=== PATIENT | female | born 1965 | race Caucasian/White ===

== ENCOUNTER 2017-02-18 16:37 | Emergency (ER) | payer OTHER ==
[2017-02-18] MEDS ORDERED: SODIUM CHLORIDE 0.9% 1,000 ML IV ONE (17:29)
--- NOTE | 2017-02-18 17:37 | ED ---
Nausea/Vomiting/Diarrhea HPI - General Chief complaint: Nausea/Vomiting/Diarrhea Stated complaint: Vomiting - [facility] Time Seen by Provider: 02/18/17 17:10 Source: patient, RN notes reviewed Mode of arrival: wheelchair Limitations: no limitations - History of Present Illness Initial comments: Patient is a 52-year-old female presents to the emergency room for evaluation of cyclic vomiting. Patient states she has a history of cyclic vomiting. Patient states during her last flareup she was admitted here in July. Patient states that she also has chronic back pain. Patient states she's on [place] for chronic back pain. Patient states unable to take a [place] due to vomiting. Patient states vomiting began around 2 AM this morning. Patient states her daughter took her to [facility]. Patient states that she was seen at their emergency room at [facility] and they gave her Reglan, Valium, Benadryl , morphine, Toradol, Phenergan with no relief of symptoms. Patient states that she was then admitted. Patient states that they refused to give her Dilaudid so she left and came here. Patient states Dilaudid is the only thing that helps with her nausea, because it controls her chronic back pain the most. Patient denies abdominal pain. Patient states she was diagnosed with cyclic vomiting about a year ago by Dr. Segura. Patient denies history of abdominal surgeries besides tubal ligation. Patient states she had a few episodes of diarrhea today. Patient denies recent travel outside the country. Patient denies taking antibiotics recently. Patient denies fevers or chills. Patient denies new foods. Patient denies chest pain shortness of breath. Patient states the vomiting is causing her back pain to feel worse. - Related Data Home Medications Medication Instructions Recorded Confirmed Amitriptyline HCl 25 mg PO HS 01/10/15 02/18/17 HYDROcodone/APAP 10-325MG [[place] 1 tab PO QID 01/10/15 02/18/17 10-325] ALPRAZolam 0.25 mg PO TID PRN 01/11/15 02/18/17 Lurasidone HCl [Latuda] 60 mg PO DAILY 02/18/17 02/18/17 Allergies Allergy/AdvReac Type Severity Reaction Status Date / Time ondansetron AdvReac Nausea & Verified 02/18/17 17:41 [From Zofran (as Vomiting hydrochloride)] Review of Systems ROS Statement: Those systems with pertinent positive or pertinent negative responses have been documented in the HPI. ROS Other: All systems not noted in ROS Statement are negative. Past Medical History Past Medical History: GERD/Reflux Additional Past Medical History / Comment(s): cyclic vomiting syndrome-HAS'NT BEEN ABLE TO TAKE ANY OF HER MEDS FOR PAST 5 DAYS, KIDNEY STONE, HIATAL HERNIA, MIGRAINES, SCOLIOSIS,COMPRESSED VERTEBRA/BACK PAIN. History of Any Multi-Drug Resistant Organisms: None Reported Past Surgical History: Tubal Ligation Additional Past Surgical History / Comment(s): BENIGN bone tumor removed lt leg Past Anesthesia/Blood Transfusion Reactions: No Reported Reaction Past Psychological History: Anxiety, Depression Smoking Status: Never smoker Past Alcohol Use History: None Reported Past Drug Use History: Marijuana - Past Family History Mother Family Medical History: Cancer Additional Family Medical History / Comment(s): lymphoma Father Family Medical History: Coronary Artery Disease (CAD), Myocardial Infarction ([place] ) General Exam - General Exam Comments Initial Comments: Laying in exam room, no distress. Limitations: no limitations General appearance: alert, in no apparent distress Head exam: Present: atraumatic, normocephalic, normal inspection Eye exam: Present: normal appearance ENT exam: Present: normal exam Neck exam: Present: normal inspection Respiratory exam: Present: normal lung sounds bilaterally. Absent: respiratory distress Cardiovascular Exam: Present: regular rate, normal rhythm, normal heart sounds GI/Abdominal exam: Present: soft, normal bowel sounds. Absent: distended, tenderness, guarding, rebound, rigid Extremities exam: Present: normal inspection Back exam: Present: normal inspection Neurological exam: Present: alert, oriented X3, CN II-XII intact, normal gait Psychiatric exam: Present: normal affect, normal mood Skin exam: Present: warm, dry, intact, normal color. Absent: rash Course Vital Signs 02/18/17 02/18/17 16:43 18:53 Temperature 98.2 F 98.3 F Pulse Rate 80 102 H Respiratory 20 18 Rate Blood Pressure 178/84 117/61 O2 Sat by Pulse 99 97 Oximetry Medical Decision Making - Medical Decision Making Patient is a 52-year-old female presents emergency room for evaluation of exacerbation of cyclic vomiting. Patient was at [facility] earlier today and came directly here because she's not given Dilaudid. They spoke to on-call physician Dr. Ludwig who accepted admission. He recommended ordering IV Phenergan, Toradol and scopolamine patch. Patient states that those medications did not work for her so she left AGAINST MEDICAL ADVICE. Patient's labs did show improvement from labs compared to [facility] earlier today. Patient was given Dilaudid and states she is feeling much better. Patient is now sleeping in the room. I discussed case Dr. Hernandez. Dr. Hernandez discussed case with Dr. Ludwig who did not want to give Dilaudid and stated he would agree to Phenergan, Toradol and scopolamine patch. I did discuss this with patient. Patient states she is feeling better and would like to be discharged home. Return parameters discussed. - Lab Data Result diagrams: 02/18/17 17:05 02/18/17 17:05 Lab Results 02/18/17 02/18/17 02/18/17 Range/Units 17:05 17:05 17:05 WBC 11.9 H (3.8-10.6) k/uL RBC 4.71 (3.80-5.40) m/uL Hgb 12.8 (11.4-16.0) gm/dL Hct 38.6 (34.0-46.0) % MCV 81.9 (80.0-100.0) fL MCH 27.2 (25.0-35.0) pg MCHC 33.2 (31.0-37.0) g/dL RDW 13.9 (11.5-15.5) % Plt Count 301 (150-450) k/uL Neutrophils % 88 % Lymphocytes % 7 % Monocytes % 3 % Eosinophils % 0 % Basophils % 0 % Neutrophils # 10.5 H (1.3-7.7) k/uL Lymphocytes # 0.9 L (1.0-4.8) k/uL Monocytes # 0.4 (0-1.0) k/uL Eosinophils # 0.0 (0-0.7) k/uL Basophils # 0.0 (0-0.2) k/uL Sodium 140 (137-145) mmol/L Potassium 4.0 (3.5-5.1) mmol/L Chloride 107 (98-107) mmol/L Carbon Dioxide 20 L (22-30) mmol/L Anion Gap 13 mmol/L BUN 13 (7-17) mg/dL Creatinine 0.54 (0.52-1.04) mg/dL Est GFR (MDRD) Af Amer >60 (>60 ml/min/1.73 sqM) Est GFR (MDRD) Non-Af >60 (>60 ml/min/1.73 sqM) Glucose 134 H (74-99) mg/dL Calcium 8.9 (8.4-10.2) mg/dL Magnesium 1.7 (1.6-2.3) mg/dL Total Bilirubin 0.6 (0.2-1.3) mg/dL AST 17 (14-36) U/L ALT 26 (9-52) U/L Alkaline Phosphatase 101 (38-126) U/L Total Protein 8.0 (6.3-8.2) g/dL Albumin 4.3 (3.5-5.0) g/dL Amylase 51 (30-110) U/L Lipase 82 (23-300) U/L Disposition Clinical Impression: Cyclic vomiting syndrome, Chronic back pain Disposition: HOME SELF-CARE Instructions: Acute Nausea and Vomiting (ED) Additional Instructions: Continue with at home medications. Please follow up with primary care provider in 1-2 days. If any new symptom arises or symptoms worsen, return to ER as soon as possible. Referrals: Leo Kirby DO [Primary Care Provider] - 1-2 days Time of Disposition: 18:43
[2017-02-18 17:47] LABS: Basophils % (A) 0 %; CH 27.5; CHCM 33.7; Eosinophils % (A) 0 %; HCT 38.6 % (34.0-46.0); HDW 2.59; HGB 12.8 gm/dL (11.4-16.0); Luc # (Auto) 0.13; Luc % (Auto) 1; Lymphocytes # (A) 0.9 k/uL (1.0-4.8); Lymphocytes % (A) 7 %; MCH 27.2 pg (25.0-35.0); MCHC 33.2 g/dL (31.0-37.0); MCV 81.9 fL (80.0-100.0); Mean Platelet Volume 7.3; Monocytes # (A) 0.4 k/uL (0-1.0); Monocytes % (A) 3 %; Neutrophils # (A) 10.5 k/uL (1.3-7.7); Neutrophils % (A) 88 %; RBC 4.71 m/uL (3.80-5.40); RDW 13.9 % (11.5-15.5); WBC 11.9 k/uL (3.8-10.6); WBC (Perox) 11.96
[2017-02-18] MEDS ORDERED: METOCLOPRAMIDE 5 MG/ML 2 ML VIAL IVP STA (17:48)
[2017-02-18] MEDS ORDERED: HYDROmorphone 1 MG/ML 1 ML SYRINGE IVP STA (17:48)
[2017-02-18 17:56] LABS: ALT 26 U/L (9-52); AST 17 U/L (14-36); Alkaline Phosphatase 101 U/L (38-126); Amylase 51 U/L (30-110); Anion Gap 13 mmol/L; Blood Urea Nitrogen 13 mg/dL (7-17); Calcium 8.9 mg/dL (8.4-10.2); Carbon Dioxide 20 mmol/L (22-30); Chloride 107 mmol/L (98-107); Glucose 134 mg/dL (74-99); Non-African American GFR(MDRD) >60 (>60 ml/min/1.73 sqM); Sodium 140 mmol/L (137-145); Total Bilirubin 0.6 mg/dL (0.2-1.3)
[2017-02-18 18:53] VITALS: BP 117/61; PULSE 102; RESP 18; TEMP 98.3
== END 2017-02-18 18:54 | disposition home or self-care (01) ==
LOC: EC 16:37
DX: G43.A0 Cyclical vomiting, in migraine, not intractable (principal); G89.29 Other chronic pain; M54.9 Dorsalgia, unspecified; M41.9 Scoliosis, unspecified; F32.9 Major depressive disorder, single episode, unspecified; Z88.8 Allergy status to other drugs, medicaments and biological substances; Z79.891 Long term (current) use of opiate analgesic; Z79.899 Other long term (current) drug therapy
CPT/HCPCS: 99284; 96374; 96375; 96361; 36415; 80053; 82150; 83690; 83735; 85025; J2765; J1170

== ENCOUNTER 2017-02-20 10:42 | Observation (INO) | payer OTHER ==
[2017-02-20] MEDS ORDERED: SODIUM CHLORIDE 0.9% 1,000 ML IV STA (11:42)
[2017-02-20] MEDS ORDERED: HYDROmorphone 1 MG/ML 1 ML SYRINGE IVP STA (11:42)
[2017-02-20] MEDS ORDERED: METOCLOPRAMIDE 5 MG/ML 2 ML VIAL IVP STA ×3 (11:42→13:58)
[2017-02-20] MEDS ORDERED: FAMOTIDINE 20 MG/2 ML VIAL IV STA ×2 (11:49→13:58)
[2017-02-20 12:08] LABS: Basophils % (A) 0 %; CH 27.2; CHCM 33.6; Eosinophils % (A) 0 %; HDW 2.55; HGB 12.9 gm/dL (11.4-16.0); Luc # (Auto) 0.16; Luc % (Auto) 1; Lymphocytes # (A) 1.8 k/uL (1.0-4.8); Lymphocytes % (A) 16 %; MCH 27.7 pg (25.0-35.0); MCV 81.4 fL (80.0-100.0); Mean Platelet Volume 7.2; Monocytes # (A) 0.4 k/uL (0-1.0); Monocytes % (A) 4 %; Neutrophils # (A) 8.6 k/uL (1.3-7.7); Neutrophils % (A) 78 %; RBC 4.66 m/uL (3.80-5.40); RDW 14.1 % (11.5-15.5); WBC 10.9 k/uL (3.8-10.6); WBC (Perox) 11.03
--- NOTE | 2017-02-20 12:11 | XR ---
EXAMINATION TYPE: XR chest 2V DATE OF EXAM: 02/20/2017 12:04 PM COMPARISON: 08/05/2016 HISTORY: Shortness of breath TECHNIQUE: Frontal and lateral views of the chest are obtained. FINDINGS: Scattered senescent parenchymal changes noted. Hyperinflation compatible with COPD. No evidence for infiltrate. No evidence for atelectasis. Heart size is stable. Mediastinal structures are stable and grossly unremarkable. No evidence for hilar prominence. Degenerative changes dorsal spine. IMPRESSION: 1. No evidence for acute pulmonary disease.
[2017-02-20 12:12] LABS: ALT 30 U/L (9-52); AST 18 U/L (14-36); Alkaline Phosphatase 88 U/L (38-126); Amylase 52 U/L (30-110); Anion Gap 12 mmol/L; Blood Urea Nitrogen 18 mg/dL (7-17); Calcium 8.9 mg/dL (8.4-10.2); Carbon Dioxide 20 mmol/L (22-30); Chloride 108 mmol/L (98-107); Glucose 134 mg/dL (74-99); Non-African American GFR(MDRD) >60 (>60 ml/min/1.73 sqM); Potassium 3.5 mmol/L (3.5-5.1); Sodium 140 mmol/L (137-145); Total Bilirubin 0.7 mg/dL (0.2-1.3); Total Protein 7.6 g/dL (6.3-8.2)
--- NOTE | 2017-02-20 12:12 | XR ---
EXAMINATION TYPE: XR KUB DATE OF EXAM: 02/20/2017 12:04 PM COMPARISON: NONE HISTORY: Pain TECHNIQUE: Single supine KUB image of the abdomen is obtained FINDINGS: Small bowel demonstrates no evidence for dilatation or air fluid levels. Gas and fecal material is seen in non-distended colon. No convincing evidence for pneumoperitoneum. No unusual calcifications. The lung bases are clear. The osseous structures are intact. IMPRESSION: 1. Overall nonobstructive bowel gas pattern.
[2017-02-20] MEDS ORDERED: SODIUM CHLORIDE 0.9% 1,000 ML IV ONE ×2 (12:36→16:01)
--- NOTE | 2017-02-20 12:51 | ED ---
General Adult HPI - General Chief complaint: Nausea/Vomiting/Diarrhea Stated complaint: back pain, vomiting Time Seen by Provider: 02/20/17 11:29 Source: patient, family Mode of arrival: wheelchair Limitations: no limitations - History of Present Illness Initial comments: Intractable nausea and vomiting she does have a history of cyclical vomiting in the past she has seen a GI doctor Dr. Fulton and that she had a recent scope she denies any abdominal pain any chest pain or shortness of breath and no fever no chills she denies any emesis with the blood either she has no history of abdominal surgeries area she does have a back pain and she does smoke marijuana daily and she is aware that marijuana could cause cyclical vomiting. Her daughter demanded a Reglan and Dilaudid and stated that this combination is usually what works and lifts his to Ms. unremarkable otherwise - Related Data Home Medications Medication Instructions Recorded Confirmed Amitriptyline HCl 25 mg PO HS 01/10/15 02/20/17 HYDROcodone/APAP 10-325MG [[place] 1 tab PO QID 01/10/15 02/20/17 10-325] ALPRAZolam 0.25 mg PO TID PRN 01/11/15 02/20/17 Lurasidone HCl [Latuda] 60 mg PO DAILY 02/18/17 02/20/17 Allergies Allergy/AdvReac Type Severity Reaction Status Date / Time ondansetron AdvReac Nausea & Verified 02/20/17 11:12 [From Zofran (as Vomiting hydrochloride)] Review of Systems ROS Statement: Those systems with pertinent positive or pertinent negative responses have been documented in the HPI. ROS Other: All systems not noted in ROS Statement are negative. Past Medical History Past Medical History: GERD/Reflux Additional Past Medical History / Comment(s): cyclic vomiting syndrome-HAS'NT BEEN ABLE TO TAKE ANY OF HER MEDS FOR PAST 5 DAYS, KIDNEY STONE, HIATAL HERNIA, MIGRAINES, SCOLIOSIS,COMPRESSED VERTEBRA/BACK PAIN. History of Any Multi-Drug Resistant Organisms: None Reported Past Surgical History: Tubal Ligation Additional Past Surgical History / Comment(s): BENIGN bone tumor removed lt leg Past Anesthesia/Blood Transfusion Reactions: No Reported Reaction Past Psychological History: Anxiety, Depression Smoking Status: Never smoker Past Alcohol Use History: None Reported Past Drug Use History: Marijuana - Past Family History Mother Family Medical History: Cancer Additional Family Medical History / Comment(s): lymphoma Father Family Medical History: Coronary Artery Disease (CAD), Myocardial Infarction ([place] ) General Exam - General Exam Comments Initial Comments: General: The patient is awake and alert, in great distress because of the emesis Skin: Skin is warm and dry and no rashes or lesions are noted. Eye: Pupils are equal, round and reactive to light, extra-ocular movements are intact; there is normal conjunctiva bilaterally. Ears, nose, mouth and throat: There are moist mucous membranes and no oral lesions. Neck: The neck is supple, there is no tenderness or JVD. Cardiovascular: There is a regular rate and rhythm. No murmur, rub or gallop is appreciated. Respiratory: To auscultation bilateral, no wheezing no rhonchi no distress respiratory weinstein noticed Gastrointestinal: Soft, non-distended, non-tender abdomen without masses or organomegaly noted. There is no rebound or guarding present. Bowel sounds are unremarkable. No focal area of tenderness at all Back: There is no tenderness to palpation in the midline. There is no obvious deformity. Musculoskeletal: Normal ROM, no tenderness, There is no pedal edema. There is no calf tenderness or swelling. No cords were appreciated. Neurological: CN II-XII intact, Cranial nerves III through XII are intact. There are no obvious motor or sensory deficits. Coordination appears grossly intact. Speech is normal. Psychiatric: Cooperative, appropriate mood & affect, normal judgment. Limitations: no limitations Course Vital Signs 02/20/17 02/20/17 10:53 15:30 Temperature 97.5 F L 98.2 F Pulse Rate 90 75 Respiratory 20 16 Rate Blood Pressure 177/83 172/91 O2 Sat by Pulse 98 95 Oximetry Is reassessed at 1357 she got to nausea, and back, she will go ahead and get another dose of Reglan - Reevaluation(s) Reevaluation #1: 02/20/17 15:26 She was reassessed at 1507 and [id number] she stating she is uncomfortable going home and she still 02/20/17 15:59 She was given another trial of antiemetics and then I reassessed at 1558 she feels uncomfortable going home though we made an appointment with the Dr. Kirby, she be admitted under Dr. Chen service Medical Decision Making - Lab Data Result diagrams: 02/20/17 11:48 02/20/17 11:48 Lab Results 02/20/17 02/20/17 02/20/17 Range/Units 11:48 11:48 12:09 WBC 10.9 H (3.8-10.6) k/uL RBC 4.66 (3.80-5.40) m/uL Hgb 12.9 (11.4-16.0) gm/dL Hct 38.0 (34.0-46.0) % MCV 81.4 (80.0-100.0) fL MCH 27.7 (25.0-35.0) pg MCHC 34.0 (31.0-37.0) g/dL RDW 14.1 (11.5-15.5) % Plt Count 333 (150-450) k/uL Neutrophils % 78 % Lymphocytes % 16 % Monocytes % 4 % Eosinophils % 0 % Basophils % 0 % Neutrophils # 8.6 H (1.3-7.7) k/uL Lymphocytes # 1.8 (1.0-4.8) k/uL Monocytes # 0.4 (0-1.0) k/uL Eosinophils # 0.0 (0-0.7) k/uL Basophils # 0.0 (0-0.2) k/uL Sodium 140 (137-145) mmol/L Potassium 3.5 (3.5-5.1) mmol/L Chloride 108 H (98-107) mmol/L Carbon Dioxide 20 L (22-30) mmol/L Anion Gap 12 mmol/L BUN 18 H (7-17) mg/dL Creatinine 0.56 (0.52-1.04) mg/dL Est GFR (MDRD) Af Amer >60 (>60 ml/min/1.73 sqM) Est GFR (MDRD) Non-Af >60 (>60 ml/min/1.73 sqM) Glucose 134 H (74-99) mg/dL Calcium 8.9 (8.4-10.2) mg/dL Total Bilirubin 0.7 (0.2-1.3) mg/dL AST 18 (14-36) U/L ALT 30 (9-52) U/L Alkaline Phosphatase 88 (38-126) U/L Total Protein 7.6 (6.3-8.2) g/dL Albumin 4.1 (3.5-5.0) g/dL Amylase 52 (30-110) U/L Lipase 72 (23-300) U/L Urine Opiates Screen Detected H (NotDetected) Ur Oxycodone Screen Not Detected (NotDetected) Urine Methadone Screen Not Detected (NotDetected) Ur Propoxyphene Screen Not Detected (NotDetected) Ur Barbiturates Screen Not Detected (NotDetected) U Tricyclic Antidepress Detected H (NotDetected) Ur Phencyclidine Scrn Not Detected (NotDetected) Ur Amphetamines Screen Not Detected (NotDetected) U Methamphetamines Scrn Not Detected (NotDetected) U Benzodiazepines Scrn Detected H (NotDetected) Urine Cocaine Screen Not Detected (NotDetected) U Marijuana (THC) Screen Detected H (NotDetected) Disposition Clinical Impression: Intractable nausea and vomiting Disposition: ADMITTED IP TO THIS [facility] Condition: Good Referrals: Leo Kirby DO [Primary Care Provider] - 1-2 days
[2017-02-20] MEDS ORDERED: LORazepam 2 MG/ML SYRINGE IV STA (13:59)
[2017-02-20] MEDS ORDERED: diphenhydrAMINE 50 MG/ML 1 ML VIAL IVP STA (15:35)
[2017-02-20] MEDS ORDERED: KETOROLAC 30 MG/ML 1 ML VIAL IVP STA (16:10)
[2017-02-20] MEDS: HYDROcodone/APAP 10-325MG 1 EACH TAB PO SCH ×2 (17:24→20:36)
[2017-02-20] MEDS: METOCLOPRAMIDE 5 MG/ML 2 ML VIAL IVP SCH ×2 (17:25→23:33)
[2017-02-20] MEDS: ALPRAZolam 0.25 MG TAB PO PRN (20:36)
[2017-02-20] MEDS: AMITRIPTYLINE HCL 25 MG TAB PO SCH (20:37)
[2017-02-20] MEDS: HYDROmorphone 1 MG/ML 1 ML SYRINGE IVP PRN (22:04)
[2017-02-21] MEDS: HYDROmorphone 1 MG/ML 1 ML SYRINGE IVP PRN ×4 (02:08→13:03)
[2017-02-21] MEDS: METOCLOPRAMIDE 5 MG/ML 2 ML VIAL IVP SCH ×2 (05:24→11:26)
[2017-02-21] MEDS: LURASIDONE 40 MG TAB PO SCH (07:58)
[2017-02-21] MEDS: HYDROcodone/APAP 10-325MG 1 EACH TAB PO SCH ×4 (07:58→22:28)
[2017-02-21] MEDS ORDERED: ENOXAPARIN 40 MG/0.4 ML SYRINGE SQ SCH (10:45)
[2017-02-21 11:20] VITALS: BMI 29.9
[2017-02-21] MEDS: KETOROLAC 30 MG/ML 1 ML VIAL IVP PRN (16:03)
[2017-02-21] MEDS: ENOXAPARIN 40 MG/0.4 ML SYRINGE SQ SCH (16:04)
--- NOTE | 2017-02-21 16:59 | HP ---
DATE OF ADMISSION: 02/20/2017 PRESENTING COMPLAINT: Nausea, vomiting. HISTORY OF PRESENTING COMPLAINT: This is a pleasant 52-year-old patient of Dr. Kirby. Patient presented with intractable nausea, vomiting. Patient was diagnosed with cyclical vomiting by Dr. Josiane Segura several years ago. Patient's chronic stable medical conditions include anxiety, depression, GERD, hiatal hernia. Patient also has chronic lower back pain. Patient presented with 4 days of persistent vomiting, some abdominal discomfort. No fever. Not able to keep anything down. Admitted for the same. This is a flareup of cyclical vomiting syndrome. The patient's daughter is at the bedside. Patient's last time vomiting was last night. REVIEW OF SYSTEMS: CONSTITUTIONAL: Tired. HEENT: None. RESPIRATORY: None. CARDIOVASCULAR: None. GASTROINTESTINAL: As above. GENITOURINARY: None. MUSCULOSKELETAL: Chronic low back pain. DERMATOLOGICAL: None. HEMATOLOGICAL: None. LYMPHATICS: None. PSYCHIATRY: None. NEUROLOGICAL: None. PAST MEDICAL HISTORY: 1. GERD. 2. Cyclical vomiting syndrome. 3. Kidney stones. 4. Hiatal hernia. 5. Migraines. 6. Scoliosis. 7. Compressed vertebra of the lower back. PAST SURGICAL HISTORY: 1. Tubal ligation. 2. Benign bone tumor removed from the left leg. SOCIAL HISTORY: Does not smoke or drink alcohol. Lives with her significant other. FAMILY HISTORY: Lymphoma. HOME MEDICATION: 1. Latuda 60 mg p.o. daily. 2. [place] 10 one tablet p.o. q.i.d. 3. Amitriptyline 25 mg p.o. at bedtime. 4. Xanax 0.25 p.o. t.i.d. p.r.n. ALLERGIES: ZOFRAN causing some nausea, vomiting. PHYSICAL EXAMINATION: VITAL SIGNS ON PRESENTATION: Temperature 99, pulse 58, respiration 20, blood pressure 157/81, pulse ox 98% on room air. GENERAL APPEARANCE: Well built; BMI of 30. Sitting in bed. Tired-appearing. EYES: Pupils equal. Conjunctivae normal. HEENT: External appearance of nose and ears normal. Oral cavity with dry mucous membrane. NECK: JVD not raised. Mass not palpable. RESPIRATORY: Effort normal. Lungs are clear. CARDIOVASCULAR: First and second sounds normal. No edema. ABDOMEN: Soft, nontender. Liver and spleen not palpable. LYMPHATIC: No lymph node palpable in neck or axillae. PSYCHIATRY: Alert and oriented x3. Mood and affect normal. NEUROLOGICAL: Pupils equal. Cranial nerves grossly intact. Power and sensation grossly intact. INVESTIGATIONS: White count 10.9, hemoglobin 12.9. Potassium 3.5. BUN 18, creatinine 0.56. Urine drug screen positive for opiates, tricyclic antidepressant, benzodiazepine, marijuana. ASSESSMENT: 1. Acute flareup of cyclical vomiting syndrome. 2. Gastroesophageal reflux disease. 3. Anxiety and depression not otherwise specified. 4. Chronic low back pain from lumbar vertebral fractures. PLAN: Patient was put on IV fluids; did get some IV Dilaudid, after which her nausea and vomiting became worse again. Lovenox for DVT prophylaxis. IV Reglan. Patient admitted. She was made n.p.o. Some clear liquids were tried. Did explain to the patient that the Dilaudid side effect actually made nausea worse. Patient encouraged to be out of bed. Patient does feel rather weak and tired. Will probably at least need 2 nights in the hospital.
[2017-02-21] MEDS: METOCLOPRAMIDE 10 MG TAB PO SCH (17:38)
[2017-02-21] MEDS: ALPRAZolam 0.25 MG TAB PO PRN (17:41)
[2017-02-21] MEDS: AMITRIPTYLINE HCL 25 MG TAB PO SCH (20:02)
[2017-02-21] MEDS: hydrALAZINE HCL 10 MG TAB PO SCH (20:35)
[2017-02-22] MEDS: METOCLOPRAMIDE 10 MG TAB PO SCH ×2 (07:10→12:41)
[2017-02-22] MEDS: ENOXAPARIN 40 MG/0.4 ML SYRINGE SQ SCH (07:10)
[2017-02-22] MEDS: hydrALAZINE HCL 10 MG TAB PO SCH (07:10)
[2017-02-22] MEDS: LURASIDONE 40 MG TAB PO SCH (07:10)
[2017-02-22] MEDS: KETOROLAC 30 MG/ML 1 ML VIAL IVP PRN (07:11)
[2017-02-22] MEDS: HYDROcodone/APAP 10-325MG 1 EACH TAB PO SCH ×3 (07:11→15:50)
[2017-02-22 08:08] LABS: Anion Gap 10 mmol/L; Blood Urea Nitrogen 8 mg/dL (7-17); Calcium 8.6 mg/dL (8.4-10.2); Carbon Dioxide 22 mmol/L (22-30); Chloride 107 mmol/L (98-107); Glucose 116 mg/dL (74-99); Non-African American GFR(MDRD) >60 (>60 ml/min/1.73 sqM); Potassium 3.2 mmol/L (3.5-5.1); Sodium 139 mmol/L (137-145)
[2017-02-22 08:29] VITALS: RESP 18; TEMP 98.2
[2017-02-22] MEDS ORDERED: hydrALAZINE HCL 10 MG TAB PO SCH (13:00)
[2017-02-22 15:07] VITALS: BP 161/88; PULSE 92
--- NOTE | 2017-02-22 19:51 | PN ---
DATE OF SERVICE: 02/22/2017 PRESENTING COMPLAINT: Nausea and vomiting. INTERVAL HISTORY: This is a 52-year-old female who presented with intractable nausea and vomiting. Today and on the overnight, patient has had no episodes of vomiting; however, this morning, patient does feel nauseated and has not required any type of medication or medicinal intervention. Review of systems done for constitutional, cardiovascular, GI, pulmonary with relevant findings as above. CURRENT MEDICATIONS: 1. Latuda. 2. [place]. 3. Amitriptyline. 4. Xanax. PHYSICAL EXAM: VITAL SIGNS: Temperature 97.3, pulse 94, blood pressure 150/96, oxygen 97% on room air. GENERAL APPEARANCE: Patient is a little tired, was kept awake by roommate. Anxious to go home. EYES: Pupils equal. Conjunctivae normal. NECK: JVD not raised. Mass not palpable. Lung sounds clear to auscultation bilaterally. RESPIRATORY: Effort normal. Unlabored. CARDIOVASCULAR: First and second sounds noted. No edema present. ABDOMEN: Soft, nontender. Liver and spleen not palpable. PSYCHIATRY: Alert and oriented x3. Mood and affect are appropriate for the situation. INVESTIGATIONS: Sodium 139, potassium 3.2, BUN 8, creatinine 0.53. ASSESSMENT: 1. Acute flare-up of cyclical vomiting syndrome. 2. Gastroesophageal reflux disease. 3. Anxiety and depression, not otherwise specified. 4. Chronic low back pain from lumbar vertebrae fractures. PLAN: Patient's fluids have been reduced. Patient is currently able to tolerate liquids and is able to keep a soft diet and down without any difficulty. Patient has been getting up and around out of bed. Will continue to monitor. I performed a history and physical examination of this patient and discussed the same with the dictator. I agree with the dictator's note. Any additional findings/opinions, etc. will be noted.
--- NOTE | 2017-02-26 15:23 | DS ---
DATE OF ADMISSION: 02/20/2017 DATE OF DISCHARGE: 02/22/2017 FINAL DIAGNOSES: 1. Acute flare-up of cyclical vomiting syndrome. 2. Gastroesophageal reflux disease. 3. Anxiety and depression, not otherwise specified. 4. Chronic low back pain, lumbar vertebral fracture, chronic. 5. Essential hypertension. HOSPITAL COURSE: This patient presented with flare of cyclical vomiting syndrome; given antiemetics, pain medication, IV fluids. She responded well. At the time of discharge, tolerating a diet, overall feeling better. Medication is being added for blood pressure. Blood pressure tends to run on the higher side. On exam, lungs are clear. CARDIOVASCULAR: First and second sounds are normal. LABS: BUN and creatinine are normal. DISCHARGE MEDICATIONS: 1. Amitriptyline 25 mg at bedtime. 2. [place] 10, 1 q.i.d. 3. Xanax 0.25 p.o. t.i.d. p.r.n. 4. Latuda 60 mg p.o. daily. 5. Zestoretic. 6. ( ) 1 tablet p.o. b.i.d. Follow up with Dr. Kirby in 1 week. Care was discussed with the patient.
== END 2017-02-22 13:32 | disposition home or self-care (01) ==
LOC: EC 10:42 → INTOOBSV 16:03 → 5MS5E 16:03
PROVIDERS: ADMIT Hospitalist; ATTEND Hospitalist
DX: G43.A1 Cyclical vomiting, in migraine, intractable (principal); K21.9 Gastro-esophageal reflux disease without esophagitis; F41.9 Anxiety disorder, unspecified; F32.9 Major depressive disorder, single episode, unspecified; M41.9 Scoliosis, unspecified; M54.5 Low back pain; G89.29 Other chronic pain; G43.909 Migraine, unspecified, not intractable, without status migrainosus; K44.9 Diaphragmatic hernia without obstruction or gangrene; I10 Essential (primary) hypertension; R53.1 Weakness; Z87.442 Personal history of urinary calculi; Z80.7 Family history of other malignant neoplasms of lymphoid, hematopoietic and related tissues; Z98.51 Tubal ligation status; Z88.8 Allergy status to other drugs, medicaments and biological substances; Z79.891 Long term (current) use of opiate analgesic; Z79.899 Other long term (current) drug therapy; Z82.49 Family history of ischemic heart disease and other diseases of the circulatory system; Z87.311 Personal history of (healed) other pathological fracture
CPT/HCPCS: 96376 ×4; 96375 ×2; 96361; 96374; 99285; 36415; 80053; 80048; 82150; 83690; 85025; 80306; 71020; 74000; G0378 ×3; J2060; J1200; J2765 ×2; J1650 ×2; J1885 ×3; J1170 ×2

== ENCOUNTER 2017-05-12 08:21 | Inpatient (IN) | payer OTHER ==
[2017-05-12] MEDS ORDERED: METOCLOPRAMIDE 5 MG/ML 2 ML VIAL IVP STA (08:26)
[2017-05-12] MEDS ORDERED: HYDROmorphone 1 MG/ML 1 ML SYRINGE IVP STA ×2 (08:26→19:54)
[2017-05-12] MEDS ORDERED: diphenhydrAMINE 50 MG/ML 1 ML VIAL IVP STA (08:27)
--- NOTE | 2017-05-12 08:37 | ED ---
Nausea/Vomiting/Diarrhea HPI - General Chief complaint: Nausea/Vomiting/Diarrhea Stated complaint: cyclic vomiting syndrome Time Seen by Provider: 05/12/17 08:32 Source: patient, RN notes reviewed Mode of arrival: wheelchair Limitations: no limitations - History of Present Illness Initial comments: This is a 52-year-old female presents emergency complaint nausea vomiting. Patient has a history of cyclic vomiting states started earlier. She states that she cannot stop vomiting. Patient complains of diffuse abdominal discomfort which is typical for her. Patient does admit that she smokes marijuana daily. Patient states that she's had no fever no chills. Denies any constipation. Patient states that she has had some loose stools Patient has ALLERGY to Zofran. Patient's a prior tubal ligation. Patient denies any other complaints this time. Denies any chest pain or shortness breath. - Related Data Home Medications Medication Instructions Recorded Confirmed HYDROcodone/APAP 10-325MG [[place] 1 tab PO QID PRN 01/10/15 05/12/17 10-325] ALPRAZolam 0.25 mg PO TID PRN 01/11/15 05/12/17 Amitriptyline HCl [Elavil] 50 mg PO HS 05/12/17 05/12/17 Allergies Allergy/AdvReac Type Severity Reaction Status Date / Time ondansetron AdvReac Nausea & Verified 05/12/17 09:04 [From Zofran (as Vomiting hydrochloride)] Review of Systems ROS Statement: Those systems with pertinent positive or pertinent negative responses have been documented in the HPI. ROS Other: All systems not noted in ROS Statement are negative. Past Medical History Past Medical History: GERD/Reflux Additional Past Medical History / Comment(s): cyclic vomiting syndrome-HAS'NT BEEN ABLE TO TAKE ANY OF HER MEDS FOR PAST 5 DAYS, KIDNEY STONE, HIATAL HERNIA, MIGRAINES, SCOLIOSIS,COMPRESSED VERTEBRA/BACK PAIN. History of Any Multi-Drug Resistant Organisms: None Reported Past Surgical History: Tubal Ligation Additional Past Surgical History / Comment(s): BENIGN bone tumor removed lt leg Past Anesthesia/Blood Transfusion Reactions: No Reported Reaction Additional Past Anesthesia/Blood Transfusion Reaction / Comment(s): CLAUSTEPHOBIC Past Psychological History: Anxiety, Depression Smoking Status: Never smoker - Past Family History Mother Family Medical History: Cancer Additional Family Medical History / Comment(s): lymphoma Father Family Medical History: Coronary Artery Disease (CAD), Myocardial Infarction ([place] ) General Exam Limitations: no limitations General appearance: alert, in no apparent distress Head exam: Present: atraumatic, normocephalic, normal inspection Neck exam: Present: normal inspection. Absent: tenderness, meningismus, lymphadenopathy Respiratory exam: Present: normal lung sounds bilaterally. Absent: respiratory distress, wheezes, rales, rhonchi, stridor Cardiovascular Exam: Present: regular rate, normal rhythm, normal heart sounds. Absent: systolic murmur, diastolic murmur, rubs, gallop, clicks GI/Abdominal exam: Present: soft, tenderness (Diffuse mild to moderate), normal bowel sounds. Absent: distended, guarding, rebound, rigid Neurological exam: Present: alert, oriented X3, CN II-XII intact Skin exam: Present: warm, dry, intact, normal color. Absent: rash Course Vital Signs 05/12/17 05/12/17 05/12/17 08:27 09:51 10:33 Temperature 98.9 F Pulse Rate 81 65 103 H Respiratory 18 20 22 Rate Blood Pressure 175/108 149/68 151/56 O2 Sat by Pulse 99 100 99 Oximetry Medical Decision Making - Medical Decision Making 52-year-old female presented for nausea vomiting. Patient has intractable nausea body/cyclic vomiting. Patient required multiple rounds of antinausea medication here with no relief. Patient will be admitted at this time - Lab Data Result diagrams: 05/12/17 08:45 05/12/17 08:45 Lab Results 05/12/17 05/12/17 Range/Units 08:45 08:45 WBC 14.4 H (3.8-10.6) k/uL RBC 4.85 (3.80-5.40) m/uL Hgb 13.5 (11.4-16.0) gm/dL Hct 40.5 (34.0-46.0) % MCV 83.6 (80.0-100.0) fL MCH 27.9 (25.0-35.0) pg MCHC 33.3 (31.0-37.0) g/dL RDW 14.1 (11.5-15.5) % Plt Count 334 (150-450) k/uL Neutrophils % 78 % Lymphocytes % 16 % Monocytes % 3 % Eosinophils % 2 % Basophils % 0 % Neutrophils # 11.2 H (1.3-7.7) k/uL Lymphocytes # 2.3 (1.0-4.8) k/uL Monocytes # 0.4 (0-1.0) k/uL Eosinophils # 0.2 (0-0.7) k/uL Basophils # 0.0 (0-0.2) k/uL Sodium 142 (137-145) mmol/L Potassium 4.2 (3.5-5.1) mmol/L Chloride 111 H (98-107) mmol/L Carbon Dioxide 19 L (22-30) mmol/L Anion Gap 12 mmol/L BUN 14 (7-17) mg/dL Creatinine 0.61 (0.52-1.04) mg/dL Est GFR (MDRD) Af Amer >60 (>60 ml/min/1.73 sqM) Est GFR (MDRD) Non-Af >60 (>60 ml/min/1.73 sqM) Glucose 150 H (74-99) mg/dL Calcium 9.6 (8.4-10.2) mg/dL Total Bilirubin 0.3 (0.2-1.3) mg/dL AST 23 (14-36) U/L ALT 23 (9-52) U/L Alkaline Phosphatase 97 (38-126) U/L Total Protein 7.3 (6.3-8.2) g/dL Albumin 4.0 (3.5-5.0) g/dL Amylase 46 (30-110) U/L Lipase 126 (23-300) U/L Disposition Clinical Impression: Intractable nausea and vomiting, Cyclic vomiting syndrome, Dehydration Disposition: ADMITTED IP TO THIS HOSP Condition: Fair Referrals: Leo Kirby DO [Primary Care Provider] - 1-2 days
[2017-05-12] MEDS: SODIUM CHLORIDE 0.9% 2,000 ML IV STA ×2 (08:47→08:48)
[2017-05-12 09:10] LABS: Basophils % (A) 0 %; CH 27.1; CHCM 32.5; Eosinophils # (A) 0.2 k/uL (0-0.7); Eosinophils % (A) 2 %; HCT 40.5 % (34.0-46.0); HDW 2.48; HGB 13.5 gm/dL (11.4-16.0); Luc # (Auto) 0.23; Luc % (Auto) 2; Lymphocytes # (A) 2.3 k/uL (1.0-4.8); Lymphocytes % (A) 16 %; MCH 27.9 pg (25.0-35.0); MCHC 33.3 g/dL (31.0-37.0); MCV 83.6 fL (80.0-100.0); Mean Platelet Volume 7.7; Monocytes # (A) 0.4 k/uL (0-1.0); Monocytes % (A) 3 %; Neutrophils # (A) 11.2 k/uL (1.3-7.7); Neutrophils % (A) 78 %; RBC 4.85 m/uL (3.80-5.40); RDW 14.1 % (11.5-15.5); WBC 14.4 k/uL (3.8-10.6); WBC (Perox) 13.71
--- NOTE | 2017-05-12 09:11 | XR ---
Abdomen HISTORY: Nausea and vomiting, pain Frontal View of the abdomen on 2 images correlated to prior exam 02/20/2017 There are air-fluid levels without bowel distention. There is a spinal curvature. Lung bases are yudy r. No evident pneumoperitoneum. Probable vascular calcifications within the pelvis. IMPRESSION: Correlate for ileus or enteritis, follow-up as indicated.
[2017-05-12 09:22] LABS: ALT 23 U/L (9-52); AST 23 U/L (14-36); Alkaline Phosphatase 97 U/L (38-126); Amylase 46 U/L (30-110); Anion Gap 12 mmol/L; Blood Urea Nitrogen 14 mg/dL (7-17); Calcium 9.6 mg/dL (8.4-10.2); Carbon Dioxide 19 mmol/L (22-30); Chloride 111 mmol/L (98-107); Glucose 150 mg/dL (74-99); Non-African American GFR(MDRD) >60 (>60 ml/min/1.73 sqM); Potassium 4.2 mmol/L (3.5-5.1); Sodium 142 mmol/L (137-145); Total Bilirubin 0.3 mg/dL (0.2-1.3); Total Protein 7.3 g/dL (6.3-8.2)
[2017-05-12] MEDS ORDERED: PROMETHAZINE INJ 25 MG in SODIUM CHLORIDE 0.9% 50 ML IVPB STA (09:43)
[2017-05-12] MEDS ORDERED: PROCHLORPERAZINE SUPPOSITORY 25 MG SUPP RECTAL PRN (10:55)
[2017-05-12] MEDS ORDERED: NALOXONE 0.4 MG/ML 1 ML VIAL IV PRN (10:55)
[2017-05-12] MEDS ORDERED: FAMOTIDINE 20 MG/2 ML VIAL IV STA (10:57)
[2017-05-12] MEDS ORDERED: LORazepam 2 MG/ML SYRINGE IV STA (10:57)
[2017-05-12] MEDS: METOCLOPRAMIDE 5 MG/ML 2 ML VIAL IVP SCH ×3 (12:01→23:16)
[2017-05-12] MEDS: SODIUM CHLORIDE 0.9% 1,000 ML IV SCH ×2 (12:01→20:15)
[2017-05-12] MEDS ORDERED: HYDROcodone/APAP 10-325MG 1 EACH TAB PO PRN (14:23)
[2017-05-12 16:16] LABS: Appearance,Urine Clear (Clear); Bacteria,Urine Rare /hpf; Bilirubin,Urine Negative (Negative); Glucose,Urine (UA) 2+ (Negative); Ketones,Urine 1+ (Negative); Leukocyte Esterase,Urine Negative (Negative); Mucus,Urine Rare /hpf; Nitrite,Urine Negative (Negative); Particle Count 689; Protein,Urine Negative (Negative); RBC,Urine 6 /hpf (0-5); Specific Gravity,Urine 1.011 (1.001-1.035); Squamous Epithelial Cell,Urine 2 /hpf (0-4); UA Billing (MACRO vs. MICRO) MICRO; Urobilinogen,Urine <2.0 mg/dL (<2.0); WBC,Urine 1 /hpf (0-5)
[2017-05-12] MEDS: KETOROLAC 30 MG/ML 1 ML VIAL IVP PRN ×2 (16:36→23:16)
--- NOTE | 2017-05-12 21:26 | P.HPIM ---
<Natalie Worley A - Last Filed: 05/12/17 21:07> History of Present Illness H&P Date: 05/12/17 Chief Complaint: Intractable nausea and vomiting This is a 52-year-old female patient of Dr. Richa Kirby with chronic stable medical conditions of GERD, anxiety and depression, who presents with nausea and vomiting that started about 6:30 this morning. She states she has not been able to stop vomiting. Cannot keep anything down, unable to take her medications. Patient is quite emotional. Boyfriend is at the bedside and both he and the patient states in the past when this has happened Reglan and Dilaudid have fixed the problem. [place] has bilious, yellow-green emesis in it. Review of Systems GEN.: [None] EYES: [None] HEENT: [None] NECK: [None] RESPIRATORY: [None] CARDIOVASCULAR: [None] GASTROINTESTINAL: [None] GENITOURINARY: [None] MUSCULOSKELETAL: [Chronic back pain, T7 compression injury, scoliosis] LYMPHATICS: [None] HEMATOLOGICAL: [None] PSYCHIATRY: [None] NEUROLOGICAL: [None] Past Medical History Past Medical History: GERD/Reflux Additional Past Medical History / Comment(s): cyclic vomiting syndrome-HAS'NT BEEN ABLE TO TAKE ANY OF HER MEDS FOR PAST 5 DAYS, KIDNEY STONE, HIATAL HERNIA, MIGRAINES, SCOLIOSIS,COMPRESSED VERTEBRA/BACK PAIN. History of Any Multi-Drug Resistant Organisms: None Reported Past Surgical History: Tubal Ligation Additional Past Surgical History / Comment(s): BENIGN bone tumor removed lt leg Past Anesthesia/Blood Transfusion Reactions: No Reported Reaction Additional Past Anesthesia/Blood Transfusion Reaction / Comment(s): CLAUSTEPHOBIC Past Psychological History: Anxiety, Depression Additional Psychological History / Comment(s): PT LIVES WITH ZENON, SON AND DAUGHTER. HAS 2 DOGS, 2 CATS. NO OUTSIDE SERVICES, NO MEDICAL EQUIPMENT. PT DOES FACTORY WORK. Smoking Status: Never smoker Past Alcohol Use History: None Reported Past Drug Use History: Marijuana - Past Family History Mother Family Medical History: Cancer Additional Family Medical History / Comment(s): lymphoma Father Family Medical History: Coronary Artery Disease (CAD), Myocardial Infarction ([place] ) Medications and Allergies Home Medications Medication Instructions Recorded Confirmed Type HYDROcodone/APAP 10-325MG [[place] 1 tab PO QID PRN 01/10/15 05/12/17 History 10-325] ALPRAZolam 0.25 mg PO TID PRN 01/11/15 05/12/17 History Amitriptyline HCl [Elavil] 50 mg PO HS 05/12/17 05/12/17 History Allergies Allergy/AdvReac Type Severity Reaction Status Date / Time ondansetron AdvReac Nausea & Verified 05/12/17 09:04 [From Zofran (as Vomiting hydrochloride)] Physical Exam Vitals: Vital Signs Temp Pulse Pulse Resp BP BP Pulse Ox 05/12/17 14:41 98.5 F 89 16 137/70 98 05/12/17 13:08 99.0 F 91 16 135/61 92 L 05/12/17 11:22 83 22 133/67 100 05/12/17 10:33 98.9 F 103 H 22 151/56 99 05/12/17 09:51 65 20 149/68 100 05/12/17 08:27 81 18 175/108 99 Intake and Output 05/12/17 05/12/17 05/12/17 06:59 14:59 22:59 Output Total 3 Balance -3 Output: Emesis 3 Other: Voiding Method Toilet # Voids 1 Weight 79.379 kg Patient Weight 05/13/17 06:59 Weight 79.379 kg VITAL SIGNS: [Reviewed. BMI noted] GENERAL: [Average built, lying in the bed appears uncomfortable, ill]. EYES: [Pupils equal. Conjunctiva emma]l. HEENT: [External appearance of nose and ears normal, oral cavity grossly normal] . NECK: [JVD not raised; masses not palpable]. HEART: [First and second heart sounds are normal; no edema]. LUNGS:[ Respiratory rate normal; clear to auscultation]. ABDOMEN: [Soft, tender, liver spleen not palpable, no masses palpable]. LYMPHATICS: [No lymph nodes palpable in the axilla and neck]. PSYCH: [Alert and oriented x3; mood and affect anxious l. NEUROLOGICAL: [Cranial nerves grossly intact; no facial asymmetry, power and sensation grossly intact]. Results CBC & Chem 7: 05/12/17 08:45 05/12/17 08:45 Labs: Abnormal Lab Results - Last 24 Hours (Table) 05/12/17 05/12/17 05/12/17 Range/Units 08:45 08:45 16:10 WBC 14.4 H (3.8-10.6) k/uL Neutrophils # 11.2 H (1.3-7.7) k/uL Chloride 111 H (98-107) mmol/L Carbon Dioxide 19 L (22-30) mmol/L Glucose 150 H (74-99) mg/dL Urine Glucose (UA) 2+ H (Negative) Urine Ketones 1+ H (Negative) Urine Blood Small H (Negative) Urine RBC 6 H (0-5) /hpf Urine Bacteria Rare H (None) /hpf Urine Mucus Rare H (None) /hpf Thrombosis Risk Factor Assmnt - Choose All That Apply Any of the Below Risk Factors Present?: Yes Each Factor Represents 1 point: Age 41-60 years, Obesity (BMI >25) Other Risk Factors: No Other congenital or acquired thrombophilia - If yes, enter type in comment: No Thrombosis Risk Factor Assessment Total Risk Factor Score: 2 Thrombosis Risk Factor Assessment Level: Low Risk Assessment and Plan Plan: ASSESSMENT: -Intractable nausea and vomiting -GERD -Chronic back pain secondary to scoliosis and T7 compression injury -Anxiety and depression not otherwise specified PLAN: Will reorder home medications, initiate IV fluids, maintain nothing by mouth status, consult GI, discussed plan of care with patient and boyfriend and they are agreeable. <Hugo Ludwig - Last Filed: 05/12/17 22:46> Physical Exam Vitals: Vital Signs Temp Pulse Pulse Resp BP BP Pulse Ox 05/12/17 14:41 98.5 F 89 16 137/70 98 05/12/17 13:08 99.0 F 91 16 135/61 92 L 05/12/17 11:22 83 22 133/67 100 05/12/17 10:33 98.9 F 103 H 22 151/56 99 05/12/17 09:51 65 20 149/68 100 05/12/17 08:27 81 18 175/108 99 Intake and Output 05/12/17 05/12/17 05/12/17 06:59 14:59 22:59 Output Total 3 Balance -3 Output: Emesis 3 Other: Voiding Method Toilet # Voids 1 1 Weight 79.379 kg Patient Weight 05/13/17 06:59 Weight 79.379 kg Results CBC & Chem 7: 05/12/17 08:45 05/12/17 08:45 Labs: Abnormal Lab Results - Last 24 Hours (Table) 05/12/17 05/12/17 05/12/17 Range/Units 08:45 08:45 16:10 WBC 14.4 H (3.8-10.6) k/uL Neutrophils # 11.2 H (1.3-7.7) k/uL Chloride 111 H (98-107) mmol/L Carbon Dioxide 19 L (22-30) mmol/L Glucose 150 H (74-99) mg/dL Urine Glucose (UA) 2+ H (Negative) Urine Ketones 1+ H (Negative) Urine Blood Small H (Negative) Urine RBC 6 H (0-5) /hpf Urine Bacteria Rare H (None) /hpf Urine Mucus Rare H (None) /hpf
--- NOTE | 2017-05-12 22:59 | P.HPIM ---
History of Present Illness H&P Date: 05/12/17 Chief Complaint: Nausea vomiting History of presenting complaint This is a 52-year-old patient of Dr. Richa Kirby. Chronic stable medical conditions include GERD kidney stones had a hernia scoliosis chronic low back pain. Patient presents with nausea vomiting abdominal pain starting early hours of the morning. Patient had eaten [place] food the prior evening. Other people related to but nobody is got sick. Denies any fever or chills. Patient did feel better after getting some Dilaudid and Reglan. Review of systems: Gen.-tired HEENT-none Neck-none neck respiratory-none Cardiovascular-none Gastritis cyto-as above Musculoskeletal chronic low back pain Psych-anxiety Neurological none Genitourinary-none Past medical history: Surgical vomiting syndrome, GERD, kidney stones, hiatal hernia, migraines, scoliosis, compressed vertebra, depression and anxiety Social history lives with boyfriend son and daughter has 2 dogs no smoking no alcohol marijuana use Family history of lymphoma On examination, Temperature 98.9, pulse 91, respiratory 16, blood pressure 135-71, pulse of 92% room air Gen. appearance laying in bed tired appearing Eyes pupils equal, conjunctiva normal HEENT external appearance of nose and ears normal, oral cavity dry mucous membrane Neck- jugular not raised , mass not palpable Respiratory effort normal, lungs fair entry Cardiovascular first second sound normal, no edema Abdomen is soft with mild diffuse tenderness no guarding or rigidity liver spleen not palpable Lymphatics -not palpable in the axilla and neck Psychiatry alert oriented 3 mood affect is normal Neurological-cranial nerves grossly intact, power and sensation grossly intact Investigations White count 14.4, hemoglobin 13.5, potassium 4.2, BUN/creatinine is normal Abdominal x-ray shows some air fluid levels without bowel distention Assessment: Acute gastroenteritis could be from food poisoning having [place] food GERD Cyclical vomiting syndrome Kidney stones Hiatal hernia Scoliosis Anxiety depression not otherwise specified Plan: Patient put on IV fluids. Made nothing by mouth initially we'll try clear liquids if is better. Patient given antiemetics. DVT prophylaxis. Home medications be resumed. Care was discussed with the patient. This is a attending note. Patient was seen and examined by me. I discussed the noted by the BATH MIXER earlier. Past Medical History Past Medical History: GERD/Reflux Additional Past Medical History / Comment(s): cyclic vomiting syndrome-HAS'NT BEEN ABLE TO TAKE ANY OF HER MEDS FOR PAST 5 DAYS, KIDNEY STONE, HIATAL HERNIA, MIGRAINES, SCOLIOSIS,COMPRESSED VERTEBRA/BACK PAIN. History of Any Multi-Drug Resistant Organisms: None Reported Past Surgical History: Tubal Ligation Additional Past Surgical History / Comment(s): BENIGN bone tumor removed lt leg Past Anesthesia/Blood Transfusion Reactions: No Reported Reaction Additional Past Anesthesia/Blood Transfusion Reaction / Comment(s): CLAUSTEPHOBIC Past Psychological History: Anxiety, Depression Additional Psychological History / Comment(s): PT LIVES WITH ZENON, SON AND DAUGHTER. HAS 2 DOGS, 2 CATS. NO OUTSIDE SERVICES, NO MEDICAL EQUIPMENT. PT DOES FACTORY WORK. Smoking Status: Never smoker Past Alcohol Use History: None Reported Past Drug Use History: Marijuana - Past Family History Mother Family Medical History: Cancer Additional Family Medical History / Comment(s): lymphoma Father Family Medical History: Coronary Artery Disease (CAD), Myocardial Infarction ([place] ) Medications and Allergies Home Medications Medication Instructions Recorded Confirmed Type HYDROcodone/APAP 10-325MG [[place] 1 tab PO QID PRN 01/10/15 05/12/17 History 10-325] ALPRAZolam 0.25 mg PO TID PRN 01/11/15 05/12/17 History Amitriptyline HCl [Elavil] 50 mg PO HS 05/12/17 05/12/17 History Allergies Allergy/AdvReac Type Severity Reaction Status Date / Time ondansetron AdvReac Nausea & Verified 05/12/17 09:04 [From Zofran (as Vomiting hydrochloride)] Results CBC & Chem 7: 05/12/17 08:45 05/12/17 08:45 Labs: Abnormal Lab Results - Last 24 Hours (Table) 05/12/17 05/12/17 05/12/17 Range/Units 08:45 08:45 16:10 WBC 14.4 H (3.8-10.6) k/uL Neutrophils # 11.2 H (1.3-7.7) k/uL Chloride 111 H (98-107) mmol/L Carbon Dioxide 19 L (22-30) mmol/L Glucose 150 H (74-99) mg/dL Urine Glucose (UA) 2+ H (Negative) Urine Ketones 1+ H (Negative) Urine Blood Small H (Negative) Urine RBC 6 H (0-5) /hpf Urine Bacteria Rare H (None) /hpf Urine Mucus Rare H (None) /hpf
[2017-05-13] MEDS: METOCLOPRAMIDE 5 MG/ML 2 ML VIAL IVP SCH ×4 (06:13→23:13)
[2017-05-13] MEDS: KETOROLAC 30 MG/ML 1 ML VIAL IVP PRN ×4 (06:13→23:16)
[2017-05-13] MEDS: SODIUM CHLORIDE 0.9% 1,000 ML IV SCH ×2 (09:17→18:15)
[2017-05-13] MEDS: ESOMEPRAZOLE 20 MG in SODIUM CHLORIDE 0.9% 50 ML IVPB SCH (09:17)
[2017-05-13] MEDS: ENOXAPARIN 40 MG/0.4 ML SYRINGE SQ SCH (09:20)
[2017-05-13] MEDS ORDERED: SCOPOLAMINE 1.5MG/72HR PATCH TRANSDERM STA (12:26)
[2017-05-13 12:38] LABS: ALT 34 U/L (9-52); AST 17 U/L (14-36); Alkaline Phosphatase 74 U/L (38-126); Amylase 180 U/L (30-110); Anion Gap 9 mmol/L; Blood Urea Nitrogen 10 mg/dL (7-17); Calcium 8.1 mg/dL (8.4-10.2); Carbon Dioxide 20 mmol/L (22-30); Chloride 113 mmol/L (98-107); Glucose 100 mg/dL (74-99); Non-African American GFR(MDRD) >60 (>60 ml/min/1.73 sqM); Potassium 3.3 mmol/L (3.5-5.1); Sodium 142 mmol/L (137-145); Total Bilirubin 0.4 mg/dL (0.2-1.3); Total Protein 6.1 g/dL (6.3-8.2)
[2017-05-13] MEDS ORDERED: RX INFO: IV CONTRAST WAS GIVEN 1 EACH MISC MISCELLANE PRN (13:01)
--- NOTE | 2017-05-13 13:01 | P.CONS ---
History of Present Illness - Reason for Consult Consult date: 05/13/17 Nausea vomiting Requesting physician: Hugo Ludwig - History of Present Illness 52-year-old female with a history of cyclic vomiting syndrome chronic diarrhea presents with intractable nausea vomiting after eating [place] food night. She ate chicken and rice. Denies hematemesis hematochezia or melena. Admission LFTs amylase lipase normal. Today lipase increased to 1849. Amylase 180. LFTs total bilirubin normal. Admission white count 14.4. He will and 13.5. MCV 83. Platelet 334. No history of pancreatitis. No history of alcoholism. No recent alcoholic drinks. No history of known autoimmune diseases. Patient has been consuming an [id number] weight loss medication for the last 2 months. Denies changes in the color of her urine or stool. Review of Systems Constitutional: Denies fever, chills, sweats, weight gain, or loss. HEENT: Negative for migraines, blurred vision or loss, earaches, drainage, tinnitus, oral mucosal lesions, dysphagia, or odynophagia. CARDIAC: Negative for chest pain, arrhythmias, or palpitation. RESPIRATORY: Negative for shortness of breath, hemoptysis, cough, or sputum production. GI: See HPI for pertinent findings. : Negative for hematuria, urgency, frequency, polyuria, or dysuria. GYNc: Denies possibility of . Negative vaginal discharge. MUSCULOSKELETAL: Negative for muscle aches, swelling, arthritis, and arthralgias. NEUROLOGIC: Negative for stroke or TIA. ENDOCRINE: Negative for thyroid problems. SKIN: Negative for rash or itching. PSYCHIATRIC: Anxiety. Depression. All systems: negative (See HPI) Past Medical History Past Medical History: GERD/Reflux Additional Past Medical History / Comment(s): cyclic vomiting syndrome-HAS'NT BEEN ABLE TO TAKE ANY OF HER MEDS FOR PAST 5 DAYS, KIDNEY STONE, HIATAL HERNIA, MIGRAINES, SCOLIOSIS,COMPRESSED VERTEBRA/BACK PAIN. History of Any Multi-Drug Resistant Organisms: None Reported Past Surgical History: Tubal Ligation Additional Past Surgical History / Comment(s): BENIGN bone tumor removed lt leg Past Anesthesia/Blood Transfusion Reactions: No Reported Reaction Additional Past Anesthesia/Blood Transfusion Reaction / Comm: CLAUSTEPHOBIC Past Psychological History: Anxiety, Depression Additional Psychological History / Comment(s): PT LIVES WITH ZENON, SON AND DAUGHTER. HAS 2 DOGS, 2 CATS. NO OUTSIDE SERVICES, NO MEDICAL EQUIPMENT. PT DOES FACTORY WORK. Smoking Status: Never smoker Past Alcohol Use History: None Reported Past Drug Use History: Marijuana - Past Family History Mother Family Medical History: Cancer Additional Family Medical History / Comment(s): lymphoma Father Family Medical History: Coronary Artery Disease (CAD), Myocardial Infarction ([place] ) Medications and Allergies Home Medications Medication Instructions Recorded Confirmed Type HYDROcodone/APAP 10-325MG [[place] 1 tab PO QID PRN 01/10/15 05/12/17 History 10-325] ALPRAZolam 0.25 mg PO TID PRN 01/11/15 05/12/17 History Amitriptyline HCl [Elavil] 50 mg PO HS 05/12/17 05/12/17 History Allergies Allergy/AdvReac Type Severity Reaction Status Date / Time ondansetron AdvReac Nausea & Verified 05/12/17 09:04 [From Zofran (as Vomiting hydrochloride)] Physical Exam Vitals: Vital Signs Temp Pulse Resp BP Pulse Ox 05/13/17 07:00 97.9 F 81 14 117/62 98 05/12/17 23:00 99.1 F 100 16 109/55 98 05/12/17 14:41 98.5 F 89 16 137/70 98 05/12/17 13:08 99.0 F 91 16 135/61 92 L Intake and Output 05/12/17 05/13/17 05/13/17 22:59 06:59 14:59 Output Total 3 100 Balance -3 -100 Output: Emesis 3 100 Other: Voiding Method Toilet # Voids 1 General appearance: The patient is alert, oriented, in no acute distress. HET: Head is normocephalic and atraumatic. Pupils are equal and reactive. Oropharynx is clear without lesions. Neck: Supple without lymphadenopathy. Trachea midline. Heart: S1 S2. Regular rate and rhythm. Lungs: No crackles or wheezes are heard. Abdomen: Soft, mild midepigastric tenderness, nondistended with bowel sounds. No peritoneal signs. No palpable organomegaly or masses. Extremities: Normal skin color and turgor. No cyanosis, rash, ulceration, clubbing, or edema. Radial and pedal pulses are 2/4 bilaterally. Neurological: No focal deficits. Strength and sensation are grossly intact. Results CBC & Chem 7: 05/12/17 08:45 05/13/17 11:54 Labs: Abnormal Lab Results - Last 24 Hours (Table) 05/12/17 05/13/17 Range/Units 16:10 11:54 Potassium 3.3 L (3.5-5.1) mmol/L Chloride 113 H (98-107) mmol/L Carbon Dioxide 20 L (22-30) mmol/L Creatinine 0.50 L (0.52-1.04) mg/dL Glucose 100 H (74-99) mg/dL Calcium 8.1 L (8.4-10.2) mg/dL Total Protein 6.1 L (6.3-8.2) g/dL Albumin 3.2 L (3.5-5.0) g/dL Amylase 180 H (30-110) U/L Lipase 1849 H (23-300) U/L Urine Glucose (UA) 2+ H (Negative) Urine Ketones 1+ H (Negative) Urine Blood Small H (Negative) Urine RBC 6 H (0-5) /hpf Urine Bacteria Rare H (None) /hpf Urine Mucus Rare H (None) /hpf Assessment and Plan (1) Acute pancreatitis Narrative/Plan: First episode. Etiology unclear. Possible autoimmune possible medication induced. Status: Acute (2) Cyclic vomiting syndrome Status: Chronic Plan: 1. Serologic workup for autoimmune pancreatitis. Triglycerides. We'll proceed with computed tomography scan abdomen and pelvis. Clear liquid diet. Discontinue [id number] weight loss supplement. Supportive measures. Repeat CMP pancreatic enzymes in the a.m. Will follow closely with you. Thank you for this kind referral and the opportunity to participate in the care of your patient. This consultation was discussed with Dr. Segura. The impression and plan of care have been directed as dictated.
[2017-05-13] MEDS: IOHEXOL 350 MG/ML 25 ML BOTTLE (ORAL USE) PO PRN ×2 (13:26→14:11)
--- NOTE | 2017-05-13 15:17 | CT ---
EXAMINATION TYPE: CT abdomen pelvis w con DATE OF EXAM: 05/13/2017 HISTORY: Pancreatitis, elevated amylase and lipase. History of cyclic vomiting syndrome. CT DLP: 771.40mGycm Automated Exposure Control for Dose Reduction was Utilized. CONTRAST: CT scan of the abdomen and pelvis is performed with IV Contrast, patient injected with 100 mL of Omni paque 300. COMPARISON: Gallbladder ultrasound August 05, 2016 FINDINGS: LUNG BASES: No significant abnormality is appreciated. LIVER/GB: Subcentimeter low dense lesion left hepatic lobe on series 3 image 14 is too small to furth er characterize per presumed benign. There is 7 mm hyperdense round area nondependently in inferior gallbladder on coronal image 18 to ref lect polyp. No polyp or gallstone was noted on prior ultrasound. Focal adenomyomatosis is in differen tial. Consider repeat ultrasound correlation. PANCREAS: Pancreas is normal in size. There is no suspicious surrounding inflammation or enlargement. No ductal dilatation is seen. No suspicious areas of nonenhancement are identified. No worrisome adj acent focal fluid collection is seen. SPLEEN: No significant abnormality is seen. ADRENALS: No significant abnormality is seen. KIDNEYS: There are subcentimeter low dense lesion anteriorly upper to mid pole level left kidney seen best on coronal image 54 too small to further characterize but presumed benign. BOWEL: Normal contrast-filled appendix is seen from cecum. UTERUS/ADNEXA: Uterus is heterogeneous in appearance. There appears to be distortion of the endometri um with mass effect along the anterior-inferior aspect, consider submucosal fibroid. Pelvic ultrasoun d can be performed to further evaluate if desired. Slight prominence of the lower uterine segment/cer vix as seen on axial image 68, correlate with pelvic physical exam and Pap smear to rule out mass at this level. Both ovaries are seen near axial image 66. There are round 1.3 and 1.1 cm low dense lesions in both o varies, this can BE further evaluated and characterized with pelvic ultrasound if desired. Greater th an 1 cm cysts in postmenopausal female are noted abnormal finding. Clinical correlation advised. A fe w scattered pelvic phleboliths are seen. LYMPH NODES: No greater than 1cm abdominal or pelvic lymph nodes are appreciated. OSSEOUS STRUCTURES: No significant abnormality is seen. OTHER: Subcutaneous air left mid to lower anterior abdominal wall on axial image [address] of subcutaneous medicine injection. IMPRESSION: 1. No CT evidence for complication related to acute pancreatitis. Pancreas appears within normal limi ts on CT. 2. Attention to gallbladder and uterus/adnexa as noted above.
--- NOTE | 2017-05-13 15:34 | P.PN ---
Progress Note - Text Date of service: 05/13/2017 Presenting complaint abdominal pain Interval history This patient was admitted with what is felt to be acute gastroenteritis. Overnight patient's pancreatic enzymes are gone up. Abdominal pain is a bit better. Nausea is still present. Feels weak and tired. Laying in bed. Review of systems: Was done for constitutional, cardiovascular, GI, pulmonary. relevant finding as above Current medications are reviewed On examination: Vitals: 96.5, 80, 18, 117/62, 98% room air Gen. appearance laying in bed tired appearing Eyes pupils equal, conjunctiva normal Neck- jugular not raised , mass not palpable Respiratory effort normal, lungs fair entry Cardiovascular first second sound normal, no edema Abdomen is soft with mild diffuse tenderness no guarding or rigidity liver spleen not palpable Psychiatry alert oriented 3 mood affect is normal Labs: Potassium 3.3, glucose 100 Albumin 3.2, amylase 180, lipase 1849 Computed tomography scan of the abdomen results noted Assessment Acute severe pancreatitis, idiopathic, present on admission, slow to respond GERD Cyclical vomiting syndrome Kidney stones Hiatal hernia Scoliosis Anxiety depression not otherwise specified Plan: Patient be tried on ice chips. GI was consulted. Care was discussed with the patient's family the bedside Lazard repeated in the morning. Change IV fluids to half saline.
[2017-05-13] MEDS: MELATONIN 3 MG TABLET PO SCH (20:24)
[2017-05-14] MEDS: SODIUM CHLORIDE 0.9% 1,000 ML IV SCH ×2 (03:27→12:35)
[2017-05-14] MEDS: KETOROLAC 30 MG/ML 1 ML VIAL IVP PRN ×2 (05:16→12:34)
[2017-05-14] MEDS: METOCLOPRAMIDE 5 MG/ML 2 ML VIAL IVP SCH ×3 (05:16→18:04)
[2017-05-14] MEDS: ENOXAPARIN 40 MG/0.4 ML SYRINGE SQ SCH (08:29)
[2017-05-14] MEDS: ESOMEPRAZOLE 20 MG in SODIUM CHLORIDE 0.9% 50 ML IVPB SCH (08:29)
--- NOTE | 2017-05-14 10:01 | P.PN ---
Subjective Principal diagnosis: Pancreatitis 52-year-old female with a history of cyclic vomiting syndrome presents with acute epigastric pain nausea vomiting with elevated amylase lipase consistent with pancreatitis. Tolerating liquids; solids increase her nausea. Morning chemistries are pending. CT abdomen and pelvis reported normal size pancreas without suspicious running inflammation or enlargement. No ductal dilation seen. No worrisome adjacent fluid collection. Subcentimeter low-density lesion left hepatic lobe too small to characterize resume to be benign. Hyperdense 7 mm round area nondependent in gallbladder possible polyp. Focal adenomyomatosis within the differential. Objective - Vital Signs Vital signs: Vital Signs Temp 97.8 F 05/14/17 07:00 Pulse 81 05/14/17 07:00 Resp 14 05/14/17 07:00 BP 124/71 05/14/17 07:00 Pulse Ox 96 05/14/17 07:00 Intake & Output 05/13/17 05/14/17 05/14/17 18:59 06:59 18:59 Intake Total 400 Balance 400 Intake: Oral 400 Other: # Voids 2 3 - Exam General appearance: The patient is alert, oriented, in no acute distress. HET: Head is normocephalic and atraumatic. Pupils are equal and reactive. Oropharynx is clear without lesions. Neck: Supple without lymphadenopathy. Trachea midline. Heart: S1 S2. Regular rate and rhythm. Lungs: No crackles or wheezes are heard. Abdomen: Soft, mild midepigastric tenderness, nondistended with bowel sounds. No peritoneal signs. No palpable organomegaly or masses. Extremities: Normal skin color and turgor. No cyanosis, rash, ulceration, clubbing, or edema. Radial and pedal pulses are 2/4 bilaterally. Neurological: No focal deficits. Strength and sensation are grossly intact. - Labs CBC & Chem 7: 05/12/17 08:45 05/13/17 11:54 Labs: Abnormal Lab Results - Last 24 Hours (Table) 05/13/17 Range/Units 11:54 Potassium 3.3 L (3.5-5.1) mmol/L Chloride 113 H (98-107) mmol/L Carbon Dioxide 20 L (22-30) mmol/L Creatinine 0.50 L (0.52-1.04) mg/dL Glucose 100 H (74-99) mg/dL Calcium 8.1 L (8.4-10.2) mg/dL Total Protein 6.1 L (6.3-8.2) g/dL Albumin 3.2 L (3.5-5.0) g/dL Amylase 180 H (30-110) U/L Lipase 1849 H (23-300) U/L Assessment and Plan (1) Acute pancreatitis Narrative/Plan: First Episode. Etiology unclear possible autoimmune possible medication induced. Status: Acute (2) Cyclic vomiting syndrome Status: Chronic Plan: 1. Serologic workup for autoimmune pancreatitis processing. Triglycerides pending. Ultrasound abdomen. Liquid diet advanced as tolerated. Discontinue leue-yov-dorweou weight loss supplement. Supportive measures. Repeat pancreatic enzymes in the a.m. Will follow closely with you. Assessment and plan of care discussed with Dr. Segura
[2017-05-14 10:17] LABS: ALT 32 U/L (9-52); AST 19 U/L (14-36); Alkaline Phosphatase 71 U/L (38-126); Amylase <30 U/L (30-110); Anion Gap 6 mmol/L; Blood Urea Nitrogen 8 mg/dL (7-17); Carbon Dioxide 21 mmol/L (22-30); Chloride 111 mmol/L (98-107); Glucose 85 mg/dL (74-99); Non-African American GFR(MDRD) >60 (>60 ml/min/1.73 sqM); Potassium 3.6 mmol/L (3.5-5.1); Sodium 138 mmol/L (137-145); Total Bilirubin 0.4 mg/dL (0.2-1.3)
[2017-05-14 11:23] LABS: IgG Subclass 3 31.6 mg/dL (11.0-85.0)
[2017-05-14] MEDS ORDERED: ALPRAZolam 0.25 MG TAB PO PRN (13:22)
[2017-05-14] MEDS: HYDROcodone/APAP 10-325MG 1 EACH TAB PO PRN ×2 (13:44→20:47)
[2017-05-14] MEDS: POTASSIUM CHLORIDE ER 20 MEQ TAB.ER PO SCH ×2 (15:55→18:04)
--- NOTE | 2017-05-14 16:05 | US ---
EXAMINATION TYPE: US abdomen limited DATE OF EXAM: 05/14/2017 COMPARISON: CT 05/13/2017 & US 08/05/2016 CLINICAL HISTORY: pancreatitis. Elevated liver enzymes EXAM MEASUREMENTS: Liver Length: 18.8 cm Gallbladder Wall: 0.3 cm CBD: 0.5 cm Right Kidney: 10.9 x 4.4 x 5.4 cm Pancreas: obscured by overlying midline bowel gas Liver: enlarged at 18.8cm, slightly coarse echogenicity, 1.4 x 1.2 x 1.0cm cystic area anterior to g allbladder Gallbladder: wnl Evidence for sonographic Naylor's sign: no CBD: wnl Right Kidney: wnl There is no ascites. IMPRESSION: Exam is somewhat limited. Findings compatible with fatty infiltration of the liver versus hepatocellular disease. Probable cyst associated with the left lobe of the liver adjacent to the gal lbladder. The focus of abnormality seen on CT scan don't likely to represent a small fold, no abnorma l luminal echo.
--- NOTE | 2017-05-14 19:25 | P.PN ---
<Natalie Worley - Last Filed: 05/14/17 19:19> Progress Note - Text Date of service: 05/14/2017 Presenting complaint abdominal pain Interval history This patient was admitted with what is felt to be acute gastroenteritis. Overnight patient's pancreatic enzymes are gone up. Abdominal pain is a bit better. Nausea is still present. Feels weak and tired. Laying in bed. Review of systems: Was done for constitutional, cardiovascular, GI, pulmonary. relevant finding as above Current medications: Leon, Xanax, Elavil, Celexa, Lovenox, Toradol, melatonin. On examination: Vitals: Temperature 97.9, pulse 81, respiratory rate 14, blood pressure 117/62, oxygen saturation 98% on room air Gen. appearance laying in bed tired appearing Eyes pupils equal, conjunctiva normal Neck- jugular not raised , mass not palpable Respiratory effort normal, lungs fair entry Cardiovascular first second sound normal, no edema Abdomen is soft with mild diffuse tenderness no guarding or rigidity liver spleen not palpable Psychiatry alert oriented 3 mood affect is normal Labs: Sodium 138, potassium 3.6, BUN 8, creatinine 0.61, amylase less than 30, lipase 77. Abdominal ultrasound: Findings compatible with fatty infiltration of the liver versus hepatocellular disease. Probable cyst associated with the left lobe of the liver adjacent to the gallbladder. Assessment Acute severe pancreatitis, idiopathic, present on admission, improving GERD Cyclical vomiting syndrome Kidney stones Hiatal hernia Scoliosis Anxiety depression not otherwise specified Plan: Patient be tried on clear liquids, advance as tolerated GI was consulted. Care was discussed with the patient's family the bedside Lazard repeated in the morning. EMD SPECIAL EDUCATION TEACHER STATEMENT: Patient was seen and examined by nurse practitioner Natalie Worley and all elements of the case discussed with attending Dr. Ludwig. <Hugo Ludwig - Last Filed: 05/14/17 23:20> Progress Note - Text Attending note. Date of service-05/14/2017 This patient was seen and examined by me . I reviewed the note of my nurse practitioner, Ms. Worley. Discussed with her, additional findings as below. Admitted with acute pancreatitis.. Feels better though tired. Abdominal pain is better On examination: Abdominal-decreased tenderness soft Investigations: Amylase less than 30, lipase 77 Assessment and plan: Clinical and biochemical improvement of pancreatitis could be vital. Patient on clear liquids. Diet to be advanced per GI hoping patient is much improved in next 24 hours
[2017-05-14] MEDS: MELATONIN 3 MG TABLET PO SCH (20:47)
[2017-05-14] MEDS ORDERED: AMITRIPTYLINE HCL 50 MG TAB PO SCH (21:00)
[2017-05-14] MEDS ORDERED: CITALOPRAM HYDROBROMIDE 20 MG TAB PO SCH (21:00)
[2017-05-15] MEDS: METOCLOPRAMIDE 5 MG/ML 2 ML VIAL IVP SCH ×3 (00:08→11:24)
[2017-05-15] MEDS: SODIUM CHLORIDE 0.9% 1,000 ML IV SCH ×2 (00:09→08:09)
[2017-05-15] MEDS: HYDROcodone/APAP 10-325MG 1 EACH TAB PO PRN (05:50)
[2017-05-15] MEDS ORDERED: PANTOPRAZOLE 40 MG TABLET PO SCH (07:30)
[2017-05-15 07:46] VITALS: RESP 17
[2017-05-15] MEDS: ENOXAPARIN 40 MG/0.4 ML SYRINGE SQ SCH (08:09)
[2017-05-15 08:52] LABS: Basophils % (A) 1 %; CHCM 32.2; Eosinophils # (A) 0.2 k/uL (0-0.7); Eosinophils % (A) 3 %; HCT 32.7 % (34.0-46.0); HGB 10.9 gm/dL (11.4-16.0); Luc # (Auto) 0.16; Luc % (Auto) 3; Lymphocytes # (A) 2.3 k/uL (1.0-4.8); Lymphocytes % (A) 40 %; MCH 27.9 pg (25.0-35.0); MCHC 33.2 g/dL (31.0-37.0); MCV 84.1 fL (80.0-100.0); Mean Platelet Volume 7.3; Monocytes # (A) 0.2 k/uL (0-1.0); Monocytes % (A) 4 %; Neutrophils # (A) 2.9 k/uL (1.3-7.7); Neutrophils % (A) 51 %; RBC 3.89 m/uL (3.80-5.40); RDW 14.5 % (11.5-15.5); WBC 5.8 k/uL (3.8-10.6)
[2017-05-15 08:58] LABS: Amylase <30 U/L (30-110); Anion Gap 6 mmol/L; Blood Urea Nitrogen 10 mg/dL (7-17); Carbon Dioxide 20 mmol/L (22-30); Chloride 113 mmol/L (98-107); Glucose 90 mg/dL (74-99); Non-African American GFR(MDRD) >60 (>60 ml/min/1.73 sqM); Sodium 139 mmol/L (137-145)
--- NOTE | 2017-05-15 09:11 | P.PN ---
Subjective Principal diagnosis: Pancreatitis 52-year-old female with a history of cyclic vomiting syndrome presents with acute epigastric pain nausea vomiting with elevated amylase lipase consistent with pancreatitis. Tolerating liquids without nausea/vomiting. Pancreatic enzymes normalized. EMIR negative. Ultrasound abdomen no stones. CT abdomen and pelvis reported normal size pancreas without suspicious running inflammation or enlargement. No ductal dilation seen. No worrisome adjacent fluid collection. Subcentimeter low-density lesion left hepatic lobe too small to characterize resume to be benign. Overall feels better. IgG subclass 1-4 unremarkable. Triglyceride level still pending. Objective - Vital Signs Vital signs: Vital Signs Temp 97.6 F 05/15/17 07:00 Pulse 70 05/15/17 07:00 Resp 17 05/15/17 07:00 BP 144/84 05/15/17 07:00 Pulse Ox 95 05/15/17 07:00 Intake & Output 05/14/17 05/15/17 05/15/17 18:59 06:59 18:59 Intake Total 1700 Balance 1700 Intake: Intake, IV Titration 1200 Amount Sodium Chloride 0.9% 1, 1200 000 ml @ 100 mls/hr IV . Q10H FIDEL Rx#:[id number] Oral 500 Other: # Voids 3 2 - Exam General appearance: The patient is alert, oriented, in no acute distress. HET: Head is normocephalic and atraumatic. Pupils are equal and reactive. Oropharynx is clear without lesions. Neck: Supple without lymphadenopathy. Trachea midline. Heart: S1 S2. Regular rate and rhythm. Lungs: No crackles or wheezes are heard. Abdomen: Soft, very mild midepigastric tenderness, nondistended with bowel sounds. No peritoneal signs. No palpable organomegaly or masses. Extremities: Normal skin color and turgor. No cyanosis, rash, ulceration, clubbing, or edema. Radial and pedal pulses are 2/4 bilaterally. Neurological: No focal deficits. Strength and sensation are grossly intact. - Labs CBC & Chem 7: 05/15/17 08:02 05/15/17 08:02 Labs: Abnormal Lab Results - Last 24 Hours (Table) 05/14/17 05/15/17 05/15/17 Range/Units 09:25 08:02 08:02 Hgb 10.9 L (11.4-16.0) gm/dL Hct 32.7 L (34.0-46.0) % Chloride 111 H 113 H (98-107) mmol/L Carbon Dioxide 21 L 20 L (22-30) mmol/L Calcium 8.0 L 8.0 L (8.4-10.2) mg/dL Total Protein 6.0 L (6.3-8.2) g/dL Albumin 3.2 L (3.5-5.0) g/dL Amylase <30 L <30 L (30-110) U/L Assessment and Plan (1) Acute pancreatitis Narrative/Plan: First episode. Etiology unclear. Possible autoimmune possible medication induced. Status: Acute (2) Cyclic vomiting syndrome Status: Chronic Plan: 1. Low-fat diet. Return to office in 2 weeks for reevaluation. Abstain from oeti-oaa-bovezsh weight loss medications. Discharge per medicine. Assessment and plan of care discussed with Dr. Segura.
[2017-05-15 15:24] VITALS: BP 136/83; PULSE 83; TEMP 99.4
--- NOTE | 2017-05-16 18:11 | P.DS ---
Providers Date of admission: 05/13/17 14:41 Expected date of discharge: 05/15/17 Attending physician: Hugo Ludwig Primary care physician: Leo Kirby [facility] Course: Final diagnosis: Acute severe pancreatitis, could be vital idiopathic, present on admission, improving Acute gastroenteritis possibly vital present on admission GERD Cyclical vomiting syndrome Kidney stones Hiatal hernia Scoliosis Anxiety depression not otherwise specified Hospital course: This patient admitted with nausea vomiting diarrhea abdominal pain. Initially presented with acute gastroenteritis felt to be viral and patient also had acute pancreatitis. By the time of discharge doing much better abdominal pain is resolved. No more diarrhea. No nausea vomiting. Tolerating a soft bland diet. Physical examination: Abdomen soft nontender Patient Condition at Discharge: Fair Plan - Discharge Summary New Discharge Prescriptions: Continue HYDROcodone/APAP 10-325MG [[place] 10-325] 1 tab PO QID PRN PRN Reason: Pain ALPRAZolam 0.25 mg PO TID PRN PRN Reason: Gi Upset Amitriptyline HCl [Elavil] 50 mg PO HS Citalopram Hydrobromide [CeleXA] 20 mg PO DAILY Discharge Medication List HYDROcodone/APAP 10-325MG [[place] 10-325] 1 tab PO QID PRN 01/10/15 [History] ALPRAZolam 0.25 mg PO TID PRN 01/11/15 [History] Amitriptyline HCl [Elavil] 50 mg PO HS 05/12/17 [History] Citalopram Hydrobromide [CeleXA] 20 mg PO DAILY 05/14/17 [History] Follow up Appointment(s)/Referral(s): Whit Segura MD [STAFF PHYSICIAN] - 05/29/17 2:30 pm Leo Kirby DO [Primary Care Provider] - 1-2 days (office closed. please call to schedule an appointment. ) Patient Instructions/Handouts: Acute Nausea and Vomiting (DC) Discharge Disposition: HOME SELF-CARE
== END 2017-05-15 16:30 | disposition home or self-care (01) | DRG 440 ==
LOC: EC 08:21 → 6PED 11:10 → 4MS4W 11:28 → OBSVTOIN 05-13 14:41
PROVIDERS: ADMIT Hospitalist; ATTEND Hospitalist
DX: K85.00 Idiopathic acute pancreatitis without necrosis or infection (principal); M41.9 Scoliosis, unspecified; F32.9 Major depressive disorder, single episode, unspecified; A08.4 Viral intestinal infection, unspecified; E86.0 Dehydration; N20.0 Calculus of kidney; F12.90 Cannabis use, unspecified, uncomplicated; G43.A0 Cyclical vomiting, in migraine, not intractable; G89.29 Other chronic pain; K21.9 Gastro-esophageal reflux disease without esophagitis; K44.9 Diaphragmatic hernia without obstruction or gangrene; G43.909 Migraine, unspecified, not intractable, without status migrainosus; F40.240 Claustrophobia; F41.9 Anxiety disorder, unspecified; Z79.899 Other long term (current) drug therapy; Z88.8 Allergy status to other drugs, medicaments and biological substances; Z82.49 Family history of ischemic heart disease and other diseases of the circulatory system
CPT/HCPCS: 36415; 74000; 74177; 76705; 80048; 80053; 81001; 82150; 82787; 83690; 84478; 85025; 86038; 96361; 96365; 96375; 99285

== ENCOUNTER 2017-07-14 08:38 | Emergency (ER) | payer OTHER ==
[2017-07-14] MEDS ORDERED: FAMOTIDINE 20 MG/2 ML VIAL IV STA (09:23)
[2017-07-14] MEDS ORDERED: LORazepam 2 MG/ML INJ IV STA ×2 (09:23→10:47)
[2017-07-14] MEDS ORDERED: METOCLOPRAMIDE 5 MG/ML 2 ML VIAL IVP STA (09:23)
[2017-07-14] MEDS ORDERED: SODIUM CHLORIDE 0.9% 1,000 ML IV STA (09:23)
--- NOTE | 2017-07-14 09:26 | ED ---
General Adult HPI - General Chief complaint: Nausea/Vomiting/Diarrhea Stated complaint: Nausea,Pain Time Seen by Provider: 07/14/17 09:15 Source: patient, RN notes reviewed Mode of arrival: wheelchair Limitations: no limitations - History of Present Illness Initial comments: Patient 52-year-old female who presents emergency room today with a chief complaint of increased nausea vomiting is her approximate 4:30 AM. Does have a history of cyclic vomiting syndrome. States his symptoms are consistent. States has had a difficult time keeping down any medications for it. Patient does admit to pain located in the upper abdomen. Patient denies any other complaints or symptoms at this time. Patient denies any recent fever, chills, shortness of breath, chest pain, back pain, numbness or tingling, dysuria or hematuria, constipation or diarrhea, headaches or visual changes, or any other complaints. - Related Data Home Medications Medication Instructions Recorded Confirmed HYDROcodone/APAP 10-325MG [[place] 1 tab PO QID PRN 01/10/15 07/14/17 10-325] ALPRAZolam 0.25 mg PO TID PRN 01/11/15 07/14/17 Amitriptyline HCl [Elavil] 50 mg PO HS 05/12/17 07/14/17 Citalopram Hydrobromide [CeleXA] 20 mg PO DAILY 05/14/17 07/14/17 Previous Rx's Medication Instructions Recorded Metoclopramide HCl [Reglan] 10 mg PO Q6HR PRN #5 day 07/14/17 Allergies Allergy/AdvReac Type Severity Reaction Status Date / Time ondansetron AdvReac Nausea & Verified 07/14/17 09:08 [From Zofran (as Vomiting hydrochloride)] Review of Systems ROS Statement: Those systems with pertinent positive or pertinent negative responses have been documented in the HPI. ROS Other: All systems not noted in ROS Statement are negative. Past Medical History Past Medical History: GERD/Reflux Additional Past Medical History / Comment(s): cyclic vomiting syndrome-HAS'NT BEEN ABLE TO TAKE ANY OF HER MEDS FOR PAST 5 DAYS, KIDNEY STONE, HIATAL HERNIA, MIGRAINES, SCOLIOSIS,COMPRESSED VERTEBRA/BACK PAIN. History of Any Multi-Drug Resistant Organisms: None Reported Past Surgical History: Tubal Ligation Additional Past Surgical History / Comment(s): BENIGN bone tumor removed lt leg Past Anesthesia/Blood Transfusion Reactions: No Reported Reaction Additional Past Anesthesia/Blood Transfusion Reaction / Comment(s): CLAUSTEPHOBIC Past Psychological History: Anxiety, Depression Smoking Status: Never smoker Past Alcohol Use History: None Reported Past Drug Use History: Marijuana - Past Family History Mother Family Medical History: Cancer Additional Family Medical History / Comment(s): lymphoma Father Family Medical History: Coronary Artery Disease (CAD), Myocardial Infarction (ID ) General Exam - General Exam Comments Initial Comments: General: The patient is awake and alert, in mild distress. Eye: Pupils are equal, round and reactive to light, extra-ocular movements are intact. No nystagmus. There is normal conjunctiva bilaterally. No signs of icterus. Ears, nose, mouth and throat: There are moist mucous membranes and no oral lesions. Neck: The neck is supple, there is no tenderness or JVD. Cardiovascular: There is a regular rate and rhythm. No murmur, rub or gallop is appreciated. Respiratory: Lungs are clear to auscultation, respirations are non-labored, breath sounds are equal. No wheezes, stridor, rales, or rhonchi. Gastrointestinal: Normal. 7. Normal bowel sounds. Abdomen soft on palpation. Patient does have mild tenderness epigastric and upper abdomen. No rebound tenderness. No guarding. Musculoskeletal: Normal ROM, no tenderness. Strength 5/5. Sensation intact. Pulses equal bilaterally 2+. Neurological: A&O x 3. CN II-XII intact, There are no obvious motor or sensory deficits. Coordination appears grossly intact. Speech is normal. Skin: Skin is warm and dry and no rashes or lesions are noted. Psychiatric: Cooperative, appropriate mood & affect, normal judgment. Limitations: no limitations Course Vital Signs 07/14/17 07/14/17 08:52 10:45 Temperature 97.7 F 98.3 F Pulse Rate 99 98 Respiratory 20 18 Rate Blood Pressure 170/80 170/87 O2 Sat by Pulse 100 96 Oximetry Medical Decision Making - Medical Decision Making She reexamined at this time shows no signs of distress. She resting comfortably. Feeling much better. Abdomen soft nontender. Patient will be discharged home. Patient states that her symptoms are consistent with cyclic vomiting several past. Advised return if symptoms increase or worsen. - Lab Data Result diagrams: 07/14/17 09:29 07/14/17 09:29 Lab Results 07/14/17 07/14/17 Range/Units 09:29 09:29 WBC 12.3 H (3.8-10.6) k/uL RBC 4.91 (3.80-5.40) m/uL Hgb 13.4 (11.4-16.0) gm/dL Hct 42.1 (34.0-46.0) % MCV 85.8 (80.0-100.0) fL MCH 27.3 (25.0-35.0) pg MCHC 31.8 (31.0-37.0) g/dL RDW 14.0 (11.5-15.5) % Plt Count 413 (150-450) k/uL Neutrophils % 80 % Lymphocytes % 15 % Monocytes % 3 % Eosinophils % 1 % Basophils % 0 % Neutrophils # 9.8 H (1.3-7.7) k/uL Lymphocytes # 1.9 (1.0-4.8) k/uL Monocytes # 0.4 (0-1.0) k/uL Eosinophils # 0.1 (0-0.7) k/uL Basophils # 0.0 (0-0.2) k/uL Sodium 141 (137-145) mmol/L Potassium 4.3 (3.5-5.1) mmol/L Chloride 108 H (98-107) mmol/L Carbon Dioxide 16 L (22-30) mmol/L Anion Gap 17 mmol/L BUN 14 (7-17) mg/dL Creatinine 0.64 (0.52-1.04) mg/dL Est GFR (MDRD) Af Amer >60 (>60 ml/min/1.73 sqM) Est GFR (MDRD) Non-Af >60 (>60 ml/min/1.73 sqM) Glucose 193 H (74-99) mg/dL Calcium 9.8 (8.4-10.2) mg/dL Total Bilirubin 0.3 (0.2-1.3) mg/dL AST 22 (14-36) U/L ALT 27 (9-52) U/L Alkaline Phosphatase 101 (38-126) U/L Total Protein 8.1 (6.3-8.2) g/dL Albumin 4.5 (3.5-5.0) g/dL Amylase 61 (30-110) U/L Lipase 159 (23-300) U/L Disposition Clinical Impression: Nausea & vomiting Disposition: HOME SELF-CARE Condition: Good Instructions: Acute Nausea and Vomiting (ED) Additional Instructions: Please use medication as discussed. Please follow-up with family doctor in the next 2 days of symptoms have not improved. Please return to emergency room if the symptoms increase or worsen or for any other concerns. Prescriptions: Metoclopramide HCl [Reglan] 10 mg PO Q6HR PRN #5 day PRN Reason: Nausea Referrals: Nonstaff,Physician [REFERRING] - 1-2 days Time of Disposition: 11:24
--- NOTE | 2017-07-14 10:10 | XR ---
EXAMINATION TYPE: XR KUB DATE OF EXAM: 07/14/2017 COMPARISON: 05/12/2017 HISTORY: Upper abdominal pain, nausea and vomiting TECHNIQUE: One view abdominal series FINDINGS: The osseous structures are intact. The bowel gas pattern is nonspecific. Calcifications in the pelvi s appear vascular. IMPRESSION: 1. Nonspecific abdomen.
[2017-07-14 10:11] LABS: Basophils % (A) 0 %; CH 27.1; CHCM 31.7; Eosinophils # (A) 0.1 k/uL (0-0.7); Eosinophils % (A) 1 %; HCT 42.1 % (34.0-46.0); HDW 2.34; HGB 13.4 gm/dL (11.4-16.0); Luc # (Auto) 0.19; Luc % (Auto) 2; Lymphocytes # (A) 1.9 k/uL (1.0-4.8); Lymphocytes % (A) 15 %; MCH 27.3 pg (25.0-35.0); MCHC 31.8 g/dL (31.0-37.0); MCV 85.8 fL (80.0-100.0); Monocytes # (A) 0.4 k/uL (0-1.0); Monocytes % (A) 3 %; Neutrophils # (A) 9.8 k/uL (1.3-7.7); Neutrophils % (A) 80 %; RBC 4.91 m/uL (3.80-5.40); WBC 12.3 k/uL (3.8-10.6); WBC (Perox) 11.98
[2017-07-14 10:17] LABS: ALT 27 U/L (9-52); AST 22 U/L (14-36); Alkaline Phosphatase 101 U/L (38-126); Amylase 61 U/L (30-110); Anion Gap 17 mmol/L; Blood Urea Nitrogen 14 mg/dL (7-17); Calcium 9.8 mg/dL (8.4-10.2); Carbon Dioxide 16 mmol/L (22-30); Chloride 108 mmol/L (98-107); Glucose 193 mg/dL (74-99); Non-African American GFR(MDRD) >60 (>60 ml/min/1.73 sqM); Potassium 4.3 mmol/L (3.5-5.1); Sodium 141 mmol/L (137-145); Total Bilirubin 0.3 mg/dL (0.2-1.3); Total Protein 8.1 g/dL (6.3-8.2)
[2017-07-14] MEDS ORDERED: HYDROmorphone 1 MG/ML 1 ML SYRINGE IVP STA (10:50)
[2017-07-14 10:58] VITALS: TEMP 98.3
[2017-07-14 11:56] VITALS: BP 120/73; PULSE 108; RESP 17
[2017-07-14] MEDS ORDERED: PROMETHAZINE INJ 25 MG/ML 1 ML VIAL IM STA (12:39)
== END 2017-07-14 13:00 | disposition home or self-care (01) ==
LOC: EC 08:38
DX: R11.2 Nausea with vomiting, unspecified (principal); R10.30 Lower abdominal pain, unspecified; F41.9 Anxiety disorder, unspecified; F32.9 Major depressive disorder, single episode, unspecified; Z98.51 Tubal ligation status; Z79.899 Other long term (current) drug therapy; Z88.8 Allergy status to other drugs, medicaments and biological substances
CPT/HCPCS: 96375 ×4; 96376 ×2; 96361 ×2; 96372 ×2; 96374 ×2; 99284 ×2; 36415; 80053; 82150; 83690; 85025; 74000; J2060; J2550; J2765; J1170

== ENCOUNTER 2017-07-14 17:30 | Observation (INO) | payer OTHER ==
[2017-07-14] MEDS ORDERED: SODIUM CHLORIDE 0.9% 1,000 ML IV ONE (18:18)
--- NOTE | 2017-07-14 18:35 | ED ---
Nausea/Vomiting/Diarrhea HPI - General Chief complaint: Nausea/Vomiting/Diarrhea Stated complaint: Vomting-revisit Time Seen by Provider: 07/14/17 18:15 Source: patient Mode of arrival: ambulatory Limitations: no limitations - History of Present Illness Initial comments: Patient is a 52-year-old female who presents with a chief complaint of nausea and vomiting. The patient has a diagnosis of cyclic vomiting syndrome. The patient was seen earlier today by another provider, her symptoms were controlled , she was discharged but never left the emergency department. She returns now with her daughter saying that she requires admission. On initial evaluation, patient is acting hysterically, she is in moderate distress secondary to nausea and vomiting. She has not actively vomited in the emergency department though she is retching. Patient states that this happens to her periodically and she states explicitly that she needs Dilaudid. Her daughter states that she is on chronic pain medications at home secondary to chronic back issues. She further states that when she starts vomiting she is unable to take her pain medications. Patient cannot think of any inciting incident, nor does she identify any aggravating or alleviating factors. - Related Data Home Medications Medication Instructions Recorded Confirmed HYDROcodone/APAP 10-325MG [[place] 1 tab PO QID PRN 01/10/15 07/14/17 10-325] ALPRAZolam 0.25 mg PO TID PRN 01/11/15 07/14/17 Amitriptyline HCl [Elavil] 50 mg PO HS 05/12/17 07/14/17 Citalopram Hydrobromide [CeleXA] 20 mg PO DAILY 05/14/17 07/14/17 Previous Rx's Medication Instructions Recorded Metoclopramide HCl [Reglan] 10 mg PO Q6HR PRN #5 day 07/14/17 Allergies Allergy/AdvReac Type Severity Reaction Status Date / Time ondansetron AdvReac Nausea & Verified 07/14/17 19:21 [From Zofran (as Vomiting hydrochloride)] Review of Systems ROS Statement: Those systems with pertinent positive or pertinent negative responses have been documented in the HPI. ROS Other: All systems not noted in ROS Statement are negative. Constitutional: Denies: fever, chills Eyes: Denies: vision change ENT: Denies: throat pain Respiratory: Denies: cough Cardiovascular: Denies: chest pain, palpitations Endocrine: Denies: fatigue Gastrointestinal: Reports: abdominal pain, nausea, vomiting. Denies: diarrhea Genitourinary: Denies: dysuria Musculoskeletal: Denies: back pain Skin: Denies: rash Neurological: Denies: headache Psychiatric: Reports: anxiety Past Medical History Past Medical History: GERD/Reflux Additional Past Medical History / Comment(s): cyclic vomiting syndrome-HAS'NT BEEN ABLE TO TAKE ANY OF HER MEDS FOR PAST 5 DAYS, KIDNEY STONE, HIATAL HERNIA, MIGRAINES, SCOLIOSIS,COMPRESSED VERTEBRA/BACK PAIN. History of Any Multi-Drug Resistant Organisms: None Reported Past Surgical History: Tubal Ligation Additional Past Surgical History / Comment(s): BENIGN bone tumor removed lt leg Past Anesthesia/Blood Transfusion Reactions: No Reported Reaction Additional Past Anesthesia/Blood Transfusion Reaction / Comment(s): CLAUSTEPHOBIC Past Psychological History: Anxiety, Depression Smoking Status: Never smoker Past Alcohol Use History: None Reported Past Drug Use History: Marijuana - Past Family History Mother Family Medical History: Cancer Additional Family Medical History / Comment(s): lymphoma Father Family Medical History: Coronary Artery Disease (CAD), Myocardial Infarction ([place] ) General Exam Limitations: no limitations General appearance: alert, in distress Head exam: Present: atraumatic, normocephalic Eye exam: Present: normal appearance ENT exam: Present: normal exam Neck exam: Present: normal inspection Respiratory exam: Present: normal lung sounds bilaterally Cardiovascular Exam: Present: normal rhythm, tachycardia, normal heart sounds GI/Abdominal exam: Present: soft. Absent: distended, tenderness, guarding Rectal exam: Present: deferred Extremities exam: Present: normal inspection Back exam: Present: normal inspection Neurological exam: Present: alert, oriented X3 Psychiatric exam: Present: agitated, anxious Skin exam: Present: warm, dry, intact Course Vital Signs 07/14/17 07/14/17 07/14/17 17:59 20:49 21:27 Temperature 99.0 F 101.8 F H 102.0 F H Pulse Rate 105 H 98 106 H Respiratory 20 18 16 Rate Blood Pressure 163/103 182/88 O2 Sat by Pulse 99 98 96 Oximetry Medical Decision Making - Medical Decision Making Patient is a 52-year-old female with a history of cyclic vomiting syndrome who presents today for nausea and vomiting. Patient was just discharged from the emergency department today for the same symptoms. On initial evaluation, patient is in moderate distress, she is retching but not actively throwing up. Her daughters with her today states that she has chronic pain issues and cannot keep her pain medications down when she starts throwing up. The patient's daughter states that her mother will require admission. Given that this patient has had several antibiotics, Ativan, and Dilaudid on her previous visit today I will start with an EKG, and try 4 mg of Haldol. Patient will be reassessed at that time. Patient will get 1 L of IV fluids. 6:40 PM EKG performed at 6:32 PM shows normal sinus rhythm with a rate of 88 bpm. Segments appear to be within normal limits except for a mildly prolonged QT segment with a QTC of 493. At this time given the low dose of Haldol, it is deemed safe to give. Patient will be monitored closely. 9:36 PM The was given a dose of Haldol which somewhat alleviated her symptoms. She currently is much more calm, she is not vomiting or retching. She states that she is still unable to take by mouth intake and is unwilling to try. Patient was given a dose pain medication for ongoing back pain. The decision was made to admit the patient for intractable nausea and vomiting. I spoke with Dr. Ludwig who accepts admission of this patient. He requested the patient be given a scopolamine patch, and had an nothing by mouth diet with allowing some liquids though he wishes her to not have any water. Patient is able to have Gatorade and other electrolyte solutions. On reevaluation, the patient has a fever now. Review of her labs from her previous visit today are unremarkable. Fever could be secondary to Haldol, or secondary to retching. There are no obvious sources of infection. Patient was given a dose of Toradol for anti- inflammatory effect that she is unable to take any by mouth medications. Disposition Clinical Impression: Cyclic vomiting syndrome, Intractable nausea and vomiting, Nausea & vomiting, Fever Disposition: ADMITTED IP TO THIS HOSP Condition: Good Referrals: Leo Kirby DO [Primary Care Provider] - 1-2 days Decision to Admit Reason: Admit from EC - Out of Hospital Transfer - Req. Specs Out of Hospital Transfer - Requested Specifics: Other Non-Acute
[2017-07-14] MEDS ORDERED: HALOPERIDOL LACTATE 5 MG/ML 1 ML VIAL IVP ONE (18:39)
[2017-07-14] MEDS ORDERED: HYDROmorphone 1 MG/ML 1 ML SYRINGE IVP STA (20:51)
[2017-07-14] MEDS ORDERED: NALOXONE 0.4 MG/ML 1 ML VIAL IV PRN (21:31)
[2017-07-14] MEDS ORDERED: ONDANSETRON 4 MG/2 ML VIAL IVP PRN (21:31)
[2017-07-14] MEDS ORDERED: PROMETHAZINE 25 MG TAB PO PRN (21:31)
[2017-07-14] MEDS ORDERED: ACETAMINOPHEN TAB 325 MG TAB PO PRN (21:31)
[2017-07-14] MEDS ORDERED: IBUPROFEN 400 MG TAB PO PRN (21:31)
[2017-07-14] MEDS ORDERED: SCOPOLAMINE 1.5MG/72HR PATCH TRANSDERM STA (21:35)
[2017-07-14] MEDS: SODIUM CHLORIDE 0.9% 1,000 ML IV SCH (21:52)
[2017-07-14] MEDS: METOCLOPRAMIDE 5 MG/ML 2 ML VIAL IVP PRN (22:58)
[2017-07-14] MEDS: KETOROLAC 30 MG/ML 1 ML VIAL IVP PRN (23:01)
[2017-07-15 02:01] VITALS: BMI 28.3
[2017-07-15] MEDS ORDERED: FAMOTIDINE 20 MG/2 ML VIAL IVP ONE (04:00)
[2017-07-15] MEDS: KETOROLAC 30 MG/ML 1 ML VIAL IVP PRN ×3 (04:03→21:38)
[2017-07-15] MEDS: METOCLOPRAMIDE 5 MG/ML 2 ML VIAL IVP PRN (07:13)
[2017-07-15 07:20] LABS: Basophils % (A) 0 %; Eosinophils % (A) 0 %; HCT 35.9 % (34.0-46.0); HDW 2.31; HGB 11.6 gm/dL (11.4-16.0); Luc # (Auto) 0.25; Luc % (Auto) 2; Lymphocytes # (A) 1.9 k/uL (1.0-4.8); Lymphocytes % (A) 16 %; MCH 27.3 pg (25.0-35.0); MCHC 32.3 g/dL (31.0-37.0); MCV 84.5 fL (80.0-100.0); Mean Platelet Volume 7.3; Monocytes # (A) 0.5 k/uL (0-1.0); Monocytes % (A) 5 %; Neutrophils # (A) 8.8 k/uL (1.3-7.7); Neutrophils % (A) 77 %; RBC 4.25 m/uL (3.80-5.40); RDW 14.4 % (11.5-15.5); WBC 11.4 k/uL (3.8-10.6); WBC (Perox) 11.74
[2017-07-15 07:24] LABS: Anion Gap 11 mmol/L; Blood Urea Nitrogen 14 mg/dL (7-17); Calcium 9.2 mg/dL (8.4-10.2); Carbon Dioxide 19 mmol/L (22-30); Chloride 111 mmol/L (98-107); Glucose 136 mg/dL (74-99); Non-African American GFR(MDRD) >60 (>60 ml/min/1.73 sqM); Potassium 3.6 mmol/L (3.5-5.1); Sodium 141 mmol/L (137-145)
[2017-07-15] MEDS: SODIUM CHLORIDE 0.9% 1,000 ML IV SCH (11:42)
[2017-07-15] MEDS ORDERED: PROMETHAZINE INJ 50 MG in SODIUM CHLORIDE 0.9% 50 ML IVPB PRN (13:35)
[2017-07-15] MEDS ORDERED: diphenhydrAMINE 50 MG/ML 1 ML VIAL IVP STA (15:17)
[2017-07-15] MEDS: METOCLOPRAMIDE 5 MG/ML 2 ML VIAL IVP SCH ×3 (15:50→23:49)
[2017-07-15] MEDS ORDERED: HYDROmorphone 0.5 MG/0.5 ML SYRINGE IVP STA (16:30)
[2017-07-15] MEDS: LACTATED RINGERS 1,000 ML IV SCH ×3 (17:19→23:48)
--- NOTE | 2017-07-15 18:21 | HP ---
HISTORY AND PHYSICAL DATE OF ADMISSION: 07/14/2017 PRESENTING COMPLAINT: Nausea and vomiting. HISTORY OF PRESENTING COMPLAINT: This is a pleasant 52-year-old patient of Dr. Kirby whose chronic stable medical conditions include GERD, kidney stones, hernia, scoliosis, chronic low back pain. The patient has known cyclical vomiting syndrome. The patient presented with 2 days of increasing nausea and vomiting. She presented to the ER. She was not getting any better; hence was admitted from the ER feeling weak, tired, rundown. In the era a scopolamine patch was placed and she did better overnight. Patient started drinking some water this morning and again started throwing up and was nauseated. No abdominal pain. No fever. No chills. REVIEW OF SYSTEMS: CONSTITUTIONAL: Tired. HEENT: None. RESPIRATORY: None. CARDIOVASCULAR: None. GASTROINTESTINAL: As above. GENITOURINARY: None. MUSCULOSKELETAL: Chronic low back pain. DERMATOLOGICAL: None. HEMATOLOGICAL: None. LYMPHATICS: None. PSYCHIATRY: Anxiety. NEUROLOGICAL: None. PAST MEDICAL HISTORY: 1. Cyclical vomiting syndrome. 2. GERD. 3. Kidney stones. 4. Hiatal hernia. 5. Migraines. 6. Scoliosis. 7. Herniated discussion. 8. Depression and anxiety. 9. Acute pancreatitis. SOCIAL HISTORY: Lives with her boyfriend and 2 children. No alcohol. No smoking. The patient is not employed. FAMILY HISTORY: Lymphoma. HOME MEDICATIONS: 1. Reglan 10 mg q.6 p.r.n. 2. [place] 10 one tablet p.o. q.i.d. p.r.n. 3. Celexa 20 mg p.o. daily. 4. Elavil 50 mg p.o. at bedtime. 5. Xanax 0.25 p.o. t.i.d. p.r.n. ALLERGIES: ZOFRAN causing nausea and vomiting. PHYSICAL EXAMINATION: Temperature 97.3, pulse 76, respiration 16, blood pressure 146/76, pulse ox 98% on room air. The patient had a low-grade fever of 100.2 on presentation. GENERAL APPEARANCE: Average build. Sitting up. Tired-appearing. EYES: Pupils equal. Conjunctivae normal. HEENT: Oral cavity normal. NECK: JVD not raised. Mass not palpable. RESPIRATORY: Effort normal. Lungs are clear. CARDIOVASCULAR: First and second sounds normal. No edema. ABDOMEN: Soft, nontender. Liver and spleen not palpable. LYMPHATIC: No lymph node palpable in neck or axillae. PSYCHIATRY: Alert and oriented x3. Mood and affect slightly anxious-appearing. NEUROLOGICAL: Pupils equal. Cranial nerves grossly intact. Power and sensation grossly intact. MUSCULOSKELETAL: No tenderness over the lumbar spine or thoracic spine. INVESTIGATIONS: White count 11.4, hemoglobin 11.6. Potassium 3.6. BUN 14, creatinine 0.55. C difficile negative. ASSESSMENT: 1. Possible acute gastroenteritis, viral in nature. 2. Possible flareup of cyclical vomiting syndrome. 3. Gastroesophageal reflux disease, chronic. 4. Chronic hiatal hernia. 5. Chronic scoliosis. 6. Depression and anxiety not otherwise specified. PLAN: Patient was put on IV fluids. Continue scopolamine patch. Also give Reglan. Avoid water. Trial liquids as tolerated. Heating pad and ice pack for the back pain. Care was discussed with the patient. MMODL / IJN: [id number] /
[2017-07-15] MEDS: FAMOTIDINE 20 MG/2 ML VIAL IVP SCH (21:33)
[2017-07-15] MEDS: MELATONIN 5 MG TABLET PO SCH (21:33)
[2017-07-16] MEDS: KETOROLAC 30 MG/ML 1 ML VIAL IVP PRN ×3 (03:00→17:48)
[2017-07-16] MEDS: METOCLOPRAMIDE 5 MG/ML 2 ML VIAL IVP SCH ×4 (06:04→23:56)
[2017-07-16] MEDS: LACTATED RINGERS 1,000 ML IV SCH ×3 (06:07→23:58)
[2017-07-16 07:07] LABS: Anion Gap 13 mmol/L; Blood Urea Nitrogen 10 mg/dL (7-17); Calcium 9.1 mg/dL (8.4-10.2); Carbon Dioxide 22 mmol/L (22-30); Chloride 104 mmol/L (98-107); Glucose 119 mg/dL (74-99); Non-African American GFR(MDRD) >60 (>60 ml/min/1.73 sqM); Potassium 3.1 mmol/L (3.5-5.1); Sodium 139 mmol/L (137-145)
[2017-07-16] MEDS: FAMOTIDINE 20 MG/2 ML VIAL IVP SCH ×2 (08:40→20:33)
[2017-07-16] MEDS ORDERED: RX INFO: IV CONTRAST WAS GIVEN 1 EACH MISC MISCELLANE PRN (12:46)
[2017-07-16] MEDS: LORazepam 2 MG/ML INJ IV PRN ×2 (13:54→20:11)
--- NOTE | 2017-07-16 13:55 | CT ---
EXAMINATION TYPE: CT angio chest DATE OF EXAM: 07/16/2017 COMPARISON: NONE HISTORY: 52-year-old female with chest pains TECHNIQUE: Contiguous axial scanning of the chest performed with IV Contrast, patient injected with 1 00 mL of Omnipaque 350. Coronal/sagittal MIP reconstructions performed. CT DLP: 587 mGycm Automated exposure control for dose reduction was used. FINDINGS: The heart is normal size without pericardial effusion. Aorta is normal caliber with conventional arch vessel branching anatomy. Satisfactory opacification of the pulmonary arterial system without evidence for pulmonary embolus. No thoracic lymphadenopathy. Evaluation of the lung shows mild diffuse bronchial wall thickening and mild dependent atelectasis. S ome minimal scattered emphysematous change is present and some hazy dependent atelectasis. No consoli dation or pleural effusion. Small hiatal hernia. Visualized upper abdomen shows a couple subcentimeter hypodensities within the liver too small for ac curate CT characterization, probable cysts. There is low-density of the liver suggesting fatty infilt ration. Bones: Endplate spondylosis mid to lower thoracic spine. There is mild anterior wedging of T7 vertebr al body. No paravertebral soft tissue abnormality or acute fracture lucency seen. IMPRESSION: 1. NO EVIDENCE FOR PULMONARY EMBOLUS. 2. MILD DIFFUSE BRONCHIAL WALL THICKENING COULD REPRESENT BRONCHITIS OR CHRONIC ASTHMA. SOME MILD EMP HYSEMATOUS CHANGE IS ALSO PRESENT. 3. MILD ANTERIOR WEDGING OF T7. THIS IS AN AGE INDETERMINATE COMPRESSION INJURY. CHRONIC INJURY IS FA VORED. CORRELATE FOR ANY PAIN AT THIS LEVEL. 4. HEPATIC STEATOSIS AND SMALL HIATAL HERNIA.
[2017-07-16] MEDS: CALCIUM CARBONATE LIQUID 500 MG/5 ML CUP PO SCH (16:53)
--- NOTE | 2017-07-16 17:49 | PN ---
PROGRESS NOTE DATE OF SERVICE: 07/16/2017 ATTENDING NOTE: This patient was seen and examined by me. I discussed with my nurse practitioner, Ms. Worley. Patient admitted with possible viral acute gastroenteritis and flare-up of cyclic vomiting syndrome. Still having some nausea and vomiting. The patient has been on the scopolamine patch and scheduled Reglan. Patient had some what she felt was anxiety attack earlier today, but I have ordered a chest CTA to rule out a PE just in case. EXAMINATION: Afebrile, pulse 89, blood pressure 154/99. LUNGS: Clear. CARDIOVASCULAR: First and second sounds normal. ABDOMEN: Soft. The patient is slightly anxious. Potassium 3.01, BUN and creatinine are normal. ASSESSMENT: 1. Possible acute vital gastroenteritis and acute flare-up of cyclic vomiting syndrome, slow to respond. 2. Rule out pulmonary embolism. 3. Anxiety not otherwise specified, somewhat uncontrolled, situational. PLAN: Will start the patient on 0.5 of Ativan scheduled. Will get a GI consultation. In the meantime, CT scan that was ordered earlier has come back negative for pulmonary embolism. My nurse practitioner Ms. Worley will be calling the daughter to update her and inform her that we will get the gastroenterology team to see what further can be done. The heating pad is working well for the back right now. The patient does agree that she is rather anxious, which is contributing to her symptoms. The patient encouraged to eat easy stuff like light toast and butter, etc. MMODL / IJN: [id number] /
--- NOTE | 2017-07-16 18:06 | P.PN ---
Progress Note - Text Progress Note Date: 07/16/17 DATE OF SERVICE: 07/16/2017 PRESENTING COMPLAINT: Intractable nausea vomiting HISTORY OF PRESENT ILLNESS: 52-year-old female with known cyclical vomiting syndrome presented with 2 days of increasing nausea vomiting, not getting any better feeling weak tired rundown. Admitted for the same INTERVAL HISTORY: 07/16/2017: Patient sitting up at the bedside, just had an episode of vomiting. Unable to tolerate any food or beverage, no bowel movement, ambulatory within the room. Patient expressed concerns regarding treatments being utilized don't seem to be working. Patient suggested the use of Haldol for her nausea. Discussion held with patient the bedside regarding these interventions. Patient suggested that maybe perhaps she should be discharged and go to [facility]. On rounds with attending physician medications adjusted, calcium carbonate liquid ordered , Ativan added, patient complained of chest tightness, CTA ordered, GI consulted. Patient was agreeable to these interventions. REVIEW OF SYSTEMS: Done for constitutional ,cardiovascular, GI, pulmonary with relevant findings as above. CURRENT MEDICATIONS Calcium carbonate liquid, Pepcid, Motrin, Toradol, Ativan, melatonin, Reglan, Phenergan. PHYSICAL EXAM VITAL SIGNS: Temperature 98.1, pulse 79, respiratory rate 16, blood pressure 164/99, oxygen saturation 90% on room air. GENERAL APPEARANCE: Sitting up on the bed, appears anxious. EYES: Pupils equal. Conjunctiva normal. NECK: JVD not raised. Mass not palpable. RESPIRATORY: Respiratory effort normal. Lungs clear to auscultation. CARDIOVASCULAR: First and second sounds normal. No edema. ABDOMEN: Soft. Liver and spleen not palpable. Diffuse tenderness no guarding or rigidity. No mass palpable. PSYCHIATRY: Alert and oriented x3. Mood and affect anxious. INVESTIGATIONS: Potassium 3.1 Chest CTA: No pulmonary embolus, diffuse bronchial wall thickening, mild anterior wedging of T7 likely chronic, hepatics steatosis and small hiatal hernia. ASSESSMENT: -Possible acute gastroenteritis, viral in nature. -Possible flareup of cyclical vomiting syndrome. -Gastroesophageal reflux disease, chronic. -Chronic hiatal hernia. -Chronic scoliosis. -Depression and anxiety not otherwise specified. PLAN: Medications adjusted as above, discussion regarding plan of care, changes that were made, consultants who were added, had with the patient at the bedside, she was in agreement with these interventions. Updated daughter by phone regarding plan of care extensive conversation had with her informed her of GI consultation , medication adjustments, however daughter dissatisfied with overall level of care, suggested that perhaps patient could be transferred elsewhere such as [facility]. DIRECTOR OF GROUP SALES advised daughter to allow GI product management consultant to see the patient in further decisions can be made from that point after they have had a chance to provide their input. Patient's daughter will be in the hospital later on, and was agreeable to this plan. We will continue to monitor closely DIRECTOR OF GROUP SALES statement: Patient was seen and examined by nurse practitioner Natalie Worley and all elements of the case discussed with attending Dr. Ludwig
[2017-07-16] MEDS: MELATONIN 5 MG TABLET PO SCH (20:33)
[2017-07-16] MEDS ORDERED: cloNIDine 0.1 MG/24HR PATCH 1 PATCH PATCH TRANSDERM SCH (21:00)
[2017-07-17] MEDS: LORazepam 2 MG/ML INJ IV PRN ×3 (01:43→21:58)
[2017-07-17] MEDS: METOCLOPRAMIDE 5 MG/ML 2 ML VIAL IVP SCH ×3 (05:35→18:33)
[2017-07-17] MEDS: KETOROLAC 30 MG/ML 1 ML VIAL IVP PRN ×2 (06:40→22:02)
[2017-07-17] MEDS: LACTATED RINGERS 1,000 ML IV SCH ×3 (06:42→18:33)
[2017-07-17 07:22] LABS: Anion Gap 11 mmol/L; Blood Urea Nitrogen 11 mg/dL (7-17); Calcium 8.8 mg/dL (8.4-10.2); Carbon Dioxide 24 mmol/L (22-30); Chloride 103 mmol/L (98-107); Glucose 103 mg/dL (74-99); Non-African American GFR(MDRD) >60 (>60 ml/min/1.73 sqM); Potassium 3.1 mmol/L (3.5-5.1); Sodium 138 mmol/L (137-145)
[2017-07-17] MEDS: CALCIUM CARBONATE LIQUID 500 MG/5 ML CUP PO SCH ×3 (08:19→18:30)
[2017-07-17] MEDS: FAMOTIDINE 20 MG/2 ML VIAL IVP SCH ×2 (08:20→20:49)
--- NOTE | 2017-07-17 10:45 | P.CONS ---
History of Present Illness - Reason for Consult Consult date: 07/17/17 Cyclic vomiting syndrome Requesting physician: Hugo Ludwig - History of Present Illness 52-year-old female with a history of pancreatitis, chronic opiod usage secondary to neck/back pain, cyclic vomiting syndrome for several years duration admitted with intractable nausea vomiting diarrhea. Consultation requested for GI opinion. Patient was evaluated about a month ago in the GI office regarding these symptoms. Patient is frustrated with her diagnosis she has tried several types of medications including antidepressants over the years without much improvement. She has exacerbations of nausea vomiting sometimes every 2-3 days. The longest her symptoms have ceased several months but that has been more than a few years in the last 6 months she had a 3/4 week period of no symptoms. Unable to identify triggers, appears to be no pattern to her presentation. She is presently seeking a second opinion at [facility]. Denies hematemesis hematochezia melena. Presently she is resting comfortably without emesis. No significant weight loss. No fevers. CT chest no evidence of pulmonary embolism. White count 11.4. Hemoglobin 11.6. Sodium 138. Potassium 3.1. BUN 11. Creatinine 0.5. Lipase 159. Amylase 61. LFTs unremarkable. Clostridium difficile negative. Recently hospitalized earlier this year with acute pancreatitis of unclear etiology. She takes Norcos on a daily basis for neck/back pain secondary to a fall several years ago. Nause vomiting symptoms started about 5 years ago. She most often waits 3-4 days before seeking medical evaluation in hope the symptoms tania on their own. Review of Systems Constitutional: Denies fever, chills, sweats, weight gain, or loss. HEENT: History of migraines denies, blurred vision or loss, earaches, drainage, tinnitus, oral mucosal lesions, dysphagia, or odynophagia. CARDIAC: Negative for chest pain, arrhythmias, or palpitation. RESPIRATORY: Negative for shortness of breath, hemoptysis, cough, or sputum production. GI: See HPI for pertinent findings. : Negative for hematuria, urgency, frequency, polyuria, or dysuria. GYNc: Denies possibility of . Negative vaginal discharge. MUSCULOSKELETAL: Chronic neck back pain. NEUROLOGIC: Negative for stroke or TIA. ENDOCRINE: Negative for thyroid problems. SKIN: Negative for rash or itching. PSYCHIATRIC: Anxiety depression. All systems: negative (See HPI) Past Medical History Past Medical History: GERD/Reflux Additional Past Medical History / Comment(s): cyclic vomiting syndrome, KIDNEY STONE, HIATAL HERNIA, MIGRAINES, SCOLIOSIS,COMPRESSED VERTEBRA/BACK PAIN. History of Any Multi-Drug Resistant Organisms: None Reported Past Surgical History: Tubal Ligation Additional Past Surgical History / Comment(s): BENIGN bone tumor removed left leg Past Anesthesia/Blood Transfusion Reactions: No Reported Reaction Additional Past Anesthesia/Blood Transfusion Reaction / Comm: CLAUSTEPHOBIC Past Psychological History: Anxiety, Depression Smoking Status: Never smoker Past Alcohol Use History: None Reported Past Drug Use History: Marijuana - Past Family History Mother Family Medical History: Cancer Additional Family Medical History / Comment(s): lymphoma Father Family Medical History: Coronary Artery Disease (CAD), Myocardial Infarction ([place] ) Medications and Allergies Home Medications Medication Instructions Recorded Confirmed Type HYDROcodone/APAP 10-325MG [[place] 1 tab PO QID PRN 01/10/15 07/14/17 History 10-325] ALPRAZolam 0.25 mg PO TID PRN 01/11/15 07/14/17 History Amitriptyline HCl [Elavil] 50 mg PO HS 05/12/17 07/14/17 History Citalopram Hydrobromide [CeleXA] 20 mg PO DAILY 05/14/17 07/14/17 History Metoclopramide HCl [Reglan] 10 mg PO Q6HR PRN #5 day 07/14/17 07/14/17 Rx Metoprolol Tartrate [Lopressor] 50 mg PO BID #60 tab 07/18/17 Rx Allergies Allergy/AdvReac Type Severity Reaction Status Date / Time ondansetron AdvReac Nausea & Verified 07/14/17 19:21 [From Zofran (as Vomiting hydrochloride)] Physical Exam Vitals: Vital Signs Temp Pulse Pulse Resp BP Pulse Ox 07/17/17 07:00 98.5 F 79 16 158/86 98 07/17/17 04:00 16 07/17/17 02:57 97.9 F 70 17 143/74 95 07/17/17 00:00 16 07/16/17 21:57 76 189/89 07/16/17 20:41 77 185/96 07/16/17 20:00 98.7 F 72 16 184/93 95 Intake and Output 07/16/17 07/17/17 07/17/17 22:59 06:59 14:59 Intake Total 700 1200 Output Total 200 850 Balance 500 350 Intake: IV 600 1200 Lactated Ringers 1,000 ml 600 1200 @ 150 mls/hr IV .[id number] [facility] Rx#:[id number] Oral 100 Output: Urine 200 850 Other: Voiding Method Toilet # Voids 1 3 Results CBC & Chem 7: 07/15/17 06:28 07/18/17 06:56 Labs: Abnormal Lab Results - Last 24 Hours (Table) 07/17/17 Range/Units 06:48 Potassium 3.1 L (3.5-5.1) mmol/L Glucose 103 H (74-99) mg/dL Assessment and Plan (1) Cyclic vomiting syndrome Narrative/Plan: History of chronic nausea vomiting abdominal pain for about 5 years. Hospitalization earlier this year for acute pancreatitis of unclear etiology. Difficult to say if her symptoms are cyclic in nature versus subacute pancreatitis attacks not captured biochemically secondary to delayed medical evaluation. Status: Acute (2) H/O acute pancreatitis Status: Resolved Plan: 1. Long discussion was held at bedside with patient regarding the frustration of her diagnosis. Presently receiving as many antiemetics GI motility agents as possible to control her symptoms. Presently she is relatively comfortable. She is requesting to be discharged to seek a second opinion at [facility] which is reasonable. We'll call GI office to see if we can assist with facilitating an appointment. For now continue supportive measures. Discharge per medicine. Thank you for this kind referral and the opportunity to participate in the care of your patient. This consultation was discussed with Dr. Bass. The impression and plan of care have been directed as dictated.
--- NOTE | 2017-07-17 16:02 | PN ---
PROGRESS NOTE DATE OF SERVICE: 07/17/2017 ATTENDING NOTE: This patient was seen and examined by me today. I discussed with my MEDIA MARKETING COORDINATOR, Ms. Worley. The patient is feeling a bit better today, sitting up with less vomiting. The patient's father is at bedside. The patient tried some popsicles this morning. At this time, will try some soft foods. Seen by GI. They will add all the simple food products that are to be tried. The patient has also been walking about in the room several times. I told her to walk in the hallway. EXAMINATION: ABDOMEN: Soft, nontender. The patient looks much more comfortable, rather calm. INVESTIGATIONS: Potassium 3.1. ASSESSMENT: Cyclical vomiting syndrome, slowly improving. PLAN: Diet to be advanced as above. Encouraged to ambulate. Hoping the patient can be discharged by tomorrow. LUZ ELENA / [place]: [id number] /
[2017-07-17] MEDS ORDERED: Potassium Replacement Protocol 1 EACH MISC MISCELLANE PRN (16:44)
--- NOTE | 2017-07-17 16:50 | P.PN ---
Progress Note - Text Progress Note Date: 07/17/17 DATE OF SERVICE: 07/17/2017 PRESENTING COMPLAINT: Intractable nausea vomiting HISTORY OF PRESENT ILLNESS: 52-year-old female with known cyclical vomiting syndrome presented with 2 days of increasing nausea vomiting, not getting any better feeling weak tired rundown. Admitted for the same INTERVAL HISTORY: 07/17/2017: Patient sitting up in the bed, appears comfortable, father at the bedside. States she is unable to tolerate any food or beverage, attempted a Popsicle and was unable to keep it down. Willing to attempt to try other types of foods such as oatmeal bananas apples. GI consulted and saw the patient today. 07/16/2017: Patient sitting up at the bedside, just had an episode of vomiting. Unable to tolerate any food or beverage, no bowel movement, ambulatory within the room. Patient expressed concerns regarding treatments being utilized don't seem to be working. Patient suggested the use of Haldol for her nausea. Discussion held with patient the bedside regarding these interventions. Patient suggested that maybe perhaps she should be discharged and go to [facility]. On rounds with attending physician medications adjusted, calcium carbonate liquid ordered , Ativan added, patient complained of chest tightness, CTA ordered, GI consulted. Patient was agreeable to these interventions. REVIEW OF SYSTEMS: Done for constitutional ,cardiovascular, GI, pulmonary with relevant findings as above. CURRENT MEDICATIONS Calcium carbonate liquid, Pepcid, Motrin, Toradol, Ativan, melatonin, Reglan, Phenergan, Catapres patch PHYSICAL EXAM VITAL SIGNS: Temperature 98.1, pulse 79, respiratory rate 16, blood pressure 164/99, oxygen saturation 90% on room air. GENERAL APPEARANCE: Sitting up on the bed, appears anxious. EYES: Pupils equal. Conjunctiva normal. NECK: JVD not raised. Mass not palpable. RESPIRATORY: Respiratory effort normal. Lungs clear to auscultation. CARDIOVASCULAR: First and second sounds normal. No edema. ABDOMEN: Soft. Liver and spleen not palpable. Diffuse tenderness no guarding or rigidity. No mass palpable. PSYCHIATRY: Alert and oriented x3. Mood and affect anxious. INVESTIGATIONS: potassium 3.1 ASSESSMENT: -Possible acute gastroenteritis, viral in nature slow to respond -Essential hypertension -Possible flareup of cyclical vomiting syndrome, slow to respond -hypokalemia, likely due to cyclic vomiting. -Gastroesophageal reflux disease, chronic. -Chronic hiatal hernia. -Chronic scoliosis. -Depression and anxiety not otherwise specified. PLAN: GI encouraged continuation of supportive measures and recognizes that it is this patient's desire to go to [facility] for an additional consultation for her condition.they will assist in attempting to help facilitate the process. encouraged to eat bland foods such as oatmeal bananas and apples, toast. During this hospital stay poor blood pressure control Catapres patch added area Encouraged patient to avoid sugar and water. Patient and father are in agreement with current plan of care. We will continue to follow closely. SUPERVISOR HISTOLOGY statement: Patient was seen and examined by nurse practitioner Natalie Worley and all elements of the case discussed with attending Dr. Ludwig
[2017-07-17] MEDS: POTASSIUM CHLORIDE ER 20 MEQ TAB.ER PO SCH ×2 (20:49→21:58)
[2017-07-17] MEDS: MELATONIN 5 MG TABLET PO SCH (21:58)
[2017-07-18] MEDS: POTASSIUM CHLORIDE ER 20 MEQ TAB.ER PO SCH ×2 (01:03→02:01)
[2017-07-18] MEDS: METOCLOPRAMIDE 5 MG/ML 2 ML VIAL IVP SCH ×2 (01:07→05:57)
[2017-07-18 03:02] VITALS: RESP 16
[2017-07-18] MEDS: KETOROLAC 30 MG/ML 1 ML VIAL IVP PRN (06:03)
[2017-07-18] MEDS: LORazepam 2 MG/ML INJ IV PRN (06:03)
[2017-07-18 07:21] VITALS: BP 144/77; PULSE 64; TEMP 97.6
[2017-07-18 07:32] LABS: Anion Gap 7 mmol/L; Blood Urea Nitrogen 12 mg/dL (7-17); Calcium 8.1 mg/dL (8.4-10.2); Carbon Dioxide 23 mmol/L (22-30); Chloride 108 mmol/L (98-107); Glucose 90 mg/dL (74-99); Non-African American GFR(MDRD) >60 (>60 ml/min/1.73 sqM); Sodium 138 mmol/L (137-145)
[2017-07-18 07:40] LABS: Potassium 4.1 mmol/L (3.5-5.1)
[2017-07-18] MEDS: CALCIUM CARBONATE LIQUID 500 MG/5 ML CUP PO SCH (09:08)
[2017-07-18] MEDS: FAMOTIDINE 20 MG/2 ML VIAL IVP SCH (09:08)
[2017-07-18] MEDS ORDERED: METOPROLOL TARTRATE 50 MG TAB PO SCH (10:00)
--- NOTE | 2017-07-18 13:43 | P.DS ---
Providers Date of admission: 07/14/17 21:36 Expected date of discharge: 07/18/17 Attending physician: Hugo Ludwig Consults: 07/16/17 12:52 Consult Physician Routine Consulting Provider: Alec Bass Consult Reason/Comments: nausea and vomiting Do you want consulting provider notified?: Yes Primary care physician: Leo [facility] Course: FINAL DIAGNOSES: - flareup of cyclical vomiting syndrome -Essential hypertension -hypokalemia, likely due to cyclic vomiting. -Gastroesophageal reflux disease, chronic. -Chronic hiatal hernia. -Chronic scoliosis. -Depression not otherwise specified -Anxiety not otherwise specified with an acute flareup HOSPTIAL COURSE: 52-year-old female with known cyclical vomiting syndrome presented with 2 days of increasing nausea vomiting by getting a better feeling weak and tired and rundown. Admitted for the same. Home medications reordered, IV fluids initiated. Antinausea and GI motility agent medications provided. Patient did not sustain any kind of improvement. Daughter expressed concern regarding failure to improve offered a suggestion of transferring patient to [facility]. Patient was hypertensive Catapres patch added. GI consulted, agreed with patient's desire to seek a second opinion continue supportive measures. Patient's diet switched to a soft bland diet, minimal sugars, she was able to tolerate this. Patient has had 24 hours no nausea or vomiting, able to take her by mouth medications. Ambulatory in the room and hallway. Condition has improved and is stable for discharge. PHYSICAL EXAM: CARDIOVASCULAR: first and second sound noted no edema RESPIRATORY: Respiratory effort normal lung sounds clear to auscultation. GI: abdomen soft mildly tender liver and spleen not palpable PSYCHIATRY: Alert and oriented 3 mood and affect normal. Patient was seen and examined by nurse practitioner Natalie Worley in all elements of the case discussed with attending Dr. Ludwig DISPOSITION: home to the care of family Patient Condition at Discharge: Stable Plan - Discharge Summary New Discharge Prescriptions: New Metoprolol Tartrate [Lopressor] 50 mg PO BID #60 tab Continue HYDROcodone/APAP 10-325MG [[place] 10-325] 1 tab PO QID PRN PRN Reason: Pain ALPRAZolam 0.25 mg PO TID PRN PRN Reason: Anxiety Amitriptyline HCl [Elavil] 50 mg PO HS Citalopram Hydrobromide [CeleXA] 20 mg PO DAILY Metoclopramide HCl [Reglan] 10 mg PO Q6HR PRN #5 day PRN Reason: Nausea Discharge Medication List HYDROcodone/APAP 10-325MG [[place] 10-325] 1 tab PO QID PRN 01/10/15 [History] ALPRAZolam 0.25 mg PO TID PRN 01/11/15 [History] Amitriptyline HCl [Elavil] 50 mg PO HS 05/12/17 [History] Citalopram Hydrobromide [CeleXA] 20 mg PO DAILY 05/14/17 [History] Metoclopramide HCl [Reglan] 10 mg PO Q6HR PRN #5 day 07/14/17 [Rx] Metoprolol Tartrate [Lopressor] 50 mg PO BID #60 tab 07/18/17 [Rx] Follow up Appointment(s)/Referral(s): Whit Segura MD [STAFF PHYSICIAN] - 07/23/17 2:15 pm Leo Kirby DO [Primary Care Provider] - 07/23/17 1:00 pm Patient Instructions/Handouts: Soft Diet (DC) Activity/Diet/Wound Care/Special Instructions: soft bland Discharge Disposition: HOME SELF-CARE
--- NOTE | 2017-07-18 18:44 | P.PN ---
Subjective Progress Note Date: 07/18/17 Principal diagnosis: nausea vomiting laate entry Evaluated earlier this morning. Feels better today. No nausea or vomiting tolerating diet. Anticipating discharge. Objective - Vital Signs Vital signs: Vital Signs Temp 97.6 F 07/18/17 07:20 Pulse 64 07/18/17 07:20 Resp 16 07/18/17 07:20 BP 144/77 07/18/17 07:20 Pulse Ox 94 L 07/18/17 07:20 Intake & Output 07/17/17 07/18/17 07/18/17 18:59 06:59 18:59 Intake Total 180 1800 480 Output Total 600 Balance 180 1200 480 Intake: IV 1800 Lactated Ringers 1,000 ml 1800 @ 150 mls/hr IV .Q6H40M FIDEL Rx#:[id number] Oral 180 480 Output: Urine 600 Other: # Voids 3 2 - Constitutional General appearance: Present: average body habitus - EENT Eyes: Present: normal appearance ENT: Present: normal oropharynx - Neck Neck: Present: normal ROM - Respiratory Respiratory: bilateral: CTA - Cardiovascular Rhythm: regular Heart sounds: normal: S1, S2 - Gastrointestinal Gastrointestinal Comment(s): nontender General gastrointestinal: Present: soft - Integumentary Integumentary: Present: normal turgor - Neurologic Neurologic: Present: CNII-XII intact - Psychiatric Psychiatric: Present: A&O x's 3, appropriate affect, intact judgment & insight - Labs CBC & Chem 7: 07/15/17 06:28 07/18/17 06:56 Labs: Abnormal Lab Results - Last 24 Hours (Table) 07/17/17 07/18/17 Range/Units 23:01 06:56 Potassium 3.1 L (3.5-5.1) mmol/L Chloride 108 H (98-107) mmol/L Calcium 8.1 L (8.4-10.2) mg/dL Assessment and Plan (1) Cyclic vomiting syndrome Narrative/Plan: History of chronic nausea vomiting abdominal pain for about 5 years. Hospitalization earlier this year for acute pancreatitis of unclear etiology. Difficult to say if her symptoms are cyclic in nature versus subacute pancreatitis attacks not captured biochemically secondary to delayed medical evaluation. Status: Acute (2) H/O acute pancreatitis Status: Resolved Plan: 1. Long discussion was held at bedside trying to identify possible triggers that could be contributing to her GI presentation. RTO 1-[address] Segura. If her symptoms suggest possible pancreatitis pathology Dr. Segura will further direct. Patient expressed she would like to be off of narcotic medications for her neck/back pain but has never completed a full evaluation of her injury since the fall several years ago. Shes concerned that her symptoms of NV exacerbate possibly from opioid withdrawal when the NV inhibits her from taking her pain medications. Recommended outpatient evaluation of her reported neck injury with an orthopaedic service; patient will look into this. GI office willing to assist with transmission of medical records office visits to [facility] when additional information can be provided. Discharge per medicine. Assessment and plan of care discussed with Dr. Bass
--- NOTE | 2017-07-19 07:49 | DS ---
DISCHARGE SUMMARY DATE OF SERVICE: 07/18/17. ATTENDING NOTE: This patient was seen and examined by me. I discussed with my nurse practitioner, Ms. Worley. The patient doing much better. Tolerating a diet. Up and about. Nausea, vomiting has gone down. The patient is far more relaxed. For blood pressure we will start the patient on Lopressor. The patient will be making arrangements with GI for treatment plan for follow up. On examination lungs are clear. CARDIOVASCULAR: First and second sounds normal. Discharge planning was discussed. Discharge planning more than 35 minutes. MMODL / IJN: [id number] /
== END 2017-07-18 11:18 | disposition home or self-care (01) ==
LOC: EC 17:30 → 3SUR 21:36
PROVIDERS: ADMIT Hospitalist; ATTEND Hospitalist
DX: G43.A0 Cyclical vomiting, in migraine, not intractable (principal); I10 Essential (primary) hypertension; K21.9 Gastro-esophageal reflux disease without esophagitis; E87.6 Hypokalemia; M41.9 Scoliosis, unspecified; K44.9 Diaphragmatic hernia without obstruction or gangrene; F32.9 Major depressive disorder, single episode, unspecified; F41.1 Generalized anxiety disorder; G89.29 Other chronic pain; M54.2 Cervicalgia; R53.1 Weakness; G43.909 Migraine, unspecified, not intractable, without status migrainosus; Z79.899 Other long term (current) drug therapy; Z88.8 Allergy status to other drugs, medicaments and biological substances; Z82.49 Family history of ischemic heart disease and other diseases of the circulatory system; Z87.442 Personal history of urinary calculi; Z79.891 Long term (current) use of opiate analgesic
CPT/HCPCS: 96376 ×4; 96361 ×4; 96375 ×4; 96374; 99284; 93005; 80048 ×4; 84132; 85025; 87324; 71275; G0378 ×5; J2060 ×3; J1200; J1630; J2550; J2765 ×5; Q9967; J2405; J1885 ×5; J1170 ×2

== ENCOUNTER 2017-11-19 03:39 | Emergency (ER) | payer OTHER ==
[2017-11-19] MEDS ORDERED: SODIUM CHLORIDE 0.9% 1,000 ML IV STA (04:15)
[2017-11-19] MEDS ORDERED: HALOPERIDOL LACTATE 5 MG/ML 1 ML VIAL IVP PRN (04:19)
[2017-11-19] MEDS ORDERED: HYDROmorphone 2 MG/ML 1 ML SYRINGE IVP STA (04:20)
[2017-11-19] MEDS ORDERED: LORazepam 1 MG TAB PO STA (04:21)
[2017-11-19] MEDS ORDERED: PANTOPRAZOLE 40 MG/10 ML VIAL IVP STA (04:21)
[2017-11-19] MEDS ORDERED: HYDROmorphone 4 MG/ML 1 ML SYRINGE IVP STA (04:23)
[2017-11-19] MEDS ORDERED: HALOPERIDOL LACTATE 5 MG/ML 1 ML VIAL IVP STA (04:27)
[2017-11-19 04:32] LABS: Basophils % (A) 0 %; Eosinophils % (A) 0 %; HGB 12.8 gm/dL (11.4-16.0); Lymphocytes # (A) 1.4 k/uL (1.0-4.8); Lymphocytes % (A) 13 %; MCH 26.2 pg (25.0-35.0); MCHC 31.9 g/dL (31.0-37.0); MCV 82.2 fL (80.0-100.0); Mean Platelet Volume 7.1; Monocytes # (A) 0.3 k/uL (0-1.0); Monocytes % (A) 3 %; Neutrophils # (A) 8.7 k/uL (1.3-7.7); Neutrophils % (A) 83 %; Platelet Count 357 k/uL (150-450); RBC 4.86 m/uL (3.80-5.40); RDW 14.4 % (11.5-15.5); WBC 10.6 k/uL (3.8-10.6)
[2017-11-19 04:42] LABS: ALT 26 U/L (9-52); AST 24 U/L (14-36); Albumin 4.4 g/dL (3.5-5.0); Alkaline Phosphatase 110 U/L (38-126); Amylase 65 U/L (30-110); Anion Gap 15 mmol/L; Blood Urea Nitrogen 15 mg/dL (7-17); Calcium 9.7 mg/dL (8.4-10.2); Carbon Dioxide 19 mmol/L (22-30); Chloride 105 mmol/L (98-107); Glucose 198 mg/dL (74-99); Lipase 149 U/L (23-300); Potassium 3.9 mmol/L (3.5-5.1); Sodium 139 mmol/L (137-145); Total Bilirubin 0.3 mg/dL (0.2-1.3); Total Protein 7.7 g/dL (6.3-8.2)
[2017-11-19] MEDS ORDERED: SODIUM CHLORIDE 0.9% 2,000 ML IV ONE (04:49)
[2017-11-19] MEDS ORDERED: SODIUM CHLORIDE 0.9% 1,000 ML IV ONE (04:49)
--- NOTE | 2017-11-19 05:12 | XR ---
EXAM: XR Chest, 2 Views CLINICAL HISTORY: Reason: abdominal pain TECHNIQUE: Frontal and lateral views of the chest. COMPARISON: Chest x-ray dated 02/20/2017. FINDINGS: Lungs: Unremarkable. The lungs are clear. Pleural space: Unremarkable. No pneumothorax. Heart: Unremarkable. No cardiomegaly. Mediastinum: Unremarkable. Bones/joints: Unremarkable. IMPRESSION: Normal chest x-rays.
--- NOTE | 2017-11-19 05:13 | XR ---
EXAM: XR Abdomen, 1 View CLINICAL HISTORY: Reason: abdominal pain TECHNIQUE: Frontal supine view of the abdomen/pelvis. COMPARISON: Abdominal x-rays dated 07/14/2017. FINDINGS: Gastrointestinal tract: Unremarkable. No dilation. No evidence of free air. Bones/joints: Unremarkable. IMPRESSION: Normal abdominal x-ray.
--- NOTE | 2017-11-19 05:17 | ED ---
Abdominal Pain HPI - General Chief Complaint: Abdominal Pain Stated Complaint: vomiting Time Seen by Provider: 11/19/17 04:12 Source: patient Mode of arrival: wheelchair Limitations: physical limitation - History of Present Illness Initial Comments: 52 years old female has a history of cyclical vomiting and pancreatitis she went to bed doing fine at midnight she woke up and she threw up more than 20 times she also been quite stressed out and she lost her dad in September and there were some other stress for family events going on as well, then she got very stressed out 10 she thinks she also had anxiety attack at that point. On arrival C was very anxious and was stating that she is dying She needs help she denies any headaches no neck stiffness no fever no chills she had severe nausea and vomiting denies any chest pain no shortness of breath mild epigastric pain no frequency urgency dysuria no symptoms of TIA or CVA she has a history of cyclical vomiting and also history of using marijuana - Related Data Home Medications Medication Instructions Recorded Confirmed HYDROcodone/APAP 10-325MG [[place] 1 tab PO QID PRN 01/10/15 07/14/17 10-325] ALPRAZolam 0.25 mg PO TID PRN 01/11/15 07/14/17 Amitriptyline HCl [Elavil] 50 mg PO HS 05/12/17 07/14/17 Citalopram Hydrobromide [CeleXA] 20 mg PO DAILY 05/14/17 07/14/17 Previous Rx's Medication Instructions Recorded Metoclopramide HCl [Reglan] 10 mg PO Q6HR PRN #5 day 07/14/17 Metoprolol Tartrate [Lopressor] 50 mg PO BID #60 tab 07/18/17 Allergies Allergy/AdvReac Type Severity Reaction Status Date / Time ondansetron AdvReac Nausea & Verified 11/19/17 03:46 [From Zofran (as Vomiting hydrochloride)] Review of Systems ROS Statement: Those systems with pertinent positive or pertinent negative responses have been documented in the HPI. ROS Other: All systems not noted in ROS Statement are negative. Past Medical History Past Medical History: GERD/Reflux Additional Past Medical History / Comment(s): cyclic vomiting syndrome, KIDNEY STONE, HIATAL HERNIA, MIGRAINES, SCOLIOSIS,COMPRESSED VERTEBRA/BACK PAIN. History of Any Multi-Drug Resistant Organisms: None Reported Past Surgical History: Tubal Ligation Additional Past Surgical History / Comment(s): BENIGN bone tumor removed left leg Past Anesthesia/Blood Transfusion Reactions: No Reported Reaction Additional Past Anesthesia/Blood Transfusion Reaction / Comment(s): CLAUSTEPHOBIC Past Psychological History: Anxiety, Depression Smoking Status: Never smoker Past Alcohol Use History: None Reported Past Drug Use History: Marijuana - Past Family History Mother Family Medical History: Cancer Additional Family Medical History / Comment(s): lymphoma Father Family Medical History: Coronary Artery Disease (CAD), Myocardial Infarction ([place] ) General Exam - General Exam Comments Initial Comments: General: The patient is awake and alert, she is very anxious she is repeating that she is dying Skin: Skin is warm and dry and no rashes or lesions are noted. He is diaphoretic Eye: Pupils are equal, round and reactive to light, extra-ocular movements are intact; there is normal conjunctiva bilaterally. Ears, nose, mouth and throat: There are moist mucous membranes and no oral lesions. Neck: The neck is supple, there is no tenderness or JVD. Cardiovascular: There is a regular rate and rhythm. No murmur, rub or gallop is appreciated. Respiratory: To auscultation bilateral, no wheezing no rhonchi no distress respiratory weinstein noticed Gastrointestinal: Slightly tender in epigastric area bowel sounds are positive no guarding no rebounds Back: There is no tenderness to palpation in the midline. There is no obvious deformity. Musculoskeletal: Normal ROM, no tenderness, There is no pedal edema. There is no calf tenderness or swelling. No cords were appreciated. Neurological: CN II-XII intact, Cranial nerves III through XII are intact. There are no obvious motor or sensory deficits. Coordination appears grossly intact. Speech is normal. Psychiatric: Cooperative, appropriate mood & affect, normal judgment. Limitations: physical limitation Course Vital Signs 11/19/17 11/19/17 11/19/17 03:43 04:38 05:08 Temperature 97.2 F L Pulse Rate 100 96 81 Respiratory 30 H 22 18 Rate Blood Pressure 164/93 168/74 157/109 O2 Sat by Pulse 100 100 95 Oximetry 11/19/17 06:22 Temperature Pulse Rate 90 Respiratory 18 Rate Blood Pressure 119/65 O2 Sat by Pulse 98 Oximetry EKG is normal sinus rhythm medical rate is 76 [place] interval is 140 QRS duration is 86 QT/QTc is 478/435 noticed a T-wave inversion in lead 3 she had the same T- wave inversion in EKG done on July 2017 and review of this EKG did not reveal any ST elevation or ST depression She was reassessed at term 5 AM, noticed it after Ativan and Haldol she is back to herself but she feels 100% better her labs are reviewed noticed lactate was greater than 4 IVs are started and she is being hydrated - Reevaluation(s) Reevaluation #1: She was reassessed at 7 AM she feels back to normal she had 4 L of fluid her lactate has improved tremendously will benefit ratio fourth liter and then will most probably bring her lactate totally within normal range, she be discharged and follow with the family doctor 11/19/17 07:06 Reevaluation #3: She was reassessed at 518 labs are reviewed, CBC is unremarkable CO2 is 19 lactate is greater than 4, BS metabolic panel otherwise is normal KUB and chest x-ray are both unremarkable she is being hydrated I plan to hydrate her with the 3 L and a repeat lactate 11/19/17 05:18 Medical Decision Making - Lab Data Result diagrams: 11/19/17 04:00 11/19/17 04:00 Lab Results 11/19/17 11/19/17 11/19/17 Range/Units 04:00 04:00 04:00 WBC 10.6 (3.8-10.6) k/uL RBC 4.86 (3.80-5.40) m/uL Hgb 12.8 (11.4-16.0) gm/dL Hct 40.0 (34.0-46.0) % MCV 82.2 (80.0-100.0) fL MCH 26.2 (25.0-35.0) pg MCHC 31.9 (31.0-37.0) g/dL RDW 14.4 (11.5-15.5) % Plt Count 357 (150-450) k/uL Neutrophils % 83 % Lymphocytes % 13 % Monocytes % 3 % Eosinophils % 0 % Basophils % 0 % Neutrophils # 8.7 H (1.3-7.7) k/uL Lymphocytes # 1.4 (1.0-4.8) k/uL Monocytes # 0.3 (0-1.0) k/uL Eosinophils # 0.0 (0-0.7) k/uL Basophils # 0.0 (0-0.2) k/uL Sodium 139 (137-145) mmol/L Potassium 3.9 (3.5-5.1) mmol/L Chloride 105 (98-107) mmol/L Carbon Dioxide 19 L (22-30) mmol/L Anion Gap 15 mmol/L BUN 15 (7-17) mg/dL Creatinine 0.60 (0.52-1.04) mg/dL Est GFR (MDRD) Af Amer >60 (>60 ml/min/1.73 sqM) Est GFR (MDRD) Non-Af >60 (>60 ml/min/1.73 sqM) Glucose 198 H (74-99) mg/dL Plasma Lactic Acid [place] 4.1 H* (0.7-2.0) mmol/L Calcium 9.7 (8.4-10.2) mg/dL Total Bilirubin 0.3 (0.2-1.3) mg/dL AST 24 (14-36) U/L ALT 26 (9-52) U/L Alkaline Phosphatase 110 (38-126) U/L Troponin I (0.000-0.034) ng/mL Total Protein 7.7 (6.3-8.2) g/dL Albumin 4.4 (3.5-5.0) g/dL Amylase 65 (30-110) U/L Lipase 149 (23-300) U/L Urine Color Urine Appearance (Clear) Urine pH (5.0-8.0) Ur Specific [place] (1.001-1.035) Urine Protein (Negative) Urine Glucose (UA) (Negative) Urine Ketones (Negative) Urine Blood (Negative) Urine Nitrite (Negative) Urine Bilirubin (Negative) Urine Urobilinogen (<2.0) mg/dL Ur Leukocyte Esterase (Negative) 11/19/17 11/19/17 11/19/17 Range/Units 04:00 06:13 06:13 WBC (3.8-10.6) k/uL RBC (3.80-5.40) m/uL Hgb (11.4-16.0) gm/dL Hct (34.0-46.0) % MCV (80.0-100.0) fL MCH (25.0-35.0) pg MCHC (31.0-37.0) g/dL RDW (11.5-15.5) % Plt Count (150-450) k/uL Neutrophils % % Lymphocytes % % Monocytes % % Eosinophils % % Basophils % % Neutrophils # (1.3-7.7) k/uL Lymphocytes # (1.0-4.8) k/uL Monocytes # (0-1.0) k/uL Eosinophils # (0-0.7) k/uL Basophils # (0-0.2) k/uL Sodium (137-145) mmol/L Potassium (3.5-5.1) mmol/L Chloride (98-107) mmol/L Carbon Dioxide (22-30) mmol/L Anion Gap mmol/L BUN (7-17) mg/dL Creatinine (0.52-1.04) mg/dL Est GFR (MDRD) Af Amer (>60 ml/min/1.73 sqM) Est GFR (MDRD) Non-Af (>60 ml/min/1.73 sqM) Glucose (74-99) mg/dL Plasma Lactic Acid [place] 2.3 H* (0.7-2.0) mmol/L Calcium (8.4-10.2) mg/dL Total Bilirubin (0.2-1.3) mg/dL AST (14-36) U/L ALT (9-52) U/L Alkaline Phosphatase (38-126) U/L Troponin I <0.012 (0.000-0.034) ng/mL Total Protein (6.3-8.2) g/dL Albumin (3.5-5.0) g/dL Amylase (30-110) U/L Lipase (23-300) U/L Urine Color Light Yellow Urine Appearance Clear (Clear) Urine pH 8.5 H (5.0-8.0) Ur Specific [place] 1.010 (1.001-1.035) Urine Protein Negative (Negative) Urine Glucose (UA) Negative (Negative) Urine Ketones 1+ H (Negative) Urine Blood Negative (Negative) Urine Nitrite Negative (Negative) Urine Bilirubin Negative (Negative) Urine Urobilinogen <2.0 (<2.0) mg/dL Ur Leukocyte Esterase Negative (Negative) Disposition Clinical Impression: Cyclical vomiting, Metabolic acidosis Disposition: HOME SELF-CARE Condition: Good Instructions: Dehydration (ED) Referrals: Leo Kirby DO [Primary Care Provider] - 1-2 days
[2017-11-19 06:22] LABS: Appearance,Urine Clear (Clear); Bilirubin,Urine Negative (Negative); Blood,Urine Negative (Negative); Color,Urine Light Yellow; Glucose,Urine (UA) Negative (Negative); Ketones,Urine 1+ (Negative); Leukocyte Esterase,Urine Negative (Negative); Nitrite,Urine Negative (Negative); PH, Urine 8.5 (5.0-8.0); Protein,Urine Negative (Negative); Urobilinogen,Urine <2.0 mg/dL (<2.0)
[2017-11-19 07:16] VITALS: BP 120/70; PULSE 86; RESP 17; TEMP 97.7
== END 2017-11-19 07:15 | disposition home or self-care (01) ==
LOC: EC 03:39
DX: G43.A0 Cyclical vomiting, in migraine, not intractable (principal); E87.2 Acidosis; F41.9 Anxiety disorder, unspecified; F32.9 Major depressive disorder, single episode, unspecified; Z87.442 Personal history of urinary calculi; Z87.19 Personal history of other diseases of the digestive system; Z88.8 Allergy status to other drugs, medicaments and biological substances; Z79.899 Other long term (current) drug therapy
CPT/HCPCS: 99284; 96374; 96375 ×2; 96361 ×2; 96360; 36415; 93005; 80053; 82150; 83605; 83690; 84484; 85025; 81003; 71046; 74018; J1630; C9113; J1170

== ENCOUNTER 2017-11-19 11:36 | Observation (INO) | payer OTHER ==
[2017-11-19] MEDS ORDERED: HALOPERIDOL LACTATE 5 MG/ML 1 ML VIAL IVP STA (12:36)
[2017-11-19] MEDS ORDERED: SODIUM CHLORIDE 0.9% 2,000 ML IV ONE (12:37)
[2017-11-19] MEDS ORDERED: LORazepam 2 MG/ML INJ IV STA (12:37)
--- NOTE | 2017-11-19 12:44 | ED ---
Nausea/Vomiting/Diarrhea HPI - General Chief complaint: Nausea/Vomiting/Diarrhea Stated complaint: Nauseated Time Seen by Provider: 11/19/17 12:27 Source: patient, family, RN notes reviewed Mode of arrival: wheelchair Limitations: no limitations - History of Present Illness Initial comments: This is a 52-year-old female who presents to the ED with a chief complaint of cyclical vomiting. The patient was here in the ED earlier today with the same complaint. Most of the history was obtained from the patient's daughter due to the patient was feeling discomfort when she spoke. Her daughter stated that the patient was feeling fine for about 3 hours after leaving the ED until the vomiting began again. She denies diarrhea, hematemesis, and is unable to retain fluids orally. The patient stated Haldol and Ativan helped with her symptoms previously. She has an adverse reaction of nausea and vomiting when she takes Reglan and Zofran. - Related Data Home Medications Medication Instructions Recorded Confirmed HYDROcodone/APAP 10-325MG [[place] 1 tab PO QID PRN 01/10/15 11/19/17 10-325] ALPRAZolam 0.25 mg PO TID PRN 01/11/15 11/19/17 Amitriptyline HCl [Elavil] 50 mg PO HS 05/12/17 11/19/17 Citalopram Hydrobromide [CeleXA] 20 mg PO DAILY 05/14/17 11/19/17 Allergies Allergy/AdvReac Type Severity Reaction Status Date / Time ondansetron AdvReac Nausea & Verified 11/19/17 12:02 [From Zofran (as Vomiting hydrochloride)] Review of Systems ROS Statement: Those systems with pertinent positive or pertinent negative responses have been documented in the HPI. ROS Other: All systems not noted in ROS Statement are negative. Past Medical History Past Medical History: GERD/Reflux Additional Past Medical History / Comment(s): cyclic vomiting syndrome, KIDNEY STONE, HIATAL HERNIA, MIGRAINES, SCOLIOSIS,COMPRESSED VERTEBRA/BACK PAIN. History of Any Multi-Drug Resistant Organisms: None Reported Past Surgical History: Tubal Ligation Additional Past Surgical History / Comment(s): BENIGN bone tumor removed left leg Past Anesthesia/Blood Transfusion Reactions: No Reported Reaction Additional Past Anesthesia/Blood Transfusion Reaction / Comment(s): CLAUSTEPHOBIC Past Psychological History: Anxiety, Depression Smoking Status: Never smoker Past Alcohol Use History: None Reported Past Drug Use History: Marijuana - Past Family History Mother Family Medical History: Cancer Additional Family Medical History / Comment(s): lymphoma Father Family Medical History: Coronary Artery Disease (CAD), Myocardial Infarction ([place] ) General Exam Limitations: no limitations General appearance: alert, in distress Head exam: Present: atraumatic, normocephalic, normal inspection Eye exam: Present: normal appearance, PERRL, EOMI. Absent: scleral icterus, conjunctival injection, periorbital swelling GI/Abdominal exam: Present: tenderness, guarding Neurological exam: Present: alert, oriented X3, CN II-XII intact Psychiatric exam: Present: normal affect, normal mood Skin exam: Present: warm, dry, intact, normal color. Absent: rash Course Vital Signs 11/19/17 11/19/17 11:50 13:03 Temperature 98 F Pulse Rate 100 95 Respiratory 20 22 Rate Blood Pressure 188/87 156/72 O2 Sat by Pulse 100 98 Oximetry Medical Decision Making - Lab Data Result diagrams: 11/19/17 12:13 11/19/17 12:13 Lab Results 11/19/17 11/19/17 Range/Units 12:13 12:13 WBC 13.9 H (3.8-10.6) k/uL RBC 4.53 (3.80-5.40) m/uL Hgb 12.1 (11.4-16.0) gm/dL Hct 37.2 (34.0-46.0) % MCV 82.1 (80.0-100.0) fL MCH 26.7 (25.0-35.0) pg MCHC 32.6 (31.0-37.0) g/dL RDW 14.5 (11.5-15.5) % Plt Count 374 (150-450) k/uL Neutrophils % 81 % Lymphocytes % 15 % Monocytes % 3 % Eosinophils % 0 % Basophils % 0 % Neutrophils # 11.3 H (1.3-7.7) k/uL Lymphocytes # 2.1 (1.0-4.8) k/uL Monocytes # 0.4 (0-1.0) k/uL Eosinophils # 0.0 (0-0.7) k/uL Basophils # 0.0 (0-0.2) k/uL Sodium 142 (137-145) mmol/L Potassium 4.0 (3.5-5.1) mmol/L Chloride 110 H (98-107) mmol/L Carbon Dioxide 18 L (22-30) mmol/L Anion Gap 14 mmol/L BUN 10 (7-17) mg/dL Creatinine 0.56 (0.52-1.04) mg/dL Est GFR (MDRD) Af Amer >60 (>60 ml/min/1.73 sqM) Est GFR (MDRD) Non-Af >60 (>60 ml/min/1.73 sqM) Glucose 157 H (74-99) mg/dL Calcium 9.1 (8.4-10.2) mg/dL Total Bilirubin 0.5 (0.2-1.3) mg/dL AST 20 (14-36) U/L ALT 23 (9-52) U/L Alkaline Phosphatase 107 (38-126) U/L Total Protein 7.1 (6.3-8.2) g/dL Albumin 4.0 (3.5-5.0) g/dL Amylase 52 (30-110) U/L Lipase 135 (23-300) U/L Disposition Clinical Impression: Intractable nausea and vomiting, Cyclic vomiting syndrome, Metabolic acidosis Disposition: ADMITTED IP TO THIS [facility] Condition: Stable Referrals: Leo Kirby DO [Primary Care Provider] - 1-2 days Time of Disposition: 14:40
[2017-11-19 13:01] LABS: Basophils % (A) 0 %; Eosinophils % (A) 0 %; HCT 37.2 % (34.0-46.0); HGB 12.1 gm/dL (11.4-16.0); Lymphocytes # (A) 2.1 k/uL (1.0-4.8); Lymphocytes % (A) 15 %; MCH 26.7 pg (25.0-35.0); MCHC 32.6 g/dL (31.0-37.0); MCV 82.1 fL (80.0-100.0); Mean Platelet Volume 7.6; Monocytes # (A) 0.4 k/uL (0-1.0); Monocytes % (A) 3 %; Neutrophils # (A) 11.3 k/uL (1.3-7.7); Neutrophils % (A) 81 %; Platelet Count 374 k/uL (150-450); RBC 4.53 m/uL (3.80-5.40); RDW 14.5 % (11.5-15.5); WBC 13.9 k/uL (3.8-10.6)
[2017-11-19 13:04] LABS: ALT 23 U/L (9-52); AST 20 U/L (14-36); Alkaline Phosphatase 107 U/L (38-126); Amylase 52 U/L (30-110); Anion Gap 14 mmol/L; Blood Urea Nitrogen 10 mg/dL (7-17); Calcium 9.1 mg/dL (8.4-10.2); Carbon Dioxide 18 mmol/L (22-30); Chloride 110 mmol/L (98-107); Glucose 157 mg/dL (74-99); Lipase 135 U/L (23-300); Sodium 142 mmol/L (137-145); Total Bilirubin 0.5 mg/dL (0.2-1.3); Total Protein 7.1 g/dL (6.3-8.2)
[2017-11-19] MEDS ORDERED: diphenhydrAMINE 50 MG/ML 1 ML VIAL IVP STA (13:40)
[2017-11-19] MEDS ORDERED: FAMOTIDINE 20 MG/2 ML VIAL IV STA (13:40)
[2017-11-19] MEDS ORDERED: SCOPOLAMINE 1.5MG/72HR PATCH TRANSDERM STA (14:41)
[2017-11-19] MEDS ORDERED: NALOXONE 0.4 MG/ML 1 ML VIAL IV PRN (14:41)
[2017-11-19] MEDS: SODIUM CHLORIDE 0.9% 1,000 ML IV SCH (14:57)
[2017-11-19] MEDS ORDERED: ALPRAZolam 0.25 MG TAB PO PRN (16:20)
[2017-11-19 17:19] VITALS: BMI 27.4
[2017-11-19] MEDS: HYDROcodone/APAP 10-325MG 1 EACH TAB PO PRN (19:01)
[2017-11-19] MEDS ORDERED: AMITRIPTYLINE HCL 50 MG TAB PO SCH (21:00)
--- NOTE | 2017-11-19 23:29 | HP ---
HISTORY AND PHYSICAL DATE OF ADMISSION: 11/19/2017. PRESENTING COMPLAINT: Nausea, vomiting, diarrhea. HISTORY OF PRESENTING COMPLAINT: This is a pleasant 52-year-old patient of Dr. Kirby. Chronic stable medical conditions include GERD, kidney stones, hernia, scoliosis, chronic low back pain and cyclic vomiting syndrome. The patient presented with 1 day of increasing nausea, vomiting and also diarrhea. At this time, denies. The patient has some slight chills. No fever. No abdominal pain. Tired, run down. The patient feels rather exhausted. REVIEW OF SYSTEMS: CONSTITUTIONAL: Weak, tired. Some questionable chills. HEENT: None. RESPIRATORY: None. CARDIOVASCULAR: None. GASTROINTESTINAL: As above. GENITOURINARY: None. MUSCULOSKELETAL: Chronic low back pain. DERMATOLOGICAL: None. HEMATOLOGIC: None. LYMPHATIC: None. PSYCHIATRY: Anxiety. NEUROLOGICAL: None. PAST MEDICAL HISTORY: Cyclic vomiting syndrome, GERD, kidney stones, hiatal hernia, migraines, scoliosis, herniated disc, depression, anxiety, pancreatitis. SOCIAL HISTORY: Lives with her boyfriend, 2 children. No alcohol. No smoking. FAMILY HISTORY: Lymphoma. HOME MEDICATIONS: 1. [place] 10, 1 tablet q.i.d. p.r.n. 2. Celexa 20 mg p.o. daily. 3. Elavil 50 mg q.h.s. 4. Xanax 0.25 p.o. t.i.d. p.r.n. ALLERGIES: To ZOFRAN. EXAMINATION: Temperature 98.7, pulse 90, respirations 18, blood pressure 170/80, pulse ox 98% on room air. GENERAL APPEARANCE: Average build, lying in bed, very tired-appearing. EYES: Pupils equal. Conjunctivae normal. HEENT: External appearance of nose, ears normal. Oral cavity: Dry mucous membranes. NECK: JVD not raised. Mass not palpable. RESPIRATORY: Effort normal. Lungs are clear. CARDIOVASCULAR: First and second sounds normal. No edema. ABDOMEN: Soft, nontender. Liver and spleen not palpable. LYMPHATIC: No lymph nodes palpable in neck or axillae. PSYCHIATRY: Alert and oriented x3. Mood and affect normal. NEUROLOGICAL: Pupils equal. Cranial nerves grossly intact. Power and sensation grossly intact. INVESTIGATIONS: White count 13.9, hemoglobin 12.1. Potassium 4.0, BUN, creatinine are normal, bicarb 18. ASSESSMENT: 1. Acute gastroenteritis, possibly viral. 2. Gastroesophageal reflux disease. 3. Chronic hiatal hernia. 4. Chronic scoliosis. 5. Depression and anxiety, not otherwise specified. PLAN: Patient is put on IV fluids, given a scopolamine patch, put on a clear liquid diet. Other home medications will be resumed. Care was discussed with the patient. LUZ ELENA / KARENN: [id number] /
[2017-11-20 01:40] VITALS: RESP 16
[2017-11-20] MEDS: HYDROcodone/APAP 10-325MG 1 EACH TAB PO PRN (04:00)
[2017-11-20] MEDS: SODIUM CHLORIDE 0.9% 1,000 ML IV SCH (05:42)
[2017-11-20] MEDS ORDERED: CITALOPRAM HYDROBROMIDE 20 MG TAB PO SCH (09:00)
[2017-11-20] MEDS ORDERED: ENOXAPARIN 40 MG/0.4 ML SYRINGE SQ SCH (09:00)
[2017-11-20] MEDS: POTASSIUM CHLORIDE ER 20 MEQ TAB.ER PO SCH ×2 (13:49→14:06)
[2017-11-20 15:12] VITALS: BP 133/74; PULSE 81; TEMP 96.8
--- NOTE | 2017-11-21 20:16 | DS ---
DISCHARGE SUMMARY DATE OF ADMISSION: 11/19/17 DATE OF DISCHARGE: 11/20/17 FINAL DIAGNOSES: 1. Acute gastroenteritis, probably viral. 2. Gastroesophageal reflux disease. 3. Chronic hiatal hernia. 4. Chronic scoliosis. 5. Depression/anxiety not otherwise specified. 6. Cyclic vomiting syndrome. HOSPITAL COURSE: This patient presented with acute gastroenteritis, probably viral. Nausea, vomiting, diarrhea, given scopolamine. IV fluids to which patient responded. The patient doing better by the time of discharge. PHYSICAL EXAMINATION: On exam abdomen soft nontender. DISCHARGE MEDICATIONS: 1. [place] 10 1 tab q.i.d. p.r.n. 2. Xanax 0.25 p.o. t.i.d. p.r.n. 3. Elavil 50 mg p.o. q.h.s. 4. Celexa 20 mg p.o. daily. Follow with Dr. Kirby in 2-3 days. Diet soft bland and advance as tolerated. MMODL / IJN: [id number] /
== END 2017-11-20 18:08 | disposition home or self-care (01) ==
LOC: EC 11:36 → INTOOBSV 14:41 → 4MS4W 14:41 → UNDODISIN 11-20 18:08
PROVIDERS: ADMIT Hospitalist; ATTEND Hospitalist
DX: K52.9 Noninfective gastroenteritis and colitis, unspecified (principal); E87.2 Acidosis; M41.9 Scoliosis, unspecified; K21.9 Gastro-esophageal reflux disease without esophagitis; G89.29 Other chronic pain; K44.9 Diaphragmatic hernia without obstruction or gangrene; F32.9 Major depressive disorder, single episode, unspecified; M54.5 Low back pain; F41.9 Anxiety disorder, unspecified; G43.A0 Cyclical vomiting, in migraine, not intractable; Z79.899 Other long term (current) drug therapy; Z86.69 Personal history of other diseases of the nervous system and sense organs; Z87.442 Personal history of urinary calculi; Z88.8 Allergy status to other drugs, medicaments and biological substances; Z87.19 Personal history of other diseases of the digestive system; Z80.7 Family history of other malignant neoplasms of lymphoid, hematopoietic and related tissues; Z82.49 Family history of ischemic heart disease and other diseases of the circulatory system
CPT/HCPCS: 96361 ×2; 96372; 96374; 96375; 99284; 36415; 80053; 82150; 83605; 83690; 85025; 87040; G0378 ×2; J2060; J1200; J1630; J1650

== ENCOUNTER 2017-12-01 19:42 | Emergency (ER) | payer OTHER ==
[2017-12-01 19:56] VITALS: BP 134/79; PULSE 104; RESP 18; TEMP 98
--- NOTE | 2017-12-01 20:51 | ED ---
Skin/Abscess/FB HPI - General Chief complaint: Skin/Abscess/Foreign Body Stated complaint: Arm bump/from IV Time Seen by Provider: 12/01/17 20:08 Source: patient, RN notes reviewed Mode of arrival: ambulatory Limitations: no limitations - History of Present Illness Initial comments: This is a 52-year-old female who presents to the emergency department with chief complaint of left arm pain. Patient states that she was admitted to the hospital 2 weeks ago. She states that she had an IV in her hand that was removed 2 weeks ago. She states that she is now experiencing pain and redness of her forearm. She also admits to feeling a mass. She states she is worried it is a blood clot. Denies any chest pain or shortness of breath. Denies fevers or chills. Denies abdominal pain, nausea or vomiting, diarrhea or constipation. - Related Data Home Medications Medication Instructions Recorded Confirmed HYDROcodone/APAP 10-325MG [[place] 1 tab PO QID PRN 01/10/15 12/01/17 10-325] ALPRAZolam 0.25 mg PO TID PRN 01/11/15 12/01/17 Amitriptyline HCl [Elavil] 50 mg PO HS 05/12/17 12/01/17 Citalopram Hydrobromide [CeleXA] 20 mg PO DAILY 05/14/17 12/01/17 Allergies Allergy/AdvReac Type Severity Reaction Status Date / Time ondansetron AdvReac Nausea & Verified 12/01/17 19:56 [From Zofran (as Vomiting hydrochloride)] Review of Systems ROS Statement: Those systems with pertinent positive or pertinent negative responses have been documented in the HPI. ROS Other: All systems not noted in ROS Statement are negative. Past Medical History Past Medical History: GERD/Reflux Additional Past Medical History / Comment(s): cyclic vomiting syndrome, KIDNEY STONE, HIATAL HERNIA, MIGRAINES, SCOLIOSIS,COMPRESSED VERTEBRA/BACK PAIN. History of Any Multi-Drug Resistant Organisms: None Reported Past Surgical History: Tubal Ligation Additional Past Surgical History / Comment(s): BENIGN bone tumor removed left leg Past Anesthesia/Blood Transfusion Reactions: No Reported Reaction Additional Past Anesthesia/Blood Transfusion Reaction / Comment(s): CLAUSTEPHOBIC Past Psychological History: Anxiety, Depression Smoking Status: Never smoker Past Alcohol Use History: None Reported Past Drug Use History: Marijuana - Past Family History Mother Family Medical History: Cancer Additional Family Medical History / Comment(s): lymphoma Father Family Medical History: Coronary Artery Disease (CAD), Myocardial Infarction ([place] ) General Exam - General Exam Comments Initial Comments: General: Awake and alert, well-developed; in no apparent distress. HEENT: Head atraumatic, normocephalic. Pupils are equal, round and reactive to light. Extraocular movements intact. Oropharynx moist without erythema or exudate. Neck: Supple. Normal ROM. Cardiovascular: Regular rate and rhythm. No murmurs, rubs or gallops. Chest symmetrical. Respiratory: Lungs clear to auscultation bilaterally. No wheezes, rales or rhonchi. Normal respiratory effort with no use of accessory muscles. Musculoskeletal: Normal ROM bilateral upper and lower extremities. Tenderness on palpation with palpable cord proximal left forearm, basilic vein distribution. Skin: [place], warm and dry without rashes. There is redness and warmth of the proximal medial left forearm. There is a palpable cord that is tender with palpation basilic vein distribution. Sensation is intact. Radial pulses are 2 + equal and palpable bilaterally. Neurological: Alert and oriented x3. CN II-XII grossly intact. Speech is fluent and answers are appropriate. No focal neuro deficits. Psychiatric: Normal mood and affect. No overt signs of depression or anxiety noted. Limitations: no limitations Course Vital Signs 12/01/17 19:54 Temperature 98 F Pulse Rate 104 H Respiratory 18 Rate Blood Pressure 134/79 O2 Sat by Pulse 97 Oximetry Medical Decision Making - Medical Decision Making This is a 52-year-old female who presents to the emergency department with chief complaint of left arm pain. Patient had an IV removed 2 weeks ago. She is now experiencing redness, warmth and tenderness of proximal left forearm. There is a palpable cord in basilic venous distribution. Ultrasound venous Doppler revealed no acute DVT. There is superficial thrombus in the basilic vein. Recommended heat, compression and NSAIDs. Patient is to follow-up with her primary care provider in 1-2 days. She is in no acute distress and vital signs are stable. She will be discharged home. Findings and plan were discussed with patient who is in agreement and voices understanding. All questions were answered. - Radiology Data Radiology results: report reviewed Ultrasound venous Doppler left upper extremity impression: No evidence of deep venous thrombosis in the left arm. There is superficial thrombus in the basilic vein. Disposition Clinical Impression: Superficial thrombophlebitis Disposition: HOME SELF-CARE Condition: Good Instructions: Superficial Thrombophlebitis (ED) Additional Instructions: Please apply heat, compression and take ibuprofen as prescribed. Please follow up with primary care provider within 1-2 days. Return to emergency department if symptoms should worsen or any concerns arise. Referrals: Leo Kirby DO [Primary Care Provider] - 1-2 days Time of Disposition: 22:08
--- NOTE | 2017-12-01 21:51 | US ---
EXAMINATION TYPE: US venous doppler duplex UE LT DATE OF EXAM: 12/01/2017 COMPARISON: NONE CLINICAL HISTORY: Pain. Left arm lump and pain from IV SIDE PERFORMED: Left arm Left Arm: Negative for DVT. Thrombus is visualized in the Basilic vein below the elbow mid forearm, w hich is a superficial vein. Radial and ulnar veins with difficult to visualize. IMPRESSION: No evidence of deep venous thrombosis in the left arm. There is superficial thrombus in the basilic v ein.
== END 2017-12-01 22:35 | disposition home or self-care (01) ==
LOC: EC 19:42
DX: I82.612 Acute embolism and thrombosis of superficial veins of left upper extremity (principal); F41.9 Anxiety disorder, unspecified; F32.9 Major depressive disorder, single episode, unspecified; Z79.899 Other long term (current) drug therapy; Z88.8 Allergy status to other drugs, medicaments and biological substances
CPT/HCPCS: 99283

== ENCOUNTER 2018-01-13 10:13 | Observation (INO) | payer OTHER ==
--- NOTE | 2018-01-13 10:25 | ED ---
General Adult HPI - General Chief complaint: Nausea/Vomiting/Diarrhea Stated complaint: Vomiting Time Seen by Provider: 01/13/18 10:25 Source: patient, family Mode of arrival: ambulatory Limitations: no limitations - History of Present Illness Initial comments: Candi Multani is a 52 yo female past medical history most significant for cyclic vomiting syndrome who presents to the emergency department today for evaluation of vomiting and nausea that began this morning. Patient reports that this is identical in nature to previous episodes of cyclic vomiting. She states that due to the nausea and vomiting she has not been able to eat or drink anything this morning, and addition she has not been able to take any of her home medications including her oral narcotics. Patient states that she has had multiple episodes of nonbloody vomiting this morning. At this time she continues to he used but can no longer produce any vomitus. She reports mild discomfort in her epigastrium. Patient also has a significant history of anxiety and states that in the past when she has episodes of cyclic vomiting she tends to have panic attacks and feel as though she cannot breathe. She states that in the past Haldol has treated her cyclic vomiting successfully. Daughter bedside states the patient has had mildly elevated lipase in the past with episodes of cyclic vomiting but never been diagnosed with pancreatitis. She has been hospitalized in the past for her vomiting. Daughter bedside is assisting the patient in controlled breathing exercises to keep her calm, she states that when her mother begins vomiting she tends to panic and scream out and claim that she cannot breathe. She states that today her mother is doing quite well. - Related Data Home Medications Medication Instructions Recorded Confirmed HYDROcodone/APAP 10-325MG [[place] 1 tab PO QID PRN 01/10/15 01/13/18 10-325] ALPRAZolam 0.25 mg PO TID PRN 01/11/15 01/13/18 Amitriptyline HCl [Elavil] 50 mg PO HS 05/12/17 01/13/18 Citalopram Hydrobromide [CeleXA] 20 mg PO DAILY 05/14/17 01/13/18 Allergies Allergy/AdvReac Type Severity Reaction Status Date / Time ondansetron Allergy Rash/Hives Verified 01/13/18 11:12 [From Zofran (as hydrochloride)] Review of Systems ROS Statement: Those systems with pertinent positive or pertinent negative responses have been documented in the HPI. ROS Other: All systems not noted in ROS Statement are negative. Cardiovascular: Denies: chest pain Endocrine: Denies: fatigue Gastrointestinal: Reports: abdominal pain, nausea, vomiting. Denies: diarrhea, constipation Genitourinary: Denies: dysuria Musculoskeletal: Reports: back pain (known compression fracture) Skin: Denies: rash, lesions Neurological: Reports: weakness (generalized). Denies: headache Psychiatric: Reports: anxiety Hematological/Lymphatic: Denies: easy bleeding Past Medical History Past Medical History: GERD/Reflux Additional Past Medical History / Comment(s): cyclic vomiting syndrome, KIDNEY STONE, HIATAL HERNIA, MIGRAINES, SCOLIOSIS,COMPRESSED VERTEBRA/BACK PAIN. History of Any Multi-Drug Resistant Organisms: None Reported Past Surgical History: Tubal Ligation Additional Past Surgical History / Comment(s): BENIGN bone tumor removed left leg Past Anesthesia/Blood Transfusion Reactions: No Reported Reaction Additional Past Anesthesia/Blood Transfusion Reaction / Comment(s): CLAUSTEPHOBIC Past Psychological History: Anxiety, Depression Smoking Status: Never smoker Past Alcohol Use History: None Reported Past Drug Use History: Marijuana - Past Family History Mother Family Medical History: Cancer Additional Family Medical History / Comment(s): lymphoma Father Family Medical History: Coronary Artery Disease (CAD), Myocardial Infarction ([place] ) General Exam Limitations: no limitations General appearance: alert, other (screaming out for help, crying) Head exam: Present: atraumatic, normocephalic Eye exam: Present: normal appearance ENT exam: Present: normal exam Neck exam: Present: normal inspection Respiratory exam: Absent: respiratory distress Cardiovascular Exam: Present: regular rate, normal rhythm GI/Abdominal exam: Present: soft, tenderness, normal bowel sounds. Absent: distended, guarding, rebound, rigid Rectal exam: Present: deferred Extremities exam: Present: normal inspection Neurological exam: Present: alert, oriented X3 Psychiatric exam: Present: agitated, anxious Skin exam: Present: warm, diaphoretic Course Vital Signs 01/13/18 01/13/18 10:16 12:13 Temperature 96 F L Pulse Rate 86 88 Respiratory 22 20 Rate Blood Pressure 196/88 161/71 O2 Sat by Pulse 99 99 Oximetry - Reevaluation(s) Reevaluation #1: Patient reevaluated, has received IM Haldol, is resting comfortably in ER bed. Patient is much calmer, not crying, not heaving. Daughter reports that occasionally the patient recovers for approximately one hour and then has recurrent episodes of nausea and vomiting, would like to be observed for 1-2 hours in the ER. 01/13/18 11:25 Reevaluation #2: Patient reevaluated, reports recurrent nausea but no further episodes of vomiting. At this time she states she is not comfortable being discharged home and she will not tolerate by mouth and is concerned she may become dehydrated. 01/13/18 13:16 Medical Decision Making - Medical Decision Making Patient was seen and evaluated, history is obtained from the patient and her daughter bedside as well as review of medical record She with a history of cyclic vomiting syndrome, vomiting beginning this morning , patient concerned that she will have opiate withdrawal because of inability take her home medications Patient reports her cyclic vomiting is been successfully treated in the past with Haldol Labs, IV fluids and Haldol ordered Patient reports resolution of her symptoms after Haldol, however she reports that she does not feel comfortable trying a by mouth challenge and is fearful that her symptoms will come back. We will continue to observe the patient Labs with mild hemolysis, potassium is 5.3, bicarb is low, BUNs was elevated these are consistent with prerenal dehydration and vomiting Lipase is normal Patient was reevaluated, reports persistent nausea, continues to refuse by mouth challenge. At this time and don't feel the patient is safe for discharge home due to the risk of dehydration. She care was discussed with Dr. Ludwig is very familiar with the patient, he agrees at this time the patient is not stable for discharge home as she is a high risk of becoming dehydrated. He recommends a scopolamine patch, continue rehydration with IV fluids of normal saline and a clear liquid diet with no water as water tends to worsen the patient's nausea Admission orders to Dr. Ludwig in the observation unit were placed - Lab Data Result diagrams: 01/13/18 10:49 01/13/18 10:49 Lab Results 01/13/18 01/13/18 Range/Units 10:49 10:49 WBC 10.8 H (3.8-10.6) k/uL RBC 4.80 (3.80-5.40) m/uL Hgb 12.9 (11.4-16.0) gm/dL Hct 39.0 (34.0-46.0) % MCV 81.1 (80.0-100.0) fL MCH 26.9 (25.0-35.0) pg MCHC 33.2 (31.0-37.0) g/dL RDW 14.1 (11.5-15.5) % Plt Count 385 (150-450) k/uL Neutrophils % 70 % Lymphocytes % 22 % Monocytes % 4 % Eosinophils % 1 % Basophils % 0 % Neutrophils # 7.6 (1.3-7.7) k/uL Lymphocytes # 2.3 (1.0-4.8) k/uL Monocytes # 0.5 (0-1.0) k/uL Eosinophils # 0.1 (0-0.7) k/uL Basophils # 0.0 (0-0.2) k/uL Sodium 140 (137-145) mmol/L Potassium 5.3 H (3.5-5.1) mmol/L Chloride 109 H (98-107) mmol/L Carbon Dioxide 16 L (22-30) mmol/L Anion Gap 15 mmol/L BUN 18 H (7-17) mg/dL Creatinine 0.60 (0.52-1.04) mg/dL Est GFR (CKD-EPI)AfAm >90 (>60 ml/min/1.73 sqM) Est GFR (CKD-EPI)NonAf >90 (>60 ml/min/1.73 sqM) Glucose 139 H (74-99) mg/dL Calcium 9.6 (8.4-10.2) mg/dL Total Bilirubin 0.6 (0.2-1.3) mg/dL AST 32 (14-36) U/L ALT 16 (9-52) U/L Alkaline Phosphatase 113 (38-126) U/L Total Protein 8.0 (6.3-8.2) g/dL Albumin 4.2 (3.5-5.0) g/dL Lipase 300 (23-300) U/L Disposition Clinical Impression: Cyclic vomiting syndrome Disposition: ADMITTED IP TO THIS HOSP Condition: Poor Referrals: Leo Kirby DO [Primary Care Provider] - 1-2 days Time of Disposition: 12:37
[2018-01-13] MEDS ORDERED: HALOPERIDOL LACTATE 5 MG/ML 1 ML VIAL IVP STA (10:31)
[2018-01-13] MEDS ORDERED: SODIUM CHLORIDE 0.9% 1,000 ML IV ONE (10:31)
[2018-01-13 11:26] LABS: Basophils % (A) 0 %; Eosinophils # (A) 0.1 k/uL (0-0.7); Eosinophils % (A) 1 %; HGB 12.9 gm/dL (11.4-16.0); Lymphocytes # (A) 2.3 k/uL (1.0-4.8); Lymphocytes % (A) 22 %; MCH 26.9 pg (25.0-35.0); MCHC 33.2 g/dL (31.0-37.0); MCV 81.1 fL (80.0-100.0); Mean Platelet Volume 7.5; Monocytes # (A) 0.5 k/uL (0-1.0); Monocytes % (A) 4 %; Neutrophils # (A) 7.6 k/uL (1.3-7.7); Neutrophils % (A) 70 %; Platelet Count 385 k/uL (150-450); RDW 14.1 % (11.5-15.5); WBC 10.8 k/uL (3.8-10.6)
[2018-01-13 11:39] LABS: Albumin 4.2 g/dL (3.5-5.0); Anion Gap 15 mmol/L; Calcium 9.6 mg/dL (8.4-10.2); Carbon Dioxide 16 mmol/L (22-30); Chloride 109 mmol/L (98-107); Glucose 139 mg/dL (74-99); Lipase 300 U/L (23-300); Sodium 140 mmol/L (137-145); Total Bilirubin 0.6 mg/dL (0.2-1.3)
[2018-01-13 11:41] LABS: ALT 16 U/L (9-52); AST 32 U/L (14-36); Alkaline Phosphatase 113 U/L (38-126); Blood Urea Nitrogen 18 mg/dL (7-17); Potassium 5.3 mmol/L (3.5-5.1)
[2018-01-13] MEDS ORDERED: NALOXONE 0.4 MG/ML 1 ML VIAL IV PRN ×2 (13:19→15:51)
[2018-01-13] MEDS ORDERED: SCOPOLAMINE 1.5MG/72HR PATCH TRANSDERM STA (13:21)
[2018-01-13] MEDS ORDERED: 0.9% NACL WITH KCL 20 MEQ/L 1,000 ML IV SCH (13:30)
[2018-01-13] MEDS ORDERED: SODIUM CHLORIDE 0.9% 1,000 ML IV SCH (13:45)
[2018-01-13] MEDS ORDERED: HYDROcodone/APAP 10-325MG 1 EACH TAB PO PRN (15:50)
[2018-01-13] MEDS ORDERED: ALPRAZolam 0.25 MG TAB PO PRN (15:50)
[2018-01-13] MEDS ORDERED: MELATONIN 3 MG TABLET PO PRN (15:51)
[2018-01-13] MEDS ORDERED: CALCIUM CARBONATE 500 MG CHEWABLE PO PRN (15:51)
[2018-01-13] MEDS ORDERED: LORazepam 0.5 MG TAB PO PRN (15:51)
[2018-01-13] MEDS ORDERED: ACETAMINOPHEN TAB 325 MG TAB PO PRN (15:51)
[2018-01-13] MEDS: LORazepam 2 MG/ML INJ IV PRN ×2 (16:47→21:14)
[2018-01-13] MEDS: PROMETHAZINE INJ 6.25 MG in SODIUM CHLORIDE 0.9% 50 ML IVPB PRN (16:49)
[2018-01-13] MEDS: ENOXAPARIN 40 MG/0.4 ML SYRINGE SQ SCH (16:55)
--- NOTE | 2018-01-13 21:02 | HP ---
HISTORY AND PHYSICAL DATE OF ADMISSION: 01/13/2018 PRESENTING COMPLAINT: Persistent nausea and vomiting. HISTORY OF PRESENTING COMPLAINT: This is a pleasant 52-year-old patient who follows with Dr. Kirby. Chronic stable medical conditions include GERD, kidney stones, hernia, scoliosis, chronic low back pain. Patient started out with vomiting within the last 24 hours, nausea and vomiting not stopping. The patient did get some Zofran in the ER, to which also she did not respond. Denies any abdominal pain. No fever. No urinary tract symptoms. The patient was started on IV fluids in the ER. Vomiting is still coming up. No blood is present. No fever is present. The patient feels exhausted. I did order a scopolamine patch while she was still in the ER. Still when she came to the floor, she was still throwing up. Patient's mother is at the bedside. I ordered some IV Phenergan. Patient is feeling very tired, rundown, exhausted. REVIEW OF SYSTEMS: CONSTITUTIONAL: Weak, tired. HEENT: None. RESPIRATORY: None. CARDIOVASCULAR: None. GASTROINTESTINAL: As above. GENITOURINARY: None. MUSCULOSKELETAL: Chronic low back pain. DERMATOLOGICAL: None. HEMATOLOGICAL: None. LYMPHATICS: None. PSYCHIATRY: None. NEUROLOGICAL: None. PAST MEDICAL HISTORY: 1. Cyclical vomiting syndrome. 2. GERD. 3. Chronic hiatal hernia. 4. Scoliosis. 5. Depression, anxiety not otherwise specified. PAST SURGICAL HISTORY: Herniated disc. SOCIAL HISTORY: Lives with a boyfriend and 2 children. No alcohol. No smoking. FAMILY HISTORY: Lymphoma. ALLERGIES: ZOFRAN. HOME MEDICATIONS: 1. [place] 10 one tablet q.i.d. p.r.n. 2. Celexa 20 mg daily. 3. Elavil 50 mg at bedtime. 4. Xanax 0.25 p.o. t.i.d. p.r.n. PHYSICAL EXAMINATION: VITAL SIGNS ON PRESENTATION: Temperature 98.6, pulse 102, respiration 18, blood pressure 145/84, pulse ox 100% on room air. GENERAL APPEARANCE: Average build. Lying in bed, tired-appearing. EYES: Pupils equal. Decreased eyeball pressure. HEENT: External appearance of nose and ears normal. Oral cavity dry mucous membrane. NECK: JVD not raised. Mass not palpable. RESPIRATORY: Effort normal. LUNGS: Fair air entry. CARDIOVASCULAR: First and second sounds normal. No edema. ABDOMEN: Soft, nontender. Liver and spleen not palpable. LYMPHATIC: No lymph node palpable in neck or axillae. PSYCHIATRY: Alert and oriented x3. Mood and affect slightly anxious-appearing. INVESTIGATIONS: White count 10.8, hemoglobin 12.9, potassium 5.3, bicarb 16, BUN 18, creatinine 0.60. ASSESSMENT: 1. Probable acute flareup of cyclical vomiting syndrome, rather severe. 2. Hyperkalemia. 3. Hyperchloremia. 4. Metabolic acidosis with bicarb being down to 16, associated with hyperchloremia. 5. Clinically dehydrated with decreased eyeball pressure and BUN elevated at 18. 6. Persistent vomiting from above, not responding to 2 antiemetics, including scopolamine patch. PLAN: Patient will be started on IV fluids. Bicarb will be added to the same. Will also give patient IV promethazine. Patient has been aggressively hydrated. Care was discussed with the patient. MMODL / IJN: [id number] /
[2018-01-13] MEDS: AMITRIPTYLINE HCL 50 MG TAB PO SCH (21:17)
[2018-01-13] MEDS: DEXTROSE 5%-0.45% NACL 1,000 ML with SODIUM BICARB (1 MEQ/ML) 50 ML IV SCH ×2 (21:18)
[2018-01-14] MEDS: DEXTROSE 5%-0.45% NACL 1,000 ML with SODIUM BICARB (1 MEQ/ML) 50 ML IV SCH ×6 (02:54→18:08)
[2018-01-14] MEDS: LORazepam 2 MG/ML INJ IV PRN ×2 (02:55→08:40)
[2018-01-14 08:13] LABS: Basophils % (A) 0 %; Eosinophils % (A) 0 %; HCT 34.8 % (34.0-46.0); HGB 11.5 gm/dL (11.4-16.0); Lymphocytes # (A) 1.4 k/uL (1.0-4.8); Lymphocytes % (A) 15 %; MCH 26.7 pg (25.0-35.0); MCHC 32.9 g/dL (31.0-37.0); MCV 81.1 fL (80.0-100.0); Mean Platelet Volume 6.8; Monocytes # (A) 0.4 k/uL (0-1.0); Monocytes % (A) 4 %; Neutrophils % (A) 79 %; Platelet Count 353 k/uL (150-450); RBC 4.29 m/uL (3.80-5.40); RDW 14.2 % (11.5-15.5); WBC 8.9 k/uL (3.8-10.6)
[2018-01-14 08:30] LABS: Anion Gap 13 mmol/L; Blood Urea Nitrogen 9 mg/dL (7-17); Carbon Dioxide 22 mmol/L (22-30); Chloride 106 mmol/L (98-107); Glucose 148 mg/dL (74-99); Potassium 3.5 mmol/L (3.5-5.1); Sodium 141 mmol/L (137-145)
[2018-01-14] MEDS: CITALOPRAM HYDROBROMIDE 20 MG TAB PO SCH (08:44)
[2018-01-14 11:40] VITALS: BMI 26.6
[2018-01-14] MEDS: PROMETHAZINE INJ 6.25 MG in SODIUM CHLORIDE 0.9% 50 ML IVPB PRN (12:00)
[2018-01-14] MEDS: ENOXAPARIN 40 MG/0.4 ML SYRINGE SQ SCH (12:01)
--- NOTE | 2018-01-14 20:12 | PN ---
PROGRESS NOTE DATE OF SERVICE: 01/14/2018. PRESENTING COMPLAINT: Coffee-ground emesis. INTERVAL HISTORY: Patient presented with exacerbation of cyclical vomiting syndrome. Patient also had some coffee-grounds emesis yesterday evening. This morning she is feeling slightly better, though rather tired and rundown. Patient did tolerate a little bit of clear liquids. REVIEW OF SYSTEMS: Done for constitutional, cardiovascular, GI, pulmonary; relevant findings as above. No fever. No abdominal pain. CURRENT MEDICATIONS: Reviewed. They include promethazine, scopolamine patch and D5.45. PHYSICAL EXAMINATION: Temperature 98.7, pulse 81, respiration 16, blood pressure 157/91, pulse ox 98% on room air. GENERAL APPEARANCE: Lying in bed, tired-appearing. EYES: Pupils equal. Conjunctivae normal. HEENT: External appearance of nose and ears normal. Oral cavity dry mucous membrane. NECK: JVD not raised. Mass not palpable. RESPIRATORY: Effort normal. LUNGS: Fair air entry. CARDIOVASCULAR: First and second sounds normal. No edema. ABDOMEN: Soft, nontender. Liver and spleen not palpable. PSYCHIATRY: Alert and oriented x3. Mood and affect slightly tired-appearing. INVESTIGATIONS: White count 8.9, potassium 3.5, BUN 9, creatinine 0.50. ASSESSMENT: 1. Acute coffee-ground emesis, likely from gastritis or from multiple episodes of vomiting. 2. Acute flare of cyclical vomiting syndrome. 3. Hyperkalemia, improved. 4. Hyperchloremia. 5. Metabolic acidosis, improving with bicarb. 6. Clinically dehydrated. PLAN: GI was consulted. Continue with IV fluids. Will discontinue the bicarbonate from the IV fluids. Await input from GI. MMODL / IJN: [id number] /
[2018-01-14] MEDS: AMITRIPTYLINE HCL 50 MG TAB PO SCH (21:03)
[2018-01-14] MEDS: DEXTROSE 5%-0.45% NACL 1,000 ML IV SCH (21:03)
--- NOTE | 2018-01-14 22:18 | CONS ---
CONSULTATION DATE OF DICTATION: 01/14/2018 REASON FOR CONSULTATION: Nausea, vomiting. HISTORY OF PRESENT ILLNESS: The patient is a 52-year-old pleasant white female known to me from office visits. She was diagnosed with cyclical vomiting syndrome and was last seen in our office about 6 months ago. Patient was admitted to the hospital with acute onset of severe nausea and vomiting that started 2 days ago and continued to persist despite taking Zofran and hence came into the emergency room and subsequently was admitted to the hospital. Since being in the hospital, she was started on Reglan and IV Protonix. Her symptoms are somewhat better this morning. She also got a scopolamine patch yesterday evening. For the she had a little bit of clear liquids for lunch today and so far is feeling better. She feels somewhat exhausted from the nausea and vomiting. She has been having these symptoms on and off for the last several years' duration. She has these episodes once every 2 to 3 months and they last for 3 or 4 days, then completely resolve. She has been in the hospital multiple times for these symptoms and in the past was diagnosed with cyclical vomiting syndrome. PAST MEDICAL HISTORY: 1. Cyclical vomiting syndrome. 2. GERD. 3. Anxiety. 4. Depression. PAST SURGICAL HISTORY: Back surgery. HOME MEDICATIONS: 1. [place]. 2. Celexa. 3. Elavil. 4. Xanax. ALLERGIES: ZOFRAN. SOCIAL HISTORY: No smoking. No alcohol use. FAMILY HISTORY: Unremarkable. REVIEW OF SYSTEMS: CARDIOPULMONARY: No chest pain, shortness of breath. GENITOURINARY: No MUSCULOSKELETAL: PSYCHIATRY: Unremarkable. NEUROLOGY: Unremarkable. PHYSICAL EXAMINATION: She appears comfortable, in no apparent distress. Vital signs are stable. Blood pressure is 157/91, temperature 98.7, respirations 16, pulse rate 81. HEENT EXAMINATION: Unremarkable. Conjunctivae pink. Sclerae anicteric. Oral cavity no lesions. NECK: No JVD or lymph node enlargement. bowel sounds are positive. No organomegaly. EXTREMITIES: No pedal edema. SKIN: No rashes. NEURO: Alert and oriented x3. No focal deficit. LABS FROM TODAY: hemoglobin 12.9. Platelets are normal. Basic metabolic panel is within normal limits. IMPRESSION: nausea and vomiting on and off for the last 3 to 4 years' duration. She has these episodes once every 2 months. They last for a couple of days and resolve. She was investigated in the past with an upper endoscopy and gastric emptying scan, all of which were within normal limits. She was subsequently diagnosed with cyclical vomiting syndrome. She was started on Elavil at that time as well as PPIs and so far has not noticed any change in her symptoms. RECOMMENDATIONS: 1. Continue with symptomatic and supportive care with IV fluids, PPI and antiemetics as needed. 2. Continue with clear liquids today, and if she is doing much better, diet can be advanced as tolerated tomorrow. 3. No need for any endoscopic intervention. 4. Will follow her closely during her hospital stay. Thank you for this consultation. LUZ ELENA / [place]OME: [id number] /
[2018-01-15] MEDS: DEXTROSE 5%-0.45% NACL 1,000 ML IV SCH ×2 (03:17→11:37)
[2018-01-15 07:27] VITALS: PULSE 79
[2018-01-15 07:32] LABS: Anion Gap 10 mmol/L; Blood Urea Nitrogen 13 mg/dL (7-17); Calcium 8.5 mg/dL (8.4-10.2); Carbon Dioxide 26 mmol/L (22-30); Chloride 104 mmol/L (98-107); Glucose 117 mg/dL (74-99); Potassium 3.4 mmol/L (3.5-5.1); Sodium 140 mmol/L (137-145)
[2018-01-15] MEDS: ENOXAPARIN 40 MG/0.4 ML SYRINGE SQ SCH (08:17)
[2018-01-15] MEDS: CITALOPRAM HYDROBROMIDE 20 MG TAB PO SCH (08:17)
--- NOTE | 2018-01-15 12:55 | PN ---
PROGRESS NOTE DATE OF SERVICE: 01/15/2018 The patient is a 52-year-old pleasant white female with history of cyclic vomiting syndrome, admitted to the hospital because of acute onset of epigastric pain, nausea, vomiting for the last 2 days duration. This morning she is feeling better. The abdominal pain has resolved. No further episodes of nausea, vomiting. On a regular diet, tolerating well. PHYSICAL EXAMINATION: On physical examination, she appears comfortable. Blood pressure 143/96, pulse rate 88, temperature 98.6. HEENT examination unremarkable. Conjunctivae pink. Sclerae anicteric. Oral cavity, no lesion. NECK: No JVD or lymph node enlargement. Chest was clear to auscultation. HEART: Regular rate and rhythm. ABDOMEN: Soft. Bowel sounds are positive. No organomegaly. EXTREMITIES: No pedal edema. SKIN: No rashes. NEURO: Alert and oriented x3. No focal deficits. LABS: Labs from today, basic metabolic panel is within normal limits. IMPRESSION: Cyclic vomiting syndrome for the last 3 years duration. She was admitted to hospital with acute onset of nausea, vomiting, and epigastric pain and now has resolved. Tolerating diet. RECOMMENDATION: 1. DC home today. 2. Continue with Elavil 50 mg at bedtime. 3. Continue with Protonix and Zofran as needed. 4. Follow up in the office in a month. MMODL / IJN: [id number] /
[2018-01-15 14:31] VITALS: BP 157/74; RESP 16; TEMP 98
--- NOTE | 2018-01-15 17:28 | DS ---
DISCHARGE SUMMARY DATE OF ADMISSION: January 13, 2018. DATE OF DISCHARGE: January 15, 2018. FINAL DIAGNOSES: 1. Acute exacerbation exacerbation of cyclic vomiting syndrome. 2. Acute coffee-grounds emesis, likely gastritis. 3. Hyperkalemia improved. 4. Hyperchloremia. 5. Metabolic acidosis, improved with bicarb. 6. Dehydration. HOSPITAL COURSE: This patient presented with a flare up of cyclical vomiting syndrome. Did require 2 antiemetics, IV fluids finally for it to settle down. Patient was hyperkalemic that did come down and also acidotic. Bicarb did come up nicely. By the time of discharge today, she is tolerating a diet, doing much better. PHYSICAL EXAMINATION: On exam, abdomen soft, nontender. CONSULTATION: Dr. Josiane Segura from Gastroenterology. DISCHARGE MEDICATIONS: 1. Celexa 20 mg p.o. daily. 2. Elavil 50 mg p.o. q.h.s. 3. Xanax 0.25 p.o. t.i.d. p.r.n. 4. [place] 10 1 tab p.o. q.i.d. p.r.n. 5. Prilosec 20 mg a day. Follow up with Dr. Kirby. Diet: Soft bland diet. MMODL / IJN: [id number] /
== END 2018-01-15 15:41 | disposition home or self-care (01) ==
LOC: EC 10:13 → 5MS5E 13:21
PROVIDERS: ADMIT Hospitalist; ATTEND Hospitalist
DX: G43.A0 Cyclical vomiting, in migraine, not intractable (principal); E87.5 Hyperkalemia; E87.8 Other disorders of electrolyte and fluid balance, not elsewhere classified; E87.2 Acidosis; E86.0 Dehydration; F41.9 Anxiety disorder, unspecified; G43.909 Migraine, unspecified, not intractable, without status migrainosus; M54.9 Dorsalgia, unspecified; F32.9 Major depressive disorder, single episode, unspecified; G89.29 Other chronic pain; Z88.8 Allergy status to other drugs, medicaments and biological substances; Z87.442 Personal history of urinary calculi; Z79.899 Other long term (current) drug therapy; Z80.7 Family history of other malignant neoplasms of lymphoid, hematopoietic and related tissues; Z82.49 Family history of ischemic heart disease and other diseases of the circulatory system
CPT/HCPCS: 99284 ×2; 96375 ×3; 96361 ×7; 96376 ×2; 96365; 96372 ×2; 36415; 80053; 80048 ×2; 83690; 85025 ×2; G0378 ×3; J2060 ×2; J1630; J2550 ×2; J1650 ×2

== ENCOUNTER 2019-06-11 03:31 | Observation (INO) | payer OTHER ==
[2019-06-11] MEDS ORDERED: ASPIRIN 81 MG PO STA (03:44)
[2019-06-11] MEDS ORDERED: SODIUM CHLORIDE 0.9% 1,000 ML IV STA ×2 (03:44)
[2019-06-11] MEDS ORDERED: NITROGLYCERIN SL TABS 0.4 MG TAB SUBLINGUAL STA (04:06)
[2019-06-11] MEDS ORDERED: MORPHINE SULFATE 4 MG/ML SYRINGE IVP STA (04:06)
--- NOTE | 2019-06-11 04:13 | ED ---
Chest Pain HPI - General Source: patient, family, RN notes reviewed, old records reviewed Mode of arrival: wheelchair Limitations: no limitations <Lizet Crain - Last Filed: 06/11/19 04:38> <Chela Lutz - Last Filed: 06/11/19 06:42> - General Chief Complaint: Chest Pain Stated Complaint: Chest Pain Time Seen by Provider: 06/11/19 03:44 - History of Present Illness Initial Comments: This is a 54-year-old female who presents emergency department today for evaluation with chief complaint of chest pain starting 2 hours prior to arrival. Started while sheaths [employer]. She lives in a heaviness on her chest. Pain really towards her jaw. No previous cardiac history. She does have family history of heart disease. She recently was getting off of a heavy menstrual cycle. Patient states that she has had no associated shortness of breath. She complains does feel an 8 out of 10 pain at this time. Patient reports that she has not taken any medication and is generally been healthy. (Lizet Crain) - Related Data Home Medications Medication Instructions Recorded Confirmed HYDROcodone/APAP 10-325MG [[place] 1 tab PO QID PRN 01/10/15 01/13/18 10-325] ALPRAZolam 0.25 mg PO TID PRN 01/11/15 01/13/18 Amitriptyline HCl [Elavil] 50 mg PO HS 05/12/17 01/13/18 Citalopram Hydrobromide [CeleXA] 20 mg PO DAILY 05/14/17 01/13/18 Previous Rx's Medication Instructions Recorded Omeprazole [PriLOSEC] 20 mg PO AC-BRKFST #30 cap 01/15/18 Allergies Allergy/AdvReac Type Severity Reaction Status Date / Time ondansetron Allergy Rash/Hives Verified 06/11/19 03:39 [From Zofran (as hydrochloride)] Review of Systems ROS Other: All systems not noted in ROS Statement are negative. <Lizet Crain - Last Filed: 06/11/19 04:38> ROS Other: All systems not noted in ROS Statement are negative. <Chela Lutz - Last Filed: 06/11/19 06:42> ROS Statement: Those systems with pertinent positive or pertinent negative responses have been documented in the HPI. EKG Findings - EKG Comments: EKG Findings:: EKG performed at 3:57 AM shows sinus tachycardia minimal voltage criteria for LVH may be normal variant. Borderline EKG. Ventricular rate of 101 bpm. TN interval is 134 ms. QRS duration is 86 ms. QT QTc is 342/443 ms. <Lizet Crain - Last Filed: 06/11/19 04:38> Past Medical History Past Medical History: GERD/Reflux Additional Past Medical History / Comment(s): Cyclic vomiting syndrome, past elevated LFT, HIATAL HERNIA, MIGRAINES, SCOLIOSIS,COMPRESSED VERTEBRA/BACK PAIN, kidney stones. History of Any Multi-Drug Resistant Organisms: None Reported Past Surgical History: Tubal Ligation Additional Past Surgical History / Comment(s): BENIGN bone tumor removed left leg Past Anesthesia/Blood Transfusion Reactions: No Reported Reaction Additional Past Anesthesia/Blood Transfusion Reaction / Comment(s): CLAUSTEPHOBIC Past Psychological History: Anxiety, Depression Smoking Status: Never smoker Past Alcohol Use History: None Reported Past Drug Use History: Marijuana - Past Family History Mother Family Medical History: Cancer Additional Family Medical History / Comment(s): lymphoma Father Family Medical History: Coronary Artery Disease (CAD), Myocardial Infarction (MT) <Lizet Crain - Last Filed: 06/11/19 04:38> General Exam Limitations: no limitations General appearance: alert, in no apparent distress Head exam: Present: atraumatic, normocephalic, normal inspection Eye exam: Present: normal appearance, PERRL, EOMI. Absent: scleral icterus, conjunctival injection, periorbital swelling ENT exam: Present: normal exam, mucous membranes moist Neck exam: Present: normal inspection. Absent: tenderness, meningismus, lymphadenopathy Respiratory exam: Present: normal lung sounds bilaterally. Absent: respiratory distress, wheezes, rales, rhonchi, stridor Cardiovascular Exam: Present: regular rate, normal rhythm, normal heart sounds. Absent: systolic murmur, diastolic murmur, rubs, gallop, clicks GI/Abdominal exam: Present: soft, normal bowel sounds. Absent: distended, tenderness, guarding, rebound, rigid Extremities exam: Present: normal inspection, full ROM, normal capillary refill. Absent: tenderness, pedal edema, joint swelling, calf tenderness Back exam: Present: normal inspection Neurological exam: Present: alert, oriented X3, CN II-XII intact Psychiatric exam: Present: normal affect, normal mood Skin exam: Present: warm, dry, intact, normal color. Absent: rash <BreannLizet - Last Filed: 06/11/19 04:38> - General Exam Comments Initial Comments: 54 year old female, no distress. (Lizet Crain) Course Vital Signs 06/11/19 06/11/19 06/11/19 03:34 04:42 04:56 Temperature 98.4 F 98.4 F Pulse Rate 104 H 100 Respiratory 20 18 20 Rate Blood Pressure 152/97 167/92 O2 Sat by Pulse 97 95 Oximetry 06/11/19 05:34 Temperature 98.6 F Pulse Rate 96 Respiratory 18 Rate Blood Pressure 167/85 O2 Sat by Pulse 97 Oximetry Chest Pain MDM <Lizet Crain - Last Filed: 06/11/19 04:38> <Chela Lutz - Last Filed: 06/11/19 06:42> - [facility] Patient is a 54-year-old female presents emergency department today with onset of chest discomfort for 2 hours. At this time patient's EKG shows no significant ST changes. Patient was given a fluids, nitro and aspirin. Patient states is of Dr. Lutz who will finish her case pending other lab levels. (Lizet Crain) She care was signed out to me by the mid-level provider. Patient presented with chest pain, labs are pending. Labs resulted with an acute anemia this is likely secondary to the patient's heavy vaginal bleeding and she is perimenopausal. We will obtain a pelvic ultrasound to further evaluate this. Patient's troponin was negative however given her age and her strong family history I do feel she warrants further evaluation especially in the setting of acute anemia. Patient care was discussed with Dr. Mcfarlane who agrees with plan for admission, pelvic ultrasound and trending troponins. (Chela Lutz) Disposition <Lizet Crain - Last Filed: 06/11/19 04:38> <Chela Lutz - Last Filed: 06/11/19 06:42> Clinical Impression: Chest pain, Anemia Disposition: ADMITTED IP TO THIS HOSP Condition: Stable Referrals: None,Stated [Primary Care Provider] - 1-2 days
[2019-06-11 04:28] LABS: ALT 24 U/L (9-52); AST 19 U/L (14-36); African American GFR (CKD) >90 (>60 ml/min/1.73 sqM); Albumin 4.2 g/dL (3.5-5.0); Alkaline Phosphatase 134 U/L (38-126); Anion Gap 11 mmol/L; Blood Urea Nitrogen 21 mg/dL (7-17); Calcium 12.8 mg/dL (8.4-10.2); Carbon Dioxide 29 mmol/L (22-30); Chloride 101 mmol/L (98-107); Glucose 162 mg/dL (74-99); Magnesium 1.7 mg/dL (1.6-2.3); Potassium 4.3 mmol/L (3.5-5.1); Sodium 141 mmol/L (137-145); Total Bilirubin 0.4 mg/dL (0.2-1.3); Total Protein 8.1 g/dL (6.3-8.2)
--- NOTE | 2019-06-11 04:35 | XR ---
EXAM: XR Chest, 2 Views CLINICAL HISTORY: ITS.REASON XR Reason: Chest Pain TECHNIQUE: Frontal and lateral views of the chest. COMPARISON: 11/19/2017 FINDINGS: Lungs: No consolidation or mass. Pleural space: No effusion. Heart: No cardiomegaly. Mediastinum: Unremarkable. Bones/joints: No acute findings. IMPRESSION: No acute cardiopulmonary process.
[2019-06-11 04:38] LABS: Anisocytosis Slight; Basophils # (A) 0.1 k/uL (0-0.2); Basophils % (A) 1 %; Eosinophils # (A) 0.1 k/uL (0-0.7); Eosinophils % (A) 1 %; HCT 26.4 % (34.0-46.0); HGB 7.4 gm/dL (11.4-16.0); Hypochromasia Marked; Lymphocytes # (A) 2.1 k/uL (1.0-4.8); Lymphocytes % (A) 17 %; MCH 16.4 pg (25.0-35.0); MCHC 28.2 g/dL (31.0-37.0); Mean Platelet Volume 6.3; Microcytosis Marked; Monocytes # (A) 0.5 k/uL (0-1.0); Monocytes % (A) 4 %; Neutrophils % (A) 75 %; Platelet Count 687 k/uL (150-450); Poikilocytosis Moderate; RBC 4.55 m/uL (3.80-5.40); RDW 18.8 % (11.5-15.5)
[2019-06-11 05:09] LABS: Prothrombin Time 10.5 sec (9.0-12.0)
[2019-06-11 05:11] LABS: Partial Thromboplastin Time 20.3 sec (22.0-30.0)
--- NOTE | 2019-06-11 10:19 | US ---
EXAMINATION TYPE: US transvaginal DATE OF EXAM: 06/11/2019 COMPARISON: Pain CLINICAL HISTORY: heavy vaginal bleeding, perimenopausal. Patient states not having a period since september. Heavy bleeding started 06/05/2019 TECHNIQUE: Transvaginal (TV). Date of LMP: 06/05/2019, EXAM MEASUREMENTS: Uterus: 10.0 x 6.6 x 5.8 cm Endometrial Stripe: 3.7 cm 1. Uterus: Anteverted wnl 2. Endometrium: Thickened. Probable echogenic lesion visualized within fundal canal - 4.9 x 3.1 x 3 .6 cm 3. Right Ovary: Obscured by overlying bowel gas 4. Left Ovary: Obscured by overlying bowel gas 5. Bilateral Adnexa: wnl 6. Posterior cul-de-sac: no free fluid Cervix- nabothian cyst IMPRESSION: 1. The endometrium is markedly thickened measuring 3.7 cm. There is a questionable echogenic lesion m easuring 4.9 cm within the endometrial canal near the fundus. Endometrial hyperplasia and endometrial carcinoma in the differential diagnosis. Correlate clinically.
--- NOTE | 2019-06-11 10:26 | CONS ---
CONSULTATION CHIEF COMPLAINT: Chest pain. Candi Multani is a 54-year-old lady with no significant past medical history who presents to hospital complaining of dizziness, not feeling well, muscle aches and also had some chest discomfort. She describes her chest pain as sharp, precordial, mild intensity, unrelated to exertion and as well as with diaphoresis. There is no definite radiation to neck, arm or back. There is no prior history of coronary artery disease or congestive heart failure. There is no history of hypertension, diabetes, dyslipidemia. She is not a smoker. There is family history of coronary artery disease in her father. MEDICATIONS: None. ALLERGIES: Allergic to ZOFRAN. FAMILY HISTORY: Family history is significant for coronary artery disease. SOCIAL HISTORY: Negative for smoking, EtOH abuse or drug abuse. REVIEW OF SYSTEMS: HEENT is unremarkable. CARDIAC: As described above. RESPIRATORY: Negative. GI: Negative. GENITOURINARY: Significant for vaginal bleeding. ALLERGY/IMMUNOLOGY: Negative. SKIN: Negative. MUSCULOSKELETAL: Significant for arthritis. PSYCHOSOCIAL: Negative. ENDOCRINE: Negative. DERM: Negative. CONSTITUTIONAL: Negative. ONCOLOGICAL: Negative. Rest of the system review is not relevant. PHYSICAL EXAMINATION: On exam, afebrile, heart rate is 100 beats per minute, blood pressure is 147/85, respiratory rate is 18. Chest exam reveals good air entry bilaterally. Heart exam reveals first and second heart sounds. No gallop. No murmur. No rub. Abdomen is soft, nontender. Examination of extremities did not reveal edema. Peripheral pulses are felt. EKG shows sinus tachycardia but is otherwise within normal limits. One set of troponin is negative. Hemoglobin is low at 7.4, which is a significant drop compared to where we were last year and this could be related to the vaginal bleed. ASSESSMENT: 1. Precordial chest pain. 2. Symptomatic anemia. PLAN: Patient's chest discomfort is atypical. I am going to obtain 2 more sets of troponins. If they are negative and if the echo looks normal, she can be discharged home and we will consider an outpatient stress test. Her vaginal bleed needs to be addressed. MMODL / IJN: [id number] /
--- NOTE | 2019-06-11 10:48 | P.HPIM ---
History of Present Illness H&P Date: 06/11/19 Chief Complaint: Chest pain The patient is a 54-year-old obese female the past medical history of acid reflux, depression and anxiety, cyclical vomiting syndrome who presents to the ER via private vehicle with chief complaint of chest pain. Apparently yesterday [place] at rest and [place] with [place] the patient began having left-sided chest pain described as pressure and squeezing that was moderate with radiation into her neck with associated shortness of breath, diaphoresis, nausea and diarrhea. The patient reports this was quite different than her usual GERD flares. Patient denied any subjective fevers chills night sweats or cough during this time. The patient was also complaining of dizziness and some muscle aches and pains in her lower back. Patient does report a family history of coronary disease. The patient reports being on her menses since this past Friday after not having a period for 8 months, she reported that this cycle was extremely heavy with a lot of clot burden with severe abdominal cramping that would cause her to lay in the position at times. She reports that yesterday Jefferson became cutter and paster press clippings and is almost finished. In the ER the patient had a comprehensive workup EKG showed sinus tachycardia without any suggestion of acute ischemia, chest x-ray showed no cardiopulmonary process. Troponin was negative at less than 0.012. WBC was 12 hemoglobin 7.4. Platelets 687. Showed endometrial thickening at 3.7 cm with a questionable echogenic lesion measuring 4.9 cm. The patient was given aspirin and nitro glycerin and recommended for admission to rule out ACS Review of Systems Pertinent positives per HPI all others is otherwise negative Past Medical History Past Medical History: GERD/Reflux Additional Past Medical History / Comment(s): Cyclic vomiting syndrome, past elevated LFT, HIATAL HERNIA, MIGRAINES, SCOLIOSIS,COMPRESSED VERTEBRA/BACK PAIN, kidney stones. History of Any Multi-Drug Resistant Organisms: None Reported Past Surgical History: Tubal Ligation Additional Past Surgical History / Comment(s): BENIGN bone tumor removed left leg Past Anesthesia/Blood Transfusion Reactions: No Reported Reaction Additional Past Anesthesia/Blood Transfusion Reaction / Comment(s): LISBET TEPHOBIC Past Psychological History: Anxiety, Depression Smoking Status: Never smoker Past Alcohol Use History: None Reported Past Drug Use History: Marijuana - Past Family History Mother Family Medical History: Cancer Additional Family Medical History / Comment(s): lymphoma Father Family Medical History: Coronary Artery Disease (CAD), Myocardial Infarction ([place]) Medications and Allergies Home Medications Medication Instructions Recorded Confirmed Type No Known Home Medications 06/11/19 06/11/19 History Allergies Allergy/AdvReac Type Severity Reaction Status Date / Time ondansetron AdvReac Nausea & Verified 06/11/19 06:56 [From Zofran (as Vomiting hydrochloride)] Physical Exam Vitals: Vital Signs Temp Pulse Resp BP Pulse Ox 06/11/19 08:30 105 H 16 139/80 99 06/11/19 07:34 10 L 18 147/85 99 06/11/19 06:55 98.3 F 99 18 162/79 98 06/11/19 05:34 98.6 F 96 18 167/85 97 06/11/19 04:56 20 06/11/19 04:42 98.4 F 100 18 167/92 95 06/11/19 03:34 98.4 F 104 H 20 152/97 97 Intake and Output 06/10/19 06/11/19 06/11/19 22:59 06:59 14:59 Other: Weight 86.183 kg Constitutional: No acute distress, conversant, pleasant Eyes: Anicteric sclerae, moist conjunctiva, no lid-lag, PERRLA ENMT: NC/AT,Oropharynx clear, no erythema, exudates Neck:Supple, FROM, no masses, or JVD, No carotid bruits; No thyromegaly Lungs: Clear to auscultation, Clear to percussion, Normal respiratory effort, no accessory muscle use Cardiovascular: Heart regular in rate and rhythm, No murmurs, gallops, or rubs no peripheral edema Abdominal: Soft Nontender, nom distended, no guarding, no rebound or rigidity, Normoactive bowel sounds No hepatomegaly, No splenomegaly, No palpable mass No abdominal wall hernia noted Skin: Normal temperature, tone, texture, turgor, No induration No subcutaneous nodules, No rash, lesions, No ulcers Extremities:No digital cyanosis No clubbing, Pedal pulses intact and symmetrical Radial pulses intact and symmetrical Normal gait and station, No calf tenderness Psychiatric: Alert and oriented to person, place and time, Appropriate affect Intact judgement Neuro: Muscles Strength 5/5 in all 4 extremities, Sensation to light touch grossly present throughout, Cranial nerves II-XII grossly intact. No focal se nsory deficits Results CBC & Chem 7: 06/11/19 04:00 06/11/19 04:00 Labs: Abnormal Lab Results - Last 24 Hours (Table) 06/11/19 06/11/19 06/11/19 Range/Units 04:00 04:00 04:47 WBC 12.0 H (3.8-10.6) k/uL Hgb 7.4 L (11.4-16.0) gm/dL Hct 26.4 L (34.0-46.0) % MCV 58.0 L (80.0-100.0) fL MCH 16.4 L (25.0-35.0) pg MCHC 28.2 L (31.0-37.0) g/dL RDW 18.8 H (11.5-15.5) % Plt Count 687 H (150-450) k/uL Neutrophils # 9.0 H (1.3-7.7) k/uL APTT 20.3 L (22.0-30.0) sec BUN 21 H (7-17) mg/dL Glucose 162 H (74-99) mg/dL Calcium 12.8 H (8.4-10.2) mg/dL Alkaline Phosphatase 134 H (38-126) U/L Assessment and Plan Assessment: Chronic medical issues Anxiety and depression Obesity Cyclic vomiting syndrome (1) Atypical chest pain Current Visit: Yes Status: Acute Code(s): R07.89 - OTHER CHEST PAIN SNOMED Code(s): 842852359 (2) Elevated blood-pressure reading without diagnosis of hypertension Current Visit: Yes Status: Acute Code(s): R03.0 - ELEVATED BLOOD-PRESSURE READING, W/O DIAGNOSIS OF HTN SNOMED Code(s): 886088844 (3) Microcytic anemia Current Visit: Yes Status: Acute Code(s): D50.9 - IRON DEFICIENCY ANEMIA, UNSPECIFIED SNOMED Code(s): 558727277 (4) Menopausal menorrhagia Current Visit: Yes Status: Acute Code(s): N92.4 - EXCESSIVE BLEEDING IN THE PREMENOPAUSAL PERIOD SNOMED Code(s): 048254283 (5) Endometrial thickening on ultrasound Current Visit: Yes Status: Acute Code(s): R93.89 - ABNORMAL FINDINGS ON DX IMAGING OF OTH BODY STRUCTURES SNOMED Code(s): 254275031 (6) GERD (gastroesophageal reflux disease) Current Visit: Yes Status: Acute Code(s): K21.9 - GASTRO-ESOPHAGEAL REFLUX DISEASE WITHOUT ESOPHAGITIS SNOMED Code(s): 902233357 Plan: Patient is patient observation anticipate a less than 2 midnight stay after presenting with atypical chest pain and found to have symptomatic microcytic anemia likely secondary to acute blood loss in the setting of menopausal menorrhagia. Workup with EKG and troponins have been negative will continue to cycle troponins, cardiology is been consulted echocardiogram is been ordered. We'll type and cross and transfuse 1 unit of packed RBCs as a patient is also s lightly tachycardic and likely has symptomatic anemia, iron studies will also be ordered. Workup with ultrasound indicated endometrial thickness 3.7 cm unable to rule out endometrial hyperplasia versus carcinoma MARKET INVESTIGATOR consultation is placed. I will continue routine chest pain orders and continue to follow her blood pressures as it is currently elevated follow-up her clinical course will also check a lipid panel and continue to follow her clinical course. CODE STATUS: Full code Discussed plan of care with: Patient Anticipated discharge discharge 1-[address]: Home Prophylaxis: Protonix and SCDs
[2019-06-11 10:55] VITALS: BMI 31.6
--- NOTE | 2019-06-11 11:26 | ECHOF ---
Referral Reason:chest pain MEASUREMENTS -------- HEIGHT: 165.1 cm WEIGHT: 86.2 kg BP: 147/85 RVIDd: 2.3 cm (< 3.3) IVSd: 1.3 cm (0.6 - 1.1) LVIDd: 3.9 cm (3.9 - 5.3) LVPWd: 1.2 cm (0.6 - 1.1) IVSs: 1.5 cm LVIDs: 2.5 cm LVPWs: 1.3 cm LA Diam: 3.3 cm (2.7 - 3.8) LAESV Index (A-L): 25.46 ml/m Ao Diam: 2.8 cm (2.0 - 3.7) AV Cusp: 1.7 cm (1.5 - 2.6) LA Diam: 3.6 cm (2.7 - 3.8) MV EXCURSION: 20.130 mm (> 18.000) MV EF SLOPE: 76 mm/s (70 - 150) EPSS: 0.3 cm MV E Ravi: 0.90 m/s MV DecT: 218 ms MV A Ravi: 1.00 m/s MV E/A Ratio: 0.91 RAP: 5.00 mmHg RVSP: 17.37 mmHg FINDINGS -------- Sinus rhythm. This was a technically adequate study. The left ventricular size is normal. There is mild concentric left ventricular hypertrophy. Overa ll left ventricular systolic function is normal with, an EF between 55 - 60 %. The right ventricle is normal in size. The left atrial size is normal. The right atrial size is normal. The aortic valve is trileaflet, and appears structurally normal. No aortic stenosis or regurgitation. Mild mitral regurgitation is present. Mild tricuspid regurgitation present. There is no evidence of pulmonary hypertension. The right v entricular systolic pressure, as measured by Doppler, is 17.37mmHg. There is no pulmonic regurgitation present. The aortic root size is normal. There is no pericardial effusion. CONCLUSIONS -------- 1. Sinus rhythm. 2. This was a technically adequate study. 3. The left ventricular size is normal. 4. There is mild concentric left ventricular hypertrophy. 5. Overall left ventricular systolic function is normal with, an EF between 55 - 60 %. 6. The right ventricle is normal in size. 7. The left atrial size is normal. 8. The right atrial size is normal. 9. The aortic valve is trileaflet, and appears structurally normal. No aortic stenosis or regurgitati on. 10. Mild mitral regurgitation is present. 11. Mild tricuspid regurgitation present. 12. There is no evidence of pulmonary hypertension. 13. The right ventricular systolic pressure, as measured by Doppler, is 17.37mmHg. 14. There is no pulmonic regurgitation present. 15. The aortic root size is normal. 16. There is no pericardial effusion. MINING HELPER: Do Macedo RDCS
[2019-06-11] MEDS: PANTOPRAZOLE 40 MG TABLET PO SCH (11:27)
[2019-06-11] MEDS ORDERED: ACETAMINOPHEN TAB 325 MG TAB PO PRN (11:53)
[2019-06-11 12:03] LABS: Anisocytosis Slight; HCT 25.4 % (34.0-46.0); HGB 7.1 gm/dL (11.4-16.0); Hypochromasia Marked; MCH 16.7 pg (25.0-35.0); MCV 59.7 fL (80.0-100.0); Mean Platelet Volume 6.3; Microcytosis Marked; Platelet Count 630 k/uL (150-450); Poikilocytosis Slight; RBC 4.25 m/uL (3.80-5.40); RDW 18.4 % (11.5-15.5); WBC 11.1 k/uL (3.8-10.6)
[2019-06-11] MEDS: CYCLOBENZAPRINE 5 MG TAB PO SCH ×2 (12:05→21:23)
[2019-06-11 13:40] LABS: Reticulocyte % 1.8 % (0.5-2.0)
[2019-06-11 14:25] LABS: Cholesterol 187 mg/dL (<200); HDL Cholesterol 56 mg/dL (40-60); LDL Cholesterol,Calculated 108 mg/dL (0-99); Triglycerides 113 mg/dL (<150)
--- NOTE | 2019-06-11 15:03 | P.OBCN ---
History of Present Illness Consult date: 06/11/19 Reason for consult: menorrhagia (anemia) Chief complaint: menorrhagia, anemia History of present illness: This is a pleasant 54 yo female that presented to the ED with c/o chest pain today, upon questioning she admitted it HMB. she states she skipped o few months over the winter /spring time but the last 2 months have been very heavy. she states she is passing clots with her menses lasting 5-8 days. She states her bleeding was less yesterday and very minimal today. she is here with her daughter and she states after her menses she will noted fatigue and dizziness She denies any SHEET METAL INSULATOR problems in the past 2 she states she is a 3 para 3003 with 3 spontaneous vaginal deliveries and problems with pregnancies. She has not seen a manifold builder in many years. She denies a history of abnormal Paps the past. She states that she has had diarrhea last 2 days no dark stools noted heart rate is just loose stools and was better today. No urinary problems. She states she does have history of chronic back pain, compressed vertebrae for which she uses medical marijuana card and boils. She is on multiple supplements in addition. Review of Systems Constitutional: Reports fatigue, Denies chills, Denies fever Ears, nose, mouth and throat: Denies headache Cardiovascular: Denies edema Respiratory: Denies dyspnea Gastrointestinal: Reports diarrhea, Denies nausea, Denies vomiting Genitourinary: Denies urgency Menstruation: Reports menses 1-7 days, Reports period heavy Past Medical History Past Medical History: GERD/Reflux Additional Past Medical History / Comment(s): Cyclic vomiting syndrome, HIATAL HERNIA, MIGRAINES, SCOLIOSIS, COMPRESSED VERTEBRA/BACK PAIN-T7, kidney stone. Pt states she had not had a menses since September, and then on 06/05/19 started heavy flow/blood clots and abdominal pain. History of Any Multi-Drug Resistant Organisms: None Reported Past Surgical History: Tubal Ligation Additional Past Surgical History / Comment(s): BENIGN bone tumor removed left leg Past Anesthesia/Blood Transfusion Reactions: No Reported Reaction Additional Past Anesthesia/Blood Transfusion Reaction / Comm: CLAUSTEPHOBIC Smoking Status: Never smoker - Past Family History Mother Family Medical History: Cancer Additional Family Medical History / Comment(s): Mother of lymphoma at the age of 81 yrs. Father Family Medical History: Coronary Artery Disease (CAD), Myocardial Infarction ([place]) Additional Family Medical History / Comment(s): Father had a [place] at the age of 56yrs and had CABG. He from a head injury/brain bleed at the age of 86yrs. Medications and Allergies Home Medications Medication Instructions Recorded Confirmed Type No Known Home Medications 06/11/19 06/11/19 History Allergies Allergy/AdvReac Type Severity Reaction Status Date / Time ondansetron AdvReac Nausea & Verified 06/11/19 06:56 [From Zofran (as Vomiting hydrochloride)] Exam Osteopathic Statement: *. No significant issues noted on an osteopathic structural exam other than those noted in the History and Physical/Consult. Vital Signs Temp Pulse Resp BP Pulse Ox 06/11/19 13:43 98.2 F 87 16 125/87 99 06/11/19 13:13 98.5 F 87 16 126/79 99 06/11/19 13:03 98.5 F 89 16 125/76 98 06/11/19 11:36 101 H 16 136/88 99 06/11/19 09:30 97 16 150/89 98 06/11/19 09:00 91 15 149/88 98 06/11/19 08:30 105 H 16 139/80 99 06/11/19 07:34 10 L 18 147/85 99 06/11/19 06:55 98.3 F 99 18 162/79 98 06/11/19 05:34 98.6 F 96 18 167/85 97 06/11/19 04:56 20 06/11/19 04:42 98.4 F 100 18 167/92 95 06/11/19 03:34 98.4 F 104 H 20 152/97 97 Intake and Output 06/10/19 06/11/19 06/11/19 22:59 06:59 14:59 Intake Total 0 Balance 0 Intake: Blood Product 0 Rc As-3 Unit 0 [id number] Other: Weight 86.183 kg Targeted physical exam is performed in the emergency department. In general this a well-nourished well-developed Female in No Acute Distress. Patient Is Currently Receiving 1 Unit of Packed Red Blood Cells. Her Abdomen Is Soft Her Breathing Is Noted to Be Nonlabored Her Heart Has a Regular Rate and Rhythm. She's Currently on a Workup for Chest Pain. Vaginal Exam Is Deferred at This Time. Results Result Diagrams: 06/11/19 11:18 06/11/19 04:00 Abnormal Lab Results - Last 24 Hours (Table) 06/11/19 06/11/19 06/11/19 Range/Units 04:00 04:00 04:00 WBC 12.0 H (3.8-10.6) k/uL Hgb 7.4 L (11.4-16.0) gm/dL Hct 26.4 L (34.0-46.0) % MCV 58.0 L (80.0-100.0) fL MCH 16.4 L (25.0-35.0) pg MCHC 28.2 L (31.0-37.0) g/dL RDW 18.8 H (11.5-15.5) % Plt Count 687 H (150-450) k/uL Neutrophils # 9.0 H (1.3-7.7) k/uL APTT (22.0-30.0) sec BUN 21 H (7-17) mg/dL Glucose 162 H (74-99) mg/dL Calcium 12.8 H (8.4-10.2) mg/dL Alkaline Phosphatase 134 H (38-126) U/L LDL Cholesterol, Calc 108 H (0-99) mg/dL Crossmatch 06/11/19 06/11/19 06/11/19 Range/Units 04:47 11:18 11:18 WBC 11.1 H (3.8-10.6) k/uL Hgb 7.1 L (11.4-16.0) gm/dL Hct 25.4 L (34.0-46.0) % MCV 59.7 L (80.0-100.0) fL MCH 16.7 L (25.0-35.0) pg MCHC 28.0 L (31.0-37.0) g/dL RDW 18.4 H (11.5-15.5) % Plt Count 630 H (150-450) k/uL Neutrophils # (1.3-7.7) k/uL APTT 20.3 L (22.0-30.0) sec BUN (7-17) mg/dL Glucose (74-99) mg/dL Calcium (8.4-10.2) mg/dL Alkaline Phosphatase (38-126) U/L LDL Cholesterol, Calc (0-99) mg/dL Crossmatch See Detail Assessment and Plan (1) Menorrhagia Current Visit: Yes Status: Acute Code(s): N92.0 - EXCESSIVE AND FREQUENT MENSTRUATION WITH REGULAR CYCLE SNOMED Code(s): 473280263 (2) Anemia Current Visit: Yes Status: Acute Code(s): D64.9 - ANEMIA, UNSPECIFIED SNOMED Code(s): 438565599 Plan: Ultrasound findings are reviewed with patient and her daughter in detail. The thickened stripe is of concern, but I am unable to do a endometrial biopsy here in the hospital. They do not have endometrial Pipelle's and I do not feel given the fact that she is not bleeding right now it warrants a D&C. I did pre parole counseling aide the patient as a follow-up appointment in my office on Friday should she be stable throughout her admission. I'm more than happy to follow along during this admission should something change. Patient states understanding of the plan, all QUESTIONS were answered the patient and patient's daughter's satisfaction. If you have any questions or concerns regarding this patient please feel free to call me, thank you for the kind consult [facility] [phone]
[2019-06-11 16:48] LABS: Ferritin 2.6 ng/mL (10.0-291.0); Iron Saturation 1.29 (12.00-45.00)
[2019-06-12] MEDS: PANTOPRAZOLE 40 MG TABLET PO SCH (07:07)
[2019-06-12] MEDS: CYCLOBENZAPRINE 5 MG TAB PO SCH (08:40)
[2019-06-12 08:41] LABS: Anisocytosis Moderate; Basophils # (A) 0.1 k/uL (0-0.2); Basophils % (A) 1 %; Eosinophils # (A) 0.3 k/uL (0-0.7); Eosinophils % (A) 3 %; HCT 30.5 % (34.0-46.0); Hypochromasia Marked; Lymphocytes # (A) 2.7 k/uL (1.0-4.8); Lymphocytes % (A) 32 %; MCH 18.3 pg (25.0-35.0); MCHC 28.6 g/dL (31.0-37.0); MCV 63.9 fL (80.0-100.0); Mean Platelet Volume 7.1; Microcytosis Marked; Monocytes # (A) 0.5 k/uL (0-1.0); Monocytes % (A) 6 %; Neutrophils # (A) 4.9 k/uL (1.3-7.7); Neutrophils % (A) 57 %; Platelet Count 623 k/uL (150-450); Poikilocytosis Marked; RBC 4.77 m/uL (3.80-5.40); RDW 23.8 % (11.5-15.5); WBC 8.5 k/uL (3.8-10.6)
[2019-06-12 08:42] LABS: HGB 8.7 gm/dL (11.4-16.0)
[2019-06-12] MEDS ORDERED: SODIUM FERRIC GLUCONAT-SUCROSE 125 MG in SODIUM CHLORIDE 0.9% 100 ML IVPB ONE (09:23)
--- NOTE | 2019-06-12 09:39 | P.DS ---
Providers Date of admission: 06/11/19 14:19 Expected date of discharge: 06/12/19 Attending physician: Michaelle Martinez MD Consults: 06/11/19 06:42 Consult Physician Urgent Consulting Provider: [facility] Consult Reason/Comments: chest pain Do you want consulting provider notified?: Yes, Notify in am 06/11/19 07:34 Consult Physician Stat Consulting Provider: Leigh Ann Soria Consult Reason/Comments: Vaginal bleeding Do you want consulting provider notified?: Yes Primary care physician: Stated None - Discharge Diagnosis(es) (1) Atypical chest pain Current Visit: Yes Status: Acute (2) Elevated blood-pressure reading without diagnosis of hypertension Current Visit: Yes Status: Acute (3) Microcytic anemia Current Visit: Yes Status: Acute (4) Menopausal menorrhagia Current Visit: Yes Status: Acute (5) Endometrial thickening on ultrasound Current Visit: Yes Status: Acute (6) GERD (gastroesophageal reflux disease) Current Visit: Yes Status: Acute Hospital Course: The patient is a 54-year-old morbidly obese female that was admitted for atypical chest pain with need to rule out ACS workup regarding cardiac etiology was negative her EKG showed sinus mechanism without any suggestion of acute ischemia, her initial and subsequent troponins were negative. Echocardiogram performed showed a preserved LVEF of 55-60% with no significant valvular abnormalities. The patient was noted to have acute hyporchromic anemia secondary to acute blood loss secondary to treated postmenopausal menorrhagia and was transfused a unit of packed RBCs after presenting with a hemoglobin of 7.4 with appropriate response up to 8.7, the patient is also given a infusion of IV Ferrlecit and started on iron replacement on discharge. The patient was not ed to have elevated blood pressure and was diagnosed with hypertension and started on HCTZ. ARMATURE STRAIGHTENER was consulted and patient was seen by Dr. Campos regarding her endometrial thickening at 3.7 cm as seen on transvaginal ultrasound. LEATHER FITTER was unable to perform endometrial biopsy or physical exam and recommended follow-up in clinic on Friday. The patient was subsequently discharged home in stable condition, this discharge process took approximately 30 minutes Focused exam Cardiovascular: Regular rate and rhythm, no murmurs rubs or gallops Patient Condition at Discharge: Stable Plan - Discharge Summary Discharge Rx Participant: No New Discharge Prescriptions: New Ferrous Sulfate [Iron (65 MG Elemental)] 325 mg PO TID-W/MEALS #90 tab Hydrochlorothiazide [Hydrodiuril] 12.5 mg PO DAILY #30 cap Discharge Medication List Ferrous Sulfate [Iron (65 MG Elemental)] 325 mg PO TID-W/MEALS #90 tab 06/12/19 [Rx] Hydrochlorothiazide [Hydrodiuril] 12.5 mg PO DAILY #30 cap 06/12/19 [Rx] Follow up Appointment(s)/Referral(s): None,Stated [Primary Care Provider] - 1-2 days Sandhya Campos DO [Doctor of Osteopathic Medicine] - 06/16/19 Discharge Disposition: HOME SELF-CARE
[2019-06-12 10:17] VITALS: BP 134/81; PULSE 95; RESP 20; TEMP 98.2
--- NOTE | 2019-06-12 17:00 | PN ---
PROGRESS NOTE Candi is a 54-year-old lady who is admitted to the hospital with chest pain and ruled out for myocardial infarction. She had severe anemia with hemoglobin of 7.4. She is receiving iron. Had an echocardiogram done that showed normal LV systolic function. EXAM: Comfortable at rest. Vital signs are stable. Chest exam reveals good air entry bilaterally. Heart exam reveals first and second heart sounds. No gallop. Examination of extremities did not reveal any edema. Peripheral pulses are felt. ASSESSMENT: 1. Symptomatic anemia. 2. Atypical chest pain. PLAN: Patient is doing well. She is stable for discharge and we will arrange outpatient followup for her. MMODL / IJN: [id number] /
[2019-06-13] MEDS ORDERED: HYDROCHLOROTHIAZIDE 12.5 MG CAP PO SCH (09:00)
[2019-06-13] MEDS ORDERED: FERROUS SULFATE 325 MG TAB PO SCH (09:23)
== END 2019-06-12 11:49 | disposition home or self-care (01) ==
LOC: EC 03:31 → 1SOBS 06:42 → UNDOADMOB 06:42 → INTOOBSV 14:19 → OBSVTOIN 14:19 → 3SCARD 14:38 → 1SOBS 14:38 → 3SCARD 16:40 → UNDODISIN 06-12 11:49
PROVIDERS: ADMIT Internal Medicine; ATTEND Internal Medicine
PROC: 30233N1 Transfusion of Nonautologous Red Blood Cells into Peripheral Vein, Percutaneous Approach (ICD-10-PCS; principal; 2019-06-11)
DX: R07.89 Other chest pain (principal); D62 Acute posthemorrhagic anemia; N92.4 Excessive bleeding in the premenopausal period; E66.01 Morbid (severe) obesity due to excess calories; Z68.34 Body mass index [BMI] 34.0-34.9, adult; M41.9 Scoliosis, unspecified; F32.9 Major depressive disorder, single episode, unspecified; F41.9 Anxiety disorder, unspecified; G43.A0 Cyclical vomiting, in migraine, not intractable; I10 Essential (primary) hypertension; K21.9 Gastro-esophageal reflux disease without esophagitis; R93.89 Abnormal findings on diagnostic imaging of other specified body structures; G43.909 Migraine, unspecified, not intractable, without status migrainosus; G89.29 Other chronic pain; M54.9 Dorsalgia, unspecified; K44.9 Diaphragmatic hernia without obstruction or gangrene; F40.240 Claustrophobia; M19.90 Unspecified osteoarthritis, unspecified site; Z79.899 Other long term (current) drug therapy; Z88.8 Allergy status to other drugs, medicaments and biological substances; Z98.51 Tubal ligation status; Z87.442 Personal history of urinary calculi; Z80.7 Family history of other malignant neoplasms of lymphoid, hematopoietic and related tissues; Z82.49 Family history of ischemic heart disease and other diseases of the circulatory system
CPT/HCPCS: 96365; 96361; 96375; 99285; 36415; 93005; 93306; 86900; 86901; 80061; 80053; 82728; 83540; 83550; 83735; 84484; 85025 ×2; 85027; 85610; 85045; 85730; 86850; 86920; 71046; 76830; G0378 ×2; P9016; J2270; J2916; 96374

== ENCOUNTER → 2019-06-18 | Outpatient (CLI) | payer OTHER ==
[2019-06-18 10:37] LABS: Anisocytosis Marked; Basophils # (A) 0.1 k/uL (0-0.2); Basophils % (A) 1 %; Eosinophils # (A) 0.2 k/uL (0-0.7); Eosinophils % (A) 2 %; HCT 29.5 % (34.0-46.0); HGB 8.7 gm/dL (11.4-16.0); Hypochromasia Marked; Lymphocytes # (A) 1.6 k/uL (1.0-4.8); Lymphocytes % (A) 21 %; MCH 18.7 pg (25.0-35.0); MCHC 29.6 g/dL (31.0-37.0); Microcytosis Marked; Monocytes # (A) 0.4 k/uL (0-1.0); Monocytes % (A) 5 %; Neutrophils # (A) 5.4 k/uL (1.3-7.7); Neutrophils % (A) 69 %; Platelet Count 506 k/uL (150-450); Poikilocytosis Moderate; RBC 4.68 m/uL (3.80-5.40); WBC 7.8 k/uL (3.8-10.6)
[2019-06-18 10:41] LABS: RDW 26.7 % (11.5-15.5)
== END | disposition home or self-care (01) ==
LOC: LABWHC1 08:34
PROVIDERS: ATTEND Obstetrics & Gynecology Obstetrics
DX: Z01.812 Encounter for preprocedural laboratory examination (principal); D64.9 Anemia, unspecified; N92.0 Excessive and frequent menstruation with regular cycle; R93.89 Abnormal findings on diagnostic imaging of other specified body structures
CPT/HCPCS: 36415; 85025

== ENCOUNTER 2019-06-22 07:06 | Day surgery (SDC) | payer OTHER ==
[2019-06-17 12:47] VITALS: BMI 34.1
[~2019-06-22 07:06] MED LIST: DEXAMETHASONE SOD PHOSPHATE 10 MG/ML 1 ML VIAL IV ONE; LACTATED RINGERS 1,000 ML IV SCH; LIDOCAINE 1% 20 ML VIAL (10MG/ML) FOR IV START INTRADERMA PRN; Pre Op ABX Message 1 EACH MISC MISCELLANE ONE; SCOPOLAMINE 1.5MG/72HR PATCH TRANSDERM ONE
[2019-06-22] MEDS ORDERED: MIDAZOLAM PF (FBP) 2 MG/2 ML VIAL IVP ONE (07:55)
[2019-06-22] MEDS ORDERED: fentaNYL (PF) 50 MCG/ML 2 ML AMP IVP ONE (07:56)
[2019-06-22] MEDS ORDERED: KETOROLAC 30 MG/ML 1 ML VIAL ONE (08:37)
[2019-06-22] MEDS ORDERED: PROPOFOL 10 MG/ML 20 ML VIAL IV ONE (08:37)
[2019-06-22] MEDS ORDERED: LIDOCAINE 1% INJ 10MG/ML (20 ML MDV) ONE (08:37)
[2019-06-22] MEDS ORDERED: MIDAZOLAM 2 MG/2 ML VIAL ONE (08:37)
[2019-06-22] MEDS ORDERED: SUCCINYLCHOLINE CHLORIDE 100 MG/5 ML SYR IV ONE (08:37)
[2019-06-22] MEDS ORDERED: fentaNYL (PF) 50 MCG/ML 2 ML AMP ONE (08:37)
--- NOTE | 2019-06-22 09:11 | P.OP ---
Date of Procedure: 06/22/19 Preoperative Diagnosis: Menorrhagia, anemia Postoperative Diagnosis: Same Procedure(s) Performed: Hysteroscopy, dilation and curettage Anesthesia: MAC Surgeon: Sandhya Campos Estimated Blood Loss (ml): 5 IV fluids (ml): 350 Urine output (ml): 100 Pathology: other (Endometrial curettings) Condition: stable Disposition: PACU Indications for Procedure: This 54-year-old 3 para 3003 presented to the emergency department over Labor Day weekend with complaints of dizziness and chest pain. Patient's hemoglobin was noted to be low therefore she received 1 unit of packed red blood cells. Patient was noting a very heavy period for the last 2 months. Patient states her last period prior to this had been September. Operative Findings: Proliferative endometrium with multiple polyps noted Description of Procedure: Patient was seen in the preoperative area and informed consent was obtained. Patient denied questions and was taken back to the operating suite. General an esthesia was obtained without difficulty by the anesthesia department. She was prepped and draped in normal sterile fashion in the dorsal lithotomy position. A red rubber catheter was then used to drain the bladder of clear yellow urine. A weighted speculum was placed in the posterior vaginal vault intralipids the cervix was visualized and grasped with a single-tooth tenaculum. The endocervical canal was then dilated to 18-Vietnamese. A hysteroscope was then placed through the cervix and toward the endometrial cavity. A proliferative cavity with multiple polyps was noted. Multiple pictures were taken and the hysteroscope was removed. A sharp curettage was then performed until a gritty texture was noted in all 4 quadrants. A large amount of sample was obtained and sent to pathology. The single-tooth tenaculum was taken off of the anterior lip of the cervix hemostasis was appreciated. All instruments were removed from the patient's vaginal vault. All counts were correct 2 patient tolerated procedure well and was taken the recovery room awake in stable condition.
[2019-06-22 09:25] VITALS: TEMP 97.8
[2019-06-22] MEDS: HYDROmorphone 0.5 MG/0.5 ML SYRINGE IVP PRN ×2 (09:25→09:30)
[2019-06-22 09:35] VITALS: RESP 16
[2019-06-22] MEDS ORDERED: LACTATED RINGERS 1,000 ML IV ONE (09:52)
[2019-06-22 11:04] VITALS: BP 151/92; PULSE 92
== END 2019-06-22 11:20 | disposition home or self-care (01) ==
LOC: OR 07:06
PROVIDERS: ATTEND Obstetrics & Gynecology Obstetrics
DX: N92.0 Excessive and frequent menstruation with regular cycle (principal); N94.6 Dysmenorrhea, unspecified; N88.2 Stricture and stenosis of cervix uteri; K21.9 Gastro-esophageal reflux disease without esophagitis; Z87.442 Personal history of urinary calculi; M41.9 Scoliosis, unspecified; Z98.51 Tubal ligation status; Z88.8 Allergy status to other drugs, medicaments and biological substances
CPT/HCPCS: 81025; 88305; 58558; J2250 ×2; J1100; J2001; J3010; J1885; J0330; J2704; J1170

== ENCOUNTER → 2019-07-05 | Outpatient (CLI) | payer OTHER ==
[2019-07-05 12:20] LABS: Anisocytosis Marked; HCT 32.6 % (34.0-46.0); HGB 9.6 gm/dL (11.4-16.0); Hypochromasia Marked; MCH 20.5 pg (25.0-35.0); MCHC 29.4 g/dL (31.0-37.0); Mean Platelet Volume 7.2; Microcytosis Marked; Platelet Count 411 k/uL (150-450); Poikilocytosis Moderate; RBC 4.68 m/uL (3.80-5.40); WBC 8.9 k/uL (3.8-10.6)
[2019-07-05 12:22] LABS: MCV 69.8 fL (80.0-100.0); RDW 28.5 % (11.5-15.5)
== END | disposition home or self-care (01) ==
LOC: LABWHC1 11:09
PROVIDERS: ATTEND Obstetrics & Gynecology Obstetrics
DX: N92.0 Excessive and frequent menstruation with regular cycle (principal); D64.9 Anemia, unspecified
CPT/HCPCS: 36415; 85027

== ENCOUNTER 2019-07-15 10:07 | Emergency (ER) | payer OTHER ==
[2019-07-15] MEDS ORDERED: SODIUM CHLORIDE 0.9% 500 ML 500 ML IV STA (10:48)
[2019-07-15] MEDS ORDERED: MORPHINE SULFATE 4 MG/ML SYRINGE IVP STA (10:48)
--- NOTE | 2019-07-15 10:49 | ED ---
General Adult HPI - General Chief complaint: Vaginal Bleeding Stated complaint: Vaginal Bleeding Time Seen by Provider: 07/15/19 10:13 Source: patient, RN notes reviewed Mode of arrival: ambulatory Limitations: no limitations - History of Present Illness Initial comments: 54-year-old female with a past medical history of GERD, cyclic vomiting syndrome, hiatal hernia, migraines, kidney stone presents to the emergency department for a chief complaint of vaginal bleeding. Patient states that she has had heavy vaginal bleeding for about 1 month or longer. States that she is soaking through 1 pad every hour. Patient states that because of this bleeding she was found to be anemic and given a transfusion. She had a D&C with Dr. Campos about 2 weeks ago. At that time an abrasion could not be performed as they needed to obtain cytology and a fibroid that was causing the bleeding. Patient has D&C was ablation scheduled on Friday. However patient states she is in cramping pain and continues to have bleeding. Patient has no other complaints at this time including shortness of breath, chest pain, nausea or vomiting, headache, or visual changes. - Related Data Home Medications Medication Instructions Recorded Confirmed Ferrous Sulfate [Feosol] 325 mg PO DAILY 07/14/19 07/14/19 Ibuprofen 1 - 2 tab PO DIRECTED PRN 07/14/19 07/14/19 Previous Rx's Medication Instructions Recorded Acetaminophen-Codeine 300-30mg 1 tab PO Q6H PRN #12 tablet 07/15/19 [Tylenol #3] Amoxicillin/Potassium Clav 1 tab PO Q12HR #20 tab 07/15/19 [Augmentin 875-125 Tablet] Allergies Allergy/AdvReac Type Severity Reaction Status Date / Time ondansetron AdvReac Nausea & Verified 07/15/19 10:11 [From Zofran (as Vomiting hydrochloride)] Review of Systems ROS Statement: Those systems with pertinent positive or pertinent negative responses have been documented in the HPI. ROS Other: All systems not noted in ROS Statement are negative. Past Medical History Past Medical History: GERD/Reflux Additional Past Medical History / Comment(s): Cyclic vomiting syndrome, HIATAL HERNIA, MIGRAINES, SCOLIOSIS, COMPRESSED VERTEBRA/BACK PAIN-T7, kidney stone. Pt states she had not had a menses since January 2019 and then on 06/05/19 started heavy flow/blood clots and abdominal pain. History of Any Multi-Drug Resistant Organisms: None Reported Past Surgical History: Tubal Ligation Additional Past Surgical History / Comment(s): BENIGN bone tumor removed left leg. D&C Past Anesthesia/Blood Transfusion Reactions: No Reported Reaction Additional Past Anesthesia/Blood Transfusion Reaction / Comment(s): CLAUSTEPHOBIC Past Psychological History: Anxiety, Depression Smoking Status: Never smoker Past Alcohol Use History: None Reported Past Drug Use History: Marijuana - Past Family History Mother Family Medical History: Cancer Additional Family Medical History / Comment(s): Mother of lymphoma at the age of 81 yrs. Father Family Medical History: Coronary Artery Disease (CAD), Myocardial Infarction (AK) Additional Family Medical History / Comment(s): Father had a AK at the age of 56yrs and had CABG. He from a head injury/brain bleed at the age of 86yrs. Sister(s) Family Medical History: Cancer Additional Family Medical History / Comment(s): Breast cancer. General Exam Limitations: no limitations General appearance: alert, in no apparent distress Head exam: Present: atraumatic, normocephalic, normal inspection Eye exam: Present: normal appearance, PERRL, EOMI. Absent: scleral icterus, conjunctival injection, periorbital swelling ENT exam: Present: normal exam, mucous membranes moist Neck exam: Present: normal inspection. Absent: tenderness, meningismus, lymphadenopathy Respiratory exam: Present: normal lung sounds bilaterally. Absent: respiratory distress, wheezes, rales, rhonchi, stridor Cardiovascular Exam: Present: regular rate, normal rhythm, normal heart sounds. Absent: systolic murmur, diastolic murmur, rubs, gallop, clicks GI/Abdominal exam: Present: soft, normal bowel sounds. Absent: distended, tenderness, guarding, rebound, rigid External exam: Present: normal external exam. Absent: erythema, swelling, lesions, lacerations, ecchymosis Speculum exam: Present: vaginal bleeding (mild amount). Absent: normal speculum exam, erythema, vaginal discharge, foreign body, tissue, laceration By manual exam: Present: adnexal tenderness, uterine tenderness. Absent: normal by manual exam, cervical motion tenderness, adnexal mass, uterine enlargement Neurological exam: Present: alert Course Vital Signs 07/15/19 10:08 Temperature 97.7 F Pulse Rate 114 H Respiratory 20 Rate Blood Pressure 160/84 O2 Sat by Pulse 98 Oximetry - Reevaluation(s) Reevaluation #1: 07/15/19 11:10 Ultrasound in 06/05/2019 showed a thickened endometrium with questionable echogenic lesion measuring 4.8 cm within the endometrial cavity near the fundus. Endometrial hyperplasia and carcinoma are in the differential diagnoses. Medical Decision Making - Medical Decision Making 54-year-old female presents to the emergency room for vaginal bleeding. This is been ongoing for a month or longer. Patient soaking through a pad per hour. However on exam patient has only a mild amount of vaginal bleeding noted. Generalized tenderness to the uterus. The globe and 9.6 which is consistent with patient's past hemoglobin. CMP unremarkable. Patient does have 154 white blood cells in her urine. This will be cultured. Dr Campos has ablation scheduled on friday. She was consulted and recommends dose of Toradol here and then Tylenol 3 for home. Recommend Augmentin for urinary tract infection for 10 days. She will see her at her scheduled appointment. Recommended returning if she has any worsening symptoms. - Lab Data Result diagrams: 07/15/19 10:36 07/15/19 10:36 Lab Results 07/15/19 07/15/19 07/15/19 Range/Units 10:36 10:36 10:36 WBC 8.8 (3.8-10.6) k/uL RBC 4.56 (3.80-5.40) m/uL Hgb 9.6 L (11.4-16.0) gm/dL Hct 33.8 L (34.0-46.0) % MCV 74.0 L (80.0-100.0) fL MCH 21.1 L (25.0-35.0) pg MCHC 28.5 L (31.0-37.0) g/dL RDW 27.0 H (11.5-15.5) % Plt Count 472 H (150-450) k/uL Neutrophils % 78 % Lymphocytes % 15 % Monocytes % 4 % Eosinophils % 2 % Basophils % 1 % Neutrophils # 6.9 (1.3-7.7) k/uL Lymphocytes # 1.3 (1.0-4.8) k/uL Monocytes # 0.3 (0-1.0) k/uL Eosinophils # 0.2 (0-0.7) k/uL Basophils # 0.1 (0-0.2) k/uL Hypochromasia Marked Poikilocytosis Slight Anisocytosis Marked Microcytosis Marked Target Cells Present Tear Drop Cells Present Stomatocytes Present Sodium 140 (137-145) mmol/L Potassium 4.5 (3.5-5.1) mmol/L Chloride 110 H (98-107) mmol/L Carbon Dioxide 19 L (22-30) mmol/L Anion Gap 11 mmol/L BUN 14 (7-17) mg/dL Creatinine 0.56 (0.52-1.04) mg/dL Est GFR (CKD-EPI)AfAm >90 (>60 ml/min/1.73 sqM) Est GFR (CKD-EPI)NonAf >90 (>60 ml/min/1.73 sqM) Glucose 126 H (74-99) mg/dL Calcium 8.8 (8.4-10.2) mg/dL Total Bilirubin 0.5 (0.2-1.3) mg/dL AST 31 (14-36) U/L ALT 13 (9-52) U/L Alkaline Phosphatase 115 (38-126) U/L Total Protein 8.0 (6.3-8.2) g/dL Albumin 4.0 (3.5-5.0) g/dL Urine Color Red Urine Appearance Cloudy H (Clear) Urine pH 5.5 (5.0-8.0) Ur Specific [place] 1.021 (1.001-1.035) Urine Protein 1+ H (Negative) Urine Glucose (UA) Negative (Negative) Urine Ketones Trace H (Negative) Urine Blood Large H (Negative) Urine Nitrite Negative (Negative) Urine Bilirubin Negative (Negative) Urine Urobilinogen <2.0 (<2.0) mg/dL Ur Leukocyte Esterase Large H (Negative) Urine RBC >182 H (0-5) /hpf Urine WBC 154 H (0-5) /hpf Urine Bacteria Rare H (None) /hpf Urine Mucus Many H (None) /hpf Urine HCG, Qual (Not Detectd) 07/15/19 Range/Units 10:36 WBC (3.8-10.6) k/uL RBC (3.80-5.40) m/uL Hgb (11.4-16.0) gm/dL Hct (34.0-46.0) % MCV (80.0-100.0) fL MCH (25.0-35.0) pg MCHC (31.0-37.0) g/dL RDW (11.5-15.5) % Plt Count (150-450) k/uL Neutrophils % % Lymphocytes % % Monocytes % % Eosinophils % % Basophils % % Neutrophils # (1.3-7.7) k/uL Lymphocytes # (1.0-4.8) k/uL Monocytes # (0-1.0) k/uL Eosinophils # (0-0.7) k/uL Basophils # (0-0.2) k/uL Hypochromasia Poikilocytosis Anisocytosis Microcytosis Target Cells Tear Drop Cells Stomatocytes Sodium (137-145) mmol/L Potassium (3.5-5.1) mmol/L Chloride (98-107) mmol/L Carbon Dioxide (22-30) mmol/L Anion Gap mmol/L BUN (7-17) mg/dL Creatinine (0.52-1.04) mg/dL Est GFR (CKD-EPI)AfAm (>60 ml/min/1.73 sqM) Est GFR (CKD-EPI)NonAf (>60 ml/min/1.73 sqM) Glucose (74-99) mg/dL Calcium (8.4-10.2) mg/dL Total Bilirubin (0.2-1.3) mg/dL AST (14-36) U/L ALT (9-52) U/L Alkaline Phosphatase (38-126) U/L Total Protein (6.3-8.2) g/dL Albumin (3.5-5.0) g/dL Urine Color Urine Appearance (Clear) Urine pH (5.0-8.0) Ur Specific [place] (1.001-1.035) Urine Protein (Negative) Urine Glucose (UA) (Negative) Urine Ketones (Negative) Urine Blood (Negative) Urine Nitrite (Negative) Urine Bilirubin (Negative) Urine Urobilinogen (<2.0) mg/dL Ur Leukocyte Esterase (Negative) Urine RBC (0-5) /hpf Urine WBC (0-5) /hpf Urine Bacteria (None) /hpf Urine Mucus (None) /hpf Urine HCG, Qual Not Detected (Not Detectd) Disposition Clinical Impression: Dysfunctional uterine bleeding, Urinary tract infection Disposition: HOME SELF-CARE Condition: Good Instructions (If sedation given, give patient instructions): Dysmenorrhea (ED) Additional Instructions: Please follow up with Dr Campos at you scheduled appointment. If you have any worsening symptoms return to the emergency department. Prescriptions: Amoxicillin/Potassium Clav [Augmentin 875-125 Tablet] 1 tab PO Q12HR #20 tab Acetaminophen-Codeine 300-30mg [Tylenol #3] 1 tab PO Q6H PRN #12 tablet PRN Reason: Pain Is patient prescribed a controlled substance at d/c from ED?: No Referrals: Sandhya Campos DO [Doctor of Osteopathic Medicine] - 1-2 days Time of Disposition: 12:23
[2019-07-15 11:07] LABS: ALT 13 U/L (9-52); AST 31 U/L (14-36); African American GFR (CKD) >90 (>60 ml/min/1.73 sqM); Alkaline Phosphatase 115 U/L (38-126); Anion Gap 11 mmol/L; Blood Urea Nitrogen 14 mg/dL (7-17); Calcium 8.8 mg/dL (8.4-10.2); Carbon Dioxide 19 mmol/L (22-30); Chloride 110 mmol/L (98-107); Glucose 126 mg/dL (74-99); Sodium 140 mmol/L (137-145); Total Bilirubin 0.5 mg/dL (0.2-1.3)
[2019-07-15 11:08] LABS: Potassium 4.5 mmol/L (3.5-5.1)
[2019-07-15 11:09] LABS: Anisocytosis Marked; Basophils # (A) 0.1 k/uL (0-0.2); Basophils % (A) 1 %; Eosinophils # (A) 0.2 k/uL (0-0.7); Eosinophils % (A) 2 %; HCT 33.8 % (34.0-46.0); HGB 9.6 gm/dL (11.4-16.0); Hypochromasia Marked; Lymphocytes # (A) 1.3 k/uL (1.0-4.8); Lymphocytes % (A) 15 %; MCH 21.1 pg (25.0-35.0); MCHC 28.5 g/dL (31.0-37.0); Microcytosis Marked; Monocytes # (A) 0.3 k/uL (0-1.0); Monocytes % (A) 4 %; Neutrophils # (A) 6.9 k/uL (1.3-7.7); Neutrophils % (A) 78 %; Platelet Count 472 k/uL (150-450); Poikilocytosis Slight; RBC 4.56 m/uL (3.80-5.40); WBC 8.8 k/uL (3.8-10.6)
[2019-07-15 11:22] LABS: Appearance,Urine Cloudy (Clear); Bacteria,Urine Rare /hpf; Bilirubin,Urine Negative (Negative); Blood,Urine Large (Negative); Color,Urine Red; Glucose,Urine (UA) Negative (Negative); Ketones,Urine Trace (Negative); Leukocyte Esterase,Urine Large (Negative); Mucus,Urine Many /hpf; Nitrite,Urine Negative (Negative); PH, Urine 5.5 (5.0-8.0); Protein,Urine 1+ (Negative); RBC,Urine >182 /hpf (0-5); Specific Gravity,Urine 1.021 (1.001-1.035); Urobilinogen,Urine <2.0 mg/dL (<2.0); WBC,Urine 154 /hpf (0-5)
[2019-07-15 11:33] LABS: Stomatocytes Present
[2019-07-15 11:34] LABS: Target Cells Present; Tear Drop Cells Present
[2019-07-15] MEDS ORDERED: KETOROLAC 30 MG/ML 1 ML VIAL IVP STA (12:17)
[2019-07-15] MEDS ORDERED: AMOXIC-POT CLAV 875MG STARTER 2 EACH TABLET PO STA (12:24)
[2019-07-15 13:26] VITALS: BP 179/85; PULSE 80; RESP 16; TEMP 98
== END 2019-07-15 13:26 | disposition home or self-care (01) ==
LOC: EC 10:07
DX: N39.0 Urinary tract infection, site not specified (principal); N93.8 Other specified abnormal uterine and vaginal bleeding; D64.9 Anemia, unspecified; Z79.899 Other long term (current) drug therapy; Z88.8 Allergy status to other drugs, medicaments and biological substances
CPT/HCPCS: 36415; 86900; 86901; 80053; 85025; 86850; 81001; 81025; 99284; 96374; 96375; 96361; J2270; J1885

== ENCOUNTER → 2019-07-20 | Day surgery (SDC) | payer OTHER ==
[2019-07-14 16:17] VITALS: BMI 34.1
--- NOTE | 2019-07-19 18:57 | P.HPOB ---
History of Present Illness H&P Date: 07/19/19 Chief Complaint: Mental menorrhagia, anemia This pleasant 54-year-old female presents for preoperative visit secondary to heavy irregular bleeding. Patient underwent hysteroscopy, dilation and curettage on revealing benign pathology. She continued to bleed despite hysteroscopy D&C. We were unable to sample the uterus in the office therefore hysteroscopy D&C was done for sampling. Patient was started on Aygestin to control the bleeding she states she continued to bleed through this. Patient was seen initially in the emergency department and given a unit of packed red blood cells and discontinued home. Patient's hemoglobin has been stable since blood transfusion, hysteroscopy and D&C. Patient has noted increased cramping and was seen in the ER once sevenths hysteroscopy D&C. Review of Systems Constitutional: Reports fatigue, Denies chills, Denies fever Cardiovascular: Denies edema Respiratory: Denies dyspnea Genitourinary: Reports dysmenorrhea, Reports menorrhagia Past Medical History Past Medical History: GERD/Reflux, Musculoskeletal Disorder Additional Past Medical History / Comment(s): Hx Cyclic vomiting syndrome, no problems in one year, HIATAL HERNIA, MIGRAINES, SCOLIOSIS, COMPRESSED VERTEBRA, CHRONIC BACK PAIN-T7, kidney stone. Pt states she had not had a menses since January 2019 and then on 06/05/19 started heavy flow/blood clots and abdominal pain. History of Any Multi-Drug Resistant Organisms: None Reported Past Surgical History: Tubal Ligation Additional Past Surgical History / Comment(s): BENIGN bone tumor removed left leg. Past Anesthesia/Blood Transfusion Reactions: No Reported Reaction Additional Past Anesthesia/Blood Transfusion Reaction / Comment(s): CLAUSTEPHOBIC. Past Psychological History: Anxiety, Depression Smoking Status: Never smoker Past Alcohol Use History: Rare Past Drug Use History: Marijuana Additional Drug Use History / Comment(s): Pt uses medical marijuana a small amount daily for back pain. - Past Family History Mother Family Medical History: Cancer Additional Family Medical History / Comment(s): Mother of lymphoma at the age of 81 yrs. Father Family Medical History: Coronary Artery Disease (CAD), Myocardial Infarction (OR) Additional Family Medical History / Comment(s): Father had a OR at the age of 56yrs and had CABG. He from a head injury/brain bleed at the age of 86yrs. Sister(s) Family Medical History: Cancer Additional Family Medical History / Comment(s): Breast cancer. Medications and Allergies Home Medications Medication Instructions Recorded Confirmed Type Ferrous Sulfate [Feosol] 325 mg PO DAILY 07/14/19 07/14/19 History Ibuprofen 1 - 2 tab PO DIRECTED PRN 07/14/19 07/14/19 History Acetaminophen-Codeine 300-30mg 1 tab PO Q6H PRN #12 tablet 07/15/19 Rx [Tylenol #3] Amoxicillin/Potassium Clav 1 tab PO Q12HR #20 tab 07/15/19 Rx [Augmentin 875-125 Tablet] Allergies Allergy/AdvReac Type Severity Reaction Status Date / Time ondansetron AdvReac Nausea & Verified 07/15/19 10:11 [From Zofran (as Vomiting hydrochloride)] Exam Osteopathic Statement: *. No significant issues noted on an osteopathic structural exam other than those noted in the History and Physical/Consult. Targeted physical exam was performed in general this a well-nourished well- developed alert female in no acute distress, breathing is noted to be nonlabored, her heart has a regular rate and rhythm her abdomen is soft her external genitalia is normal for age, vaginal mucosa was noted to be pink and well rugated, cervix is noted to be normal without lesion uterus is not enlarged there are no adnexal masses. Assessment and Plan (1) Anemia Status: Acute Code(s): D64.9 - ANEMIA, UNSPECIFIED SNOMED Code(s): 589428921 (2) Menorrhagia Status: Acute Code(s): N92.0 - EXCESSIVE AND FREQUENT MENSTRUATION WITH REGULAR CYCLE SNOMED Code(s): 029983650 Plan: Plan hysteroscopy, dilation and curettage with endometrial ablation. Procedure was reviewed with the patient and her daughter in detail multiple questions were answered in the office. Risks were reviewed including failure, need for future surgery. Patient states understanding and wishes to proceed.
[~2019-07-20] MED LIST changes: +GLYCOPYRROLATE 0.2 MG/ML 2 ML VIAL ONE; +KETOROLAC 30 MG/ML 1 ML VIAL ONE; +LACTATED RINGERS 1,000 ML IV ONE; +LIDOCAINE 1% 20 ML VIAL (10MG/ML) FOR IV START INTRADERMA ONE; -LIDOCAINE 1% 20 ML VIAL (10MG/ML) FOR IV START INTRADERMA PRN; +LIDOCAINE 1% INJ 10MG/ML (20 ML MDV) ONE; +METOCLOPRAMIDE 5 MG/ML 2 ML VIAL ONE; +MIDAZOLAM 2 MG/2 ML VIAL IV PRN; +MIDAZOLAM 2 MG/2 ML VIAL ONE; +PROPOFOL 10 MG/ML 20 ML VIAL IV ONE; +diphenhydrAMINE 50 MG/ML 1 ML VIAL ONE; +fentaNYL (PF) 50 MCG/ML 2 ML AMP ONE
[2019-07-20 08:46] VITALS: RESP 16
--- NOTE | 2019-07-20 10:11 | P.OP ---
Date of Procedure: 07/20/19 Preoperative Diagnosis: Menorrhagia, failed medical treatment Postoperative Diagnosis: Same Procedure(s) Performed: Hysteroscopy, dilation and curettage with endometrial ablation, NovaSure Anesthesia: MAC Surgeon: Sandhya Campos Estimated Blood Loss (ml): 2 IV fluids (ml): 600 Urine output (ml): 72 Pathology: other (Endometrial curettings) Condition: stable Disposition: PACU Indications for Procedure: Heavy irregular menstrual bleeding, dysmenorrhea Operative Findings: Normal appearing proliferative endometrial cavity. Description of Procedure: Patient was seen in the preoperative area procedure was reviewed and all questions are answered. Patient was taken back to the operating suite were general anesthesia was obtained without difficulty by the anesthesia department. She was prepped and draped in normal sterile fashion in the dorsal lithotomy position. A regular catheter was then used to drain the bladder of clear yellow urine. A weighted speculum was placed in the posterior vaginal vault the interval of the cervix is visualized and grasped with a single-tooth tenaculum the endocervical canal was then dilated to 16-[place]. Hysteroscope was placed through the cervix and toward the endometrial cavity and intact proliferative endometrial cavity was noted. Pictures were taken and the hysteroscope was removed. Sharp curettage was performed and a moderate amount of tissue was noted. This was then sent off to pathology for analysis. At this time the NovaSure device was opened and set to the appropriate measurements for the patient's uterus with a cavity length of 5, width of 4.5 after cavity assessment was passed power of 124 was noted for 45 seconds. Afterwards the NovaSure was removed without difficulty the device is noted to be intact the single-tooth tenaculum was taken off of the anterior lip of the cervix and hemostasis was appreciated. All counts were correct 2 patient tolerated procedure well and was taken the recovery room awake in stable condition.
[2019-07-20 10:14] VITALS: TEMP 97
[2019-07-20] MEDS: HYDROmorphone 0.5 MG/0.5 ML SYRINGE IVP PRN ×2 (10:57→11:03)
[2019-07-20 11:44] VITALS: BP 151/91; PULSE 84
== END | disposition home or self-care (01) ==
LOC: OR 08:20
PROVIDERS: ATTEND Obstetrics & Gynecology Obstetrics
DX: N92.0 Excessive and frequent menstruation with regular cycle (principal); N94.6 Dysmenorrhea, unspecified; D64.9 Anemia, unspecified; K21.9 Gastro-esophageal reflux disease without esophagitis; G43.909 Migraine, unspecified, not intractable, without status migrainosus; M41.9 Scoliosis, unspecified; G89.29 Other chronic pain; F40.240 Claustrophobia; F41.9 Anxiety disorder, unspecified; F32.9 Major depressive disorder, single episode, unspecified; Z87.442 Personal history of urinary calculi; Z98.51 Tubal ligation status; Z87.39 Personal history of other diseases of the musculoskeletal system and connective tissue; Z98.890 Other specified postprocedural states; Z88.8 Allergy status to other drugs, medicaments and biological substances; Z82.49 Family history of ischemic heart disease and other diseases of the circulatory system; Z80.3 Family history of malignant neoplasm of breast; Z80.7 Family history of other malignant neoplasms of lymphoid, hematopoietic and related tissues
CPT/HCPCS: 81025; 88305; 58563; J2250; J1200; J1100; J2765; J2001; J3010; J1885; J2704; J1170

== ENCOUNTER 2019-08-10 08:50 | Emergency (ER) | payer OTHER ==
[2019-08-10] MEDS ORDERED: IBUPROFEN 600 MG TAB PO STA ×2 (09:05→12:27)
[2019-08-10] MEDS ORDERED: ACETAMINOPHEN TAB 325 MG TAB PO STA (09:05)
[2019-08-10] MEDS ORDERED: SODIUM CHLORIDE 0.9% 1,000 ML IV SCH (09:15)
[2019-08-10] MEDS ORDERED: SODIUM CHLORIDE 0.9% 1,000 ML IV ONE (09:16)
[2019-08-10] MEDS ORDERED: SODIUM CHLORIDE 0.9% 500 ML 500 ML IV ONE ×2 (09:16→11:01)
[2019-08-10] MEDS ORDERED: METOCLOPRAMIDE 5 MG/ML 2 ML VIAL IVP STA (09:16)
[2019-08-10 09:47] LABS: Anisocytosis Moderate; Basophils # (A) 0.1 k/uL (0-0.2); Basophils % (A) 1 %; Eosinophils % (A) 0 %; HCT 32.3 % (34.0-46.0); HGB 9.9 gm/dL (11.4-16.0); Hypochromasia Marked; Lymphocytes # (A) 0.6 k/uL (1.0-4.8); Lymphocytes % (A) 6 %; MCH 21.5 pg (25.0-35.0); MCHC 30.5 g/dL (31.0-37.0); MCV 70.5 fL (80.0-100.0); Mean Platelet Volume 6.1; Microcytosis Marked; Monocytes # (A) 0.3 k/uL (0-1.0); Monocytes % (A) 3 %; Neutrophils # (A) 8.6 k/uL (1.3-7.7); Neutrophils % (A) 86 %; Platelet Count 481 k/uL (150-450); Poikilocytosis Slight; RBC 4.58 m/uL (3.80-5.40); RDW 21.9 % (11.5-15.5); WBC 10.1 k/uL (3.8-10.6)
[2019-08-10] MEDS ORDERED: HYDROcodone/APAP 7.5-325MG 1 EACH TAB PO ONE (09:52)
--- NOTE | 2019-08-10 09:53 | ED ---
Fever HPI - General Chief Complaint: Fever Stated Complaint: Fever/ body aches Time Seen by Provider: 08/10/19 09:05 Source: patient Mode of arrival: ambulatory Limitations: no limitations - History of Present Illness Initial Comments: 54-year-old female presenting for nausea vomiting diarrhea cough congestion and body aches 4 days. Patient states since Friday she has had vomiting diarrhea on and off she states initially she thought this was part of her cyclic vomiting. However she developed a fever Friday night. Patient states she has had body aches since as well as a cough and some nasal congestion. Patient states that today she woke up her fever was higher and she felt worse and she had the past 3 days. Patient denies any difficulty breathing or chest pain she denies any severe abdominal pain. Patient denies any leg swelling, sore throat difficulty breathing headache neck stiffness, sensitivity to light. Denies melena hematochezia or hematemesis. She states she did have a D&C on July 20 secondary to menorrhagia she denies any lower pelvic cramping pain or discharge. Remaining review system negative - Related Data Home Medications Medication Instructions Recorded Confirmed Ferrous Sulfate [Feosol] 325 mg PO TID 07/14/19 08/10/19 Hemp Oil (Unknown) 1 dose PO DAILY 08/10/19 08/10/19 Previous Rx's Medication Instructions Recorded Azithromycin [Zithromax Z-pack] 0 mg PO DIRECTED #6 tab 08/10/19 Allergies Allergy/AdvReac Type Severity Reaction Status Date / Time ondansetron AdvReac rash/Nausea Verified 08/10/19 10:00 [From Hilario (as & Vomiting hydrochloride)] Review of Systems ROS Statement: Those systems with pertinent positive or pertinent negative responses have been documented in the HPI. ROS Other: All systems not noted in ROS Statement are negative. Past Medical History Past Medical History: GERD/Reflux Additional Past Medical History / Comment(s): Cyclic vomiting syndrome, HIATAL HERNIA, MIGRAINES, SCOLIOSIS, COMPRESSED VERTEBRA/BACK PAIN-T7, kidney stone. Pt states she had not had a menses since January 2019 and then on 06/05/19 started heavy flow/blood clots and abdominal pain. History of Any Multi-Drug Resistant Organisms: None Reported Past Surgical History: Tubal Ligation Additional Past Surgical History / Comment(s): BENIGN bone tumor removed left leg. D&C Past Anesthesia/Blood Transfusion Reactions: No Reported Reaction Additional Past Anesthesia/Blood Transfusion Reaction / Comment(s): CLAUSTEPHOBIC Past Psychological History: Anxiety, Depression Smoking Status: Current some day smoker Past Alcohol Use History: None Reported Past Drug Use History: Marijuana - Past Family History Mother Family Medical History: Cancer Additional Family Medical History / Comment(s): Mother of lymphoma at the age of 81 yrs. Father Family Medical History: Coronary Artery Disease (CAD), Myocardial Infarction ([place]) Additional Family Medical History / Comment(s): Father had a [place] at the age of 56yrs and had CABG. He from a head injury/brain bleed at the age of 86yrs. Sister(s) Family Medical History: Cancer Additional Family Medical History / Comment(s): Breast cancer. General Exam - General Exam Comments Initial Comments: General: The patient is awake and alert, in no distress Eye: +3 mm pupils are equal, round and reactive to light, extra-ocular movements are intact. No nystagmus. There is normal conjunctiva bilaterally. No signs of icterus. Ears, nose, mouth and throat: There are moist mucous membranes and no oral lesions. Oropharynx nonerythematous. No nuchal rigidity Neck: The neck is supple, there is no tenderness or JVD. Cardiovascular: There is a elevated rate and rhythm. No murmur, rub or gallop is appreciated. Respiratory: Lungs are clear to auscultation, respirations are non-labored, b reath sounds are equal. No wheezes, stridor, rales, or rhonchi. Gastrointestinal: Soft, non-distended, non-tender abdomen without masses or organomegaly noted. There is no rebound or guarding present. Musculoskeletal: Normal ROM, no tenderness. Strength 5/5. Sensation intact. Radial pulses equal bilaterally 2+. Neurological: A&O x 3. CN II-XII intact grossly, There are no obvious motor or sensory deficits. Coordination appears grossly intact. Speech is normal. Skin: Skin is warm and dry and no rashes or lesions are noted. Psychiatric: Cooperative, appropriate mood & affect, normal judgment. Limitations: no limitations Course Vital Signs 08/10/19 08/10/19 08/10/19 08:52 10:02 11:06 Temperature 102.3 F H 98.3 F Pulse Rate 130 H 125 H 118 H Respiratory 24 16 Rate Blood Pressure 165/86 150/76 O2 Sat by Pulse 96 99 Oximetry 08/10/19 08/10/19 11:28 12:48 Temperature Pulse Rate 114 H 104 H Respiratory 16 Rate Blood Pressure 141/85 O2 Sat by Pulse 99 Oximetry Medical Decision Making - Medical Decision Making 54-year-old female presenting for nausea vomiting diarrhea since Friday patient afebrile on arrival. Also complaining of upper respiratory symptoms. Patient's sodium and transaminases are within normal limits. No leukocytosis. HgB at baseline. Patient has benign abdominal exam. Lungs clear. Patient has cough on physical examination appears dry. Findings consistent possible pneumonia versus neoplasm on chest x-ray this differential diagnosis was discussed at length the patient and I advise close follow-up with primary care provider. Patient was provided IV fluids as she appeared dehydrated. Fever control. Discussed the case in detail reviewing laboratory studies imaging with attending provider we discussed patient's vital signs spell and he is agreeable to discharge of patient with primary care follow-up. Patient states she is feeling much better and agreeable discharge at this time. Return parameters were discussed at length patient verbalized understanding and she was discharged appearing well - Lab Data Result diagrams: 08/10/19 09:15 08/10/19 09:15 Lab Results 08/10/19 08/10/19 08/10/19 Range/Units 09:15 09:15 09:15 WBC 10.1 (3.8-10.6) k/uL RBC 4.58 (3.80-5.40) m/uL Hgb 9.9 L (11.4-16.0) gm/dL Hct 32.3 L (34.0-46.0) % MCV 70.5 L (80.0-100.0) fL MCH 21.5 L (25.0-35.0) pg MCHC 30.5 L (31.0-37.0) g/dL RDW 21.9 H (11.5-15.5) % Plt Count 481 H (150-450) k/uL Neutrophils % 86 % Lymphocytes % 6 % Monocytes % 3 % Eosinophils % 0 % Basophils % 1 % Neutrophils # 8.6 H (1.3-7.7) k/uL Lymphocytes # 0.6 L (1.0-4.8) k/uL Monocytes # 0.3 (0-1.0) k/uL Eosinophils # 0.0 (0-0.7) k/uL Basophils # 0.1 (0-0.2) k/uL Hypochromasia Marked Poikilocytosis Slight Anisocytosis Moderate Microcytosis Marked PT (9.0-12.0) sec INR (<1.2) APTT (22.0-30.0) sec Sodium 139 (137-145) mmol/L Potassium 3.8 (3.5-5.1) mmol/L Chloride 106 (98-107) mmol/L Carbon Dioxide 21 L (22-30) mmol/L Anion Gap 12 mmol/L BUN 13 (7-17) mg/dL Creatinine 0.58 (0.52-1.04) mg/dL Est GFR (CKD-EPI)AfAm >90 (>60 ml/min/1.73 sqM) Est GFR (CKD-EPI)NonAf >90 (>60 ml/min/1.73 sqM) Glucose 190 H (74-99) mg/dL Lactic Ac Sepsis Rflx Plasma Lactic Acid Luciano 2.1 H* (0.7-2.0) mmol/L Calcium 9.1 (8.4-10.2) mg/dL Total Bilirubin 0.3 (0.2-1.3) mg/dL AST 33 (14-36) U/L ALT 28 (9-52) U/L Alkaline Phosphatase 125 (38-126) U/L Total Protein 8.0 (6.3-8.2) g/dL Albumin 4.1 (3.5-5.0) g/dL Lipase (23-300) U/L Urine Color Urine Appearance (Clear) Urine pH (5.0-8.0) Ur Specific [place] (1.001-1.035) Urine Protein (Negative) Urine Glucose (UA) (Negative) Urine Ketones (Negative) Urine Blood (Negative) Urine Nitrite (Negative) Urine Bilirubin (Negative) Urine Urobilinogen (<2.0) mg/dL Ur Leukocyte Esterase (Negative) Urine RBC (0-5) /hpf Urine WBC (0-5) /hpf Ur Squamous Epith Cells (0-4) /hpf Urine Mucus (None) /hpf Influenza Type A RNA (Not Detectd) Influenza Type B (PCR) (Not Detectd) 08/10/19 08/10/19 08/10/19 Range/Units 09:15 09:15 09:15 WBC (3.8-10.6) k/uL RBC (3.80-5.40) m/uL Hgb (11.4-16.0) gm/dL Hct (34.0-46.0) % MCV (80.0-100.0) fL MCH (25.0-35.0) pg MCHC (31.0-37.0) g/dL RDW (11.5-15.5) % Plt Count (150-450) k/uL Neutrophils % % Lymphocytes % % Monocytes % % Eosinophils % % Basophils % % Neutrophils # (1.3-7.7) k/uL Lymphocytes # (1.0-4.8) k/uL Monocytes # (0-1.0) k/uL Eosinophils # (0-0.7) k/uL Basophils # (0-0.2) k/uL Hypochromasia Poikilocytosis Anisocytosis Microcytosis PT 9.9 (9.0-12.0) sec INR 0.9 (<1.2) APTT 18.8 L (22.0-30.0) sec Sodium (137-145) mmol/L Potassium (3.5-5.1) mmol/L Chloride (98-107) mmol/L Carbon Dioxide (22-30) mmol/L Anion Gap mmol/L BUN (7-17) mg/dL Creatinine (0.52-1.04) mg/dL Est GFR (CKD-EPI)AfAm (>60 ml/min/1.73 sqM) Est GFR (CKD-EPI)NonAf (>60 ml/min/1.73 sqM) Glucose (74-99) mg/dL Lactic Ac Sepsis Rflx Plasma Lactic Acid Luciano (0.7-2.0) mmol/L Calcium (8.4-10.2) mg/dL Total Bilirubin (0.2-1.3) mg/dL AST (14-36) U/L ALT (9-52) U/L Alkaline Phosphatase (38-126) U/L Total Protein (6.3-8.2) g/dL Albumin (3.5-5.0) g/dL Lipase 57 (23-300) U/L Urine Color Urine Appearance (Clear) Urine pH (5.0-8.0) Ur Specific [place] (1.001-1.035) Urine Protein (Negative) Urine Glucose (UA) (Negative) Urine Ketones (Negative) Urine Blood (Negative) Urine Nitrite (Negative) Urine Bilirubin (Negative) Urine Urobilinogen (<2.0) mg/dL Ur Leukocyte Esterase (Negative) Urine RBC (0-5) /hpf Urine WBC (0-5) /hpf Ur Squamous Epith Cells (0-4) /hpf Urine Mucus (None) /hpf Influenza Type A RNA Not Detected (Not Detectd) Influenza Type B (PCR) Not Detected (Not Detectd) 08/10/19 08/10/19 Range/Units 10:05 10:48 WBC (3.8-10.6) k/uL RBC (3.80-5.40) m/uL Hgb (11.4-16.0) gm/dL Hct (34.0-46.0) % MCV (80.0-100.0) fL MCH (25.0-35.0) pg MCHC (31.0-37.0) g/dL RDW (11.5-15.5) % Plt Count (150-450) k/uL Neutrophils % % Lymphocytes % % Monocytes % % Eosinophils % % Basophils % % Neutrophils # (1.3-7.7) k/uL Lymphocytes # (1.0-4.8) k/uL Monocytes # (0-1.0) k/uL Eosinophils # (0-0.7) k/uL Basophils # (0-0.2) k/uL Hypochromasia Poikilocytosis Anisocytosis Microcytosis PT (9.0-12.0) sec INR (<1.2) APTT (22.0-30.0) sec Sodium (137-145) mmol/L Potassium (3.5-5.1) mmol/L Chloride (98-107) mmol/L Carbon Dioxide (22-30) mmol/L Anion Gap mmol/L BUN (7-17) mg/dL Creatinine (0.52-1.04) mg/dL Est GFR (CKD-EPI)AfAm (>60 ml/min/1.73 sqM) Est GFR (CKD-EPI)NonAf (>60 ml/min/1.73 sqM) Glucose (74-99) mg/dL Lactic Ac Sepsis Rflx Y Plasma Lactic Acid Luciano (0.7-2.0) mmol/L Calcium (8.4-10.2) mg/dL Total Bilirubin (0.2-1.3) mg/dL AST (14-36) U/L ALT (9-52) U/L Alkaline Phosphatase (38-126) U/L Total Protein (6.3-8.2) g/dL Albumin (3.5-5.0) g/dL Lipase (23-300) U/L Urine Color Yellow Urine Appearance Clear (Clear) Urine pH 5.5 (5.0-8.0) Ur Specific [place] 1.021 (1.001-1.035) Urine Protein 1+ H (Negative) Urine Glucose (UA) Trace H (Negative) Urine Ketones 1+ H (Negative) Urine Blood Small H (Negative) Urine Nitrite Negative (Negative) Urine Bilirubin Negative (Negative) Urine Urobilinogen <2.0 (<2.0) mg/dL Ur Leukocyte Esterase Negative (Negative) Urine RBC 2 (0-5) /hpf Urine WBC 1 (0-5) /hpf Ur Squamous Epith Cells 1 (0-4) /hpf Urine Mucus Many H (None) /hpf Influenza Type A RNA (Not Detectd) Influenza Type B (PCR) (Not Detectd) - EKG Data EKG Comments: Ventricular rate 129 bpm, WI interval 126 ms, QRS duration 80 ms, QT/QTC 324/force any 4 ms. This appears to be sinus tachycardia. No ST elevation or depression. EKG personally interpreted reviewed by attending Disposition Clinical Impression: Pneumonia, Vomiting and diarrhea, Fever Disposition: HOME SELF-CARE Condition: Good Instructions (If sedation given, give patient instructions): Pneumonia (ED) Additional Instructions: Please use medication as discussed. Please follow-up with family doctor in the next 2 days. Please return to emergency room if the symptoms increase or worsen or for any other concerns. Prescriptions: Azithromycin [Zithromax Z-pack] 0 mg PO DIRECTED #6 tab Is patient prescribed a controlled substance at d/c from ED?: No Referrals: None,Stated [Primary Care Provider] - 1-2 days [facility] - [facility]-2 days Time of Disposition: 12:27
[2019-08-10 09:56] LABS: ALT 28 U/L (9-52); AST 33 U/L (14-36); African American GFR (CKD) >90 (>60 ml/min/1.73 sqM); Albumin 4.1 g/dL (3.5-5.0); Alkaline Phosphatase 125 U/L (38-126); Anion Gap 12 mmol/L; Blood Urea Nitrogen 13 mg/dL (7-17); Calcium 9.1 mg/dL (8.4-10.2); Carbon Dioxide 21 mmol/L (22-30); Chloride 106 mmol/L (98-107); Glucose 190 mg/dL (74-99); Potassium 3.8 mmol/L (3.5-5.1); Sodium 139 mmol/L (137-145); Total Bilirubin 0.3 mg/dL (0.2-1.3)
[2019-08-10 10:01] LABS: INR 0.9 (<1.2); Prothrombin Time 9.9 sec (9.0-12.0)
[2019-08-10 10:03] VITALS: RESP 16; TEMP 98.3
[2019-08-10 10:23] LABS: Partial Thromboplastin Time 18.8 sec (22.0-30.0)
--- NOTE | 2019-08-10 10:52 | XR ---
EXAMINATION TYPE: XR chest 2V DATE OF EXAM: 08/10/2019 COMPARISON: 06/11/2019 TECHNIQUE: PA and lateral views submitted. HISTORY: Chest pain FINDINGS: There is a nodular area of consolidation in the right upper lobe measuring 3 cm. No pleural effusion or interstitial edema. No pneumothorax. Heart size normal. Mild anterior wedge deformity in the midth oracic spine is stable from prior exam. IMPRESSION: 1. Nodular area of consolidation right upper lobe. Differential diagnosis includes pneumonia. Neoplas m not excluded. Correlate clinically.
[2019-08-10 12:03] LABS: Appearance,Urine Clear (Clear); Bilirubin,Urine Negative (Negative); Blood,Urine Small (Negative); Color,Urine Yellow; Glucose,Urine (UA) Trace (Negative); Ketones,Urine 1+ (Negative); Leukocyte Esterase,Urine Negative (Negative); Mucus,Urine Many /hpf; Nitrite,Urine Negative (Negative); PH, Urine 5.5 (5.0-8.0); Protein,Urine 1+ (Negative); RBC,Urine 2 /hpf (0-5); Specific Gravity,Urine 1.021 (1.001-1.035); Squamous Epithelial Cell,Urine 1 /hpf (0-4); Urobilinogen,Urine <2.0 mg/dL (<2.0); WBC,Urine 1 /hpf (0-5)
[2019-08-10 12:49] VITALS: BP 141/85; PULSE 104
== END 2019-08-10 12:54 | disposition home or self-care (01) ==
LOC: EC 08:50
DX: J18.9 Pneumonia, unspecified organism (principal); E86.0 Dehydration; R00.0 Tachycardia, unspecified; F17.200 Nicotine dependence, unspecified, uncomplicated; Z88.8 Allergy status to other drugs, medicaments and biological substances; Z79.899 Other long term (current) drug therapy; Z86.2 Personal history of diseases of the blood and blood-forming organs and certain disorders involving the immune mechanism; Z87.42 Personal history of other diseases of the female genital tract; Z98.890 Other specified postprocedural states; Z82.49 Family history of ischemic heart disease and other diseases of the circulatory system
CPT/HCPCS: 36415; 93005; 80053; 83605; 83690; 85025; 85610; 85730; 81001; 87040; 87502; 71046; 99284; 96374; 96361 ×4; J2765

== ENCOUNTER 2019-08-11 04:25 | Inpatient (IN) | payer OTHER ==
--- NOTE | 2019-08-11 04:28 | ED ---
General Adult HPI - General Stated complaint: fever,BRIANA Time Seen by Provider: 08/11/19 04:27 - History of Present Illness Initial comments: Candi is a 54 yo female who presents to the ER today for re-evaluation of cough. She was seen and evaluated yesterday she was diagnosed with a right upper lobe pneumonia discharged home on oral antibiotic she reports she took 1 dose but through the night she's had a fever, cough, heart racing and reports feeling mu ch worse now than she did yesterday. She denies any underlying lung problems, she is not a smoker has no history of asthma or COPD. - Related Data Home Medications Medication Instructions Recorded Confirmed Ferrous Sulfate [Feosol] 325 mg PO TID 07/14/19 08/11/19 Ibuprofen [Motrin Ib] 600 mg PO Q6H PRN 08/11/19 08/11/19 Allergies Allergy/AdvReac Type Severity Reaction Status Date / Time ondansetron AdvReac rash/Nausea Verified 08/11/19 07:39 [From Zofran (as & Vomiting hydrochloride)] Review of Systems ROS Statement: Those systems with pertinent positive or pertinent negative responses have been documented in the HPI. ROS Other: All systems not noted in ROS Statement are negative. Past Medical History Past Medical History: GERD/Reflux Additional Past Medical History / Comment(s): Cyclic vomiting syndrome, HIATAL HERNIA, MIGRAINES, SCOLIOSIS, COMPRESSED VERTEBRA/BACK PAIN-T7, kidney stone. Pt states she had not had a menses since January 2019 and then on 06/05/19 started heavy flow/blood clots and abdominal pain. History of Any Multi-Drug Resistant Organisms: None Reported Past Surgical History: Tubal Ligation Additional Past Surgical History / Comment(s): BENIGN bone tumor removed left leg. D&C Past Anesthesia/Blood Transfusion Reactions: No Reported Reaction Additional Past Anesthesia/Blood Transfusion Reaction / Comment(s): CLAUSTE PHOBIC Past Psychological History: Anxiety, Depression Smoking Status: Current some day smoker Past Alcohol Use History: None Reported Past Drug Use History: Marijuana - Past Family History Mother Family Medical History: Cancer Additional Family Medical History / Comment(s): Mother of lymphoma at the age of 81 yrs. Father Family Medical History: Coronary Artery Disease (CAD), Myocardial Infarction ([place]) Additional Family Medical History / Comment(s): Father had a [place] at the age of 56yrs and had CABG. He from a head injury/brain bleed at the age of 86yrs. Sister(s) Family Medical History: Cancer Additional Family Medical History / Comment(s): Breast cancer. General Exam - General Exam Comments Initial Comments: Physical Exam GENERAL: Toxic appearance Patient is well-developed and well-nourished. HENT: Normocephalic, Atraumatic. EYES: PERRL, EOMI PULMONARY: Tachypnea, CARDIOVASCULAR: Tachycardic, warm and well perfused ABDOMEN: Soft and nontender with normal bowel sounds. SKIN: Skin is clear with no lesions or rashes and otherwise unremarkable. : Deferred NEUROLOGIC: Patient is alert and oriented x3. Moving all extremities spontaneously MUSCULOSKELETAL: Normal extremities with adequate strength and full range of motion. No lower extremity swelling or edema. No calf tenderness. PSYCHIATRIC: Normal psychiatric evaluation. Course Vital Signs 08/11/19 08/11/19 08/11/19 04:29 04:32 06:59 Temperature 101.7 F H Pulse Rate 126 H 111 H Respiratory 24 28 H 20 Rate Blood Pressure 153/88 143/87 O2 Sat by Pulse 97 98 Oximetry 08/11/19 08:33 Temperature 98.2 F Pulse Rate 104 H Respiratory 18 Rate Blood Pressure 133/87 O2 Sat by Pulse 97 Oximetry EKG Findings - EKG Comments: EKG Findings:: EKG obtained as part of the sepsis workup, EKG obtained at 522, rate is 120, rhythm is sinus tachycardia there is normal axis and normal intervals, MI 134, QTC 88, QTC 469 elevations or depressions or evidence of acute ischemia or infarction. Medical Decision Making - Medical Decision Making The patient was seen and evaluated history was obtained from patient this is a 54-year-old female who was seen and evaluated yesterday diagnosed with right upper lobe pneumonia and started on azithromycin. At that time patient was noted to be influenza negative. Patient presents the emergency department today, tachypneic, tachycardic and febrile. Sepsis workup was initiated. Labs with no significant abnormalities there is no leukocytosis, influenza remains ne gative however given that the patient has had 2 doses of outpatient antibiotics seems to be worsening and had Sirs criteria upon arrival we'll plan to admit for sepsis secondary to pneumonia. Rocephin and azithromycin were ordered. Patient currently has no primary care physician therefore will be admitted to the on- call physician Dr. Luna. - Lab Data Result diagrams: 08/11/19 05:08 08/11/19 05:08 Lab Results 08/11/19 08/11/19 08/11/19 Range/Units 05:08 05:08 05:08 WBC 6.8 (3.8-10.6) k/uL RBC 4.27 (3.80-5.40) m/uL Hgb 9.1 L (11.4-16.0) gm/dL Hct 29.6 L (34.0-46.0) % MCV 69.3 L (80.0-100.0) fL MCH 21.4 L (25.0-35.0) pg MCHC 30.8 L (31.0-37.0) g/dL RDW 22.5 H (11.5-15.5) % Plt Count 426 (150-450) k/uL Neutrophils % 84 % Lymphocytes % 9 % Monocytes % 3 % Eosinophils % 1 % Basophils % 1 % Neutrophils # 5.7 (1.3-7.7) k/uL Lymphocytes # 0.6 L (1.0-4.8) k/uL Monocytes # 0.2 (0-1.0) k/uL Eosinophils # 0.0 (0-0.7) k/uL Basophils # 0.1 (0-0.2) k/uL Hypochromasia Marked Poikilocytosis Slight Anisocytosis Moderate Microcytosis Marked PT (9.0-12.0) sec INR (<1.2) APTT (22.0-30.0) sec Sodium 140 (137-145) mmol/L Potassium 3.3 L (3.5-5.1) mmol/L Chloride 107 (98-107) mmol/L Carbon Dioxide 22 (22-30) mmol/L Anion Gap 11 mmol/L BUN 10 (7-17) mg/dL Creatinine 0.56 (0.52-1.04) mg/dL Est GFR (CKD-EPI)AfAm >90 (>60 ml/min/1.73 sqM) Est GFR (CKD-EPI)NonAf >90 (>60 ml/min/1.73 sqM) Glucose 187 H (74-99) mg/dL Plasma Lactic Acid Luciano 1.2 (0.7-2.0) mmol/L Calcium 8.6 (8.4-10.2) mg/dL Total Bilirubin 0.2 (0.2-1.3) mg/dL AST 29 (14-36) U/L ALT 27 (9-52) U/L Alkaline Phosphatase 110 (38-126) U/L Total Protein 7.4 (6.3-8.2) g/dL Albumin 3.7 (3.5-5.0) g/dL Urine Color Urine Appearance (Clear) Urine pH (5.0-8.0) Ur Specific [place] (1.001-1.035) Urine Protein (Negative) Urine Glucose (UA) (Negative) Urine Ketones (Negative) Urine Blood (Negative) Urine Nitrite (Negative) Urine Bilirubin (Negative) Urine Urobilinogen (<2.0) mg/dL Ur Leukocyte Esterase (Negative) Urine RBC (0-5) /hpf Urine WBC (0-5) /hpf Ur Squamous Epith Cells (0-4) /hpf Urine Mucus (None) /hpf Influenza Type A RNA (Not Detectd) Influenza Type B (PCR) (Not Detectd) 08/11/19 08/11/19 08/11/19 Range/Units 05:08 05:23 06:57 WBC (3.8-10.6) k/uL RBC (3.80-5.40) m/uL Hgb (11.4-16.0) gm/dL Hct (34.0-46.0) % MCV (80.0-100.0) fL MCH (25.0-35.0) pg MCHC (31.0-37.0) g/dL RDW (11.5-15.5) % Plt Count (150-450) k/uL Neutrophils % % Lymphocytes % % Monocytes % % Eosinophils % % Basophils % % Neutrophils # (1.3-7.7) k/uL Lymphocytes # (1.0-4.8) k/uL Monocytes # (0-1.0) k/uL Eosinophils # (0-0.7) k/uL Basophils # (0-0.2) k/uL Hypochromasia Poikilocytosis Anisocytosis Microcytosis PT 10.0 (9.0-12.0) sec INR 0.9 (<1.2) APTT 22.3 (22.0-30.0) sec Sodium (137-145) mmol/L Potassium (3.5-5.1) mmol/L Chloride (98-107) mmol/L Carbon Dioxide (22-30) mmol/L Anion Gap mmol/L BUN (7-17) mg/dL Creatinine (0.52-1.04) mg/dL Est GFR (CKD-EPI)AfAm (>60 ml/min/1.73 sqM) Est GFR (CKD-EPI)NonAf (>60 ml/min/1.73 sqM) Glucose (74-99) mg/dL Plasma Lactic Acid Luciano (0.7-2.0) mmol/L Calcium (8.4-10.2) mg/dL Total Bilirubin (0.2-1.3) mg/dL AST (14-36) U/L ALT (9-52) U/L Alkaline Phosphatase (38-126) U/L Total Protein (6.3-8.2) g/dL Albumin (3.5-5.0) g/dL Urine Color Yellow Urine Appearance Cloudy H (Clear) Urine pH 6.0 (5.0-8.0) Ur Specific [place] 1.017 (1.001-1.035) Urine Protein Trace H (Negative) Urine Glucose (UA) Trace H (Negative) Urine Ketones 1+ H (Negative) Urine Blood Small H (Negative) Urine Nitrite Negative (Negative) Urine Bilirubin Negative (Negative) Urine Urobilinogen <2.0 (<2.0) mg/dL Ur Leukocyte Esterase Negative (Negative) Urine RBC 3 (0-5) /hpf Urine WBC 1 (0-5) /hpf Ur Squamous Epith Cells 5 H (0-4) /hpf Urine Mucus Few H (None) /hpf Influenza Type A RNA Not Detected (Not Detectd) Influenza Type B (PCR) Not Detected (Not Detectd) Disposition Clinical Impression: Sepsis, CAP (community acquired pneumonia) Disposition: ADMITTED IP TO THIS HOSP Condition: Stable Is patient prescribed a controlled substance at d/c from ED?: No
[2019-08-11] MEDS ORDERED: IBUPROFEN 600 MG TAB PO STA (04:34)
[2019-08-11] MEDS: SODIUM CHLORIDE 0.9% 500 ML 500 ML IV SCH (05:20)
[2019-08-11 05:25] LABS: Anisocytosis Moderate; Basophils # (A) 0.1 k/uL (0-0.2); Basophils % (A) 1 %; Eosinophils % (A) 1 %; HCT 29.6 % (34.0-46.0); HGB 9.1 gm/dL (11.4-16.0); Hypochromasia Marked; Lymphocytes # (A) 0.6 k/uL (1.0-4.8); Lymphocytes % (A) 9 %; MCH 21.4 pg (25.0-35.0); MCHC 30.8 g/dL (31.0-37.0); MCV 69.3 fL (80.0-100.0); Mean Platelet Volume 6.9; Microcytosis Marked; Monocytes # (A) 0.2 k/uL (0-1.0); Monocytes % (A) 3 %; Neutrophils # (A) 5.7 k/uL (1.3-7.7); Neutrophils % (A) 84 %; Platelet Count 426 k/uL (150-450); Poikilocytosis Slight; RBC 4.27 m/uL (3.80-5.40); RDW 22.5 % (11.5-15.5); WBC 6.8 k/uL (3.8-10.6)
[2019-08-11 05:33] LABS: INR 0.9 (<1.2); Partial Thromboplastin Time 22.3 sec (22.0-30.0)
[2019-08-11 05:45] LABS: ALT 27 U/L (9-52); AST 29 U/L (14-36); African American GFR (CKD) >90 (>60 ml/min/1.73 sqM); Albumin 3.7 g/dL (3.5-5.0); Alkaline Phosphatase 110 U/L (38-126); Anion Gap 11 mmol/L; Blood Urea Nitrogen 10 mg/dL (7-17); Calcium 8.6 mg/dL (8.4-10.2); Carbon Dioxide 22 mmol/L (22-30); Chloride 107 mmol/L (98-107); Glucose 187 mg/dL (74-99); Potassium 3.3 mmol/L (3.5-5.1); Sodium 140 mmol/L (137-145); Total Bilirubin 0.2 mg/dL (0.2-1.3); Total Protein 7.4 g/dL (6.3-8.2)
[2019-08-11] MEDS ORDERED: Potassium Replacement Protocol 1 EACH MISC MISCELLANE PRN (06:00)
--- NOTE | 2019-08-11 06:14 | XR ---
EXAM: XR Chest, 2 Views CLINICAL HISTORY: Fever TECHNIQUE: Frontal and lateral views of the chest. COMPARISON: August 10, 2019. FINDINGS: Cardiac silhouette is within normal limits. Mild central vascular congestion. Persistent nodular infiltrate in the right upper lobe. No pleural effusions. IMPRESSION: Mild central vascular congestion. Nodular infiltrate in right upper lobe, stable. Recommend short-term followup to ensure resolution and exclude mass lesion.
[2019-08-11] MEDS: POTASSIUM CHLORIDE 10 MEQ in WATER FOR INJECTION 1 100ML.BAG IVPB SCH ×2 (06:55→08:04)
[2019-08-11] MEDS ORDERED: AZITHROMYCIN 500 MG in SODIUM CHLORIDE 0.9% 250 ML IVPB STA (07:12)
[2019-08-11] MEDS ORDERED: cefTRIAXone IN SWFI 1,000 MG/10 ML SYRINGE IVP STA (07:12)
[2019-08-11] MEDS ORDERED: POTASSIUM CHLORIDE 10 MEQ in WATER FOR INJECTION 1 100ML.BAG IVPB STA (07:18)
[2019-08-11] MEDS: POTASSIUM CHLORIDE ER 20 MEQ TAB.ER PO SCH ×2 (07:24→07:59)
[2019-08-11] MEDS ORDERED: NALOXONE 0.4 MG/ML 1 ML VIAL IV PRN (07:40)
[2019-08-11 07:45] LABS: Appearance,Urine Cloudy (Clear); Bilirubin,Urine Negative (Negative); Blood,Urine Small (Negative); Color,Urine Yellow; Glucose,Urine (UA) Trace (Negative); Ketones,Urine 1+ (Negative); Leukocyte Esterase,Urine Negative (Negative); Mucus,Urine Few /hpf; Nitrite,Urine Negative (Negative); Protein,Urine Trace (Negative); RBC,Urine 3 /hpf (0-5); Specific Gravity,Urine 1.017 (1.001-1.035); Squamous Epithelial Cell,Urine 5 /hpf (0-4); Urobilinogen,Urine <2.0 mg/dL (<2.0)
[2019-08-11 12:49] VITALS: BMI 33.3
[2019-08-11] MEDS ORDERED: ALBUTEROL NEBULIZED 2.5 MG/3 ML INHALATION PRN (16:00)
[2019-08-11] MEDS: ACETAMINOPHEN TAB 325 MG TAB PO PRN ×2 (16:13→20:42)
--- NOTE | 2019-08-11 20:25 | HP ---
HISTORY AND PHYSICAL CHIEF COMPLAINT: Cough, fever, diarrhea, diaphoresis and shortness of breath. HISTORY OF PRESENT ILLNESS: This is the first known admission for this G4, P3, A1 white female. She presented to the emergency room with the above symptoms and was identified as having bronchial pneumonia. She has had no hemoptysis or purulent sputum production. The infiltrate was described as being somewhat round in nature. She does know when she had her last chest x-ray. REVIEW OF SYSTEMS: She has had no headaches, neurologic problems, orthopnea, PND, heart disease, hypertension, murmurs, rheumatic fever, orthopnea, PND, abdominal pain, nausea, vomiting, hematemesis, melena, hematochezia, jaundice, hepatitis, cirrhosis, hematuria, renal failure, dysuria, diabetes, etc. Past medical history, family history, and personal and social histories reveal that she is ALLERGIC to ZOFRAN and she does not take any medications. She has had a tumor removed from her leg and she has had a tubal ligation and NovaSure. She does not smoke. PHYSICAL EXAMINATION: Blood pressure 138/64 with a pulse of 83, respirations of 22, and she is afebrile. In general, she appeared to be in no acute distress. Skin color was slightly pale. Lymph nodes were not enlarged. Head, ears, eyes, nose, mouth and throat were normal. Neck veins were not distended. Thyroid was not enlarged. The chest demonstrated scattered rales and occasional rhonchi. Cardiac exam was normal. The abdomen was soft and nontender. Extremities were normal. Neurologically she was intact. ADMITTING DIAGNOSIS: Bronchopneumonia. PLAN: 1. Bed rest. 2. IV fluids. 3. Antibiotics. 4. Updrafts. MMODL / IJN: [id number] /
[2019-08-11] MEDS: ALBUTEROL NEBULIZED 2.5 MG/3 ML INHALATION PRN (20:53)
[2019-08-11] MEDS: guaiFENesin-Coden 100-10MG/5ML 10 ML CUP PO PRN (23:28)
[2019-08-12] MEDS: ACETAMINOPHEN TAB 325 MG TAB PO PRN ×2 (01:38→05:00)
[2019-08-12] MEDS ORDERED: ONDANSETRON 4 MG/2 ML VIAL IVP PRN (05:34)
[2019-08-12] MEDS: BUTALB/APAP/CAFF 50-325-40MG TAB PO PRN ×3 (06:02→16:12)
[2019-08-12] MEDS ORDERED: AZITHROMYCIN 500 MG in SODIUM CHLORIDE 0.9% 250 ML IVPB SCH (09:00)
[2019-08-12] MEDS: ALBUTEROL NEBULIZED 2.5 MG/3 ML INHALATION PRN ×2 (11:56→20:33)
[2019-08-12] MEDS ORDERED: Magnesium Replacement Protocol 1 EACH MISC MISCELLANE PRN (14:04)
[2019-08-12] MEDS ORDERED: Potassium Replacement Protocol 1 EACH MISC MISCELLANE PRN (14:04)
[2019-08-12] MEDS ORDERED: IBUPROFEN 600 MG TAB PO PRN (14:09)
--- NOTE | 2019-08-12 15:30 | P.CNPUL ---
History of Present Illness Consult date: 08/12/19 Reason for consult: dyspnea, cough, pneumonia Chief complaint: Failed outpatient pneumonia therapy, worsening of symptoms History of present illness: This is a 53-year-old female who was intermittently smoking also smoked marijuana she has been diagnosed as a right upper lobe pneumonia and presented to emergency department recently was discharged on oral antibiotics from the emergency department due to recurrence of symptoms and worsening as well as penetration came back into the hospital for further evaluation and intervention and treatment right upper lobe or Vanita infiltrate are seen on the repeat chest x-ray as well Review of Systems All systems: negative Past Medical History Past Medical History: GERD/Reflux Additional Past Medical History / Comment(s): Cyclic vomiting syndrome, HIATAL HERNIA, MIGRAINES, SCOLIOSIS, COMPRESSED VERTEBRA/BACK PAIN-T7, kidney stone. Pt states she had not had a menses since January 2019 and then on 06/05/19 started heavy flow/blood clots and abdominal pain. History of Any Multi-Drug Resistant Organisms: None Reported Past Surgical History: Tubal Ligation Additional Past Surgical History / Comment(s): BENIGN bone tumor removed left leg. D&C Past Anesthesia/Blood Transfusion Reactions: No Reported Reaction Additional Past Anesthesia/Blood Transfusion Reaction / Comment(s): CLAUSTEPHOBIC Past Psychological History: Anxiety, Depression Smoking Status: Current some day smoker Past Alcohol Use History: None Reported Past Drug Use History: Marijuana - Past Family History Mother Family Medical History: Cancer Additional Family Medical History / Comment(s): Mother of lymphoma at the age of 81 yrs. Father Family Medical History: Coronary Artery Disease (CAD), Myocardial Infarction (NH) Additional Family Medical History / Comment(s): Father had a NH at the age of 56yrs and had CABG. He from a head injury/brain bleed at the age of 86yrs. Sister(s) Family Medical History: Cancer Additional Family Medical History / Comment(s): Breast cancer. Medications and Allergies Home Medications Medication Instructions Recorded Confirmed Type Ferrous Sulfate [Feosol] 325 mg PO TID 07/14/19 08/11/19 History Ibuprofen [Motrin Ib] 600 mg PO Q6H PRN 08/11/19 08/11/19 History Allergies Allergy/AdvReac Type Severity Reaction Status Date / Time ondansetron AdvReac rash/Nausea Verified 08/11/19 07:39 [From Zofran (as & Vomiting hydrochloride)] Physical Exam Vitals: Vital Signs Temp Pulse Pulse Pulse Resp BP Pulse Ox 08/12/19 12:05 104 H 08/12/19 11:56 102 H 08/12/19 11:52 97.6 F 85 17 162/95 98 08/12/19 07:15 16 08/12/19 05:00 98.8 F 94 16 149/78 98 08/12/19 00:00 105 H 100 20 08/11/19 21:02 110 H 08/11/19 20:56 99.9 F H 105 H 20 169/93 95 08/11/19 20:54 111 H 99 08/11/19 16:19 99 F Intake and Output 08/12/19 08/12/19 08/12/19 06:59 14:59 22:59 Intake Total 420 1008 Balance 420 1008 Intake: Intake, IV Titration 350 Amount Azithromycin 500 mg In 250 Sodium Chloride 0.9% 250 ml @ 250 mls/hr IVPB DAILY [facility] Rx#:[id number] cefTRIAXone 1 gm In 100 Sodium Chloride 0.9% 50 ml @ 100 mls/hr IVPB Q24HR [facility] Rx#:[id number] Oral 420 658 Other: # Voids 2 3 - Constitutional General appearance: cooperative, disheveled, mild distress - EENT Eyes: EOMI, PERRLA, poor dentition, normal appearance ENT: normal oropharynx Ears: bilateral: normal - Neck Carotids: bilateral: upstroke normal Thyroid: bilateral: normal size - Respiratory Respiratory: bilateral: CTA - Cardiovascular Rhythm: regular Heart sounds: normal: S1, S2 - Gastrointestinal General gastrointestinal: decreased bowel sounds, soft - Integumentary Integumentary: normal, normal turgor - Musculoskeletal Musculoskeletal: gait normal, generalized weakness, strength equal bilaterally - Psychiatric Psychiatric: A&O x's 3, appropriate affect, intact judgment & insight Results - Laboratory Findings CBC and BMP: 08/11/19 05:08 08/12/19 07:42 PT/INR, D-dimer PT 10.0 sec (9.0-12.0) 08/11/19 05:08 INR 0.9 (<1.2) 08/11/19 05:08 Abnormal lab findings: Abnormal Labs 08/11/19 08/11/19 08/11/19 05:08 05:08 06:57 Hgb 9.1 L Hct 29.6 L MCV 69.3 L MCH 21.4 L MCHC 30.8 L RDW 22.5 H Lymphocytes # 0.6 L Potassium 3.3 L Glucose 187 H Urine Appearance Cloudy H Urine Protein Trace H Urine Glucose (UA) Trace H Urine Ketones 1+ H Urine Blood Small H Ur Squamous Epith Cells 5 H Urine Mucus Few H - Diagnostic Findings Chest x-ray: report reviewed, image reviewed Assessment and Plan Assessment: Right upper lobe pneumonia Probable COPD Chronic anemia History of chronic anemia Plan: Continue antibiotics Gentle IV rehydration for short period of time until she is stable after starting by mouth Breathing treatments IV steroids May benefit from computed tomography scan of the chest Time with Patient: Greater than 30
[2019-08-12] MEDS ORDERED: RX INFO: IV CONTRAST WAS GIVEN 1 EACH MISC MISCELLANE PRN (15:36)
[2019-08-12] MEDS: methylPREDNISolone SOD SUCCI 40 MG/ML 1 ML VIAL IV SCH ×2 (16:13→23:41)
[2019-08-12] MEDS: FERROUS SULFATE 325 MG TAB PO SCH ×2 (16:13→21:00)
[2019-08-12] MEDS: PANTOPRAZOLE 40 MG/10 ML VIAL IVP SCH (16:13)
--- NOTE | 2019-08-12 17:24 | CT ---
EXAMINATION TYPE: CT chest angio for PE DATE OF EXAM: 08/12/2019 COMPARISON: HISTORY: R/O PE, pneumonia CT DLP: 510.9 mGycm Automated exposure control for dose reduction was used. CONTRAST: CT Chest for pulmonary embolism performed with with IV Contrast, patient injected with 80 mL of Isovu e 370. There are 3-D post processed images. FINDINGS: LUNGS: There is a 3.5 cm area of masslike consolidation left lower lobe. There is adjacent patchy inf iltrate. There is pleural thickening at the left posterior lung base. There is no pleural fluid. Ther e is moderate-sized hiatal hernia. There is a patchy airspace infiltrate lateral aspect of the right upper lobe. There is some patchy infiltrate in the superior segment left lower lobe. Heart size is normal. There is no pericardial effusion. There is normal contrast opacification of the pulmonary arteries. I see no filling defects. Thoracic aorta shows no aneurysm or dissection. There is no mediastinal adenopathy. There are a few paratracheal lymph nodes that measure up to 1 cm. There are bronchial lymph nodes up to 1.5 cm. Bony thorax shows old 30% compression fracture of T8 vertebr a. There is no adrenal mass. IMPRESSION: No evidence of pulmonary embolism. Bilateral airspace consolidation more likely related to inflammato ry disease. Masslike consolidation left lower lobe. Pulmonary infiltrates are a change compared to ol d CT scan. Follow-up recommended show clearing. Tumor not excluded.
[2019-08-12] MEDS: INSULIN ASPART (NovoLOG) 100 UNIT/ML VIAL SQ SCH ×2 (18:56→20:59)
[2019-08-12 20:54] LABS: Glucose,Whole Blood 201 mg/dL (75-99)
--- NOTE | 2019-08-12 23:10 | PN ---
PROGRESS NOTE SUBJECTIVE: This is a 54-year-old white female admitted for pneumonia, treated with IV antibiotics. She appears to be improving. She states less short of breath than on admission. CT scan of the chest shows bilateral infiltrates and a left lower lobe mass versus infiltrate. White count is normal. Hemoglobin is 9.1, potassium 3.3. ASSESSMENT: 1. Bilateral pneumonia. 2. Chronic obstructive pulmonary disease. 3. Chronic anemia. 4. Vertebral fracture. Continue with broad-spectrum antibiotics. This patient is improving. Repeat CT scan down the road as patient improves. Follow up as an outpatient. MMODL / IJN: [id number] /
[2019-08-13] MEDS: BUTALB/APAP/CAFF 50-325-40MG TAB PO PRN ×4 (02:35→21:05)
[2019-08-13] MEDS: guaiFENesin-Coden 100-10MG/5ML 10 ML CUP PO PRN (03:50)
[2019-08-13 08:01] LABS: African American GFR (CKD) >90 (>60 ml/min/1.73 sqM); Anion Gap 9 mmol/L; Blood Urea Nitrogen 8 mg/dL (7-17); Calcium 8.9 mg/dL (8.4-10.2); Carbon Dioxide 23 mmol/L (22-30); Chloride 109 mmol/L (98-107); Glucose 180 mg/dL (74-99); Magnesium 2.2 mg/dL (1.6-2.3); Potassium 4.3 mmol/L (3.5-5.1); Sodium 141 mmol/L (137-145)
[2019-08-13] MEDS: methylPREDNISolone SOD SUCCI 40 MG/ML 1 ML VIAL IV SCH ×2 (08:02→18:01)
[2019-08-13] MEDS: AZITHROMYCIN 500 MG TAB PO SCH (08:02)
[2019-08-13] MEDS: FERROUS SULFATE 325 MG TAB PO SCH ×3 (08:03→21:05)
[2019-08-13] MEDS: INSULIN ASPART (NovoLOG) 100 UNIT/ML VIAL SQ SCH ×4 (08:04→21:05)
[2019-08-13] MEDS: ALBUTEROL NEBULIZED 2.5 MG/3 ML INHALATION PRN ×3 (08:14→20:25)
[2019-08-13 08:19] LABS: Anisocytosis Moderate; Basophils % (A) 1 %; Eosinophils % (A) 0 %; HCT 28.8 % (34.0-46.0); HGB 8.8 gm/dL (11.4-16.0); Hypochromasia Marked; Lymphocytes # (A) 0.9 k/uL (1.0-4.8); Lymphocytes % (A) 18 %; MCH 21.6 pg (25.0-35.0); MCHC 30.4 g/dL (31.0-37.0); Mean Platelet Volume 6.5; Microcytosis Marked; Monocytes # (A) 0.2 k/uL (0-1.0); Monocytes % (A) 4 %; Neutrophils # (A) 3.9 k/uL (1.3-7.7); Neutrophils % (A) 75 %; Platelet Count 430 k/uL (150-450); RBC 4.05 m/uL (3.80-5.40); RDW 21.8 % (11.5-15.5); WBC 5.2 k/uL (3.8-10.6)
[2019-08-13] MEDS: PANTOPRAZOLE 40 MG/10 ML VIAL IVP SCH (08:28)
[2019-08-13 11:31] LABS: Glucose,Whole Blood 168 mg/dL (75-99)
--- NOTE | 2019-08-13 14:29 | CDI ---
Documentation Clarification Form Date: 08/13/2019 2:01:25 PM From: Belén El Phone: Admit Date: 08/13/2019 10:49:00 AM Patient Name: Candi Multani Visit Number: [id number] Discharge Date: ATTENTION: The Clinical Documentation Specialists (CDI) and [facility] Coding Staff appreciate your assistance in clarifying documentation. Please respond to the clarification below the line at the bottom and electronically sign. The CDI & [facility] Coding staff will review the response and follow-up if needed. Please note: Queries are made part of the Legal Health Record. If you have any questions, please contact the author of this message via ITS. Dr. Adria Gonzalez Documentation of Chronic obstructive pulmonary disease is located in your consult and also noted in the history and physical by the attending Dr. Gonzalez and additional clarification is needed. History/Risk Factors: Right upper lobe infiltrate in October, Significant history of respiratory disorders/disease: Present or past smoker/PPD Current same day smoker, Marijuana Clinical Indicators: 54-year-old female who present with dyspnea, cough recently presented to emergency department and was discharged on oral antibiotics. Her general appearance is disheveled, mild distress. CXR: Mild central vascular congestion. Nodular infiltrate in right lobe CT Chest angio: No evidence of pulmonary embolism Bilateral airspace consolidation more likely related to inflammatory disease. Masslike consolidation left lower lobe. Pulmonary infiltrates are a change compared to old CT. Tumor not excluded. Vital Signs/Pulse oximetry: 153/88 126 24 97 % RA Lung and Respiratory Assessment: Tachypnea Treatment: Monitor O2 Sat's (Titrate) Ventolin Nebulized, Rocephin IV Solu-Medrol IV (Taper) In your professional opinion, can you please clarify if the above findings and treatment signify any of the following? Acute Exacerbation of Chronic Obstructive Pulmonary Disease (COPD) Chronic obstructive pulmonary disease with acute lower respiratory infection Other condition, please specify Unable to determine (Last Revision: July 2017) MTDD
--- NOTE | 2019-08-13 14:57 | CDI ---
Documentation Clarification Form Date: 08/13/2019 2:29:41 PM From: Belén El RN, CCDS Admit Date: 08/13/2019 10:49:00 AM Patient Name: Candi Multani Visit Number: [id number] Discharge Date: ATTENTION: The Clinical Documentation Specialists (CDI) and [facility] Coding Staff appreciate your assistance in clarifying documentation. Please respond to the clarification below the line at the bottom and electronically sign. The CDI & [facility] Coding staff will review the response and follow-up if needed. Please note: Queries are made part of the Legal Health Record. If you have any questions, please contact the author of this message via ITS. Dr. Matthew Gonzalez The patient presented with the following; Fever and difficult in breathing. Emergency department evaluation: note a sepsis workup initiated. She has SIRS criteria upon arrival admit for sepsis secondary to pneumonia. History/Risk Factors: Pneumonia, Current every day smoker Clinical Indicators: 54-year-old female present to ER for re-evaluation of cough. She was seen and evaluated yesterday and was diagnosed with a right upper lobe pneumonia and discharged home on oral antibiotic. She reports she took 1 dose. She had a fever, cough, heart racing and complains of feeling much worse. WBC 6.8 Lactic acid: 1.2 Blood cultures: Pending Vitals signs on admission: 153/88 126 24 101.7, 97 % RA, Treatment: Zithromax PO Rocephin IV Monitor CBC, IV Bolus: x2 In your professional opinion, please clarify if these findings signify one of the following conditions, whether the condition is POA, and cause, if known: Condition Sepsis ruled out Sepsis ruled in (present on admission)) Other, please specify Unable to determine SIRS Criteria (2 or more of the following may indicate SIRS): -Temperature < 96.8F (36C) or > 101.0F (38.3C) -Heart Rate > 90 bpm -Respiratory Rate > 20 breaths/min or PaCO2 < 32 mmHg -White Blood Cell Count > 12,000 or < 4,000 cells/mm3 or > 10% bands -Lactate >2.0 mmol/L (>4.0 is equivalent to septic shock) (Last Revision: January 2018) MTDD
--- NOTE | 2019-08-13 15:15 | P.PN ---
Subjective Progress Note Date: 08/13/19 Principal diagnosis: Right upper lobe pneumonia and left lower lobe pneumonia with masslike appearance Sepsis Probable COPD Chronic anemia History of chronic anemia August 13 2019, patient seen and evaluated examined during the rounds labs reviewed medications reviewed care plan discussed with the patient at length also with the primary service computed tomography scan of the chest was performed yesterday has been reviewed as well patient has a dense infiltrate versus masslike lesion in the left lower lobe and right upper lobe most likely bilateral pneumonia however neoplasm cannot be excluded, patient is still has been wheezing has nonproductive cough, patient has been scheduled for bronchoscopy for Friday Objective - Vital Signs Vital signs: Vital Signs Temp 97.5 F L 08/13/19 11:00 Pulse 84 08/13/19 11:00 Resp 16 08/13/19 11:00 BP 162/84 08/13/19 11:00 Pulse Ox 95 08/13/19 11:00 Intake & Output 08/12/19 08/13/19 08/13/19 18:59 06:59 18:59 Intake Total 8581 418 4241 Balance 4967 711 0523 Intake: Intake, IV Titration 350 100 Amount Azithromycin 500 mg In 250 Sodium Chloride 0.9% 250 ml @ 250 mls/hr IVPB DAILY [facility] Rx#:[id number] cefTRIAXone 1 gm In 100 100 Sodium Chloride 0.9% 50 ml @ 100 mls/hr IVPB Q24HR [facility] Rx#:[id number] Oral 658 600 950 Other: Voiding Method Toilet Toilet # Voids 3 3 3 - Exam - Constitutional General appearance: cooperative, disheveled, mild distress - EENT Eyes: EOMI, PERRLA, poor dentition, normal appearance ENT: normal oropharynx Ears: bilateral: normal - Neck Carotids: bilateral: upstroke normal Thyroid: bilateral: normal size - Respiratory Respiratory: bilateral: CTA - Cardiovascular Rhythm: regular Heart sounds: normal: S1, S2 - Gastrointestinal General gastrointestinal: decreased bowel sounds, soft - Integumentary Integumentary: normal, normal turgor - Musculoskeletal Musculoskeletal: gait normal, generalized weakness, strength equal bilaterally - Psychiatric Psychiatric: A&O x's 3, appropriate affect, intact judgment & insight - Labs CBC & Chem 7: 08/13/19 07:10 08/13/19 07:10 Labs: Abnormal Lab Results - Last 24 Hours (Table) 08/12/19 08/13/19 08/13/19 Range/Units 20:53 07:10 07:10 Hgb 8.8 L (11.4-16.0) gm/dL Hct 28.8 L (34.0-46.0) % MCV 71.0 L (80.0-100.0) fL MCH 21.6 L (25.0-35.0) pg MCHC 30.4 L (31.0-37.0) g/dL RDW 21.8 H (11.5-15.5) % Lymphocytes # 0.9 L (1.0-4.8) k/uL Chloride 109 H (98-107) mmol/L Creatinine 0.50 L (0.52-1.04) mg/dL Glucose 180 H (74-99) mg/dL POC Glucose (mg/dL) 201 H (75-99) mg/dL 08/13/19 Range/Units 11:15 Hgb (11.4-16.0) gm/dL Hct (34.0-46.0) % MCV (80.0-100.0) fL MCH (25.0-35.0) pg MCHC (31.0-37.0) g/dL RDW (11.5-15.5) % Lymphocytes # (1.0-4.8) k/uL Chloride (98-107) mmol/L Creatinine (0.52-1.04) mg/dL Glucose (74-99) mg/dL POC Glucose (mg/dL) 168 H (75-99) mg/dL Microbiology - Last 24 Hours (Table) 08/11/19 05:08 Blood Culture - Preliminary Blood No Growth after 48 hours Assessment and Plan Assessment: Right upper lobe pneumonia and left lower lobe pneumonia Sepsis Neoplasm cannot be excluded Probable COPD Chronic anemia History of chronic anemia Plan: Continue antibiotics Gentle IV rehydration for short period of time until she is stable after starting by mouth Breathing treatments IV steroids Reviewed computed tomography scan of the chest Findings likely suggestive of bilateral/multi lobar pneumonia but however neoplastic process cannot be excluded, patient is being scheduled for bronchoscopy Friday Time with Patient: Greater than 30
--- NOTE | 2019-08-13 15:47 | P.PN ---
Subjective Progress Note Date: 08/13/19 This is a 54-year-old female admitted with right upper lobe pneumonia and multiple other medical issues. Maintained on IV antibiotics, nebulized bronchodilators, IV steroids with breathing improving. It is unstable, maintaining O2 sats in the 90s on room air. Tachycardia improving, mild, low 100s. Hemoglobin 8.8. Afebrile, normal WBC.Chest CTA reporting negative for PE, bilateral airspace consolidations were likely related to inflammatory disease, 3.5 cm masslike consolidation left lower lobe, pulmonary infiltrates are change compared to prior CT, tumor not excluded. Moderate size hiatal hernia, no mediastinal adenopathy, a few paratracheal lymph nodes measuring up to 1 cm, bronchial lymph nodes up to 1.5 cm, 30% old compression fracture T8 vertebrae. Objective - Vital Signs Vital signs: Vital Signs Temp 97.5 F L 08/13/19 11:00 Pulse 84 08/13/19 11:00 Resp 16 08/13/19 11:00 BP 162/84 08/13/19 11:00 Pulse Ox 95 08/13/19 11:00 Intake & Output 08/12/19 08/13/19 08/13/19 18:59 06:59 18:59 Intake Total 1008 600 Balance 1008 600 Intake: Intake, IV Titration 350 Amount Azithromycin 500 mg In 250 Sodium Chloride 0.9% 250 ml @ 250 mls/hr IVPB DAILY [facility] Rx#:[id number] cefTRIAXone 1 gm In 100 Sodium Chloride 0.9% 50 ml @ 100 mls/hr IVPB Q24HR [facility] Rx#:[id number] Oral 658 600 Other: Voiding Method Toilet Toilet # Voids 3 3 - Exam PHYSICAL EXAM: VITAL SIGNS: As above GENERAL: Sitting up at side of bed, no acute distress HEENT: Conjunctivae normal. eyes normal. Oral mucosa moist NECK: No JVD. No thyroid enlargement. No LNs CARDIOVASCULAR: S1, S2 regular. No murmur, rubs or gallops RESPIRATION: Breath sounds diminished in the bases. No rhonchi or crackles. Fine expiratory wheezing. ABDOMEN: Soft, nondistended, nontender . No guarding. no masses palpable. Bowel sounds heard. LEGS: No edema. no swelling. No clubbing, no cyanosis PSYCHIATRY: Alert and oriented X3, mood and affect normal. NERVOUS SYSTEM: Cranial N 2-12 grossly normal. Moves all 4 limbs. No focal deficits. Strength and sensation grossly intact.. Skin: no rash, normal turgor - Labs CBC & Chem 7: 08/13/19 07:10 08/13/19 07:10 Labs: Abnormal Lab Results - Last 24 Hours (Table) 08/12/19 08/13/19 08/13/19 Range/Units 20:53 07:10 07:10 Hgb 8.8 L (11.4-16.0) gm/dL Hct 28.8 L (34.0-46.0) % MCV 71.0 L (80.0-100.0) fL MCH 21.6 L (25.0-35.0) pg MCHC 30.4 L (31.0-37.0) g/dL RDW 21.8 H (11.5-15.5) % Lymphocytes # 0.9 L (1.0-4.8) k/uL Chloride 109 H (98-107) mmol/L Creatinine 0.50 L (0.52-1.04) mg/dL Glucose 180 H (74-99) mg/dL POC Glucose (mg/dL) 201 H (75-99) mg/dL 08/13/19 Range/Units 11:15 Hgb (11.4-16.0) gm/dL Hct (34.0-46.0) % MCV (80.0-100.0) fL MCH (25.0-35.0) pg MCHC (31.0-37.0) g/dL RDW (11.5-15.5) % Lymphocytes # (1.0-4.8) k/uL Chloride (98-107) mmol/L Creatinine (0.52-1.04) mg/dL Glucose (74-99) mg/dL POC Glucose (mg/dL) 168 H (75-99) mg/dL Microbiology - Last 24 Hours (Table) 08/11/19 05:08 Blood Culture - Preliminary Blood No Growth after 48 hours Assessment and Plan Assessment: -Sepsis secondary to Bilateral, multilobar pneumonia, right upper lobe and left lower lobe suspected -PE ruled out. -3.5 cm masslike consolidation left lower lobe, possible neoplasm as per CT, bronchoscopy pending -few paratracheal lymph nodes measuring up to 1 cm, bronchial lymph nodes up to 1.5 cm -COPD -Moderate hiatal hernia - 30% old compression fracture T8 vertebrae. -Chronic anemia - gastroesophageal reflux disease -Anxiety, depression -Denies nicotine dependence. -Daily medical marijuana -Chronic back pain Plan: Continue on current medication regime ,monitoring and symptomatic treatment. Maintain nebulized bronchodilators, IV steroids, IV antibiotics. Aggressive pulmonary toileting with incentive spirometer ordered, reinforced. Discussed with pulmonary, diagnostic bronchoscopy scheduled for Friday.Follow closely with pulmonary if further recommendations pending. Increase ambulation as tolerated. The impression and plan of care has been dictated as directed. : I performed a history and examination of this patient, discussed the same with the dictator. I agree with the dictator's note ,documented as a scribe. Any additional findings or plans will be noted.
[2019-08-13 17:11] LABS: Glucose,Whole Blood 201 mg/dL (75-99)
[2019-08-13 20:19] LABS: Glucose,Whole Blood 185 mg/dL (75-99)
[2019-08-14] MEDS: methylPREDNISolone SOD SUCCI 40 MG/ML 1 ML VIAL IV SCH ×4 (00:51→23:32)
[2019-08-14] MEDS: guaiFENesin-Coden 100-10MG/5ML 10 ML CUP PO PRN ×3 (01:05→22:26)
[2019-08-14] MEDS: INSULIN ASPART (NovoLOG) 100 UNIT/ML VIAL SQ SCH ×4 (07:09→20:49)
[2019-08-14] MEDS: FERROUS SULFATE 325 MG TAB PO SCH ×3 (07:10→22:26)
[2019-08-14] MEDS: PANTOPRAZOLE 40 MG/10 ML VIAL IVP SCH (07:10)
[2019-08-14] MEDS: BUTALB/APAP/CAFF 50-325-40MG TAB PO PRN (07:10)
[2019-08-14] MEDS: AZITHROMYCIN 500 MG TAB PO SCH (07:11)
[2019-08-14] MEDS ORDERED: LORATADINE 10 MG TAB PO STA (07:12)
[2019-08-14 07:30] LABS: Glucose,Whole Blood 206 mg/dL (75-99)
[2019-08-14 11:36] LABS: Glucose,Whole Blood 166 mg/dL (75-99)
[2019-08-14] MEDS: traMADol 50 MG TAB PO PRN (15:36)
[2019-08-14 16:07] LABS: Glucose,Whole Blood 139 mg/dL (75-99)
[2019-08-14 17:28] LABS: Glucose,Whole Blood 160 mg/dL (75-99)
[2019-08-14 19:58] LABS: Glucose,Whole Blood 238 mg/dL (75-99)
--- NOTE | 2019-08-14 22:42 | PN ---
PROGRESS NOTE 54-year-old white female, admitted with community-acquired pneumonia with possible lung mass. Bronchoscopy scheduled for Friday. Remains on broad-spectrum antibiotics. History of T7 vertebral fractures. Asking for something for pain, more Motrin. Discussed with her possible tramadol use. This is what she wants. Cardiovascular: S1-S2. Lungs scattered wheeze and rhonchi improving. Hematology negative Homans. Musculoskeletal: Chest palpation around C7 area. PLAN: As above. Broad-spectrum antibiotics, bronchoscopy, add tramadol. MMODL / IJN: [id number] /
[2019-08-15 06:57] LABS: Glucose,Whole Blood 172 mg/dL (75-99)
[2019-08-15] MEDS: traMADol 50 MG TAB PO PRN ×3 (07:52→21:11)
[2019-08-15] MEDS: AZITHROMYCIN 500 MG TAB PO SCH (07:54)
[2019-08-15] MEDS: methylPREDNISolone SOD SUCCI 40 MG/ML 1 ML VIAL IV SCH ×2 (07:54→15:25)
[2019-08-15] MEDS: FERROUS SULFATE 325 MG TAB PO SCH ×3 (07:54→21:06)
[2019-08-15] MEDS: INSULIN ASPART (NovoLOG) 100 UNIT/ML VIAL SQ SCH ×4 (07:54→21:05)
[2019-08-15] MEDS: PANTOPRAZOLE 40 MG/10 ML VIAL IVP SCH (07:55)
[2019-08-15] MEDS: LORATADINE 10 MG TAB PO SCH (08:19)
--- NOTE | 2019-08-15 08:21 | P.PN ---
Subjective Progress Note Date: 08/14/19 Principal diagnosis: Right upper lobe pneumonia and left lower lobe pneumonia Sepsis Neoplasm cannot be excluded Probable COPD Chronic anemia History of chronic anemia 08/14/2019, patient seen eval examined during the rounds now hemoptysis has been seen is still of intermittent wheezing cough and congestion patient has been consult about bronchoscopy and biopsy if significant lesion is seen in the airway for now plan is to do bronchial washing of right upper lobe and left lower lobe, procedure has been sent for Friday, patient seen and evaluated examined during the rounds labs reviewed medications reviewed care plan discussed with the patient at length also with the primary service computed tomography scan of the chest was performed yesterday has been reviewed as well patient has a dense infiltrate versus masslike lesion in the left lower lobe and right upper lobe most likely bilateral pneumonia however neoplasm cannot be excluded, patient is still has been wheezing has nonproductive cough, patient has been scheduled for bronchoscopy for Friday This is a 53-year-old female who was intermittently smoking also smoked marijuana she has been diagnosed as a right upper lobe pneumonia and presented to emergency department recently was discharged on oral antibiotics from the emergency department due to recurrence of symptoms and worsening as well as penetration came back into the hospital for further evaluation and intervention and treatment right upper lobe or Vanita infiltrate are seen on the repeat chest x-ray as well Objective - Vital Signs Vital signs: Vital Signs Temp 98.0 F 08/14/19 21:00 Pulse 85 08/14/19 21:00 Resp 16 08/14/19 21:00 BP 167/95 08/14/19 21:00 Pulse Ox 93 L 08/14/19 21:00 Intake & Output 08/14/19 08/14/19 08/15/19 06:59 18:59 05:59 Intake Total 590 1050 Balance 590 1050 Intake: Intake, IV Titration 100 Amount cefTRIAXone 1 gm In 100 Sodium Chloride 0.9% 50 ml @ 100 mls/hr IVPB Q24HR [facility] Rx#:[id number] Oral 590 950 Other: Voiding Method Toilet Toilet Toilet # Voids 2 3 1 # Bowel Movements 1 - Exam - Constitutional General appearance: cooperative, disheveled, mild distress - EENT Eyes: EOMI, PERRLA, poor dentition, normal appearance ENT: normal oropharynx Ears: bilateral: normal - Neck Carotids: bilateral: upstroke normal Thyroid: bilateral: normal size - Respiratory Respiratory: bilateral: Fine expiratory rhonchi and wheezing - Cardiovascular Rhythm: regular Heart sounds: normal: S1, S2 - Gastrointestinal General gastrointestinal: decreased bowel sounds, soft - Integumentary Integumentary: normal, normal turgor - Musculoskeletal Musculoskeletal: gait normal, generalized weakness, strength equal bilaterally - Psychiatric Psychiatric: A&O x's 3, appropriate affect, intact judgment & insight - Labs CBC & Chem 7: 08/13/19 07:10 08/13/19 07:10 Labs: Abnormal Lab Results - Last 24 Hours (Table) 08/14/19 08/14/19 08/14/19 Range/Units 07:07 11:15 16:04 POC Glucose (mg/dL) 206 H 166 H 139 H (75-99) mg/dL 08/14/19 08/14/19 Range/Units 17:22 19:56 POC Glucose (mg/dL) 160 H 238 H (75-99) mg/dL Microbiology - Last 24 Hours (Table) 08/11/19 05:08 Blood Culture - Preliminary Blood No Growth after 72 hours Assessment and Plan Assessment: Right upper lobe pneumonia and left lower lobe pneumonia Sepsis Neoplasm cannot be excluded however less likely Probable COPD Chronic anemia History of chronic anemia Plan: Continue antibiotics Gentle IV rehydration for short period of time until she is stable after starting by mouth Breathing treatments IV steroids Reviewed computed tomography scan of the chest Findings likely suggestive of bilateral/multi lobar pneumonia but however neoplastic process cannot be excluded, patient is being scheduled for bronchoscopy Friday Time with Patient: Greater than 30
--- NOTE | 2019-08-15 08:22 | P.PN ---
Subjective Progress Note Date: 08/15/19 Principal diagnosis: Right upper lobe pneumonia and left lower lobe pneumonia Sepsis Neoplasm cannot be excluded Probable COPD Chronic anemia History of chronic anemia August 15 2019, patient seen and evaluated examined during the rounds sitting upright on the bed still have intermittent wheezing but severity has improved I have oriented her in detailed about bronchoscopy procedure is tentatively scheduled for tomorrow patient will be nothing by mouth after midnight 08/14/2019, patient seen eval examined during the rounds now hemoptysis has been seen is still of intermittent wheezing cough and congestion patient has been consult about bronchoscopy and biopsy if significant lesion is seen in the airway for now plan is to do bronchial washing of right upper lobe and left lower lobe, procedure has been sent for Friday, patient seen and evaluated examined during the rounds labs reviewed medications reviewed care plan discussed with the patient at length also with the primary service computed tomography scan of the chest was performed yesterday has been reviewed as well patient has a dense infiltrate versus masslike lesion in the left lower lobe and right upper lobe most likely bilateral pneumonia however neoplasm cannot be excluded, patient is still has been wheezing has nonproductive cough, patient has been scheduled for bronchoscopy for Friday This is a 53-year-old female who was intermittently smoking also smoked marijuana she has been diagnosed as a right upper lobe pneumonia and presented to emergency department recently was discharged on oral antibiotics from the emergency department due to recurrence of symptoms and worsening as well as penetration came back into the hospital for further evaluation and intervention and treatment right upper lobe or Vanita infiltrate are seen on the repeat chest x-ray as well Objective - Vital Signs Vital signs: Vital Signs Temp 97.7 F 08/15/19 04:21 Pulse 79 08/15/19 04:21 Resp 16 08/15/19 04:21 BP 171/95 08/15/19 04:21 Pulse Ox 97 08/15/19 04:21 Intake & Output 08/14/19 08/15/19 08/15/19 19:59 06:59 18:59 Intake Total Balance Intake: Intake, IV Titration Amount cefTRIAXone 1 gm In Sodium Chloride 0.9% 50 ml @ 100 mls/hr IVPB Q24HR [facility] Rx#:[id number] Oral Other: Voiding Method # Voids # Bowel Movements - Exam - Constitutional General appearance: cooperative, disheveled, mild distress - EENT Eyes: EOMI, PERRLA, poor dentition, normal appearance ENT: normal oropharynx Ears: bilateral: normal - Neck Carotids: bilateral: upstroke normal Thyroid: bilateral: normal size - Respiratory Respiratory: bilateral: Fine expiratory rhonchi and wheezing - Cardiovascular Rhythm: regular Heart sounds: normal: S1, S2 - Gastrointestinal General gastrointestinal: decreased bowel sounds, soft - Integumentary Integumentary: normal, normal turgor - Musculoskeletal Musculoskeletal: gait normal, generalized weakness, strength equal bilaterally - Psychiatric Psychiatric: A&O x's 3, appropriate affect, intact judgment & insight - Labs CBC & Chem 7: 08/13/19 07:10 08/13/19 07:10 Labs: Abnormal Lab Results - Last 24 Hours (Table) 08/14/19 08/14/19 08/14/19 Range/Units 11:15 16:04 17:22 POC Glucose (mg/dL) 166 H 139 H 160 H (75-99) mg/dL 08/14/19 08/15/19 Range/Units 19:56 06:55 POC Glucose (mg/dL) 238 H 172 H (75-99) mg/dL Microbiology - Last 24 Hours (Table) 08/11/19 05:08 Blood Culture - Preliminary Blood No Growth after 96 hours Assessment and Plan Assessment: Right upper lobe pneumonia and left lower lobe pneumonia Sepsis Neoplasm cannot be excluded however less likely Probable COPD Chronic anemia History of chronic anemia Plan: Continue antibiotics Gentle IV rehydration for short period of time until she is stable after starting by mouth Breathing treatments IV steroids Reviewed computed tomography scan of the chest Findings likely suggestive of bilateral/multi lobar pneumonia but however neoplastic process cannot be excluded, patient is being scheduled for bronchoscopy Friday
[2019-08-15 10:59] LABS: Glucose,Whole Blood 126 mg/dL (75-99)
[2019-08-15] MEDS: ALBUTEROL NEBULIZED 2.5 MG/3 ML INHALATION PRN (12:13)
--- NOTE | 2019-08-15 16:53 | PN ---
PROGRESS NOTE 54-year-old white female with healthcare acquired pneumonia, community acquired pneumonia. Scheduled for bronchoscopy in the morning. On physical exam, she appears to be improving. She remains on Fioricet for migraines. Solu-Medrol, azithromycin. Sugars in the mid 100s. Temp 98.3, pulse 70s to 80s. Respiratory rate is 16 to 18, blood pressure 175/85. ASSESSMENT: 1. Hypertension. 2. Community-acquired pneumonia. 3. Possible lung mass. Bronchoscopy in the morning. Continue current treatments. If possible give blood pressure medication. Increase as blood pressure is high. MMODL / IJN: [id number] /
[2019-08-15 17:01] LABS: Glucose,Whole Blood 222 mg/dL (75-99)
[2019-08-15] MEDS: amLODIPine 5 MG TAB PO SCH (18:26)
[2019-08-15 20:42] LABS: Glucose,Whole Blood 280 mg/dL (75-99)
[2019-08-15] MEDS: LACTATED RINGERS 1,000 ML IV SCH (21:08)
--- NOTE | 2019-08-15 21:59 | DS ---
DISCHARGE SUMMARY ADDENDUM: Please add to discharge summary on Candi Rice: IMPRESSION: Systemic inflammatory response syndrome. Secondary to community-acquired pneumonia, sepsis is ruled out. MMODL / IJN: [id number] /
[2019-08-16] MEDS: methylPREDNISolone SOD SUCCI 40 MG/ML 1 ML VIAL IV SCH ×3 (00:11→15:02)
[2019-08-16] MEDS: guaiFENesin-Coden 100-10MG/5ML 10 ML CUP PO PRN ×2 (00:21→21:33)
[2019-08-16 07:08] LABS: Glucose,Whole Blood 167 mg/dL (75-99)
[2019-08-16] MEDS: PANTOPRAZOLE 40 MG/10 ML VIAL IVP SCH (07:45)
[2019-08-16] MEDS: traMADol 50 MG TAB PO PRN ×2 (07:45→15:03)
[2019-08-16] MEDS: FERROUS SULFATE 325 MG TAB PO SCH ×3 (07:46→21:33)
[2019-08-16] MEDS: INSULIN ASPART (NovoLOG) 100 UNIT/ML VIAL SQ SCH ×4 (07:46→20:16)
[2019-08-16] MEDS: amLODIPine 5 MG TAB PO SCH (07:46)
[2019-08-16] MEDS: LORATADINE 10 MG TAB PO SCH (07:46)
[2019-08-16] MEDS: AZITHROMYCIN 500 MG TAB PO SCH (08:38)
[2019-08-16] MEDS ORDERED: LIDOCAINE 1% INJ 10MG/ML (20 ML MDV) ONE (10:07)
[2019-08-16] MEDS ORDERED: fentaNYL (PF) 50 MCG/ML 2 ML AMP ONE (10:07)
[2019-08-16] MEDS ORDERED: PROPOFOL 10 MG/ML 20 ML VIAL IV ONE (10:07)
[2019-08-16] MEDS ORDERED: IV FLUID CONTINUATION 1,000 ML IV ONE (10:07)
[2019-08-16] MEDS ORDERED: LIDOCAINE 2% INJ 20 MG/ML INTRATRACH ONE (10:22)
[2019-08-16] MEDS ORDERED: LACTATED RINGERS 1,000 ML IV ONE (10:23)
[2019-08-16 11:17] LABS: Glucose,Whole Blood 141 mg/dL (75-99)
--- NOTE | 2019-08-16 11:36 | XR ---
EXAMINATION TYPE: XR chest 1V portable DATE OF EXAM: 08/16/2019 Comparison: 08/11/2019 Clinical History: 54-year-old female post bronchoscopy Findings: Heart upper limits of normal in size. Diffuse interstitial prominence. Some hazy density peripheral r ight mid lung. Some focal patchy retrocardiac density also noted. No pleural effusion seen. No apprec iable pneumothorax. Impression: Some residual focal hazy density peripheral right midlung/right upper lobe and also in the retrocardi ac region. No appreciable pneumothorax.
--- NOTE | 2019-08-16 11:38 | P.PN ---
Subjective Progress Note Date: 08/16/19 Principal diagnosis: Right upper lobe pneumonia and left lower lobe pneumonia Sepsis Neoplasm cannot be excluded Probable COPD Chronic anemia History of chronic anemia 08/16/2019, patient seen eval examined during the rounds labs reviewed medications reviewed care plan discussed with patient at length patient is scheduled for bronchoscopy later on today, he remains on antibiotics and breathing treatments and steroids August 15 2019, patient seen and evaluated examined during the rounds sitting upright on the bed still have intermittent wheezing but severity has improved I have oriented her in detailed about bronchoscopy procedure is tentatively scheduled for tomorrow patient will be nothing by mouth after midnight 08/14/2019, patient seen eval examined during the rounds now hemoptysis has been seen is still of intermittent wheezing cough and congestion patient has been consult about bronchoscopy and biopsy if significant lesion is seen in the airway for now plan is to do bronchial washing of right upper lobe and left lower lobe, procedure has been sent for Friday, patient seen and evaluated examined during the rounds labs reviewed medications reviewed care plan discussed with the patient at length also with the primary service computed tomography scan of the chest was performed yesterday has been reviewed as well patient has a dense infiltrate versus masslike lesion in the left lower lobe and right upper lobe most likely bilateral pneumonia however neoplasm cannot be excluded, patient is still has been wheezing has nonproductive cough, patient has been scheduled for bronchoscopy for Friday This is a 53-year-old female who was intermittently smoking also smoked marijuana she has been diagnosed as a right upper lobe pneumonia and presented to emergency department recently was discharged on oral antibiotics from the emergency department due to recurrence of symptoms and worsening as well as penetration came back into the hospital for further evaluation and intervention and treatment right upper lobe or Vanita infiltrate are seen on the repeat chest x-ray as well Objective - Vital Signs Vital signs: Vital Signs Temp 98 F 08/16/19 10:00 Pulse 74 08/16/19 10:00 Resp 18 08/16/19 10:00 BP 162/78 08/16/19 10:00 Pulse Ox 96 08/16/19 10:00 Intake & Output 08/15/19 08/16/19 08/16/19 18:59 06:59 18:59 Intake Total 900 670 150 Balance 900 670 150 Weight 90.718 kg Intake: IV 150 Intake, IV Titration 100 80 Amount Lactated Ringers 1,000 ml 80 @ 20 mls/hr IV .Q24H [facility] Rx#:[id number] cefTRIAXone 1 gm In 100 Sodium Chloride 0.9% 50 ml @ 100 mls/hr IVPB Q24HR [facility] Rx#:[id number] Oral 800 590 Other: Voiding Method Toilet Toilet # Voids 3 2 - Exam - Constitutional General appearance: cooperative, disheveled, mild distress - EENT Eyes: EOMI, PERRLA, poor dentition, normal appearance ENT: normal oropharynx Ears: bilateral: normal - Neck Carotids: bilateral: upstroke normal Thyroid: bilateral: normal size - Respiratory Respiratory: bilateral: Fine expiratory rhonchi and wheezing - Cardiovascular Rhythm: regular Heart sounds: normal: S1, S2 - Gastrointestinal General gastrointestinal: decreased bowel sounds, soft - Integumentary Integumentary: normal, normal turgor - Musculoskeletal Musculoskeletal: gait normal, generalized weakness, strength equal bilaterally - Psychiatric Psychiatric: A&O x's 3, appropriate affect, intact judgment & insight - Labs CBC & Chem 7: 08/13/19 07:10 08/13/19 07:10 Labs: Abnormal Lab Results - Last 24 Hours (Table) 08/15/19 08/15/19 08/16/19 Range/Units 16:59 20:40 07:06 POC Glucose (mg/dL) 222 H 280 H 167 H (75-99) mg/dL 08/16/19 Range/Units 11:16 POC Glucose (mg/dL) 141 H (75-99) mg/dL Microbiology - Last 24 Hours (Table) 08/11/19 05:08 Blood Culture - Preliminary Blood No Growth after 120 hours Assessment and Plan Assessment: Right upper lobe pneumonia and left lower lobe pneumonia Sepsis Neoplasm cannot be excluded however less likely Probable COPD Chronic anemia History of chronic anemia Plan: Continue antibiotics Breathing treatments IV steroids Reviewed computed tomography scan of the chest Findings likely suggestive of bilateral/multi lobar pneumonia but however neoplastic process cannot be excluded, patient is being scheduled for bronchoscopy later on today Time with Patient: Greater than 30
--- NOTE | 2019-08-16 11:50 | P.PCN ---
Date of Procedure: 08/16/19 Preoperative Diagnosis: Bilateral pneumonia, bilateral lung masses, Postoperative Diagnosis: As above Procedure(s) Performed: #1 bronchoscopy #2 bronchoalveolar lavage Anesthesia: MAC Surgeon: Adria Gonzalez Estimated Blood Loss (ml): 0 Disposition: floor Indications for Procedure: As above Operative Findings: As below Description of Procedure: Patient prepared and draped in a usual fashion informed consent already obtained from the patient, fiberoptic bronchoscope was passed through the right nares, the vocal cords were inspected they were normal in shape and appearance and movement, tip of the bronchoscope passed beyond the vocal cords into trachea mild diffuse edema of the airways were noted some mucus plugging bilaterally was noted right upper lobe posterior segment was wedged lavage followed by left lower lobe lavage under subsegment inspected no endobronchial mass lesion was noted patient tolerated procedure well no complication noted
[2019-08-16] MEDS ORDERED: amLODIPine 5 MG TAB PO STA (14:23)
--- NOTE | 2019-08-16 15:17 | P.PN ---
Subjective Progress Note Date: 08/16/19 This is a 54-year-old female admitted with right upper lobe pneumonia and multiple other medical issues. Maintained on IV antibiotics, nebulized bronchodilators, IV steroids with breathing improving. It is unstable, maintaining O2 sats in the 90s on room air. Tachycardia improving, mild, low 100s. Hemoglobin 8.8. Afebrile, normal WBC.Chest CTA reporting negative for PE, bilateral airspace consolidations were likely related to inflammatory disease, 3.5 cm masslike consolidation left lower lobe, pulmonary infiltrates are change compared to prior CT, tumor not excluded. Moderate size hiatal hernia, no mediastinal adenopathy, a few paratracheal lymph nodes measuring up to 1 cm, bronchial lymph nodes up to 1.5 cm, 30% old compression fracture T8 vertebrae. 08/16/2019 scheduled for bronchoscopy today with pulmonary. Maintained on nebulized bronchodilators, steroids and antibiotics.VSS. Maintaining O2 sats in the high 90s on 2 L nasal cannula. Afebrile, normal WBC. Objective - Vital Signs Vital signs: Vital Signs Temp 97.6 F 08/16/19 09:27 Pulse 86 08/16/19 09:27 Resp 16 08/16/19 09:27 BP 171/96 08/16/19 09:27 Pulse Ox 98 08/16/19 09:27 Intake & Output 08/15/19 08/16/19 08/16/19 18:59 06:59 18:59 Intake Total 900 670 Balance 900 670 Weight 90.718 kg Intake: Intake, IV Titration 100 80 Amount Lactated Ringers 1,000 ml 80 @ 20 mls/hr IV .Q24H [facility] Rx#:[id number] cefTRIAXone 1 gm In 100 Sodium Chloride 0.9% 50 ml @ 100 mls/hr IVPB Q24HR [facility] Rx#:[id number] Oral 800 590 Other: Voiding Method Toilet Toilet # Voids 3 2 - Exam PHYSICAL EXAM: VITAL SIGNS: As above GENERAL: Sitting up at side of bed, no acute distress HEENT: Conjunctivae normal. eyes normal. NECK: No JVD. No thyroid enlargement. No LNs CARDIOVASCULAR: S1, S2 regular. No murmur, rubs or gallops RESPIRATION: Breath sounds diminished in the bases. Occasional scattered rhonchi with Fine expiratory wheezing. ABDOMEN: Soft, nondistended, nontender . No guarding. no masses palpable. Bowel sounds heard. LEGS: No edema. no swelling. No clubbing, no cyanosis PSYCHIATRY: Alert and oriented X3, mood and affect normal. NERVOUS SYSTEM: Cranial N 2-12 grossly normal. Moves all 4 limbs. No focal deficits. Strength and sensation grossly intact.. Skin: no rash, normal turgor - Labs CBC & Chem 7: 08/13/19 07:10 08/13/19 07:10 Labs: Abnormal Lab Results - Last 24 Hours (Table) 08/15/19 08/15/19 08/15/19 Range/Units 10:57 16:59 20:40 POC Glucose (mg/dL) 126 H 222 H 280 H (75-99) mg/dL 08/16/19 Range/Units 07:06 POC Glucose (mg/dL) 167 H (75-99) mg/dL Microbiology - Last 24 Hours (Table) 08/11/19 05:08 Blood Culture - Preliminary Blood No Growth after 120 hours Assessment and Plan Assessment: -Sepsis secondary to Bilateral, multilobar pneumonia, right upper lobe and left lower lobe suspected -PE ruled out. -3.5 cm masslike consolidation left lower lobe, possible neoplasm as per CT, bronchoscopy pending -few paratracheal lymph nodes measuring up to 1 cm, bronchial lymph nodes up to 1.5 cm -COPD -Moderate hiatal hernia - 30% old compression fracture T8 vertebrae. -Chronic anemia - gastroesophageal reflux disease -Anxiety, depression -Denies nicotine dependence. -Daily medical marijuana -Chronic back pain Plan: Continue on current medication regime ,monitoring and symptomatic t reatment. Scheduled for bronchoscopy today . Continue on nebulized bronchodilators, IV steroids, IV antibiotics. Aggressive pulmonary toileting with incentive spirometer reinforced. Discharge planning in progress, pending bronchoscopy. The impression and plan of care has been dictated as directed. : I performed a history and examination of this patient, discussed the same with the dictator. I agree with the dictator's note ,documented as a scribe. Any additional findings or plans will be noted.
[2019-08-16 17:24] LABS: Glucose,Whole Blood 250 mg/dL (75-99)
[2019-08-16] MEDS: LACTATED RINGERS 1,000 ML IV SCH (17:52)
[2019-08-16 20:10] LABS: Glucose,Whole Blood 258 mg/dL (75-99)
[2019-08-17] MEDS: methylPREDNISolone SOD SUCCI 40 MG/ML 1 ML VIAL IV SCH ×2 (00:16→08:11)
[2019-08-17 04:35] VITALS: BP 154/100; PULSE 85; RESP 16; TEMP 97.7
[2019-08-17 07:06] LABS: Glucose,Whole Blood 192 mg/dL (75-99)
[2019-08-17] MEDS ORDERED: PANTOPRAZOLE 40 MG TABLET PO SCH (07:30)
[2019-08-17] MEDS: traMADol 50 MG TAB PO PRN (08:09)
[2019-08-17] MEDS: FERROUS SULFATE 325 MG TAB PO SCH (08:11)
[2019-08-17] MEDS: AZITHROMYCIN 500 MG TAB PO SCH (08:11)
[2019-08-17] MEDS: LORATADINE 10 MG TAB PO SCH (08:11)
[2019-08-17] MEDS: INSULIN ASPART (NovoLOG) 100 UNIT/ML VIAL SQ SCH (08:12)
[2019-08-17 08:20] LABS: African American GFR (CKD) >90 (>60 ml/min/1.73 sqM); Anion Gap 9 mmol/L; Blood Urea Nitrogen 18 mg/dL (7-17); Calcium 8.8 mg/dL (8.4-10.2); Carbon Dioxide 26 mmol/L (22-30); Chloride 104 mmol/L (98-107); Glucose 179 mg/dL (74-99); Potassium 4.4 mmol/L (3.5-5.1); Sodium 139 mmol/L (137-145)
[2019-08-17] MEDS ORDERED: amLODIPine 10 MG TAB PO SCH (09:00)
[2019-08-17 09:05] LABS: Anisocytosis Moderate; Basophils # (A) 0.1 k/uL (0-0.2); Basophils % (A) 1 %; Eosinophils % (A) 0 %; HCT 34.6 % (34.0-46.0); Hypochromasia Marked; Lymphocytes # (A) 1.9 k/uL (1.0-4.8); Lymphocytes % (A) 15 %; MCHC 28.9 g/dL (31.0-37.0); MCV 72.8 fL (80.0-100.0); Mean Platelet Volume 6.9; Microcytosis Marked; Monocytes # (A) 0.7 k/uL (0-1.0); Monocytes % (A) 5 %; Neutrophils # (A) 9.8 k/uL (1.3-7.7); Neutrophils % (A) 77 %; Platelet Count 480 k/uL (150-450); RBC 4.75 m/uL (3.80-5.40); RDW 22.1 % (11.5-15.5); WBC 12.8 k/uL (3.8-10.6)
[2019-08-17 11:38] LABS: Glucose,Whole Blood 204 mg/dL (75-99)
--- NOTE | 2019-08-17 13:00 | P.DS ---
Providers Date of admission: 08/13/19 10:49 Expected date of discharge: 08/17/19 Attending physician: Matthew Gonzalez Consults: 08/12/19 09:25 Consult Physician Routine Consulting Provider: Adria Gonzalez Consult Reason/Comments: PNA, Pulmonary nodule Do you want consulting provider notified?: Yes Primary care physician: Stated None Hospital Course: Final Diagnoses: -Sepsis secondary to Bilateral, multilobar pneumonia with mucous plugs. Status post bronchoscopy with lavage -PE ruled out. -3.5 cm masslike consolidation left lower lobe, possible neoplasm as per CT, bronchoscopy pending -few paratracheal lymph nodes measuring up to 1 cm, bronchial lymph nodes up to 1.5 cm -COPD -Moderate hiatal hernia - 30% old compression fracture T8 vertebrae. -Chronic anemia - gastroesophageal reflux disease -Anxiety, depression -Denies nicotine dependence. -Daily medical marijuana -Chronic back pain Hospital course: This is a 54-year-old female admitted with right upper lobe pneumonia and multiple other medical issues. Maintained on IV antibiotics, nebulized bronchodilators, IV steroids with breathing improving. It is unstable, maintaining O2 sats in the 90s on room air. Tachycardia improving, mild, low 100s. Hemoglobin 8.8. Afebrile, normal WBC.Chest CTA reporting negative for PE, bilateral airspace consolidations were likely related to inflammatory disease, 3.5 cm masslike consolidation left lower lobe, pulmonary infiltrates are change compared to prior CT, tumor not excluded. Moderate size hiatal hernia, no mediastinal adenopathy, a few paratracheal lymph nodes measuring up to 1 cm, bronchial lymph nodes up to 1.5 cm, 30% old compression fracture T8 vertebrae. 08/16/2019 scheduled for bronchoscopy today with pulmonary. Maintained on nebulized bronchodilators, steroids and antibiotics.VSS. Maintaining O2 sats in the high 90s on 2 L nasal cannula. Afebrile, normal WBC. Status post bronchoscopy with lavage reporting mucus plugging bilaterally with n o endobronchial mass/lesion noted. Tolerated procedure well. Final culture results pending . Afebrile. Significant clinical improvement. Cleared by pulmonary for discharge. Patient being discharged home in a stable condition with guarded prognosis. EXAM: GENERAL: Alert and oriented 3, no acute distress. CARDIOVASCULAR: S1, S2 regular. No murmur, rubs or gallops RESPIRATION: Breath sounds diminished in the bases. ABDOMEN: Soft, nondistended, nontender . No guarding. no masses palpable. Bowel sounds heard. NERVOUS SYSTEM: No focal deficits. The impression and plan of care has been dictated as directed. : I performed a history and examination of this patient, discussed the same with the dictator. I agree with the dictator's note ,documented as a scribe. Any additional findings or plans will be noted. Patient Condition at Discharge: Stable Plan - Discharge Summary Discharge Rx Participant: No New Discharge Prescriptions: New Cefuroxime Axetil [Ceftin] 500 mg PO BID #12 tab amLODIPine [Norvasc] 10 mg PO DAILY #30 tab predniSONE 10 mg PO DIRECTED #30 tab Pantoprazole [Protonix] 40 mg PO AC-BRKFST #15 tablet.[address] menendezFENcrispin-Coden 100-10MG/5ML [Robitussin AC] 10 ml PO Q6H PRN #120 ml PRN Reason: Cough Acetaminophen Tab [Tylenol] 650 mg PO Q4HR PRN tab PRN Reason: Fever and/ or Mild Pain Albuterol Inhaler [Ventolin Hfa Inhaler] 2 puff INHALATION RT-Q6H #1 inhaler Lactobacillus Acidophilus [Acidophilus] 1 each PO BID #60 tablet guaiFENesin [Mucinex] 1,200 mg PO BID #10 tablet Continue Ferrous Sulfate [Iron (65 MG Elemental)] 325 mg PO TID Ibuprofen [Motrin Ib] 600 mg PO Q6H PRN PRN Reason: Pain Discharge Medication List Ferrous Sulfate [Iron (65 MG Elemental)] 325 mg PO TID 07/14/19 [History] Ibuprofen [Motrin Ib] 600 mg PO Q6H PRN 08/11/19 [History] Acetaminophen Tab [Tylenol] 650 mg PO Q4HR PRN tab 08/17/19 [Rx] Albuterol Inhaler [Ventolin Hfa Inhaler] 2 puff INHALATION RT-Q6H #1 inhaler 08/17/19 [Rx] Cefuroxime Axetil [Ceftin] 500 mg PO BID #12 tab 08/17/19 [Rx] Lactobacillus Acidophilus [Acidophilus] 1 each PO BID #60 tablet 08/17/19 [Rx] Pantoprazole [Protonix] 40 mg PO AC-BRKFST #15 tablet. 08/17/19 [Rx] amLODIPine [Norvasc] 10 mg PO DAILY #30 tab 08/17/19 [Rx] guaiFENesin [Mucinex] 1,200 mg PO BID #10 tablet 08/17/19 [Rx] guaiFENesin-Coden 100-10MG/5ML [Robitussin AC] 10 ml PO Q6H PRN #120 ml 08/17/19 [Rx] predniSONE 10 mg PO DIRECTED #30 tab 08/17/19 [Rx] Follow up Appointment(s)/Referral(s): Matthew Gonzalez MD [STAFF PHYSICIAN] - 3 Days (Patient to call Dr. Gonzalez's office to schedule follow up appointment. The office is closed at time of discharge.) Adria Gonzalez MD [STAFF PHYSICIAN] - 08/20/19 9:15 am Ambulatory/Diagnostic Orders: Complete Blood Count w/diff [LAB.AMB] Time Frame: 3 Days, Location: None Selected Patient Instructions/Handouts: Cefuroxime (By mouth), Albuterol (By breathing), Prednisone (By mouth), Guaifenesin (By mouth), Amlodipine (By mouth), Pantoprazole (By mouth), Probiotic (By mouth), Dextromethorphan/Guaifenesin/Phenylephrine (By mouth), Sepsis (GEN), Pneumonia (DC) Activity/Diet/Wound Care/Special Instructions: Fax results of HgbA1c to Dr. Gonzalez
--- NOTE | 2019-08-17 14:17 | P.PN ---
Subjective Progress Note Date: 08/17/19 Principal diagnosis: Right upper lobe pneumonia and left lower lobe pneumonia Sepsis Neoplasm cannot be excluded Probable COPD Chronic anemia History of chronic anemia 08/17/2019, patient seen and evaluated examined during the rounds sitting upright on the bed breathing comfortably denies any chest pain patient has been switched to oral prednisone chest x-ray after procedure yesterday reviewed, BAL findings reviewed as well, x-rays stable no pneumothorax is noted, BAL is negative for any organism on Gram stain and AFB is negative as well patient is cleared for discharge with follow-up on outpatient 08/16/2019, patient seen eval examined during the rounds labs reviewed medications reviewed care plan discussed with patient at length patient is scheduled for bronchoscopy later on today, he remains on antibiotics and breathing treatments and steroids August 15 2019, patient seen and evaluated examined during the rounds sitting upright on the bed still have intermittent wheezing but severity has improved I have oriented her in detailed about bronchoscopy procedure is tentatively scheduled for tomorrow patient will be nothing by mouth after midnight 08/14/2019, patient seen eval examined during the rounds now hemoptysis has been seen is still of intermittent wheezing cough and congestion patient has been consult about bronchoscopy and biopsy if significant lesion is seen in the airway for now plan is to do bronchial washing of right upper lobe and left lower lobe, procedure has been sent for Friday, patient seen and evaluated examined during the rounds labs reviewed medications reviewed care plan discussed with the patient at length also with the primary service computed tomography scan of the chest was performed yesterday has been reviewed as well patient has a dense infiltrate versus masslike lesion in the left lower lobe and right upper lobe most likely bilateral pneumonia however neoplasm cannot be excluded, patient is still has been wheezing has nonproductive cough, patient has been scheduled for bronchoscopy for Friday This is a 53-year-old female who was intermittently smoking also smoked marijuana she has been diagnosed as a right upper lobe pneumonia and presented to emergency department recently was discharged on oral antibiotics from the emergency department due to recurrence of symptoms and worsening as well as penetration came back into the hospital for further evaluation and intervention and treatment right upper lobe or Vanita infiltrate are seen on the repeat chest x-ray as well Objective - Vital Signs Vital signs: Vital Signs Temp 97.7 F 08/17/19 04:34 Pulse 85 08/17/19 04:34 Resp 16 08/17/19 07:20 BP 154/100 08/17/19 04:34 Pulse Ox 98 08/17/19 04:34 Intake & Output 08/16/19 08/17/19 08/17/19 18:59 06:59 18:59 Intake Total 1250 1630 Balance 1250 1630 Intake: IV 150 Intake, IV Titration 100 80 Amount IV Fluid Continuation 1, 80 000 ml @ 0 mls/hr IV .STK -[facility] Rx#:[id number] cefTRIAXone 1 gm In 100 Sodium Chloride 0.9% 50 ml @ 100 mls/hr IVPB Q24HR [facility] Rx#:[id number] Oral 1000 1550 Other: Voiding Method Toilet Toilet Toilet # Voids 2 2 2 - Exam - Constitutional General appearance: cooperative, disheveled, mild distress - EENT Eyes: EOMI, PERRLA, poor dentition, normal appearance ENT: normal oropharynx Ears: bilateral: normal - Neck Carotids: bilateral: upstroke normal Thyroid: bilateral: normal size - Respiratory Respiratory: bilateral: Fine expiratory rhonchi and wheezing - Cardiovascular Rhythm: regular Heart sounds: normal: S1, S2 - Gastrointestinal General gastrointestinal: decreased bowel sounds, soft - Integumentary Integumentary: normal, normal turgor - Musculoskeletal Musculoskeletal: gait normal, generalized weakness, strength equal bilaterally - Psychiatric Psychiatric: A&O x's 3, appropriate affect, intact judgment & insight - Labs CBC & Chem 7: 08/17/19 07:32 08/17/19 07:32 Labs: Abnormal Lab Results - Last 24 Hours (Table) 08/16/19 08/16/19 08/17/19 Range/Units 17:23 20:07 07:03 WBC (3.8-10.6) k/uL Hgb (11.4-16.0) gm/dL MCV (80.0-100.0) fL MCH (25.0-35.0) pg MCHC (31.0-37.0) g/dL RDW (11.5-15.5) % Plt Count (150-450) k/uL Neutrophils # (1.3-7.7) k/uL BUN (7-17) mg/dL Glucose (74-99) mg/dL POC Glucose (mg/dL) 250 H 258 H 192 H (75-99) mg/dL 08/17/19 08/17/19 08/17/19 Range/Units 07:32 07:32 11:30 WBC 12.8 H (3.8-10.6) k/uL Hgb 10.0 L (11.4-16.0) gm/dL MCV 72.8 L (80.0-100.0) fL MCH 21.0 L (25.0-35.0) pg MCHC 28.9 L (31.0-37.0) g/dL RDW 22.1 H (11.5-15.5) % Plt Count 480 H (150-450) k/uL Neutrophils # 9.8 H (1.3-7.7) k/uL BUN 18 H (7-17) mg/dL Glucose 179 H (74-99) mg/dL POC Glucose (mg/dL) 204 H (75-99) mg/dL Microbiology - Last 24 Hours (Table) 08/11/19 05:08 Blood Culture - Final Blood No Growth after 144 hours 08/16/19 10:30 Acid Fast Bacilli Smear - Final Bronchial Washings - Right Acid Fast Bacilli Culture - Preliminary 08/16/19 10:30 Gram Stain - Preliminary Bronchial Washings - Right Bronchial Washings Culture - Preliminary 08/16/19 10:30 Fungal Culture - Preliminary Bronchial Washings - Right Assessment and Plan Assessment: Right upper lobe pneumonia and left lower lobe pneumonia Sepsis Neoplasm cannot be excluded however less likely Probable COPD Chronic anemia History of chronic anemia Plan: Continue antibiotics Breathing treatments IV steroids and be switched to oral Reviewed computed tomography scan of the chest Findings likely suggestive of bilateral/multi lobar pneumonia but however neoplastic process cannot be excluded, And will get a computed tomography scan after 6-8 weeks Time with Patient: Greater than 30
[2019-08-17 23:02] LABS: Hemoglobin A1C 6.8 % (4.0-6.0)
== END 2019-08-17 14:08 | disposition home or self-care (01) | DRG 871 ==
LOC: EC 04:25 → 3NMEDONC 08:02 → OBSVTOIN 08-13 10:49 → 3NMEDONC 08-14 15:13
PROVIDERS: ADMIT Family Medicine; ATTEND Family Medicine
PROC: 0B9C8ZX Drainage of Right Upper Lung Lobe, Via Natural or Artificial Opening Endoscopic, Diagnostic (ICD-10-PCS; 2019-08-16)
PROC: 0B9J8ZX Drainage of Left Lower Lung Lobe, Via Natural or Artificial Opening Endoscopic, Diagnostic (ICD-10-PCS; principal; 2019-08-16 07:30)
DX: A41.9 Sepsis, unspecified organism (principal); J18.0 Bronchopneumonia, unspecified organism; T17.890A Other foreign object in other parts of respiratory tract causing asphyxiation, initial encounter; R04.2 Hemoptysis; J44.0 Chronic obstructive pulmonary disease with (acute) lower respiratory infection; J44.1 Chronic obstructive pulmonary disease with (acute) exacerbation; M41.9 Scoliosis, unspecified; R91.1 Solitary pulmonary nodule; D64.9 Anemia, unspecified; F32.9 Major depressive disorder, single episode, unspecified; M48.54XS Collapsed vertebra, not elsewhere classified, thoracic region, sequela of fracture; R59.0 Localized enlarged lymph nodes; F41.9 Anxiety disorder, unspecified; I10 Essential (primary) hypertension; K21.9 Gastro-esophageal reflux disease without esophagitis; K44.9 Diaphragmatic hernia without obstruction or gangrene; G43.909 Migraine, unspecified, not intractable, without status migrainosus; G89.29 Other chronic pain; R11.15 Cyclical vomiting syndrome unrelated to migraine; Z79.899 Other long term (current) drug therapy; Z87.442 Personal history of urinary calculi; Z98.51 Tubal ligation status; Z98.890 Other specified postprocedural states; Z88.8 Allergy status to other drugs, medicaments and biological substances; Z80.7 Family history of other malignant neoplasms of lymphoid, hematopoietic and related tissues; Z82.49 Family history of ischemic heart disease and other diseases of the circulatory system; Z80.3 Family history of malignant neoplasm of breast; Z82.3 Family history of stroke
CPT/HCPCS: 31624; 36415; 71045; 71046; 71275; 80048; 80053; 81001; 81025; 83036; 83605; 83735; 84132; 85025; 85610; 85730; 87040; 87070; 87102; 87116; 87205; 87206; 87252; 87496; 87498; 87502; 87529; 87541; 87634; 87798; 88108; 88305; 93005; 94640; 94760; 96361; 96365; 96366; 96368; 96375; 99285

== ENCOUNTER → 2019-10-21 | Outpatient (CLI) | payer OTHER ==
--- NOTE | 2019-10-21 13:02 | CT ---
EXAMINATION TYPE: CT chest wo con DATE OF EXAM: 10/21/2019 COMPARISON: 08/12/2019 HISTORY: pulmonary nodule CT DLP: 748 mGycm. Automated Exposure Control for Dose Reduction was Utilized. TECHNIQUE: CT scan of the thorax is performed without IV contrast. FINDINGS: LUNGS: The lungs are grossly clear, there is no concerning parenchymal mass or nodule identified. T here is no pleural effusion or pneumothorax seen. The tracheobronchial tree is patent. Resolution of the previously described areas of consolidation are noted likely represented resolving pneumonia. 3 mm posterior subpleural nodule image 44 left lung base. 2 mm nodule lingular segment left upper lobe image 31. 5 mm subpleural nodule image 25 superior segment right lower lobe. Subsegmental groundglass changes posteriorly most typical of dependent atelectasis. MEDIASTINUM: Lack of IV contrast is noted to limit evaluation for mediastinal and especially hilar ad enopathy. There are no definitive greater than 1 cm hilar or mediastinal lymph nodes. No cardiomega ly or pericardial effusion is seen. OTHER: Subcentimeter hypodensities in the liver too small to characterize but statistically most like ly related to cysts. Large hiatal hernia noted. Multilevel degenerative disc disease and vacuum disc compatible severe degenerative disc disease. Chronic appearing wedge deformity in the midthoracic spi ne stable from previous. Small accessory spleen noted adjacent to the superior margin of the spleen. IMPRESSION: 1. Interval resolution of multifocal pneumonia. 2. There are a couple small less than 5 mm pulmonary nodules which are too small to characterize but likely benign. Recommend a 6 month follow-up CT of the chest to confirm stability.
== END | disposition home or self-care (01) ==
LOC: RADCTMAIN 12:19
PROVIDERS: ATTEND Internal Medicine Sleep Medicine
DX: J18.8 Other pneumonia, unspecified organism (principal); R91.8 Other nonspecific abnormal finding of lung field
CPT/HCPCS: 71250

== ENCOUNTER → 2019-11-15 | Outpatient (CLI) | payer OTHER ==
[2019-11-15 15:59] LABS: African American GFR (CKD) >90 (>60 ml/min/1.73 sqM); Anion Gap 7 mmol/L; Blood Urea Nitrogen 16 mg/dL (7-17); Carbon Dioxide 25 mmol/L (22-30); Chloride 108 mmol/L (98-107); Glucose 141 mg/dL (74-99); Non-African American GFR(CKD) >90 (>60 ml/min/1.73 sqM); Potassium 4.2 mmol/L (3.5-5.1); Sodium 140 mmol/L (137-145)
[2019-11-15 16:02] LABS: Anisocytosis Slight; Basophils # (A) 0.1 k/uL (0-0.2); Basophils % (A) 1 %; Eosinophils # (A) 0.1 k/uL (0-0.7); Eosinophils % (A) 1 %; HCT 39.5 % (34.0-46.0); HGB 12.5 gm/dL (11.4-16.0); Hypochromasia Slight; Lymphocytes # (A) 1.9 k/uL (1.0-4.8); Lymphocytes % (A) 24 %; MCH 24.7 pg (25.0-35.0); MCHC 31.7 g/dL (31.0-37.0); MCV 77.9 fL (80.0-100.0); Mean Platelet Volume 7.8; Microcytosis Slight; Monocytes # (A) 0.3 k/uL (0-1.0); Monocytes % (A) 4 %; Neutrophils # (A) 5.2 k/uL (1.3-7.7); Neutrophils % (A) 67 %; Platelet Count 276 k/uL (150-450); RBC 5.07 m/uL (3.80-5.40); RDW 17.9 % (11.5-15.5); WBC 7.8 k/uL (3.8-10.6)
== END | disposition home or self-care (01) ==
LOC: LABPAT 14:35
PROVIDERS: ATTEND Obstetrics & Gynecology Obstetrics
DX: Z01.812 Encounter for preprocedural laboratory examination (principal); I10 Essential (primary) hypertension; D64.9 Anemia, unspecified; N92.0 Excessive and frequent menstruation with regular cycle; N94.6 Dysmenorrhea, unspecified
CPT/HCPCS: 36415; 80051; 82565; 82947; 84520; 85025; 87086

== ENCOUNTER 2019-11-22 06:24 | Day surgery (SDC) | payer OTHER ==
[2019-11-19 08:32] VITALS: BMI 34.9
--- NOTE | 2019-11-19 09:40 | HP ---
HISTORY AND PHYSICAL Preoperative history and physical for surgery on Friday, November 22, 2019. HISTORY OF PRESENT ILLNESS: This is a pleasant 54-year-old female 4, para 3-0-1-3 that presents with complaints of heavy menstrual cycles and passage of clots since October 06. The patient started noting spotting on August 12 and progressed to heavy bleeding on 10/06. She is also noting increasing fatigue since symptoms and dizziness much like she noted prior to her endometrial ablation that was done in July of 2019. Patient is complaining of heavy menstrual cycles with clots, increasing fatigue, dizziness that began one month ago. Given no change in her menstrual cycles since her endometrial ablation was done, she is desirous of definitive treatment with robotic assisted vaginal hysterectomy. PAST MEDICAL HISTORY: Significant for: 1. Anemia. 2. GERD. 3. History of kidney stones. 4. Hypertension. 5. Migraine headaches. 6. Scoliosis. PAST SURGICAL HISTORY: 1. Endometrial ablation done on 07/20/2019. 2. Tubal ligation. 3. Leg tumor removal unknown date. MEDICATIONS: She is on: 1. Iron supplementation. 2. Propranolol 60 mg twice daily. 3. Some supplements. ALLERGIES: She is allergic to ZOFRAN. FAMILY HISTORY: Noncontributory. HARDBOARD GRINDER HISTORY: She is a 4, para 3-0-1-3 as stated above, with 3 prior vaginal deliveries. She has had a tubal ligation for control. Menstrual cycles are noted to be irregular and heavy in nature with passage of large clots and significant dysmenorrhea, failed endometrial ablation. SOCIAL HISTORY: She is a nonsmoker, but admits to marijuana use for pain control and anxiety. She denies alcohol or other drug use. REVIEW OF SYSTEMS: She admits to fatigue, but she denies fevers, chills, or night sweats. She denies headaches or sinus congestion. She denies chest pain or syncope, syncope. Respiratory, she denies shortness of breath, wheezing, or coughing. She denies nausea, vomiting, diarrhea, constipation. As far as genitourinary, she admits to dysmenorrhea and menorrhagia symptoms. She denies urinary urgency, frequency, or dysuria. She denies anxiety or depression. PHYSICAL EXAMINATION: Vital signs are noted to be stable. In general, this is a well-nourished, well-developed female in no acute distress, breathing has nonlabored effort with clear lung sounds bilaterally. Heart has a regular rate and rhythm. On vaginal exam, external genitalia is noted to be normal for her age with no lesions. Vaginal mucosa is noted to be pink and well rugated. Her cervix is noted to be without lesion. Her uterus is mobile and nontender. There are no adnexal masses appreciated. Neurological is she is grossly oriented to person, place, and time. Her mood is normal and affect is appropriate. ASSESSMENT: Menorrhagia with failed endometrial ablation, medical treatment. She desires definitive treatment with hysterectomy and ovarian conservation given her age. Surgery is reviewed in detail with the patient including, but not limited to risks including infection, bleeding, damage to bladder, bowel, ureteric or other pelvic structure, injury. Patient states there is risk too anesthesia as well. The patient states understanding of all these risks and wishes to proceed with definitive treatment of robotic assisted vaginal hysterectomy, diagnostic cystoscopy, possible open procedure to complete. MMODL / IJN: [id number] /
[~2019-11-22 06:24] MED LIST changes: -GLYCOPYRROLATE 0.2 MG/ML 2 ML VIAL ONE; -KETOROLAC 30 MG/ML 1 ML VIAL ONE; -LACTATED RINGERS 1,000 ML IV ONE; -LACTATED RINGERS 1,000 ML IV SCH; -LIDOCAINE 1% 20 ML VIAL (10MG/ML) FOR IV START INTRADERMA ONE; -LIDOCAINE 1% INJ 10MG/ML (20 ML MDV) ONE; -METOCLOPRAMIDE 5 MG/ML 2 ML VIAL ONE; -MIDAZOLAM 2 MG/2 ML VIAL ONE; +ONDANSETRON 4 MG/2 ML VIAL IVP ONE; -PROPOFOL 10 MG/ML 20 ML VIAL IV ONE; -Pre Op ABX Message 1 EACH MISC MISCELLANE ONE; -diphenhydrAMINE 50 MG/ML 1 ML VIAL ONE; -fentaNYL (PF) 50 MCG/ML 2 ML AMP ONE
[2019-11-22] MEDS ORDERED: ACETAMINOPHEN IV (For NPO) 1,000 MG in EMPTY BAG 1 BAG IVPB ONE (07:00)
[2019-11-22] MEDS: LACTATED RINGERS 1,000 ML IV SCH ×2 (07:10→07:11)
[2019-11-22] MEDS ORDERED: PROPRANOLOL 20 MG TAB PO STA (07:18)
[2019-11-22] MEDS ORDERED: MIDAZOLAM 2 MG/2 ML VIAL IV ONE (07:25)
[2019-11-22] MEDS ORDERED: fentaNYL (PF) 50 MCG/ML 2 ML AMP IV ONE (07:26)
[2019-11-22] MEDS ORDERED: LIDOCAINE 1% INJ 10MG/ML (20 ML MDV) ONE (07:35)
[2019-11-22] MEDS ORDERED: DEXAMETHASONE SOD PHOSPHATE 4 MG/ML 1 ML VIAL ONE (07:35)
[2019-11-22] MEDS ORDERED: ROPIVACAINE 5 MG/ML 30 ML VIAL ONE (07:35)
[2019-11-22] MEDS ORDERED: SUCCINYLCHOLINE CHLORIDE 100 MG/5 ML SYR IV ONE (07:35)
[2019-11-22] MEDS ORDERED: PROPOFOL 10 MG/ML 20 ML VIAL IV ONE (07:35)
[2019-11-22] MEDS ORDERED: diphenhydrAMINE 50 MG/ML 1 ML VIAL ONE (07:35)
[2019-11-22] MEDS ORDERED: NEOSTIGMINE 1 MG/ML 10 ML VIAL ONE (07:35)
[2019-11-22] MEDS ORDERED: fentaNYL (PF) 50 MCG/ML 2 ML AMP ONE (07:35)
[2019-11-22] MEDS ORDERED: ROCURONIUM BROMIDE 10 MG/ML 5 ML VIAL IV ONE (07:35)
[2019-11-22] MEDS ORDERED: GLYCOPYRROLATE 0.2 MG/ML 2 ML VIAL ONE (07:35)
[2019-11-22] MEDS ORDERED: KETOROLAC 30 MG/ML 1 ML VIAL ONE (07:35)
[2019-11-22] MEDS ORDERED: BUPIVACAINE (PF) 0.25% 30 ML VIAL SQ ONE ×3 (08:15→09:20)
--- NOTE | 2019-11-22 08:20 | P.ANPRN ---
Procedure Note - Anesthesia - Nerve Block Performed Bilateral Transversus Abdominis Single Time Out Performed: Yes Date of Procedure: 11/22/19 Procedure Start Time: 07:25 Procedure Stop Time: 07:35 Location of Patient: PreOp Indication: Acute Post-Operative Pain, Requested by Surgeon Sedation Type: Sedate with meaningful contact maintained Preparation: Sterile Prep Position: Supine Catheter: None Needle Types: Pajunk Needle Gauge: 21 Ultrasound used to visualize needle placement: Yes Ultrasound used to observe medication spread: Yes Injectate: 0.5% Ropivacaine (see comment for volume) (ropivacaine 0.5%- 20 cc+ decadron 4 mg--- per side) Blood Aspirated: No Pain Paresthesia on Injection Noted: No Resistance on Injection: Normal Image Stored and Saved: Yes Events: Uneventful and Well Tolerated
[2019-11-22] MEDS ORDERED: Acetaminophen-Codeine 300-30mg TAB PO PRN (09:16)
[2019-11-22] MEDS ORDERED: ALBUTEROL NEBULIZED 2.5 MG/3 ML INHALATION PRN (09:19)
--- NOTE | 2019-11-22 09:26 | P.OP ---
Date of Procedure: 11/22/19 Preoperative Diagnosis: Menorrhagia, anemia, failed endometrial ablation Postoperative Diagnosis: Same Procedure(s) Performed: Robotic cyst vaginal hysterectomy with bilateral salpingectomy, diagnostic cystoscopy Anesthesia: JOSE MANUELA Surgeon: Sandhya Campos Commissions Specialist #1: Leigh Ann Soria Estimated Blood Loss (ml): 50 IV fluids (ml): 700 Urine output (ml): 50 Pathology: other (Uterus tubes cervix) Condition: stable Disposition: PACU Indications for Procedure: This 54-year-old female underwent endometrial ablation for menorrhagia with anemia in July 2019. Patient noted no change in bleeding pattern since this time. Patient was noting mental menorrhagia. Patient desired definitive treatment with hysterectomy and ovarian conservation. Operative Findings: Globular uterus consistent with adenomyosis is appreciated. Normal ovaries are appreciated bilaterally on cystoscopy a normal bladder is appreciated bladder bubbles visualized 360 visualization of the bladder was noted to be normal both ureteral orifices were noted to be spilling clear yellow urine. Description of Procedure: Patient was seen in the preoperative area and informed consent is obtained. Patient was taken back to the operating suite where general anesthesia was obtained without difficulty by the anesthesia department. She was prepped and draped in normal sterile fashion in the dorsal lithotomy position. A Cannon catheter was placed under sterile technique. A weighted speculum was placed in the posterior vaginal vault the anterior lip of the cervix was visualized and g rasped with a single-tooth tenaculum. The endocervical canal was then dilated and a V care uterine manipulator was placed. At this time all instruments were removed from the vaginal vault. Attention was then turned the patient's abdomen where a proximally 2 finger breaths above the umbilicus a small skin incision is made. Through this incision the Veress needle was placed. Once the Veress nee dle was deemed to be in the appropriate position with a drop of CO2 pressure CO2 insufflation was allowed to occur. Approximately 3 L of gas or used to obtain pneumoperitoneum. At this time an 8 mm trocar and sleeve is placed through the skin incision toward the pneumoperitoneum under direct visualization. The trocar was removed with the sheath remaining in place. The above-noted findings were then visualized. At this time the additional port sites are placed at 10 cm lateral and 370 m inferior midline port these are 8 mm ports and placed under direct visualization. In the left upper quadrant 12 mm trocar and sleeve is placed under direct visualization. At this time the da Svitlana robot was docked in the usual fashion the operative arms are now placed. The right operative arm the monopolar scissors and the left operative arm the bipolar forceps is placed. Attention was then turned to the patient's left fallopian tube which was grasped the ovary then was noted be quite adherent to the OB her itself therefore it was left majority of the tube was grasped quite distally and proximally and divided. This continued through to the uterine ovarian ligament which was coagulated distally and proximally and divided. Hemostasis was appreciated. This continued through the broad and toward the round which was coagulated distally and proximally and divided. The bladder flap was then created from the left using sharp and blunt dissection. Attention was then turned the patient's right fallopian tube which was grasped coagulated and transected. This continued toward the uterine ovarian ligament which was coagulated distally and proximal plane divided. This continued through the broad and toward the round which was coagulated distally and proximal plane divided. The bladder flap from the right was then created using sharp and blunt dissection. The ascending branch of the uterine artery was visualized coagulated distally and proximally and divided. Hemostasis was appreciated. This was then repeated on the opposite side. At this time the only remaining attachment was a vaginal attachment therefore colpotomy incision was made in a circumferential fashion. Uterus and fallopian tubes were then delivered through the vaginal opening. The pelvis then copiously irrigated. The vaginal cuff was then closed with 4, 0 Vicryl [id number] sutures. Hemostasis was ryan reciated after irrigation. At this time all instrument removed from the patient's abdomen and the da Svitlana was undocked in the usual fashion. Attention was then turned the patient's Cannon catheter which was removed without difficulty and a cystoscope was placed through the urethra and toward the bladder bladder bubble was noted both ureteral orifices were noted to be spilling clear yellow urine the bladder was noted to be intact without defect. The cystoscope was then removed and the Cannon catheter was replaced. Attention was then turned the patient's abdomen where the skin incisions were closed in a subcuticular fashion with 4-0 Vicryl. Steri-Strips and sterile dressings were applied. patient tolerated procedure well all counts were correct 2 patient was taken to the recovery room awake in stable condition.
[2019-11-22] MEDS: HYDROmorphone 0.5 MG/0.5 ML SYRINGE IVP PRN ×2 (09:59→10:09)
[2019-11-22] MEDS ORDERED: IBUPROFEN IV 800 MG in SODIUM CHLORIDE 0.9% 250 ML IV ONE (11:28)
[2019-11-22] MEDS: Acetaminophen-Codeine 300-30mg TAB PO PRN ×2 (15:39→22:48)
[2019-11-22 18:14] VITALS: RESP 16
[2019-11-22] MEDS: IBUPROFEN 600 MG TAB PO PRN (20:25)
[2019-11-22] MEDS: FERROUS SULFATE 325 MG TAB PO SCH ×2 (21:06→22:50)
[2019-11-23 00:37] VITALS: PULSE 95
[2019-11-23] MEDS: IBUPROFEN 600 MG TAB PO PRN ×2 (02:50→10:12)
[2019-11-23] MEDS: Acetaminophen-Codeine 300-30mg TAB PO PRN ×2 (06:12→12:20)
[2019-11-23 07:41] VITALS: BP 123/83; TEMP 98.4
--- NOTE | 2019-11-23 08:06 | P.DS ---
Providers Date of admission: 11/22/2019 Expected date of discharge: 11/23/19 Attending physician: Sandhya Campos Primary care physician: Matthew Gonzalez - Discharge Diagnosis(es) (1) Dysmenorrhea Current Visit: Yes Status: Acute (2) Anemia Current Visit: No Status: Acute (3) Menorrhagia Current Visit: No Status: Acute Hospital Course: This is a pleasant 54-year-old female that presented to the hospital yesterday for scheduled robotic-assisted vaginal hysterectomy/diagnostic cystoscopy. Patient had been seen for menorrhagia previously in 2019 and endometrial ablation was completed. Patient and no change in her menstrual cycles and continued anemia. Patient requested definitive treatment with robotic-assisted vaginal hysterectomy given failure of endometrial ablation. Patient was taken back to the operating suite surgery was performed without difficulty for further details on the procedure please see the operative report. Patient's postoperative course has been uneventful. On this postop day #1 she is ambulating and voiding without difficulty. She denies vaginal bleeding. She is tolerating a regular diet without nausea or vomiting. She states her pain is well-controlled with Tylenol No. 3. Patient Condition at Discharge: Good Plan - Discharge Summary Discharge Rx Participant: Yes New Discharge Prescriptions: No Action Ferrous Sulfate [Iron (65 MG Elemental)] 325 mg PO TID Lactobacillus Acidophilus [Acidophilus] 1 each PO BID #60 tablet Albuterol Inhaler [Ventolin Hfa Inhaler] 2 puff INHALATION RT-Q6H PRN PRN Reason: Shortness Of Breath Omeprazole [PriLOSEC] 20 mg PO AC-BID PRN PRN Reason: gerd Propranolol HCl [Propranolol HCl ER] 60 mg PO BID Discharge Medication List Ferrous Sulfate [Iron (65 MG Elemental)] 325 mg PO TID 07/14/19 [History] Lactobacillus Acidophilus [Acidophilus] 1 each PO BID #60 tablet 08/17/19 [Rx] Albuterol Inhaler [Ventolin Hfa Inhaler] 2 puff INHALATION RT-Q6H PRN 11/19/19 [History] Omeprazole [PriLOSEC] 20 mg PO AC-BID PRN 11/19/19 [History] Propranolol HCl [Propranolol HCl ER] 60 mg PO BID 11/19/19 [History] Follow up Appointment(s)/Referral(s): Tremp,Sandhya S, DO [Doctor of Osteopathic Medicine] - 2 Weeks Patient Instructions/Handouts: Laparoscopic Hysterectomy (DC), Laparoscopic Hysterectomy (GEN) Discharge Disposition: HOME SELF-CARE
[2019-11-23 08:07] LABS: Anisocytosis Slight; Basophils % (A) 0 %; Eosinophils % (A) 0 %; HCT 39.5 % (34.0-46.0); HGB 11.9 gm/dL (11.4-16.0); Hypochromasia Slight; Lymphocytes # (A) 1.8 k/uL (1.0-4.8); Lymphocytes % (A) 13 %; MCH 23.5 pg (25.0-35.0); MCHC 30.2 g/dL (31.0-37.0); MCV 77.9 fL (80.0-100.0); Microcytosis Slight; Monocytes # (A) 0.6 k/uL (0-1.0); Monocytes % (A) 4 %; Neutrophils # (A) 11.1 k/uL (1.3-7.7); Neutrophils % (A) 81 %; Platelet Count 287 k/uL (150-450); RBC 5.07 m/uL (3.80-5.40); RDW 17.3 % (11.5-15.5); WBC 13.6 k/uL (3.8-10.6)
[2019-11-23] MEDS: FERROUS SULFATE 325 MG TAB PO SCH (08:47)
== END 2019-11-23 13:03 | disposition home or self-care (01) ==
LOC: OR 06:24 → 4FBP 09:22 → OR 11-23 13:03
PROVIDERS: ATTEND Obstetrics & Gynecology Obstetrics
DX: D25.9 Leiomyoma of uterus, unspecified (principal); N80.2 Endometriosis of fallopian tube; N83.8 Other noninflammatory disorders of ovary, fallopian tube and broad ligament; N92.0 Excessive and frequent menstruation with regular cycle; N94.6 Dysmenorrhea, unspecified; D64.9 Anemia, unspecified; I10 Essential (primary) hypertension; G43.909 Migraine, unspecified, not intractable, without status migrainosus; M41.9 Scoliosis, unspecified; K21.9 Gastro-esophageal reflux disease without esophagitis; E66.9 Obesity, unspecified; Z79.899 Other long term (current) drug therapy; Z98.51 Tubal ligation status; Z68.35 Body mass index [BMI] 35.0-35.9, adult; Z87.01 Personal history of pneumonia (recurrent); Z87.442 Personal history of urinary calculi; Z88.8 Allergy status to other drugs, medicaments and biological substances
CPT/HCPCS: 64488; 86900; 86901; 85025; 86850; 88307; 58571; J2250; J1200; J1100 ×2; J2710; J0690; J2405; J2001; J3010; J1885; J2795; J0131; J0330; J1741; J2704; J1170

== ENCOUNTER → 2020-02-22 | Outpatient (CLI) | payer OTHER ==
--- NOTE | 2020-02-22 10:40 | XR ---
EXAMINATION TYPE: XR chest 2V DATE OF EXAM: 02/22/2020 COMPARISON: 08/16/2019 INDICATION: Chest pain left side from fall TECHNIQUE: Frontal and lateral views of the chest are obtained. FINDINGS: The heart size is normal. The pulmonary vasculature is normal. The lungs are clear. No pneumothorax is evident. No displaced rib fractures are identified. IMPRESSION: 1. No acute pulmonary process.
== END | disposition home or self-care (01) ==
LOC: RADXRMAIN 10:21
PROVIDERS: ATTEND Family Medicine
DX: R07.89 Other chest pain (principal)
CPT/HCPCS: 71046

== ENCOUNTER 2020-03-28 14:52 | Emergency (ER) | payer OTHER ==
--- NOTE | 2020-03-28 15:16 | ED ---
Lower Extremity Injury HPI - General Chief Complaint: Extremity Injury, Lower Stated Complaint: L ankle injury Time Seen by Provider: 03/28/20 14:58 Source: patient Mode of arrival: ambulatory Limitations: no limitations - History of Present Illness Initial Comments: Patient is a 55-year-old female presenting to the emergency department with a chief complaint of left ankle pain. Patient reports she suffered an inversion injury of the left ankle. Patient reports some swelling in the region but no ecchymosis. Patient reports most the swelling is located along the lateral malleolus of the left ankle with some tenderness. Patient denies any numbness or tingling. States she had an edible marijuana before coming to the emergency department which helped the pain - Related Data Home Medications Medication Instructions Recorded Confirmed Ferrous Sulfate [Iron (65 MG 325 mg PO TID 07/14/19 11/19/19 Elemental)] Albuterol Inhaler (Mhu) [Ventolin 2 puff INHALATION RT-Q6H PRN 11/19/19 11/19/19 Hfa Inhaler] Omeprazole [PriLOSEC] 20 mg PO AC-BID PRN 11/19/19 11/19/19 Propranolol HCl [Propranolol HCl 60 mg PO BID 11/19/19 11/19/19 ER] Previous Rx's Medication Instructions Recorded Lactobacillus Acidophilus 1 each PO BID #60 tablet 08/17/19 [Acidophilus] Allergies Allergy/AdvReac Type Severity Reaction Status Date / Time No Known Allergies Allergy Verified 03/28/20 14:56 Review of Systems ROS Statement: Those systems with pertinent positive or pertinent negative responses have been documented in the HPI. ROS Other: All systems not noted in ROS Statement are negative. Past Medical History Past Medical History: GERD/Reflux Additional Past Medical History / Comment(s): Cyclic vomiting syndrome, HIATAL HERNIA, MIGRAINES, SCOLIOSIS, COMPRESSED VERTEBRA/BACK PAIN-T7, kidney stone. History of Any Multi-Drug Resistant Organisms: None Reported Past Surgical History: Tubal Ligation Additional Past Surgical History / Comment(s): BENIGN bone tumor removed left leg. D&C Past Anesthesia/Blood Transfusion Reactions: No Reported Reaction Additional Past Anesthesia/Blood Transfusion Reaction / Comment(s): CLAUSTEPHOBIC Past Psychological History: Anxiety, Depression Smoking Status: Former smoker Past Alcohol Use History: None Reported Past Drug Use History: Marijuana - Past Family History Mother Family Medical History: Cancer Additional Family Medical History / Comment(s): Mother of lymphoma at the age of 81 yrs. Father Family Medical History: Coronary Artery Disease (CAD), Myocardial Infarction (SC) Additional Family Medical History / Comment(s): Father had a SC at the age of 56yrs and had CABG. He from a head injury/brain bleed at the age of 86yrs. Sister(s) Family Medical History: Cancer Additional Family Medical History / Comment(s): Breast cancer. General Exam Limitations: no limitations General appearance: alert, in no apparent distress Head exam: Present: atraumatic, normocephalic, normal inspection Eye exam: Present: normal appearance, PERRL, EOMI Pupils: Present: normal accommodation ENT exam: Present: normal exam, normal oropharynx, mucous membranes moist. Ab sent: TM's normal bilaterally, normal external ear exam Neck exam: Present: normal inspection, full ROM Respiratory exam: Present: normal lung sounds bilaterally. Absent: respiratory distress, wheezes Cardiovascular Exam: Present: regular rate, normal rhythm, normal heart sounds Extremities exam: Present: tenderness (Tenderness in the region of swelling.), normal capillary refill, joint swelling (Left ankle), other (+2 dorsalis pedis and posterior tibialis bilaterally.). Absent: normal inspection (Swelling noted on the lateral malleolus of the left foot. No ecchymotic regions noted.), full ROM (Limited range of motion with inversion due to pain.) Back exam: Present: normal inspection, full ROM. Absent: tenderness, CVA tenderness (R), CVA tenderness (L) Neurological exam: Present: alert, oriented X3 Psychiatric exam: Present: normal affect, normal mood Skin exam: Present: warm, dry, intact, normal color Course Vital Signs 03/28/20 03/28/20 14:53 16:44 Temperature 99.3 F 98.8 F Pulse Rate 113 H 83 Respiratory 18 16 Rate Blood Pressure 136/84 114/85 O2 Sat by Pulse 97 97 Oximetry Medical Decision Making - Medical Decision Making Patient is a 55-year-old female presenting to emergency Department with a chief complaint of neck pain. Vision suffered a number injured patient suffered an inversion injury of the left ankle. Some tenderness along the lateral malleolus but no ecchymosis or erythema. Mild tenderness in the region. Full range of motion. Patient is neurovascularly intact in the left lower extremity. X-ray reveals no signs of fractures or dislocations. Patient advised to alternate between Tylenol and Motrin for pain control. Advised to apply ice compress to minimize symptoms. Advised to keep the leg elevated. Advised to follow with an streaming media specialist. Strict return parameters were thoroughly discussed with patient was understanding and agreeable. Case discussed with physician. Disposition Clinical Impression: Left ankle sprain Disposition: HOME SELF-CARE Condition: Stable Instructions (If sedation given, give patient instructions): Ankle Sprain (ED) Additional Instructions: Alternate between Tylenol and Motrin for pain control. Apply ice compress. Follow-up with streaming media specialist. Return to emergency department if symptoms worsen. Is patient prescribed a controlled substance at d/c from ED?: No Referrals: Matthew Gonzalez MD [Primary Care Provider] - 1-2 days Lc Naylor MD [STAFF PHYSICIAN] - 1-2 days Time of Disposition: 16:18
--- NOTE | 2020-03-28 15:36 | XR ---
Left ankle HISTORY: Trauma and pain 3 views of the left ankle Bone mineralization, joint spaces and alignment are maintained. Ossific density distal to the fibula is well-corticated and likely a chronic finding. Some mild thickening along the distal lateral aspect of the left tibial metadiaphysis is likely normal variant. There is a plantar calcaneal spur. Only m ild soft tissue swelling. IMPRESSION: No fracture or dislocation.
[2020-03-28 16:47] VITALS: BP 114/85; PULSE 83; RESP 16; TEMP 98.8
== END 2020-03-28 16:47 | disposition home or self-care (01) ==
LOC: EC 14:52
DX: S93.402A Sprain of unspecified ligament of left ankle, initial encounter (principal); M54.2 Cervicalgia; K21.9 Gastro-esophageal reflux disease without esophagitis; Z79.899 Other long term (current) drug therapy; Z87.891 Personal history of nicotine dependence; X50.0XXA Overexertion from strenuous movement or load, initial encounter
CPT/HCPCS: 99283

== ENCOUNTER → 2020-12-28 | Outpatient (CLI) | payer OTHER ==
--- NOTE | 2020-12-28 16:10 | XR ---
EXAMINATION TYPE: XR chest 2V DATE OF EXAM: 12/28/2020 COMPARISON: 02/22/2020 TECHNIQUE: PA and lateral views submitted. HISTORY: Shortness of breath FINDINGS: The lungs are clear and there is no pneumothorax, pleural effusion, or focal pneumonia. Heart size normal. No overt failure. Hypertrophic and degenerative change of the spine. A mildly coarsened inter stitium. IMPRESSION: 1. No acute infiltrate. There is coarsened interstitium which may be related to reduced inspiration r ather than bronchitis or interstitial pneumonitis correlate clinically.
== END ==
LOC: RADXRMAIN 15:01
PROVIDERS: ATTEND Family Medicine
DX: R06.02 Shortness of breath (principal)
CPT/HCPCS: 71046

== ENCOUNTER → 2020-12-28 | Outpatient (CLI) | payer OTHER ==
[2020-12-29 01:08] LABS: HCT 40.3 % (37.2-46.3); HGB 12.7 g/dL (12.0-15.0); MCHC 31.5 g/dL (32.0-37.0); MCV 79.5 fL (80.0-97.0); Mean Platelet Volume 10.9 fL (9.5-12.2); Platelet Count 352 X 10*3/uL (140-440); RBC 5.07 X 10*6/uL (4.10-5.20); RDW 15.7 % (11.5-14.5); WBC 9.86 X 10*3/uL (4.50-10.00)
[2020-12-29 02:13] LABS: Hemoglobin A1C 7.8 % (4.0-6.0)
[2020-12-29 03:53] LABS: African American GFR (CKD) 113.8 (60.0-200.0); Albumin 4.5 g/dL (3.80-4.90); Albumin/Globulin Ratio 1.8 (1.60-3.17); BUN/Creat Ratio 25.71 Ratio (12.00-20.00); C Reactive Protein 0.8 mg/dL (0.0-0.8); Calcium 9.4 mg/dL (8.7-10.3); Chol/HDL Ratio 3.55; Globulin 2.5 g/dL (1.6-3.3); LDL Cholesterol,Calculated 124.4 mg/dL (0.0-131.0); Non-African American GFR(CKD) 98.2 (60.0-200.0); Potassium 3.9 mmol/L (3.5-5.5); Total Bilirubin 0.4 mg/dL (0.3-1.2); VLDL Calculation 33.6 mg/dL (5.00-40.00)
[2020-12-29 05:12] LABS: Immunoglobulin E 9.36 IU/mL (0.00-114.00)
[2020-12-29 08:31] LABS: Cyclic Citrull Pep IgG Unit <0.5 U/mL; Cyclic Citrullinated Pep IgG NEGATIVE (NEGATIVE)
== END | disposition home or self-care (01) ==
LOC: LABWHC1 14:29
PROVIDERS: ATTEND Family Medicine
DX: R06.00 Dyspnea, unspecified (principal)
CPT/HCPCS: 36415; 80053; 80061; 82306; 82785; 83036; 83540; 83880; 84443; 85027; 85379; 86140; 86200; 86431

== ENCOUNTER → 2021-02-02 | Day surgery (SDC) | payer OTHER ==
[2021-01-30 13:13] VITALS: BMI 33.0
[~2021-02-02] MED LIST changes: -DEXAMETHASONE SOD PHOSPHATE 10 MG/ML 1 ML VIAL IV ONE; +IV FLUID CONTINUATION 1,000 ML IV ONE; +LIDOCAINE 1% INJ 10MG/ML (20 ML MDV) ONE; -MIDAZOLAM 2 MG/2 ML VIAL IV PRN; -ONDANSETRON 4 MG/2 ML VIAL IVP ONE; +PROPOFOL 10 MG/ML 20 ML VIAL IV ONE; -SCOPOLAMINE 1.5MG/72HR PATCH TRANSDERM ONE
[2021-02-02 12:30] VITALS: TEMP 97
[2021-02-02 12:41] LABS: Glucose,Whole Blood 135 mg/dL (75-99)
[2021-02-02] MEDS: LACTATED RINGERS 1,000 ML IV SCH ×2 (12:46→13:15)
--- NOTE | 2021-02-02 13:43 | P.PCN ---
Date of Procedure: 02/02/21 Procedure(s) Performed: Brief history: Patient is a pleasant 55-year-old white female scheduled for an elective upper endoscopy as well as colonoscopy as a part of evaluation of I deficiency anemia. Procedure performed: Esophagogastroduodenoscopy with biopsy Colonoscopy Preoperative diagnosis: Iron deficiency Anemia Anesthesia: MAC Procedure: After informed consent was obtained from the patient was brought into the endoscopy unit and IV sedation was administered by anesthesia under continuous monitoring. Initially upper endoscopy was done. The Olympus GF 160 video endoscope was inserted inserted into the mouth and esophagus intubated without any difficulty and was gradually advanced into the stomach and duodenum and carefully examined. The bulb and second part of the duodenum appeared normal. Biopsies were done from the duodenum to rule out celiac disease. The scope was then withdrawn into the stomach adequately insufflated with air and upon careful examination the antrum mild gastritis and biopsies were done from this area. The and body, cardia and fundus appeared normal. The scope was then withdrawn into the esophagus. The GE junction was located at 34 cm to the incisors. Grade size hiatal hernia noted. The GE junction had 2 linear erosions consistent with LA grade B reflux esophagitis Rest of the esophagus appeared normal. Patient tolerated the procedure well. At this time the patient continued to remain sedation. Initial digital rectal examination was normal. Olympus CF 160 video colonoscope was then inserted into the rectum and gradually advanced to the cecum without any difficulty. Careful examination was performed as the scope was gradually being withdrawn. The prep was excellent. The cecum, ascending colon, transverse colon, descending colon, sigmoid colon and rectum appeared normal. Retroflexion was performed in the rectum and no lesions were noted. Patient tolerated the procedure well. Impression: 1. Upper endoscopy revealed moderate size hiatal hernia, LA grade B reflux esophagitis and mild antral gastritis 2. Colonoscopy was within normal limits with no evidence of colorectal neoplasia Recommendations: Findings of this examination were discussed with the patient as well as a family. She was advised to follow with the biopsy results. She can have a repeat screening colonoscopy in 10 years.
[2021-02-02 14:23] VITALS: BP 137/81; PULSE 77; RESP 17
== END ==
LOC: ORWHC2ENDO 11:50
PROVIDERS: ATTEND Internal Medicine Gastroenterology
DX: K29.50 Unspecified chronic gastritis without bleeding (principal); K44.9 Diaphragmatic hernia without obstruction or gangrene; K21.00 Gastro-esophageal reflux disease with esophagitis, without bleeding; D50.9 Iron deficiency anemia, unspecified; Z88.5 Allergy status to narcotic agent
CPT/HCPCS: 88305; 45378; 43239; J2001; J2704

== ENCOUNTER → 2022-04-11 | Outpatient (CLI) | payer OTHER ==
--- NOTE | 2022-04-11 15:23 | BD ---
EXAMINATION TYPE: Axial Bone Density DATE OF EXAM: 04/11/2022 COMPARISON: NONE CLINICAL HISTORY: 57 year old Female. ICD-10 CODE: Z78.0 ASYMPTOMATIC MENOPAUSAL STATE Height: 65.5 Weight: 166.1 FRAX RISK QUESTIONS: Alcohol (3 or more units per day): no Family History (Parent hip fracture): no Glucocorticoids (More than 3mos): no (Ex: prednisone, prednisolone, methylprednisolone, dexamethasone, and hydrocortisone). History of Fracture in Adulthood: no Secondary Osteoporosis: 1. Type 1 Diabetes: no 2. Hyperthyroidism: no 3. Menopause before 45: no 4. Malnutrition: no 5. Chronic liver disease: no Rheumatoid Arthritis: no Current Tobacco Use: no RISK FACTORS HISTORY OF: History of Wrist Fracture: bilateral wrist When: as a child Surgery to Spine/Hip(right/left)/Wrist (right/left): no Family History of Osteoporosis: no Active: yes Diet low in dairy products/other sources of calcium: no Postmenopausal woman: yes Lost more than 2 inches in height since high school: yes MEDICATIONS: diabetic meds Additional History: EXAM MEASUREMENTS: Bone mineral densitometry was performed using the Veruta System. Bone mineral density as measured about the Lumbar spine is: ----- L1-L4(G/cm2): 0.990 T Score Values are as follows: ----- L1: -1.4 ----- L2: -1.4 ----- L3: -2.1 ----- L4: -1.6 ----- L1-L4: -1.6 Bone mineral density has: decreased -1.6 % since study of: 11.17.2012 Bone mineral density about the R hip (g/cm2): 0.801 Bone mineral density about the L hip (g/cm2): 0.788 T Score values are as follows: -----R Neck: -1.7 -----L Neck: -1.8 -----R Total: -0.8 -----L Total: -0.8 Bone mineral density has: decreased-3.5 % since study of: 11.17.2012 FRAX%s: The graph provided illustrates a 7.6% chance for a major osteoporotic fx and a 0.8% chance fo r the hips probability for fx in 10 years time. IMPRESSION: Osteopenia (T Score between -2.5 and -1). There is slightly increased risk of fracture and the patient may be considered for treatment. Re-Screen 2-5 years. NOTE: T-SCORE=SD OF THE YOUNG ADULT MEAN.
--- NOTE | 2022-04-12 14:13 | MM ---
Reason for Exam: Screening (asymptomatic). Last mammogram was performed 9 year(s) and 7 month(s) ago. Patient History: Menarche at age 16. First Full-Term at age 20. Patient has history of breast feeding. Sister had breast cancer, age 44. Risk Values: Fabiana 5 year model risk: 2.1%. NCI Lifetime model risk: 13.3%. Prior Study Comparison: 09/01/2012 Bilateral Screening Mammogram, [facility]. 09/10/2012 Left Diagnostic Mammogram, [facility]. Tissue Density: There are scattered fibroglandular densities. Findings: Analyzed By CAD. No suspicious groups of microcalcifications, spiculated or lobular masses, architectural distortion or other secondary signs of malignancy are mammographically apparent. Overall Assessment: Negative, BI-RAD 1 Management: Screening Mammogram of both breasts in 1 year. A negative mammogram report should not preclude additional follow up of suspicious palpable abnormalities. Patient should continue monthly self breast exam. A clinical breast exam by your physician is recommended on an annual basis and results should be correlated with mammographic findings. Electronically signed and approved by: Ed Nixon D.O. Radiologis
== END | disposition home or self-care (01) ==
LOC: RADMAMWWP 12:02
PROVIDERS: ATTEND Family Medicine
DX: Z12.31 Encounter for screening mammogram for malignant neoplasm of breast (principal); M85.89 Other specified disorders of bone density and structure, multiple sites; Z78.0 Asymptomatic menopausal state; Z80.3 Family history of malignant neoplasm of breast
CPT/HCPCS: 77067; 77080

== ENCOUNTER → 2023-02-12 | Outpatient (CLI) | payer OTHER ==
--- NOTE | 2023-02-12 20:57 | CT ---
EXAMINATION TYPE: CT thoracic spine wo con CT DLP: . DLP 772.50. mGycm, Automated exposure control for dose reduction was used. DATE OF EXAM: 02/12/2023 4:42 PM COMPARISON: MRI thoracic spine 10/01/2012. CLINICAL INDICATION:Female, 58 years old with history of M54.17; PHH, mid to upper back pain x4 month s TECHNIQUE: Axial images of the thoracic spine were obtained without contrast. Coronal and sagittal re formats were performed. 3-D reformats of the bones were created on a separate workstation and submitt ed for review. FINDINGS: Increased kyphosis of the thoracic spine with compression deformity of a T7 with at least 50% height loss. No retropulsion. There is degeneration changes with osteophytes, vacuum disc phenome non and endplate sclerosis. There is scattered multilevel facet joint arthropathy. No evidence for si gnificant spinal canal or neural foraminal stenosis. The thoracic vertebral bodies have preserved hei ghts and alignment. I do not see any evidence of extradural defects. Small hiatal hernia is present. IMPRESSION: 1. Moderate multilevel disc degeneration changes throughout the spine without evidence of significan t spinal canal or neural foraminal stenosis. 2. Wedge compression deformity of T7 vertebral body with at least 50% height loss and no retropulsio n. Similar to 2011. 3. Small hiatal hernia.
== END | disposition home or self-care (01) ==
LOC: RADCTMAIN 16:22
PROVIDERS: ATTEND Family Medicine
DX: M48.54XA Collapsed vertebra, not elsewhere classified, thoracic region, initial encounter for fracture (principal); K44.9 Diaphragmatic hernia without obstruction or gangrene; M51.16 Intervertebral disc disorders with radiculopathy, lumbar region
CPT/HCPCS: 72128